=== PATIENT | male | born 1960 | race Caucasian/White ===

== ENCOUNTER 2016-07-23 13:00 | Inpatient (IN) | payer MEDICARE ==
[~2016-07-23] VITALS: Ht 182.9 cm; Wt 102.1 kg
[2016-07-23 13:00] VITALS: BP 143/79
[~2016-07-23 13:00] MED LIST: /AMLO25TA; /CIPR75TA OR; /LINE60TA OR; /PANT40TA; /PANT40TA OR; /SUCR1TA; ACET65TA OR; ALTA10CA; AMLO5TAB2 PO; APRESOLINE PO; ASPI81TA45 OR; AUG875 PO; AUGM875T27 PO; BABY81CH; BACITAB PO; BISA10SU2 RE; BISA10SU30 PR; BISA5TA OR; CALCCHW12; CARAFATE1 PO; CIPR250T2 PO; CIPR500T4 OR; CIPRO PO; CLEO300C OR; COLA100C2 OR; COZA50TA18 OR; DOCU10ELUD PO; DRISDOL50 PO; FURO20TA2 OR; FURO40TA2 OR; GLUCOSACCS; HUMALIN R; HUMULINN SC; HYDR25TA7 OR; HYDR50TA7 OR; IBUPPOW25 PO; INSULIN; INSULIN NPH; INSULIN NPH SC; LANCETDEV -; LASI40TA OR; LOPR50TA; LOPR50TA OR; LOPRESSO25 PO; LOSA50TA20 PO; METO10TA2; MILKSUS OR; MIRALAX; MIRALAX PO; MIRALEX PO; MULTTAB23 PO; OMEP20TA7 OR; OSCAL600 PO; PLAVIX75 PO; PRAV80TA OR; PRIL40CA OR; PROTONIX40 PO; SIMV20TA2; SIMV40TA2 OR; VICO5TAB OR; VITAMIN D50000 UNT; VITAMIN D50000 UNT OR; ZOCO40TA OR; ZOCOR40 PO; [UNRECOGNIZED DRUG - CODE]; [UNRECOGNIZED DRUG - CODE]; [UNRECOGNIZED DRUG - OTHER]; drisdol
[2016-07-23] MEDS ORDERED: GLUCAGON FOR INJ 1 MG VIAL (J1610) SC PRN (13:45)
[2016-07-23] MEDS ORDERED: GLUCOSE 4 GM CHEW TABLET PO PRN (13:45)
[2016-07-23] MEDS ORDERED: MIRALAX *UNIT DOSE* 17GM PACKET PO PRN (13:45)
[2016-07-23] MEDS ORDERED: DEXTROSE 50% 50 ML SYRINGE IV PRN (13:45)
[2016-07-23] MEDS ORDERED: MOM 30ML SUSPENSION UDC PO PRN (13:45)
[2016-07-23] MEDS ORDERED: SILV1CRE19 TOP (13:53)
[2016-07-23] MEDS ORDERED: ASCO500T PO (13:53)
[2016-07-23] MEDS ORDERED: WARF-60 PO (13:53)
[2016-07-23] MEDS ORDERED: INSUHUMDS SC (13:53)
[2016-07-23] MEDS ORDERED: POTA10TA2 PO (13:53)
[2016-07-23] MEDS ORDERED: [UNRECOGNIZED DRUG - CODE] PO (13:53)
[2016-07-23] MEDS ORDERED: HYDR25TA PO (13:53)
[2016-07-23] MEDS ORDERED: FOLI1TAB2 PO (13:53)
[2016-07-23] MEDS ORDERED: ACET-654 PO (13:53)
[2016-07-23] MEDS ORDERED: METO-346 PO (13:53)
[2016-07-23] MEDS ORDERED: BISA10SU4 PR (13:53)
[2016-07-23] MEDS ORDERED: AMIO20TA PO (13:53)
[2016-07-23] MEDS ORDERED: LANTINJ4 SC (13:53)
[2016-07-23] MEDS ORDERED: ASPI325T PO (13:53)
[2016-07-23] MEDS ORDERED: FERR325T16 PO (13:53)
[2016-07-23] MEDS ORDERED: FURO20TA2 PO (13:53)
[2016-07-23] MEDS ORDERED: DOCU100C PO (13:53)
[2016-07-23] MEDS ORDERED: ROCA0.25 PO (13:54)
[2016-07-23] MEDS ORDERED: OMEP40CA2 PO (13:54)
[2016-07-23] MEDS ORDERED: PRAV80TA2 PO (13:54)
--- NOTE | 2016-07-23 14:52 | HPEPDOC ---
Advertising Display Rotator Note ADMISSION H&P + JOSE DATE OF ADMISSION: 07/23/16 DATE OF SERVICE: 07/23/16 IDENTIFICATION STATEMENT: 55-year-old gentleman status post acute IL followed by three-vessel CABG admitted for comprehensive integrated inpatient rehabilitation. There have been no significant changes in the patients condition since the preadmission screening. HISTORY OF PRESENT ILLNESS: Patient is a 55-year-old gentleman with multiple medical comorbidities including diabetes mellitus type 2 (poorly controlled), chronic kidney disease, stage IV and prior myocardial infarction who presented to [facility] on with chest pain. Troponin was 12.3. Patient also had ST elevations in the inferior leads and ST depressions in the lateral leads. Patient was transferred to [facility] for higher level of care. He underwent cardiac catheterization on 07/06/2016 which showed 3 vessel disease. He was placed on a heparin drip and beta blockers. He underwent a three-vessel CABG (CHANEY to LAD, SDH to OM 2, OM 3) on 07/09/2016. On postop day 2, the patient developed atrial fibrillation with rapid ventricular response, unresponsive and pulseless requiring CPR. He was recently intubated and placed on Levophed & primacor drips and IV amiodarone. He remained on an insulin drip. On postop day 4 he again had episode of rapid atrial fibrillation which she was bolused with IV amiodarone. He was also transfused one unit of packed red blood cells for hematocrit of 21. He was transitioned to oral amiodarone on 07/11/2016. He was given 1 dose of IV Lasix 20 mg. His insulin drip was eventually discontinued as well. On postop day 5, the patient was transferred to regular medical floor. On that all medical floor he was noted to have intermittent episodes of orthostatic hypertension. JENNY showed ejection fraction of 35-40%, loculated pericardial effusion posteriorly without compression. Oncology was consult for thrombocytosis and deemed secondary to nutritional versus reactive. All he was also noted to have intermittent episodes of hypoglycemia for which she underwent diabetic education. On 07/23/2016 the patient was deemed stable for discharge to [facility] inpatient rehabilitation unit. 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 milligrams daily Aspirin 325 mg daily Lasix 60 mg twice a day Hydralazine 25 mg twice a day Humalog before meals and at bedtime Metoprolol (Lopressor) 12.5 mg twice a day Calcitrol 0.25 mcg twice a day Omeprazole 40 mg daily Pravastatin 80 mg at bedtime FAMILY HISTORY: Mother suffered from coronary artery disease. She from colon and cervical cancer. A nephew has valvular heart disease. SOCIAL HISTORY: Patient lives with his in a one-story home. There are no steps to manage. He has a history of smoking 1 pack a day for 30 years, quit 2 years ago. He has a history of smoking crack cocaine, quit 8 years ago. Used to smoke marijuana, quit 10 years ago. He denies use of alcohol. Denies use of other illicit drugs, past or present. Review of Systems: General: no chills, +fatigue. Eyes: no change of vision. Ears, Nose & Throat: no sore throat, decreased hearing or nasal discharge. Cardiovascular: no chest pain. +edema b/l (patient states more than his baseline), no syncopal episodes. No recent lightheadedness. Pul: no cough, SOB. GI: no abdominal pain, GERD, N/V, C/D. Genitourinary: no dysuria. Musculoskeletal: episodic right neck pain, he was told from severe arthritis. no back pain, no muscle pain. Neurological: +numbness left LL to mid duffy, intermittent numbness b/l hands. No paresthesias, no tremors, seizures, HINTON. Hematological: No bleeding disorders. Skin: +chronic left heel ulcer, left duffy sores. + rash sternum. Psychiatric: no behavioral issues. VITAL SIGNS: 143/68, 98.5F, heart rate 69, respiratory rate 18, 94% saturation on room air and, weight 111.9 kg PHYSICAL EXAMINATION: GENERAL: Well nourished, well developed, sitting up EOB, no acute distress. HEENT: Normocephalic, atraumatic. No facial droop. PERRL, EOMI CARDIOVASCULAR: S1, S2, regular rate. Sternal surgical site, clean and intact. Surrounding maculopapular below rash in the distribution of the adhesive/ Tegaderm. Caudal pacer lead sites clean. 1-2+ pitting edema left lower limb to proximal leg, edema on the right residual limb. LUNGS: Decreased breath breath sounds left long midway up, right long clear task rotation. No wheezing or rhonchi appreciated. ABDOMEN: Soft, nontender, nondistended. Positive normoactive bowel sounds throughout. MUSCULOSKELETAL: Atrophy of the intrinsic hand muscles bilaterally. Amputation of the first and second toe on the left foot, surgical site well healed. Manual muscle testin/5 left hip flexors, knee extension, and a flexion, 2/5 left dorsi flexion. 5/5 right hip flexors, knee extension and knee flexion. 5/5 strength bilateral upper limbs in all major muscle groups with the exception of intrinsic hand muscles which are 3- 4/5. Sensation: Decreased sensation to soft touch left lower limb to proximal leg, remainder of the left lower limb and right lower limb as well as bilateral upper limbs and intact sensation. Deep tendon reflexes: Unable to elicit patellar and biceps bilaterally. Special tests : Spurlings maneuver positive on the right. NEUROLOGICAL: Alert and oriented x 3. Answers all questions appropriately. Able to follow commands without difficulty. SKIN: Stage I over the sacrum between buttocks. Stage II approximately 4 cm in diameter lesion over the left calcaneus. Hyperpigmentation with small areas of healing lesions left duffy. Maculopapular rash in the distribution of the adhesive/Tegaderm surrounding surgical incision. Caudal pacer lead sites clean. Right residual limb surgical site well healed. LABORATORY DATA: 07/19/2016: Iron 38, ferritin 468, iron saturation 17, TIBC 228, IBC 190 07/23/2016: Platelets 631, hematocrit 30.3, hemoglobin 10.3. INR 07/22/2016 1.79 (Received 6 mg dose Coumadin) INR 07/23/2016 1.75 (Ordered 6 mg Coumadin). OTHER TESTS: JENNY: Ejection fraction 35-40%, loculated pericardial effusion posteriorly, about 1 cm thick without compression. SURGICAL PROCEDURES Median sternotomy, coronary grafts 3 with CHANEY takedown, endoscopic saphenous vein harvest, and JENNY FUNCTIONAL STATUS, Premorbid: Patient was modified independent for ambulation, independent to modified independent for ADLs. The patient owns a manual wheelchair, Power wheelchair, frontwheel walker, shower chair that transforms into a transfer tub bench, raised toilet seat and multiple canes. ASSESSMENT AND PLAN: 1. Acute IL, inferior wall status post three-vessel CABG post-op complicated by new onset rapid A. fib with decreased mobility and dysfunctional ADLs: Sternal precautions. Maintain cardiac meds as prescribed by [facility] ( amiodarone, Lopressor, hydralazine, Lasix, pravastatin, aspirin, and Coumadin). Medication changes per cardiology. Monitor fluid status with daily weights. As spoken with the patients jawbone puller, Dr. Lopez. Rehabilitation nursing for bladder, bowel, medication management and wound care. Patient will undergo thorough physical and occupational therapy evaluations followed by daily intensive therapy. 2. Left pleural effusion: Patients O2 sats on room air are within normal limits. Per chest x-rays from [facility] this is been stable. Repeat chest x-ray if necessary. 3. Chronic kidney disease, stage IV: Per paperwork from [facility], patient at his baseline. Will obtain a.m. labs. If needed will consult nephrology (Dr. Lopez is his usual dye worker). 4. Anemia (acute blood loss + iron deficiency + chronic kidney disease): Status post one unit of packed red blood cells at [facility]. Maintain iron supplementation. AM labs. 5. Diabetes mellitus type 2, insulin-dependent: Last hemoglobin A1c over 9. Per discharge paperwork, had intermittent episodes of hypoglycemia at [facility]. Will monitor oral intake with emphasis on adequate blood pressure control. Maintain patient on insulin sliding scale along with long-acting 16 units in the morning. Adjustments as needed. 6. Diet/nutrition: Carb consistent diet. Prealbumin with morning labs. Nutritional supplements as indicated 7. Bowel: Maintain patient on a bowel regimen to include Colace and senna scheduled along with milk of magnesia and MiraLAX on an as-needed basis. 8. Skin: Patient with stage I decubiti over the sacrum, stage II over the left calcaneus. Foam dressings over both. Heel protector over the left heel. Left AFO to be assessed by Isak Modi on Tuesday. 9. Right BKA: Patients prosthesis currently not fitting secondary to edema. As stated above, patient is on diuretic and we will be monitoring his fluid balance along with daily weights. Medication changes will be per on Dr. Lopez. Have spoken with Isak Modi and will obtain shrinks jumpers. He will assess patients prosthesis on Tuesday. POST ADMISSION PHYSICIAN EVALUATION: On evaluation of the patient today there' ve been no significant medical issues or functional changes as compared to those noted in the preadmission screening document. This patient's inpatient rehabilitation remains necessary in light of the above conditions. The patient' s medical condition requires specialized care with physicians specially trained in physical medicine rehabilitation. The patient is capable motivated to participate in a minimum of 3 hours of therapy daily, 5 days minimum per week, and requires intensive inpatient rehabilitation to improve their functional status so that they can be safely to discharge back to their home. PROGNOSIS: Fair ESTIMATED LENGTH OF STAY: 10-14 days. Vital Signs Vital Sign - Last 24 Hours 07/23/16 13:00 Temp 97.6 Pulse 69 Resp 18 B/P 143/79 Pulse Ox 98 O2 Delivery Room Air Home Medications Scheduled (Daily-Soraida) 1 Tab Tab 1 TAB PO DAILY (Reported) Amiodarone HCl (Amiodarone HCl) 200 Mg Tab 200 MG PO DAILY (Reported) Ascorbic Acid (Ascorbic Acid) 500 Mg Tab 500 MG PO DAILY (Reported) Aspirin (Aspirin) 325 Mg Tab 325 MG PO DAILY (Reported) Calcitriol (Rocaltrol) 0.25 Mcg Cap 0.25 MCG PO BID (Reported) Docusate Sodium (Docusate Sodium) 100 Mg Cap 100 MG PO BID (Reported) Ferrous Gluconate (Ferrous Gluconate) 324 Mg Tab 324 MG PO BID (Reported) Folic Acid (Folic Acid) 1 Mg Tab 1 MG PO DAILY (Reported) Furosemide (Furosemide) 20 Mg Tab 60 MG PO BID (Reported) Hydralazine HCl (Hydralazine HCl) 25 Mg Tab 25 MG PO BID (Reported) Insulin Glargine (Lantus Solostar) 100 Unit/Ml Inj 16 UNITS SC QAM (Reported) Insulin Human Lispro (Humalog) 1 Units/0.01 Ml Inj 1 DOSE SC AC (Reported) PER SLIDING SCALE Metoprolol Tartrate (Metoprolol Tartrate) 12.5 Mg Halftab 12.5 MG PO BID ( Reported) Omeprazole (Omeprazole) 40 Mg Cap 40 MG PO DAILY (Reported) Potassium Chloride (Potassium Chloride ER) 10 Meq Tab 10 MEQ PO DAILY (Reported ) Pravastatin Sodium (Pravastatin Sodium) 80 Mg Tab 80 MG PO QHS (Reported) Silver Sulfadiazine (Silvadene) 1 % Cre 1 DOSE TOP DAILY (Reported) APPLY TO WOUNDS Warfarin Sod (Warfarin Sodium) 6 Mg Tab 6 MG PO QPM (Reported) Scheduled PRN Acetaminophen (Acetaminophen) 325 Mg Tab 650 MG PO Q4H PRN PRN PAIN (Reported) Bisacodyl (Bisacodyl) 10 Mg Sup 10 MG MD DAILY PRN PRN CONSTIPATION (Reported) Allergies Coded Allergies: No Known Allergies (Verified Allergy, Unknown, 09/21/07) MAKENZIE VILA MD Jul 23, 2016 14:52
[2016-07-23] MEDS ORDERED: WARFARIN SOD 3 MG TAB PO ONE (17:00)
[2016-07-23] MEDS: FUROSEMIDE 20 MG TAB PO SCH (17:12)
[2016-07-23] MEDS: HumaLOG INSULIN (NovoLOG) PER UNIT SC SCH ×2 (17:13→21:00)
[2016-07-23 20:00] VITALS: BP 152/80
[2016-07-23] MEDS: METOPROLOL TART 12.5 MG PER 1/2 TAB PO SCH (21:47)
[2016-07-23] MEDS: DOCUSATE SODIUM 100 MG CAP PO SCH (21:48)
[2016-07-23] MEDS: PRAVASTATIN 20 MG TAB PO SCH (21:48)
[2016-07-23] MEDS: SENNA 8.6 MG TAB (SENOKOT) PO SCH (21:48)
[2016-07-23] MEDS: FERROUS GLUCONATE 324 MG TAB PO SCH (21:48)
[2016-07-23] MEDS: ASCORBIC ACID 500 MG TAB PO SCH (21:48)
[2016-07-23] MEDS: CALCITRIOL 0.25 MCG CAP (S0169) PO SCH (21:48)
[2016-07-23] MEDS: **hydrALAZINE HCL** 25 MG TAB PO SCH (21:48)
--- NOTE | 2016-07-24 00:49 | CR ---
DATE OF CONSULTATION: 07/23/2016 REFERRING PROVIDER: Dr. Laisha Zamora REASON FOR THE CONSULT: Status post acute myocardial infarction and coronary artery bypass graft (CABG), pedal edema. HISTORY OF THE PRESENT ILLNESS: A 55-year-old male, well known by the office with a history of coronary artery disease, hypertension, diabetes mellitus, chronic kidney disease, has been doing well and stable from a cardiac point of view. On the last office visit in the month of May, he was doing fine, and he denied any cardiac complaints. About 2 days prior to coming to the emergency room (ER) at [facility], on 07/08/2016, he started having chest pain associated with shortness of breath and it was related to a cold, then a pneumonia because he was getting worse. He came to the ER, and he was found to have a serum troponin up to 12, and he had EKG changes consistent with a non-ST elevation myocardial infarction with ST elevation noted in the inferior leads and . He was transferred to [facility] and had urgent cardiac catheterization that revealed a 50% stenosis in the distal left main, and 80% stenosis at the ostium of the LAD, followed by 50%, then another 75-80% stenosis in the mid portion. The circumflex had a 90% stenosis in the mid portion and at the level of the left PDA, there was an 80% stenosis. The first and the second marginal branches had an 80 and a 90% stenosis respectively. LVDP was very limited. LV angio was not done because of his underlying kidney function. He underwent urgent CABG by Dr. Ferguson. He had left internal mammary artery to the LAD and reverse SVG in sequence to the marginal branches. LVEF by echocardiogram was estimated at 35-40% with regional wall motion abnormalities, mild valvular heart disease. On the second day of the surgery, he developed atrial fibrillation with a rapid ventricular rate followed by hypotension and bradycardia, he was pulseless and he required cardiopulmonary resuscitation. He then was reintubated for better management. He continued to have episodes of paroxysmal atrial fibrillation while in the hospital, and he was managed with IV amiodarone, then discharged home on oral amiodarone. He also was seen while in the hospital by nephrology as well as hematology/oncology. He also developed a left pleural effusion that required thoracentesis and followup chest x-ray revealed stable left pleural effusion. A loculated pericardial effusion also was noted by transthoracic echocardiogram. When I saw Mr. Joyce Sanchez this evening, he was sitting up in bed in no acute distress at rest. He denies any chest pain or shortness of breath or palpitations. He has no orthopnea or paroxysmal nocturnal dyspnea (PND). He has no cough or hemoptysis. There is no report of fever or chills. There is no nausea, vomiting, diarrhea, melena or hematemesis. His major complaint is lower extremity edema, and he has a history of a right below-knee amputation (BKA) and the stump is swollen and unable to affix his boot. Otherwise he has no complaints, and he is ready for physical therapy so he can go home. PAST MEDICAL HISTORY: He has a past medical history, as mentioned above, for peripheral artery disease with a history of left femoral-popliteal artery bypass in [place] in 2009. In 2010, he had a right BKA due to osteomyelitis of the right foot secondary to peripheral artery disease. There is a remote history of non-ST elevation myocardial infarction. He also has a history of hypertension, hyperlipidemia, diabetes mellitus and its complications, stage IV chronic kidney disease and anemia, abnormal baseline EKG, and he is a former smoker. He had stopped about 2-3 years ago. There is no history of significant valvular heart disease, prior history of cerebrovascular accident. He does have a history of gastroesophageal reflux disease (GERD) and arthritis. FAMILY HISTORY: Noncontributory. PAST SURGICAL HISTORY: Positive for surgery on his back in 1995, right BKA in 2007, left big toe amputation in 2009, left eye surgery in 2010, and he had CABG on 07/09/2016. CURRENT MEDICATIONS: - amiodarone 200 mg by mouth daily - omeprazole 40 mg by mouth daily - multivitamin one tablet by mouth daily - folic acid 1 mg by mouth daily - Levemir insulin 16 units subcu daily - potassium chloride 10 mEq by mouth daily - aspirin 325 mg by mouth daily - docusate sodium 100 mg by mouth twice a day - Senokot one tablet by mouth nightly - ferrous gluconate 325 mg by mouth twice a day - vitamin C 500 mg by mouth twice a day - hydralazine 25 mg by mouth twice a day - metoprolol tartrate 12.5 mg by mouth twice a day - regular insulin coverage as directed - pravastatin 80 mg by mouth nightly - Rocaltrol 0.25 mcg by mouth twice a day - insulin Lispro as directed - Lasix 60 mg by mouth twice a day - MiraLAX one package daily as needed for constipation - Milk of Magnesia 30 mL by mouth daily as needed for constipation - Tylenol 650 mg by mouth every 4 hours as needed for mild pain or fever - glucose 16 grams by mouth as needed - Glucagon 1 mg as directed SOCIAL HISTORY: The patient lives alone, and he is a former smoker. He denies any ethyl alcohol (ETOH) abuse. ALLERGIES: He has no known drug allergies. On physical examination, the patient is alert and oriented, in no acute distress at rest and very pleasant. His last vital signs revealed a blood pressure of 138/78 with a pulse of 76, respirations 18-20 and his maximum temperature was 98.1 degrees Fahrenheit with an oxygen saturation of 95-98% on room air. Examination of the head, ears, eyes, nose and throat: Atraumatic. Fundus examination was not done. Neck is supple. No jugular venous distention or carotid bruits. The lungs revealed decreased breath sounds at the level of the left base. No wheezing or crackles. The heart examination revealed normal S1 and S2 without gallops. The point of maximum impulse (PMI) is displaced inferiorly and laterally. There is no rub. There is a systolic murmur, grade 1 to 2 over 6 at the lower left sternal border and at the apex without any significant radiation. Abdomen is soft and nontender. Extremities revealed a right BKA with pedal edema noted. There was trace to +1 pedal edema noted in the left lower extremity. Neurologic examination is negative for focal deficit. LABORATORY: Bilateral carotid Doppler done on 07/08/2016 revealed less than 50% stenosis in the internal carotid arteries. Echocardiogram done on 07/16/2016 revealed LVEF estimated at 35-40% with mild aortic stenosis, mild mitral regurgitation and mild anteroseptal hypokinesis. A loculated pericardial effusion was noted, about 1.0 cm in thickness without any compression. The IVC was moderately enlarged. IMPRESSION: 1. Coronary artery disease. Status post acute myocardial infarction on 07/08/2016, followed by coronary artery bypass graft for severe triple vessel coronary artery disease and left ventricular systolic dysfunction. The patient seems to be stable from a cardiac point of view. Hospitalization was complicated by paroxysmal atrial fibrillation and at one point, he was hypotensive and pulseless that required reintubation. He appears to be in normal sinus rhythm on physical examination. His medications were reviewed, and I will continue the same for now for his CABG, on aspirin as well as a statin/pravastatin, and a beta jose carlos/metoprolol tartrate. He is not on angiotensin-converting enzyme (EUNICE) inhibitor or angiotensin receptor jose carlos (ARB) because of his underlying chronic kidney disease. I will recommend to decrease the aspirin to 81 mg by mouth daily in view of the Coumadin. 2. Cardiomyopathy, ischemic in nature with an LVEF mildly to moderately depressed. Well compensated on current medications and I will continue the same. As mentioned above, he is not on EUNIEC inhibitor or ARB because of his underlying kidney disease. He will continue the Lopressor/beta jose carlos, and he is on hydralazine. I will add a small dose of long-acting nitrate. He will continue with the furosemide but will need to monitor closely his BUN and creatinine and serum potassium. 3. Atrial fibrillation, paroxysmal in nature. Will repeat the EKG. I will continue the Coumadin if there is no contraindications. He is on AV blocking agent with metoprolol tartrate and also on antiarrhythmic with amiodarone and I will continue the same with rhythm management. He may not need the amiodarone in the future. We should keep his INR between 2.0 to 3.0. 4. Hypertension. He will be monitored. The hydralazine can be increased if needed in order to better control his blood pressure. 5. Hyperlipidemia. On a statin. 6. Diabetes mellitus and its complications. 7. Chronic kidney disease, stage IV. 8. History of anemia. Status transfusion of packed red blood cells. 9. History of peripheral artery disease. It was a pleasure to participate in the care of . Joyce Sanchez for his underlying cardiac condition. I will continue to monitor him along with you as needed while in the hospital. Please do not hesitate to call if you have any questions.
[2016-07-24 06:00] VITALS: BP 125/66
[2016-07-24 06:50] LABS: BASO % 0.5 % (0.0-1.0); EOS # 0.2 K/mm3 (0.0-0.50); EOS % 2.6 % (0.0-3.0); LARGE UNSTAINED CELL # 0.2 K/mm3 (0.0-0.4); LARGE UNSTAINED CELL % 2.2 % (0.0-4.0); LYMPH # 1.4 K/mm3 (1.5-4.5); LYMPH % 15.7 % (24.0-44.0); MEAN CORPUSCULAR HEMOGLOBIN 29.9 pg (27.0-33.0); MEAN CORPUSCULAR HGB CONC 31.7 g/dl (32.0-36.5); MEAN CORPUSCULAR VOLUME 94.4 fl (80.0-96.0); MONO # 0.5 K/mm3 (0.0-0.8); MONO % 5.5 % (0.0-5.0); NEUTROPHILS # 6.4 K/mm3 (1.8-7.7); NEUTROPHILS % 73.5 % (36.0-66.0); PLATELET COUNT, AUTOMATED 634 k/mm3 (150-450); RED CELL DISTRIBUTION WIDTH 14.1 % (11.5-14.5); WHITE BLOOD COUNT 8.7 K/mm3 (4.0-10.0)
[2016-07-24 06:56] LABS: INR 1.93
[2016-07-24] MEDS: LEVEMIR (INSULIN DETEMIR) 1 UNITS/0.01ML SC SCH (08:29)
[2016-07-24] MEDS: HumaLOG INSULIN (NovoLOG) PER UNIT SC SCH ×4 (08:29→21:00)
[2016-07-24] MEDS: ASPIRIN 81 MG ENTERIC TAB PO SCH (08:32)
[2016-07-24] MEDS: FUROSEMIDE 20 MG TAB PO SCH ×2 (08:32→17:30)
[2016-07-24] MEDS: METOPROLOL TART 12.5 MG PER 1/2 TAB PO SCH ×2 (08:32→20:52)
[2016-07-24] MEDS: FERROUS GLUCONATE 324 MG TAB PO SCH ×2 (08:32→20:52)
[2016-07-24] MEDS: CALCITRIOL 0.25 MCG CAP (S0169) PO SCH ×2 (08:33→20:52)
[2016-07-24] MEDS: ISOSORBIDE MON. (IMDUR) 30 MG XR TAB PO SCH (08:33)
[2016-07-24] MEDS: MULTIVITAMINS/MINERALS THERAP 1 TAB PO SCH (08:33)
[2016-07-24] MEDS: AMIODARONE 200 MG TAB (PACERONE) PO SCH (08:33)
[2016-07-24] MEDS: FOLIC ACID 1 MG TAB PO SCH (08:34)
[2016-07-24] MEDS: OMEPRAZOLE 20 MG CAP PO SCH (08:34)
[2016-07-24] MEDS: DOCUSATE SODIUM 100 MG CAP PO SCH ×2 (08:34→20:52)
[2016-07-24] MEDS: ASCORBIC ACID 500 MG TAB PO SCH ×2 (08:34→20:52)
[2016-07-24] MEDS: **hydrALAZINE HCL** 25 MG TAB PO SCH ×2 (08:34→20:52)
[2016-07-24] MEDS: POTASSIUM CHLORIDE 10 MEQ SR TABLET PO SCH (08:34)
[2016-07-24] MEDS ORDERED: ASPIRIN ENTERIC 325 MG TAB PO SCH (09:00)
[2016-07-24 09:29] LABS: CALCIUM LEVEL 8.6 MG/DL (8.5-10.1); CREATININE FOR GFR 2.17 MG/DL (0.70-1.30); GLOMERULAR FILTRATION RATE 33.8 (>56); POTASSIUM SERUM 4.1 MEQ/L (3.5-5.1)
[2016-07-24] MEDS: ACETAMINOPHEN TAB 650MG DOSE (2X325MG) PO PRN ×3 (09:51→22:17)
[2016-07-24 13:35] VITALS: BP 95/60
[2016-07-24 14:15] VITALS: BP 119/68
--- NOTE | 2016-07-24 15:07 | ECGEPIP ---
Stationary ECG Study [facility] Test Date: 2016-07-24 Pat Name: ESAU ALBARADO Department: Room: [place] [address] Gender: M Head Sampler: ADRIANNA : 1960 Requested By: IRINA MAR Order Number: [id number] Reading MD: Wilton Mason Measurements Intervals Lejunior Rate: 68 P: -3 VT: 176 QRS: 9 QRSD: 90 T: 141 QT: 412 QTc: 440 Interpretive Statements SINUS RHYTHM LOW QRS VOLTAGE IN EXTREMITY LEADS POSSIBLE ANTERIOR MYOCARDIAL INFARCTION, OF INDETERMINATE AGE POSSIBLE INFERIOR MYOCARDIAL INFARCTION SINCE 07/06/16 LOW VOLTAGE AND SUSPICION FOR AWMI AND IWMI ARE NEW Electronically Signed On 07-24-2016 15:06:58 EST by Wilton Mason
[2016-07-24] MEDS ORDERED: WARFARIN SOD 3 MG TAB PO ONE (17:00)
[2016-07-24] MEDS: PRAVASTATIN 20 MG TAB PO SCH (20:52)
[2016-07-24] MEDS: SENNA 8.6 MG TAB (SENOKOT) PO SCH (20:53)
[2016-07-24 21:00] VITALS: BP 142/74
[2016-07-25 06:00] VITALS: BP 127/68
[2016-07-25 07:19] LABS: INR 1.85
[2016-07-25] MEDS: HumaLOG INSULIN (NovoLOG) PER UNIT SC SCH ×4 (07:47→20:28)
[2016-07-25] MEDS: LEVEMIR (INSULIN DETEMIR) 1 UNITS/0.01ML SC SCH (09:47)
[2016-07-25] MEDS: METOPROLOL TART 12.5 MG PER 1/2 TAB PO SCH ×2 (09:49→20:25)
[2016-07-25] MEDS: POTASSIUM CHLORIDE 10 MEQ SR TABLET PO SCH (09:49)
[2016-07-25] MEDS: FOLIC ACID 1 MG TAB PO SCH (09:50)
[2016-07-25] MEDS: OMEPRAZOLE 20 MG CAP PO SCH (09:50)
[2016-07-25] MEDS: ISOSORBIDE MON. (IMDUR) 30 MG XR TAB PO SCH (09:50)
[2016-07-25] MEDS: FERROUS GLUCONATE 324 MG TAB PO SCH ×2 (09:50→20:24)
[2016-07-25] MEDS: ASCORBIC ACID 500 MG TAB PO SCH ×2 (09:50→20:26)
[2016-07-25] MEDS: ASPIRIN 81 MG ENTERIC TAB PO SCH (09:50)
[2016-07-25] MEDS: DOCUSATE SODIUM 100 MG CAP PO SCH ×2 (09:50→20:24)
[2016-07-25] MEDS: AMIODARONE 200 MG TAB (PACERONE) PO SCH (09:51)
[2016-07-25] MEDS: **hydrALAZINE HCL** 25 MG TAB PO SCH ×2 (09:51→20:23)
[2016-07-25] MEDS: CALCITRIOL 0.25 MCG CAP (S0169) PO SCH ×2 (09:51→20:25)
[2016-07-25] MEDS: MULTIVITAMINS/MINERALS THERAP 1 TAB PO SCH (09:51)
[2016-07-25] MEDS: FUROSEMIDE 20 MG TAB PO SCH ×2 (09:52→17:23)
[2016-07-25 13:00] VITALS: BP 100/62
[2016-07-25 14:00] VITALS: BP 108/70
[2016-07-25] MEDS ORDERED: WARFARIN SOD 3 MG TAB PO ONE (17:00)
[2016-07-25 20:00] VITALS: BP 154/89
[2016-07-25] MEDS: PRAVASTATIN 20 MG TAB PO SCH (20:25)
[2016-07-25] MEDS: SENNA 8.6 MG TAB (SENOKOT) PO SCH (20:26)
[2016-07-25] MEDS: ACETAMINOPHEN TAB 650MG DOSE (2X325MG) PO PRN (23:07)
[2016-07-26 06:00] VITALS: BP 122/59
[2016-07-26 08:01] LABS: INR 1.81
[2016-07-26] MEDS: HumaLOG INSULIN (NovoLOG) PER UNIT SC SCH ×4 (08:31→20:41)
[2016-07-26] MEDS: FUROSEMIDE 20 MG TAB PO SCH ×2 (08:32→17:28)
[2016-07-26] MEDS: **hydrALAZINE HCL** 25 MG TAB PO SCH ×2 (08:32→20:39)
[2016-07-26] MEDS: LEVEMIR (INSULIN DETEMIR) 1 UNITS/0.01ML SC SCH (08:32)
[2016-07-26] MEDS: MULTIVITAMINS/MINERALS THERAP 1 TAB PO SCH (08:32)
[2016-07-26] MEDS: ASCORBIC ACID 500 MG TAB PO SCH ×2 (08:32→20:40)
[2016-07-26] MEDS: AMIODARONE 200 MG TAB (PACERONE) PO SCH (08:32)
[2016-07-26] MEDS: FERROUS GLUCONATE 324 MG TAB PO SCH ×2 (08:32→20:40)
[2016-07-26] MEDS: METOPROLOL TART 12.5 MG PER 1/2 TAB PO SCH ×2 (08:33→20:40)
[2016-07-26] MEDS: CALCITRIOL 0.25 MCG CAP (S0169) PO SCH ×2 (08:33→20:40)
[2016-07-26] MEDS: FOLIC ACID 1 MG TAB PO SCH (08:33)
[2016-07-26] MEDS: ASPIRIN 81 MG ENTERIC TAB PO SCH (08:33)
[2016-07-26] MEDS: POTASSIUM CHLORIDE 10 MEQ SR TABLET PO SCH (08:33)
[2016-07-26] MEDS: DOCUSATE SODIUM 100 MG CAP PO SCH ×2 (08:33→20:40)
[2016-07-26] MEDS: OMEPRAZOLE 20 MG CAP PO SCH (08:33)
[2016-07-26] MEDS: ISOSORBIDE MON. (IMDUR) 30 MG XR TAB PO SCH (08:33)
--- NOTE | 2016-07-26 13:24 | IPNPDOC ---
Parts Interpreter Progress Note PROGRESS NOTE DATE OF ADMISSION: 07/23/16 DATE OF SERVICE: 07/26/16 IDENTIFICATION STATEMENT: 55-year-old gentleman h/o right BKA status post acute IN followed by three-vessel CABG admitted for comprehensive integrated inpatient rehabilitation. 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 Back surgery Bilateral cataracts Surgery for retinopathy Left lower extremity bypass ALLERGIES: No known drug allergies MEDICATIONS: Amiodarone 200 mg daily Ascorbic acid 500 mg daily Multivitamin 1 tab daily Colace 100 mg twice a day Ferrous gluconate 324 mg twice a day Folic acid 1 mg daily Insulin detrimir 16 units every morning MiraLAX 1 packet daily Coumadin daily Aspirin 81 mg daily Lasix 60 mg twice a day Hydralazine 25 mg twice a day Humalog before meals and at bedtime Metoprolol (Lopressor) 12.5 mg twice a day Calcitrol 0.25 mcg twice a day Omeprazole 40 mg daily Pravastatin 80 mg at bedtime Acetaminophen 325 mg every 4 hours as needed SUBJECTIVE: Patient without complaints. Slept well. No significant pain. Moved his bowels. Urinating well. Denies any chest pain, shortness of breath, nausea / vomiting, lightheadedness. VITAL SIGNS: 122/59, 97.9F, heart rate 73, respiratory rate 18, 97% saturation on room air and, weight 100.6 kg PHYSICAL EXAMINATION: GENERAL: Well nourished, well developed, sitting up chair, no acute distress. HEENT: Normocephalic, atraumatic.. PERRL, EOMI CARDIOVASCULAR: S1, S2, regular rate. Sternal surgical site, clean and intact. Surrounding maculopapular decreased. Caudal pacer lead sites clean. 1+ pitting edema left lower limb, edema on the right residual limb. LUNGS: Decreased breath sounds left lung midway up (~stable), right lung CTA. No wheezing or rhonchi appreciated. ABDOMEN: Soft, nontender, nondistended. Positive normoactive bowel sounds throughout. MUSCULOSKELETAL: Atrophy of the intrinsic hand muscles bilaterally. Amputation of the first and second toe on the left foot, surgical site well healed. MMT: 5/ 5 left hip flexors, knee extension, and a flexion, 2/5 left dorsi flexion. 5/5 right hip flexors, knee extension and knee flexion. 5/5 strength bilateral upper limbs in all major muscle groups with the exception of intrinsic hand muscles which are 3- 4/5. NEUROLOGICAL: Alert and oriented x 3. Answers all questions appropriately. Able to follow commands without difficulty. SKIN: Stage I over the sacrum between buttocks. Stage II approximately 4 cm in diameter lesion over the left calcaneus. Hyperpigmentation with small areas of healing lesions left duffy. Maculopapular rash in the distribution of the adhesive/Tegaderm surrounding surgical incision-decreased. Caudal pacer lead sites clean. Right residual limb surgical site well healed. LABORATORY DATA: 07/24/16: reviewed, GFR 33.8, Hgb 10.6 07/19/2016: Iron 38, ferritin 468, iron saturation 17, TIBC 228, IBC 190 07/23/2016: Platelets 631, hematocrit 30.3, hemoglobin 10.3. FUNCTIONAL STATUS, Premorbid: Patient was modified independent for ambulation, independent to modified independent for ADLs. The patient owns a manual wheelchair, Power wheelchair, frontwheel walker, shower chair that transforms into a transfer tub bench, raised toilet seat and multiple canes. ASSESSMENT AND PLAN: 1. Acute IN, inferior wall status post three-vessel CABG post-op complicated by new onset rapid A. fib with decreased mobility and dysfunctional ADLs: Sternal precautions. Dr. Fowler consultation greatly appreciated. Maintain current cardiac meds (amiodarone, Lopressor, hydralazine, imdur, Lasix, pravastatin, aspirin, and Coumadin). Medication changes will be per cardiology. Monitor fluid status with daily weights patient down 4 kg since admission. Rehabilitation nursing for bladder, bowel, medication management and wound care. Continue daily physical and occupational therapy. 2. Left pleural effusion: Patients O2 sats on room air remain within normal limits. Repeat CXR if needed. 3. Chronic kidney disease, stage IV: ~ stable. If needed will consult nephrology (Dr. Lopez is his usual broker in charge). 4. Anemia (acute blood loss + iron deficiency + chronic kidney disease): S/p 1 unit of packed red blood cells at [facility]. Maintain iron supplementation. AM labs 5. Diabetes mellitus type 2, insulin-dependent: Detemir with SSI [Hx: Last hemoglobin A1c over 9. Per discharge paperwork, had intermittent episodes of hypoglycemia at [facility]]. Adjustments as needed. 6. Diet/nutrition: Carb consistent diet. Prealbumin wnl. 7. Bowel: Bowel regimen to include Colace and senna scheduled along with milk of magnesia and MiraLAX on an as-needed basis. 8. Skin: Patient with stage I decubiti over the sacrum, stage II over the left calcaneus. Foam dressings over both. Heel protector over the left heel. Patient seen by Isak Modi CPO today his assistance very much appreciated. 9. 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 Isak Modi to reassess prosthesis on Tue. / Vital Signs Vital Sign - Last 24 Hours 07/25/16 07/25/16 07/25/16 07/25/16 14:00 20:00 20:00 20:23 Temp 96.8 97.5 97.5 Pulse 80 79 79 Resp 18 18 18 B/P 108/70 154/89 154/89 154/89 Pulse Ox 97 97 97 O2 Delivery Room Air Room Air Room Air 07/25/16 07/25/16 07/26/16 07/26/16 20:25 21:00 06:00 06:00 Temp 97.9 97.9 Pulse 80 73 73 Resp 18 18 B/P 122/59 122/59 Pulse Ox 97 97 O2 Delivery Room Air Room Air Room Air 07/26/16 07/26/16 07/26/16 07/26/16 08:00 08:32 08:33 08:33 Pulse 73 B/P 122/59 122/59 122/59 O2 Delivery Room Air Laboratory Data Labs 24H Laboratory Tests 2 07/25/16 17:00: Bedside Glucose (Misc Panel) 164H 07/25/16 20:27: Bedside Glucose (Misc Panel) 163H 07/26/16 06:02: Bedside Glucose (Misc Panel) 101 07/26/16 07:27: Prothromb Time International Ratio 1.81, Prothrombin Time 21.1H 07/26/16 11:04: Bedside Glucose (Misc Panel) 141H FSBS Laboratory Tests Test 07/25/16 17:00 07/25/16 20:27 07/26/16 06:02 07/26/16 11:04 Range/Units Bedside Glucose (Misc Panel) 164 163 101 141 70-105 MG/DL Allergies Allergies: Coded Allergies: No Known Allergies (Verified Allergy, Unknown, 09/21/07) Current Medications Current Medications Current Medications Acetaminophen (Tylenol) 650 mg Q4HP PRN PO MILD PAIN (PS 1-4) Last administered on 07/25/16 23:07; Start 07/23/16 at 13:45; Stop 08/22/16 at 13:44 Amiodarone HCl (Pacerone, Cordarone) 200 mg DAILY PO Last administered on 08:32; Start 07/24/16 at 09:00; Stop 08/23/16 at 08:59 Ascorbic Acid (Vitamin C) 500 mg BID PO Last administered on 07/26/16 08:32; Start 07/23/16 at 21:00; Stop 08/22/16 at 20:59 Aspirin (Ecotrin) 81 mg DAILY PO Last administered on 07/26/16 08:33; Start 07/24/16 at 09:00; Stop 08/23/16 at 08:59 Aspirin (Ecotrin) 325 mg DAILY PO ; Start 07/24/16 at 09:00; Stop 07/24/16 at 09: 00; Status DC Calcitriol (Rocaltrol) 0.25 mcg BID PO Last administered on 07/26/16 08:33; Start 07/23/16 at 21:00; Stop 08/22/16 at 20:59 Dextrose (Dextrose 50%) 25 ml ASDIRECTED PRN IV SEE LABEL COMMENTS; Start at 13:45; Stop 08/22/16 at 13:44 Docusate Sodium (Colace) 100 mg BID PO Last administered on 07/26/16 08:33; Start 07/23/16 at 21:00; Stop 08/22/16 at 20:59 Ferrous Gluconate (Fergon) 324 mg BID PO Last administered on 07/26/16 08:32; Start 07/23/16 at 21:00; Stop 08/22/16 at 20:59 Folic Acid (Folic Acid) 1 mg DAILY PO Last administered on 07/26/16 08:33; Start 07/24/16 at 09:00; Stop 08/23/16 at 08:59 Furosemide (Lasix) 60 mg BID@ PO Last administered on 07/26/16 08:32; Start 07/23/16 at 17:00; Stop 08/22/16 at 16:59 Glucagon (Glucagon) 1 mg ASDIRECTED PRN SC SEE LABEL COMMENTS; Start 07/23/16 at 13:45; Stop 08/22/16 at 13:44 Glucose (Glucose) 16 GM ASDIRECTED PRN PO SEE LABEL COMMENTS; Start 07/23/16 at 13:45; Stop 08/22/16 at 13:44 Home Med (Med Rec Complete!) ASDIRECTED XX ; Start 07/23/16 at 14:00; Stop at 14:01; Status DC Hydralazine HCl (Apresoline) 25 mg BID PO Last administered on 07/26/16 08:32; Start 07/23/16 at 21:00; Stop 08/22/16 at 20:59 Insulin Detemir (Levemir Insulin) 16 units DAILY SC Last administered on 08:32; Start 07/24/16 at 09:00; Stop 08/23/16 at 08:59 Insulin Human Lispro (HumaLOG INSULIN) See Protocol Table AC SC Last administered on 07/26/16 12:06; Start 07/23/16 at 17:30; Stop 08/22/16 at 17:29 Insulin Human Lispro (HumaLOG INSULIN) See Protocol Table QHS SC ; Start at 21:00; Stop 08/22/16 at 20:59 Isosorbide Mononitrate (Imdur) 30 mg DAILY PO Last administered on 07/26/16 08: 33; Start 07/24/16 at 09:00; Stop 08/23/16 at 08:59 Magnesium Hydroxide (Milk Of Magnesia) 30 ml DAILYPRN PRN PO CONSTIPATION; Start 07/23/16 at 13:45; Stop 08/22/16 at 13:44 Metoprolol Tartrate (Lopressor) 12.5 mg BID PO Last administered on 07/26/16 08 :33; Start 07/23/16 at 21:00; Stop 08/22/16 at 20:59 Multivitamins (Theragram-M) 1 tab DAILY PO Last administered on 07/26/16 08:32 ; Start 07/24/16 at 09:00; Stop 08/23/16 at 08:59 Omeprazole (PriLOSEC) 40 mg DAILY PO Last administered on 07/26/16 08:33; Start 07/24/16 at 09:00; Stop 08/23/16 at 08:59 Polyethylene Glycol (Miralax) 1 pkt DAILYPRN PRN PO CONSTIPATION; Start at 13:45; Stop 08/22/16 at 13:44 Potassium Chloride (Micro-K Extencaps) 10 meq DAILY PO Last administered on 07/26 08:33; Start 07/24/16 at 09:00; Stop 08/23/16 at 08:59 Pravastatin Sodium (Pravachol) 80 mg QHS PO Last administered on 07/25/16 20:25 ; Start 07/23/16 at 21:00; Stop 08/22/16 at 20:59 Senna (Senokot) 1 tab QHS PO Last administered on 07/24/16 20:53; Start at 21:00; Stop 08/22/16 at 20:59 Warfarin Sodium (Coumadin) 6 mg 1T@17 ONCE PO Last administered on 07/23/16 17 :12; Start 07/23/16 at 17:00; Stop 07/23/16 at 17:01; Status DC Warfarin Sodium (Coumadin) 6 mg 1T@17 ONCE PO Last administered on 07/24/16 17 :29; Start 07/24/16 at 17:00; Stop 07/24/16 at 17:01; Status DC Warfarin Sodium (Coumadin) 6 mg 1T@17 ONCE PO Last administered on 07/25/16 17 :23; Start 07/25/16 at 17:00; Stop 07/25/16 at 17:01; Status DC Warfarin Sodium (Coumadin) 7.5 mg 1T@17 ONCE PO ; Start 07/26/16 at 17:00; Stop 07/26/16 at 17:01 MAKENZIE VILA MD Jul 26, 2016 13:24
[2016-07-26 14:00] VITALS: BP 115/66
[2016-07-26] MEDS ORDERED: WARFARIN SOD 7.5 MG TAB PO ONE (17:00)
[2016-07-26 20:00] VITALS: BP 131/67
[2016-07-26] MEDS: PRAVASTATIN 20 MG TAB PO SCH (20:40)
[2016-07-26] MEDS: SENNA 8.6 MG TAB (SENOKOT) PO SCH (20:40)
[2016-07-27 05:12] VITALS: BP 134/67
[2016-07-27 07:52] LABS: MEAN CORPUSCULAR HEMOGLOBIN 30.8 pg (27.0-33.0); MEAN CORPUSCULAR HGB CONC 32.5 g/dl (32.0-36.5); MEAN CORPUSCULAR VOLUME 94.8 fl (80.0-96.0); RED CELL DISTRIBUTION WIDTH 13.9 % (11.5-14.5); WHITE BLOOD COUNT 7.1 K/mm3 (4.0-10.0)
[2016-07-27 07:56] LABS: INR 2.07
[2016-07-27 08:10] LABS: CREATININE FOR GFR 2.35 MG/DL (0.70-1.30); GLOMERULAR FILTRATION RATE 30.8 (>56)
[2016-07-27] MEDS: LEVEMIR (INSULIN DETEMIR) 1 UNITS/0.01ML SC SCH (08:32)
[2016-07-27] MEDS: ASCORBIC ACID 500 MG TAB PO SCH ×2 (08:32→20:59)
[2016-07-27] MEDS: ACETAMINOPHEN TAB 650MG DOSE (2X325MG) PO PRN (08:32)
[2016-07-27] MEDS: OMEPRAZOLE 20 MG CAP PO SCH (08:32)
[2016-07-27] MEDS: HumaLOG INSULIN (NovoLOG) PER UNIT SC SCH ×4 (08:32→20:17)
[2016-07-27] MEDS: **hydrALAZINE HCL** 25 MG TAB PO SCH ×2 (08:33→20:59)
[2016-07-27] MEDS: FERROUS GLUCONATE 324 MG TAB PO SCH ×2 (08:33→21:00)
[2016-07-27] MEDS: MULTIVITAMINS/MINERALS THERAP 1 TAB PO SCH (08:33)
[2016-07-27] MEDS: ISOSORBIDE MON. (IMDUR) 30 MG XR TAB PO SCH (08:33)
[2016-07-27] MEDS: AMIODARONE 200 MG TAB (PACERONE) PO SCH (08:33)
[2016-07-27] MEDS: DOCUSATE SODIUM 100 MG CAP PO SCH ×2 (08:33→20:59)
[2016-07-27] MEDS: CALCITRIOL 0.25 MCG CAP (S0169) PO SCH ×2 (08:33→21:00)
[2016-07-27] MEDS: FUROSEMIDE 20 MG TAB PO SCH ×2 (08:33→16:56)
[2016-07-27] MEDS: FOLIC ACID 1 MG TAB PO SCH (08:34)
[2016-07-27] MEDS: ASPIRIN 81 MG ENTERIC TAB PO SCH (08:34)
[2016-07-27] MEDS: METOPROLOL TART 12.5 MG PER 1/2 TAB PO SCH ×2 (08:34→21:00)
[2016-07-27] MEDS: POTASSIUM CHLORIDE 10 MEQ SR TABLET PO SCH (08:34)
--- NOTE | 2016-07-27 12:56 | IPNPDOC ---
Chrome Polisher Progress Note PROGRESS NOTE DATE OF ADMISSION: 07/23/16 DATE OF SERVICE: 07/27/16 IDENTIFICATION STATEMENT: 55-year-old gentleman h/o right BKA status post acute PR followed by three-vessel CABG admitted for comprehensive integrated inpatient rehabilitation. PAST MEDICAL HISTORY: Hypertension Hyperlipidemia Diabetes mellitus type 2 (hemoglobin A1c upon admission 9.8) Diabetic retinopathy, nephropathy and neuropathy Silent PR, remote Chronic kidney disease, stage IV Peripheral vascular disease Gastroesophageal reflux disease Cervical spondylosis Left leg cellulitis PAST SURGICAL HISTORY: Partial right foot amputation followed by right BKA Back surgery Bilateral cataracts Surgery for retinopathy Left lower extremity bypass ALLERGIES: No known drug allergies MEDICATIONS: Amiodarone 200 mg daily Ascorbic acid 500 mg daily Multivitamin 1 tab daily Colace 100 mg twice a day Ferrous gluconate 324 mg twice a day Folic acid 1 mg daily Insulin detrimir 16 units every morning MiraLAX 1 packet daily Coumadin daily Aspirin 81 mg daily Lasix 60 mg twice a day Hydralazine 25 mg twice a day Humalog before meals and at bedtime Metoprolol (Lopressor) 12.5 mg twice a day Calcitrol 0.25 mcg twice a day Omeprazole 40 mg daily Pravastatin 80 mg at bedtime Acetaminophen 325 mg every 4 hours as needed SUBJECTIVE: No complaints. Feels well. No pain. LL swelling less. Denies any chest pain, shortness of breath, nausea / vomiting, lightheadedness, C/D, dysuria. VITAL SIGNS: 134/67, 97.4F, heart rate 83, respiratory rate 18, 97% saturation on room air and, weight 102.1 kg PHYSICAL EXAMINATION: GENERAL: Well nourished, well developed, sitting up chair, no acute distress. HEENT: Normocephalic, atraumatic.. PERRL, EOMI CARDIOVASCULAR: S1, S2, regular rate. Sternal surgical site, clean and intact. Surrounding maculopapular resolving. Caudal pacer lead sites clean. 1+ pitting edema left lower limb, edema on the right residual limb (~stable since yesterday ). LUNGS: Decreased breath sounds left lung midway up (~stable), right lung CTA. No wheezing or rhonchi appreciated. ABDOMEN: Soft, nontender, nondistended. Positive normoactive bowel sounds throughout. MUSCULOSKELETAL: Atrophy of the intrinsic hand muscles bilaterally. Amputation of the first and second toe on the left foot, surgical site well healed. MMT: 5/ 5 left hip flexors, knee extension, and a flexion, 2/5 left dorsi flexion. 5/5 right hip flexors, knee extension and knee flexion. 5/5 strength bilateral upper limbs in all major muscle groups with the exception of intrinsic hand muscles which are 3- 4/5. NEUROLOGICAL: Alert and oriented x 3. Answers all questions appropriately. Able to follow commands without difficulty. SKIN: Stage I over the sacrum between buttocks. Stage II approximately 4 cm in diameter lesion over the left calcaneus. Hyperpigmentation with small areas of healing lesions left duffy. Maculopapular rash in the distribution of the adhesive/Tegaderm surrounding surgical incision-decreased. Caudal pacer lead sites clean-healing. LABORATORY DATA: 07/27/16: reviewed, see below 07/19/2016: Iron 38, ferritin 468, iron saturation 17, TIBC 228, IBC 190 07/23/2016: Platelets 631, hematocrit 30.3, hemoglobin 10.3. FUNCTIONAL STATUS, Premorbid: Patient was modified independent for ambulation, independent to modified independent for ADLs. The patient owns a manual wheelchair, Power wheelchair, frontwheel walker, shower chair that transforms into a transfer tub bench, raised toilet seat and multiple canes. ASSESSMENT AND PLAN: 1. Acute PR, inferior wall status post three-vessel CABG post-op complicated by new onset rapid A. fib with decreased mobility and dysfunctional ADLs: Sternal precautions. Maintain current cardiac meds (amiodarone, Lopressor, hydralazine, imdur, Lasix, pravastatin, aspirin, and Coumadin). Any medication changes will be per cardiology. Monitor fluid status with daily weights. Rehabilitation nursing for bladder, bowel, medication management and wound care. Continue daily physical and occupational therapy. 2. Left pleural effusion: Patients O2 sats on room air remain within normal limits. Repeat CXR if needed. 3. Chronic kidney disease, stage IV: ~ stable. If needed will consult nephrology (Dr. Lopez is his usual chief business development officer). 4. Anemia (acute blood loss + iron deficiency + chronic kidney disease): S/p 1 unit of packed red blood cells at [facility]. Maintain iron supplementation. 5. Diabetes mellitus type 2, insulin-dependent: Detemir with SSI [Hx: Last hemoglobin A1c over 9. Per discharge paperwork, had intermittent episodes of hypoglycemia at [facility]]. Adjustments as needed. 6. Diet/nutrition: Carb consistent diet. Prealbumin wnl. 7. Bowel: Colace and senna scheduled along with milk of magnesia and MiraLAX on an as-needed basis. 8. Skin: Patient with stage I decubiti over the sacrum, stage II over the left calcaneus. Foam dressings over both. Heel protector over the left heel. Patient seen by Isak Modi CPO 07/26/16 left prosthesis per his recommendations. 9. Right BKA: Voip Technician to residual limb. Isak Modi to reassess. / Vital Signs Vital Sign - Last 24 Hours 07/26/16 07/26/16 07/26/16 07/26/16 14:00 20:00 20:39 20:40 Temp 97.0 97.6 Pulse 75 80 80 Resp 18 18 B/P 115/66 131/67 131/67 131/67 Pulse Ox 99 99 O2 Delivery Room Air Room Air 07/26/16 07/27/16 07/27/16 07/27/16 21:00 05:12 08:00 08:33 Temp 97.4 Pulse 83 Resp 18 B/P 134/67 134/67 Pulse Ox 97 O2 Delivery Room Air Room Air Room Air 07/27/16 07/27/16 08:33 08:34 Pulse 83 B/P 134/67 134/67 Laboratory Data CBC/BMP Laboratory Tests 07/27/16 07:26 Calcium Level 9.0, Red Blood Count 3.53 L, Mean Corpuscular Volume 94.8, Mean Corpuscular Hemoglobin 30.8, Mean Corpuscular Hemoglobin Concent 32.5, Red Cell Distribution Width 13.9 Labs 24H Laboratory Tests 2 07/26/16 16:32: Bedside Glucose (Misc Panel) 186H 07/26/16 20:11: Bedside Glucose (Misc Panel) 174H 07/27/16 07:26: Anion Gap 11, Blood Urea Nitrogen 54H, Creatinine 2.35H, Sodium Level 142, Potassium Level 4.0, Chloride Level 103, Carbon Dioxide Level 28, Calcium Level 9.0, Glomerular Filtration Rate 30.8L, Prothromb Time International Ratio 2.07, Prothrombin Time 23.4H 1/10/17 11:43: Bedside Glucose (Misc Panel) 155H FSBS Laboratory Tests Test 07/26/16 16:32 07/26/16 20:11 07/27/16 11:43 Range/Units Bedside Glucose (Misc Panel) 186 174 155 70-105 MG/DL Allergies Allergies: Coded Allergies: No Known Allergies (Verified Allergy, Unknown, 09/21/07) Current Medications Current Medications Current Medications Acetaminophen (Tylenol) 650 mg Q4HP PRN PO MILD PAIN (PS 1-4) Last administered on 07/27/16 08:32; Start 07/23/16 at 13:45; Stop 08/22/16 at 13:44 Amiodarone HCl (Pacerone, Cordarone) 200 mg DAILY PO Last administered on 08:33; Start 07/24/16 at 09:00; Stop 08/23/16 at 08:59 Ascorbic Acid (Vitamin C) 500 mg BID PO Last administered on 07/27/16 08:32; Start 07/23/16 at 21:00; Stop 08/22/16 at 20:59 Aspirin (Ecotrin) 81 mg DAILY PO Last administered on 07/27/16 08:34; Start at 09:00; Stop 08/23/16 at 08:59 Aspirin (Ecotrin) 325 mg DAILY PO ; Start 07/24/16 at 09:00; Stop 07/24/16 at 09: 00; Status DC Calcitriol (Rocaltrol) 0.25 mcg BID PO Last administered on 07/27/16 08:33; Start 07/23/16 at 21:00; Stop 08/22/16 at 20:59 Dextrose (Dextrose 50%) 25 ml ASDIRECTED PRN IV SEE LABEL COMMENTS; Start at 13:45; Stop 08/22/16 at 13:44 Docusate Sodium (Colace) 100 mg BID PO Last administered on 07/27/16 08:33; Start 07/23/16 at 21:00; Stop 08/22/16 at 20:59 Ferrous Gluconate (Fergon) 324 mg BID PO Last administered on 07/27/16 08:33; Start 07/23/16 at 21:00; Stop 08/22/16 at 20:59 Folic Acid (Folic Acid) 1 mg DAILY PO Last administered on 07/27/16 08:34; Start 07/24/16 at 09:00; Stop 08/23/16 at 08:59 Furosemide (Lasix) 60 mg BID@,17 PO Last administered on 07/27/16 08:33; Start 07/23/16 at 17:00; Stop 08/22/16 at 16:59 Glucagon (Glucagon) 1 mg ASDIRECTED PRN SC SEE LABEL COMMENTS; Start 07/23/16 at 13:45; Stop 08/22/16 at 13:44 Glucose (Glucose) 16 GM ASDIRECTED PRN PO SEE LABEL COMMENTS; Start 07/23/16 at 13:45; Stop 08/22/16 at 13:44 Home Med (Med Rec Complete!) ASDIRECTED XX ; Start 07/23/16 at 14:00; Stop at 14:01; Status DC Hydralazine HCl (Apresoline) 25 mg BID PO Last administered on 07/27/16 08:33 ; Start 07/23/16 at 21:00; Stop 08/22/16 at 20:59 Insulin Detemir (Levemir Insulin) 16 units DAILY SC Last administered on 08:32; Start 07/24/16 at 09:00; Stop 08/23/16 at 08:59 Insulin Human Lispro (HumaLOG INSULIN) See Protocol Table AC SC Last administered on 07/27/16 12:17; Start 07/23/16 at 17:30; Stop 08/22/16 at 17:29 Insulin Human Lispro (HumaLOG INSULIN) See Protocol Table QHS SC ; Start at 21:00; Stop 08/22/16 at 20:59 Isosorbide Mononitrate (Imdur) 30 mg DAILY PO Last administered on 07/27/16 08 :33; Start 07/24/16 at 09:00; Stop 08/23/16 at 08:59 Magnesium Hydroxide (Milk Of Magnesia) 30 ml DAILYPRN PRN PO CONSTIPATION; Start 07/23/16 at 13:45; Stop 08/22/16 at 13:44 Metoprolol Tartrate (Lopressor) 12.5 mg BID PO Last administered on 07/27/16 08:34; Start 07/23/16 at 21:00; Stop 08/22/16 at 20:59 Multivitamins (Theragram-M) 1 tab DAILY PO Last administered on 07/27/16 08:33 ; Start 07/24/16 at 09:00; Stop 08/23/16 at 08:59 Omeprazole (PriLOSEC) 40 mg DAILY PO Last administered on 07/27/16 08:32; Start 07/24/16 at 09:00; Stop 08/23/16 at 08:59 Polyethylene Glycol (Miralax) 1 pkt DAILYPRN PRN PO CONSTIPATION; Start at 13:45; Stop 08/22/16 at 13:44 Potassium Chloride (Micro-K Extencaps) 10 meq DAILY PO Last administered on 08:34; Start 07/24/16 at 09:00; Stop 08/23/16 at 08:59 Pravastatin Sodium (Pravachol) 80 mg QHS PO Last administered on 07/26/16 20:40 ; Start 07/23/16 at 21:00; Stop 08/22/16 at 20:59 Senna (Senokot) 1 tab QHS PO Last administered on 07/26/16 20:40; Start at 21:00; Stop 08/22/16 at 20:59 Warfarin Sodium (Coumadin) 6 mg 1T@17 ONCE PO Last administered on 07/23/16 17 :12; Start 07/23/16 at 17:00; Stop 07/23/16 at 17:01; Status DC Warfarin Sodium (Coumadin) 6 mg 1T@17 ONCE PO Last administered on 07/24/16 17 :29; Start 07/24/16 at 17:00; Stop 07/24/16 at 17:01; Status DC Warfarin Sodium (Coumadin) 6 mg 1T@17 ONCE PO Last administered on 07/25/16 17 :23; Start 07/25/16 at 17:00; Stop 07/25/16 at 17:01; Status DC Warfarin Sodium (Coumadin) 7.5 mg 1T@17 ONCE PO ; Start 07/27/16 at 17:00; Stop 07/27/16 at 17:01 Warfarin Sodium (Coumadin) 7.5 mg 1T@17 ONCE PO Last administered on 07/26/16t 17:28; Start 07/26/16 at 17:00; Stop 07/26/16 at 17:01; Status DC MAKENZIE VILA MD Jul 27, 2016 12:56
[2016-07-27 14:00] VITALS: BP 127/64
[2016-07-27] MEDS ORDERED: WARFARIN SOD 7.5 MG TAB PO ONE (17:00)
[2016-07-27 20:00] VITALS: BP 127/63
[2016-07-27] MEDS: PRAVASTATIN 20 MG TAB PO SCH (21:00)
[2016-07-27] MEDS: SENNA 8.6 MG TAB (SENOKOT) PO SCH (21:00)
[2016-07-28 06:00] VITALS: BP 126/60
[2016-07-28 07:31] LABS: INR 2.15
[2016-07-28] MEDS: HumaLOG INSULIN (NovoLOG) PER UNIT SC SCH ×4 (08:17→21:00)
[2016-07-28] MEDS: LEVEMIR (INSULIN DETEMIR) 1 UNITS/0.01ML SC SCH (08:18)
[2016-07-28] MEDS: ISOSORBIDE MON. (IMDUR) 30 MG XR TAB PO SCH (08:18)
[2016-07-28] MEDS: **hydrALAZINE HCL** 25 MG TAB PO SCH ×2 (08:18→20:41)
[2016-07-28] MEDS: CALCITRIOL 0.25 MCG CAP (S0169) PO SCH ×2 (08:18→20:40)
[2016-07-28] MEDS: OMEPRAZOLE 20 MG CAP PO SCH (08:18)
[2016-07-28] MEDS: FERROUS GLUCONATE 324 MG TAB PO SCH ×2 (08:19→20:40)
[2016-07-28] MEDS: MULTIVITAMINS/MINERALS THERAP 1 TAB PO SCH (08:19)
[2016-07-28] MEDS: ASCORBIC ACID 500 MG TAB PO SCH ×2 (08:19→20:40)
[2016-07-28] MEDS: ASPIRIN 81 MG ENTERIC TAB PO SCH (08:19)
[2016-07-28] MEDS: FUROSEMIDE 20 MG TAB PO SCH ×2 (08:19→18:03)
[2016-07-28] MEDS: AMIODARONE 200 MG TAB (PACERONE) PO SCH (08:19)
[2016-07-28] MEDS: FOLIC ACID 1 MG TAB PO SCH (08:19)
[2016-07-28] MEDS: METOPROLOL TART 12.5 MG PER 1/2 TAB PO SCH ×2 (08:19→20:40)
[2016-07-28] MEDS: POTASSIUM CHLORIDE 10 MEQ SR TABLET PO SCH (08:19)
[2016-07-28] MEDS: DOCUSATE SODIUM 100 MG CAP PO SCH ×2 (08:20→20:41)
--- NOTE | 2016-07-28 13:59 | IPNPDOC ---
Safety Leader Progress Note PROGRESS NOTE DATE OF ADMISSION: 07/23/16 DATE OF SERVICE: 07/28/16 IDENTIFICATION STATEMENT: 55-year-old gentleman h/o right BKA status post acute VA followed by three-vessel CABG admitted for comprehensive integrated inpatient rehabilitation. PAST MEDICAL HISTORY: Hypertension Hyperlipidemia Diabetes mellitus type 2 (hemoglobin A1c upon admission 9.8) Diabetic retinopathy, nephropathy and neuropathy Silent VA, remote Chronic kidney disease, stage IV Peripheral vascular disease Gastroesophageal reflux disease Cervical spondylosis Left leg cellulitis PAST SURGICAL HISTORY: Partial right foot amputation followed by right BKA Back surgery Bilateral cataracts Surgery for retinopathy Left lower extremity bypass ALLERGIES: No known drug allergies MEDICATIONS: Amiodarone 200 mg daily Imdur 30mg daily Ascorbic acid 500 mg daily Multivitamin 1 tab daily Colace 100 mg twice a day Ferrous gluconate 324 mg twice a day Folic acid 1 mg daily Insulin detrimir 16 units every morning MiraLAX 1 packet daily Coumadin daily Aspirin 81 mg daily Lasix 60 mg twice a day Hydralazine 25 mg twice a day Humalog before meals and at bedtime Metoprolol (Lopressor) 12.5 mg twice a day Calcitrol 0.25 mcg twice a day Omeprazole 40 mg daily Pravastatin 80 mg at bedtime Acetaminophen 325 mg every 4 hours as needed SUBJECTIVE: Patioent w/o complaints. No pain. Feels well. LL swelling less. Denies any chest pain, shortness of breath, nausea / vomiting, lightheadedness, C/D, dysuria. VITAL SIGNS: 126/60, 96.0F, heart rate 77, respiratory rate 18, 95% saturation on room air and, weight 100.5 kg PHYSICAL EXAMINATION: GENERAL: Well nourished, well developed, sitting up chair, no acute distress. HEENT: Normocephalic, atraumatic.. PERRL, EOMI CARDIOVASCULAR: S1, S2, regular rate. Sternal surgical site, clean and intact. Surrounding maculopapular resolved. Caudal pacer lead sites clean, healing. 1+ pitting edema left lower limb, edema on the right residual limb (~overall decreased). LUNGS: Decreased breath sounds left lung midway up (~stable), right lung CTA. No wheezing or rhonchi appreciated. ABDOMEN: Soft, nontender, nondistended. Positive normoactive bowel sounds throughout. MUSCULOSKELETAL: Atrophy of the intrinsic hand muscles bilaterally. Amputation of the first and second toe on the left foot, surgical site well healed. MMT: 5/ 5 left hip flexors, knee extension, and a flexion, 2/5 left dorsi flexion. 5/5 right hip flexors, knee extension and knee flexion. 5/5 strength bilateral upper limbs in all major muscle groups with the exception of intrinsic hand muscles which are 3- 4/5. NEUROLOGICAL: Alert and oriented x 3. Answers all questions appropriately. Able to follow commands without difficulty. SKIN: Stage I over the sacrum between buttocks. Stage II approximately 4 cm in diameter lesion over the left calcaneus. Hyperpigmentation with small areas of healing lesions left duffy. Maculopapular rash in the distribution of the adhesive/Tegaderm surrounding surgical incision-resolved. Caudal pacer lead sites clean-healing. LABORATORY DATA: 07/28/16: reviewed, see below FUNCTIONAL STATUS, Premorbid: Patient was modified independent for ambulation, independent to modified independent for ADLs. The patient owns a manual wheelchair, Power wheelchair, frontwheel walker, shower chair that transforms into a transfer tub bench, raised toilet seat and multiple canes. ASSESSMENT AND PLAN: 1. Acute VA, inferior wall status post three-vessel CABG post-op complicated by new onset rapid A. fib with decreased mobility and dysfunctional ADLs: Sternal precautions. Maintain current cardiac meds (amiodarone, Lopressor, hydralazine, imdur, Lasix, pravastatin, aspirin, and Coumadin. Overall wt down. Rehabilitation nursing for bladder, bowel, medication management and wound care. Patient making significant gains. Continue daily physical and occupational therapy. 2. Left pleural effusion: Patients O2 sats on room air remain within normal limits. 3. Chronic kidney disease, stage IV: ~ stable. (Dr. Lopez is his usual patient scheduling manager). 4. Anemia (acute blood loss + iron deficiency + chronic kidney disease): Hgb ~ stable. S/p 1 unit of packed red blood cells at [facility]. Maintain iron supplementation. 5. Diabetes mellitus type 2, insulin-dependent: Adequately controlled. Detemir with SSI [Hx: Last hemoglobin A1c > 9. Per discharge paperwork, had intermittent episodes of hypoglycemia at [facility]]. 6. Diet/nutrition: Carb consistent diet. Prealbumin wnl. 7. Bowel: Colace and senna scheduled along with milk of magnesia and MiraLAX on an as-needed basis. 8. Skin: Patient with stage I decubiti over the sacrum, stage II over the left calcaneus. Continue foam dressings over both. Heel protector over the left heel. Patient seen by Isak Modi CPO. 9. 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 Given d/c set for tomorrow and edema decreased, will trial prosthesis today. / Vital Signs Vital Sign - Last 24 Hours 07/27/16 07/27/16 07/27/16 07/27/16 14:00 20:00 20:59 21:00 Temp 96.9 97.2 Pulse 78 77 Resp 18 20 B/P 127/64 127/63 127/63 Pulse Ox 97 96 O2 Delivery Room Air Room Air Room Air 07/27/16 07/28/16 07/28/16 07/28/16 21:00 06:00 08:00 08:18 Temp 96.9 Pulse 77 77 Resp 18 B/P 127/63 126/60 126/60 Pulse Ox 95 O2 Delivery Room Air Room Air 07/28/16 07/28/16 08:18 08:19 Pulse 77 B/P 126/60 126/60 Laboratory Data Labs 24H Laboratory Tests 2 07/27/16 16:27: Bedside Glucose (Misc Panel) 180H 07/27/16 19:30: Bedside Glucose (Misc Panel) 194H 07/28/16 05:58: Bedside Glucose (Misc Panel) 135H 07/28/16 07:00: Prothromb Time International Ratio 2.15, Prothrombin Time 24.1H 07/28/16 11:47: Bedside Glucose (Misc Panel) 163H FSBS Laboratory Tests Test 07/27/16 16:27 07/27/16 19:30 07/28/16 05:58 07/28/16 11:47 Range/Units Bedside Glucose (Misc Panel) 180 194 135 163 70-105 MG/DL Allergies Allergies: Coded Allergies: No Known Allergies (Verified Allergy, Unknown, 09/21/07) Current Medications Current Medications Current Medications Acetaminophen (Tylenol) 650 mg Q4HP PRN PO MILD PAIN (PS 1-4) Last administered on 07/27/16t 08:32; Start 07/23/16 at 13:45; Stop 08/22/16 at 13:44 Amiodarone HCl (Pacerone, Cordarone) 200 mg DAILY PO Last administered on 08:19; Start 07/24/16 at 09:00; Stop 08/23/16 at 08:59 Ascorbic Acid (Vitamin C) 500 mg BID PO Last administered on 07/28/16 08:19; Start 07/23/16 at 21:00; Stop 08/22/16 at 20:59 Aspirin (Ecotrin) 81 mg DAILY PO Last administered on 07/28/16 08:19; Start at 09:00; Stop 08/23/16 at 08:59 Aspirin (Ecotrin) 325 mg DAILY PO ; Start 07/24/16 at 09:00; Stop 07/24/16 at 09: 00; Status DC Calcitriol (Rocaltrol) 0.25 mcg BID PO Last administered on 07/28/16 08:18; Start 07/23/16 at 21:00; Stop 08/22/16 at 20:59 Dextrose (Dextrose 50%) 25 ml ASDIRECTED PRN IV SEE LABEL COMMENTS; Start at 13:45; Stop 08/22/16 at 13:44 Docusate Sodium (Colace) 100 mg BID PO Last administered on 07/28/16 08:20; Start 07/23/16 at 21:00; Stop 08/22/16 at 20:59 Ferrous Gluconate (Fergon) 324 mg BID PO Last administered on 07/28/16 08:19; Start 07/23/16 at 21:00; Stop 08/22/16 at 20:59 Folic Acid (Folic Acid) 1 mg DAILY PO Last administered on 07/28/16 08:19; Start 07/24/16 at 09:00; Stop 08/23/16 at 08:59 Furosemide (Lasix) 60 mg BID@ PO Last administered on 07/28/16 08:19; Start 07/23/16 at 17:00; Stop 08/22/16 at 16:59 Glucagon (Glucagon) 1 mg ASDIRECTED PRN SC SEE LABEL COMMENTS; Start 07/23/16 at 13:45; Stop 08/22/16 at 13:44 Glucose (Glucose) 16 GM ASDIRECTED PRN PO SEE LABEL COMMENTS; Start 07/23/16 at 13:45; Stop 08/22/16 at 13:44 Home Med (Med Rec Complete!) ASDIRECTED XX ; Start 07/23/16 at 14:00; Stop at 14:01; Status DC Hydralazine HCl (Apresoline) 25 mg BID PO Last administered on 07/28/16 08:18 ; Start 07/23/16 at 21:00; Stop 08/22/16 at 20:59 Insulin Detemir (Levemir Insulin) 16 units DAILY SC Last administered on 08:18; Start 07/24/16 at 09:00; Stop 08/23/16 at 08:59 Insulin Human Lispro (HumaLOG INSULIN) See Protocol Table AC SC Last administered on 07/28/16 11:59; Start 07/23/16 at 17:30; Stop 08/22/16 at 17:29 Insulin Human Lispro (HumaLOG INSULIN) See Protocol Table QHS SC ; Start at 21:00; Stop 08/22/16 at 20:59 Isosorbide Mononitrate (Imdur) 30 mg DAILY PO Last administered on 07/28/16 08 :18; Start 07/24/16 at 09:00; Stop 08/23/16 at 08:59 Magnesium Hydroxide (Milk Of Magnesia) 30 ml DAILYPRN PRN PO CONSTIPATION; Start 07/23/16 at 13:45; Stop 08/22/16 at 13:44 Metoprolol Tartrate (Lopressor) 12.5 mg BID PO Last administered on 07/28/16 08:19; Start 07/23/16 at 21:00; Stop 08/22/16 at 20:59 Multivitamins (Theragram-M) 1 tab DAILY PO Last administered on 07/28/16 08:19 ; Start 07/24/16 at 09:00; Stop 08/23/16 at 08:59 Omeprazole (PriLOSEC) 40 mg DAILY PO Last administered on 07/28/16 08:18; Start 07/24/16 at 09:00; Stop 08/23/16 at 08:59 Polyethylene Glycol (Miralax) 1 pkt DAILYPRN PRN PO CONSTIPATION; Start at 13:45; Stop 08/22/16 at 13:44 Potassium Chloride (Micro-K Extencaps) 10 meq DAILY PO Last administered on 08:19; Start 07/24/16 at 09:00; Stop 08/23/16 at 08:59 Pravastatin Sodium (Pravachol) 80 mg QHS PO Last administered on 07/27/16 21: 00; Start 07/23/16 at 21:00; Stop 08/22/16 at 20:59 Senna (Senokot) 1 tab QHS PO Last administered on 07/27/16 21:00; Start at 21:00; Stop 08/22/16 at 20:59 Warfarin Sodium (Coumadin) 6 mg 1T@17 ONCE PO ; Start 07/28/16 at 17:00; Stop 07/28/16 at 17:01 Warfarin Sodium (Coumadin) 6 mg 1T@17 ONCE PO Last administered on 07/23/16 17 :12; Start 07/23/16 at 17:00; Stop 07/23/16 at 17:01; Status DC Warfarin Sodium (Coumadin) 6 mg 1T@17 ONCE PO Last administered on 07/24/16 17 :29; Start 07/24/16 at 17:00; Stop 07/24/16 at 17:01; Status DC Warfarin Sodium (Coumadin) 6 mg 1T@17 ONCE PO Last administered on 07/25/16 17 :23; Start 07/25/16 at 17:00; Stop 07/25/16 at 17:01; Status DC Warfarin Sodium (Coumadin) 7.5 mg 1T@17 ONCE PO Last administered on 16:56; Start 07/27/16 at 17:00; Stop 07/27/16 at 17:01; Status DC Warfarin Sodium (Coumadin) 7.5 mg 1T@17 ONCE PO Last administered on 07/26/16 17:28; Start 07/26/16 at 17:00; Stop 07/26/16 at 17:01; Status DC MAKENZIE VILA MD Jul 28, 2016 13:59
[2016-07-28 14:00] VITALS: BP 120/64
--- NOTE | 2016-07-28 15:43 | PMRNOTEPD ---
PMR Note Addendum to Progress Note Attempted to fit right prosthesis this afternoon; however, unable to get residual limb in socket. I have spoke with Pablo Modi CPO who will reevaluate patient tomorrow morning to determine if he needs temporary socket. MAKENZIE VILA MD Jul 28, 2016 15:43
[2016-07-28] MEDS ORDERED: ASPI1TAB PO (15:53)
[2016-07-28] MEDS ORDERED: AMIO20TA PO (15:53)
[2016-07-28] MEDS ORDERED: METO-346 PO (15:53)
[2016-07-28] MEDS ORDERED: POTA10TA2 PO (15:53)
[2016-07-28] MEDS ORDERED: PRAV80TA2 PO (15:53)
[2016-07-28] MEDS ORDERED: HYDR25TA PO (15:53)
[2016-07-28] MEDS ORDERED: OMEP40CA2 PO (15:53)
[2016-07-28] MEDS ORDERED: ISOS30TA4 PO (15:53)
[2016-07-28] MEDS ORDERED: FERR325T16 PO (15:53)
[2016-07-28] MEDS ORDERED: FURO20TA2 PO (15:53)
[2016-07-28] MEDS ORDERED: ASCO500T PO (15:53)
[2016-07-28] MEDS ORDERED: WARFARIN SOD 3 MG TAB PO ONE (17:00)
[2016-07-28] MEDS: PRAVASTATIN 20 MG TAB PO SCH (20:39)
[2016-07-28] MEDS: SENNA 8.6 MG TAB (SENOKOT) PO SCH (20:41)
[2016-07-28 22:00] VITALS: BP 140/70
[2016-07-29 06:00] VITALS: BP 159/71
[2016-07-29 07:19] LABS: BASO % 0.6 % (0.0-1.0); EOS # 0.2 K/mm3 (0.0-0.50); LARGE UNSTAINED CELL # 0.1 K/mm3 (0.0-0.4); LARGE UNSTAINED CELL % 2.2 % (0.0-4.0); LYMPH # 1.1 K/mm3 (1.5-4.5); LYMPH % 18.2 % (24.0-44.0); MEAN CORPUSCULAR HEMOGLOBIN 30.3 pg (27.0-33.0); MEAN CORPUSCULAR HGB CONC 32.5 g/dl (32.0-36.5); MEAN CORPUSCULAR VOLUME 93.3 fl (80.0-96.0); MONO # 0.4 K/mm3 (0.0-0.8); MONO % 5.8 % (0.0-5.0); NEUTROPHILS # 4.3 K/mm3 (1.8-7.7); NEUTROPHILS % 70.1 % (36.0-66.0); PLATELET COUNT, AUTOMATED 445 k/mm3 (150-450); WHITE BLOOD COUNT 6.1 K/mm3 (4.0-10.0)
[2016-07-29 07:25] LABS: INR 2.27
[2016-07-29 07:31] LABS: CALCIUM LEVEL 9.1 MG/DL (8.5-10.1); CREATININE FOR GFR 2.18 MG/DL (0.70-1.30); GLOMERULAR FILTRATION RATE 33.6 (>56); POTASSIUM SERUM 3.8 MEQ/L (3.5-5.1)
[2016-07-29] MEDS: LEVEMIR (INSULIN DETEMIR) 1 UNITS/0.01ML SC SCH (08:18)
[2016-07-29] MEDS: HumaLOG INSULIN (NovoLOG) PER UNIT SC SCH ×2 (08:19→12:28)
[2016-07-29] MEDS: POTASSIUM CHLORIDE 10 MEQ SR TABLET PO SCH (08:20)
[2016-07-29] MEDS: ASCORBIC ACID 500 MG TAB PO SCH (08:20)
[2016-07-29] MEDS: MULTIVITAMINS/MINERALS THERAP 1 TAB PO SCH (08:21)
[2016-07-29] MEDS: CALCITRIOL 0.25 MCG CAP (S0169) PO SCH (08:21)
[2016-07-29] MEDS: DOCUSATE SODIUM 100 MG CAP PO SCH (08:22)
[2016-07-29] MEDS: OMEPRAZOLE 20 MG CAP PO SCH (08:22)
[2016-07-29] MEDS: FOLIC ACID 1 MG TAB PO SCH (08:22)
[2016-07-29] MEDS: FUROSEMIDE 20 MG TAB PO SCH (08:23)
[2016-07-29] MEDS: FERROUS GLUCONATE 324 MG TAB PO SCH (08:24)
[2016-07-29] MEDS: ASPIRIN 81 MG ENTERIC TAB PO SCH (08:24)
[2016-07-29 08:27] VITALS: BP 125/74
[2016-07-29] MEDS: METOPROLOL TART 12.5 MG PER 1/2 TAB PO SCH (08:27)
[2016-07-29] MEDS: AMIODARONE 200 MG TAB (PACERONE) PO SCH (08:28)
[2016-07-29] MEDS: **hydrALAZINE HCL** 25 MG TAB PO SCH (08:28)
[2016-07-29] MEDS: ISOSORBIDE MON. (IMDUR) 30 MG XR TAB PO SCH (08:28)
[2016-07-29] MEDS ORDERED: WARF-60 PO (09:35)
[2016-07-29] MEDS ORDERED: FURO20TA2 PO (10:03)
--- NOTE | 2016-07-29 12:18 | DS.PDOC ---
Marketing Operations Consultant Discharge Note DISCHARGE SUMMARY DATE OF ADMISSION: 07/23/16 DATE OF DISCHARGE: 07/29/16 DISCHARGE DIAGNOSES 1. Acute LA, inferior wall status post three-vessel CABG 2. New onset rapid atrial fibrillation 3. H/o right BKA, now non-fitting prosthesis 2nd residual limb edema 4. Decreased mobility and dysfunctional ADLs. 5. Left pleural effusion. 6. Chronic kidney disease, stage IV 7. Anemia (acute blood loss + iron deficiency + chronic kidney disease 8. Diabetes mellitus type 2, insulin-dependent 9. Decubiti (stage I decubiti over the sacrum, stage II over the left calcaneus ) PAST MEDICAL HISTORY: Hypertension Hyperlipidemia Diabetes mellitus type 2 (hemoglobin A1c upon admission 9.8) Diabetic retinopathy, nephropathy and neuropathy Silent LA, remote Chronic kidney disease, stage IV Peripheral vascular disease Gastroesophageal reflux disease Cervical spondylosis Left leg cellulitis PAST SURGICAL HISTORY: Partial right foot amputation followed by right BKA Back surgery Bilateral cataracts Surgery for retinopathy Left lower extremity bypass ALLERGIES: No known drug allergies MEDICATIONS: Amiodarone 200 mg daily Imdur 30mg daily Coumadin 6mg daily Aspirin 81 mg daily Lasix 60 mg twice a day Hydralazine 25 mg twice a day Metoprolol (Lopressor) 12.5 mg twice a day Pravastatin 80 mg at bedtime Ascorbic acid 500 mg daily Multivitamin 1 tab daily Colace 100 mg twice a day Ferrous gluconate 324 mg twice a day Folic acid 1 mg daily Insulin detrimir 16 units every morning MiraLAX 1 packet daily Humalog before meals and at bedtime Calcitrol 0.25 mcg twice a day Omeprazole 40 mg daily Acetaminophen 325 mg every 4 hours as needed HOSPITAL COURSE: The patient underwent daily physical and occupational therapy. His ticket broker, Dr. Lopez was consulted and made medication changes. Intake and output were monitored as was daily weights. On a she was maintained on his diuretic. His weight was noted to be decreased since admission; however, right prosthesis was trialed and residual limb still was not able to fit into the socket. Isak Modi CPO was consulted for recommendations. Given patients motivation to ambulate, arrangements were made with Isak Modi post discharge for replacement socket. Despite lack of the right lower limb prosthesis, patient did benefit significantly from therapy sessions and was trained in slide board transfers as well as wheelchair mobility. Patient demonstrated competency in all tasks. On 07/29/2016 he was deemed stable for discharge to home with home health services. Other issues addressed while on the rehabilitation unit include the followin. Acute LA, inferior wall status post three-vessel CABG post-op complicated by new onset rapid A. fib: Sternal precautions. Maintain amiodarone, Lopressor, hydralazine, imdur, Lasix, pravastatin, aspirin, and Coumadin. I&Os and daily weight monitored. 2. Left pleural effusion: Remainded stable. O2 saturation on room air remain within normal limits. 3. Chronic kidney disease, stage IV: Remained stable. Post-discharge appointment with his technical advisor, Dr. Lopez. 4. Anemia (acute blood loss + iron deficiency + chronic kidney disease): Maintained on iron supplementation. Hgb remained relatively stable. 5. Diabetes mellitus type 2, insulin-dependent: Maintained on Detemir 16units daily with SSI . Also maintained on a carbohydrate consistent diet. Blood glucose remained adequately controlled. 6. Skin: Patient underwent wound care for his sacral and left heel decubiti. He was provided with a heel protector over the left heel as well. Left AFO was evaluated for appropriate fit by Isak Modi CPO. FUNCTIONAL STATUS: Patient was independent to modified independent for ADLs and mobility with a wheelchair. VITAL SIGNS: Temperature 97.8F, pulse 80, respiratory rate of 18, blood pressure 125/74, 96% saturation on room air. 102.1 kg PHYSICAL EXAMINATION: GENERAL: Well nourished, well developed, sitting up, no acute distress. HEENT: Normocephalic, atraumatic. PERRL, EOMI CARDIOVASCULAR: S1, S2, regular rate. Sternal surgical site, clean and intact. Surrounding maculopapular resolved. Caudal pacer lead sites clean, healing. 1+ pitting edema left lower limb, edema on the right residual limb (overall decreased since admission). LUNGS: Decreased breath sounds left lung midway up (~stable), right lung CTA. No wheezing or rhonchi appreciated. ABDOMEN: Soft, nontender, nondistended. Normoactive bowel sounds throughout. MUSCULOSKELETAL: Atrophy of the intrinsic hand muscles bilaterally. Amputation of the first and second toe on the left foot, surgical site well healed. MMT: 5/ 5 left hip flexors, knee extension, and a flexion, 2/5 left dorsi flexion. 5/5 right hip flexors, knee extension and knee flexion. 5/5 strength bilateral upper limbs in all major muscle groups with the exception of intrinsic hand muscles which are 3- 4/5. NEUROLOGICAL: Alert and oriented x 3. Answers all questions appropriately. Able to follow commands without difficulty. LABORATORY DATA: 07/29/16: reviewed, see below DISCHARGE DISPOSITION: 1. The patient discharge home with HHS 2. The patient discharged in stable condition 3. Discharged with HHS to include RN, PT, OT and bath aide. Lab draw for PT/INR 4. Equipment: slideboard (has WC, commode, shower chair) 5. Post discharge follow-up medical appointments: Meg (PCP), [facility] , , Dr. Lopez. / Vital Signs/I&O Vital Sign - Last 24 Hours 07/28/16 07/28/16 07/28/16 07/28/16 14:00 20:00 20:40 22:00 Temp 97.5 97.0 Pulse 77 84 84 Resp 18 17 B/P 120/64 140/70 140/70 Pulse Ox 96 97 O2 Delivery Room Air Room Air Room Air 07/29/16 07/29/16 07/29/16 06:00 08:15 08:27 Temp 97.8 Pulse 75 80 Resp 18 B/P 159/71 125/74 Pulse Ox 96 O2 Delivery Room Air Room Air I&O- Last 24 Hours up to 6 AM 07/29/16 06:00 Intake Total 960 ml Output Total 3700 ml Balance -2740 ml Laboratory Data CBC/BMP Laboratory Tests 07/29/16 06:23 Calcium Level 9.1, Red Blood Count 3.43 L, Mean Corpuscular Volume 93.3, Mean Corpuscular Hemoglobin 30.3, Mean Corpuscular Hemoglobin Concent 32.5, Red Cell Distribution Width 14.0, Neutrophils (%) (Auto) 70.1 H, Lymphocytes (%) (Auto) 18.2 L, Monocytes (%) (Auto) 5.8 H, Eosinophils (%) (Auto) 3.0, Basophils (%) ( Auto) 0.6, Neutrophils # (Auto) 4.3, Lymphocytes # (Auto) 1.1 L, Monocytes # ( Auto) 0.4, Eosinophils # (Auto) 0.2, Basophils # (Auto) 0.0 Labs 48H Laboratory Tests 07/27/16 16:27: Bedside Glucose (Misc Panel) 180H 07/27/16 19:30: Bedside Glucose (Misc Panel) 194H 07/28/16 05:58: Bedside Glucose (Misc Panel) 135H 07/28/16 07:00: Prothromb Time International Ratio 2.15, Prothrombin Time 24.1H 07/28/16 11:47: Bedside Glucose (Misc Panel) 163H 07/28/16 17:14: Bedside Glucose (Misc Panel) 157H 07/28/16 20:00: Bedside Glucose (Misc Panel) 208H 07/29/16 06:23: Anion Gap 9, White Blood Count 6.1, Red Blood Count 3.43L, Hemoglobin 10.4L, Hematocrit 32.0L, Mean Corpuscular Volume 93.3, Mean Corpuscular Hemoglobin 30.3 , Mean Corpuscular Hemoglobin Concent 32.5, Red Cell Distribution Width 14.0, Platelet Count 445, Neutrophils (%) (Auto) 70.1H, Lymphocytes (%) (Auto) 18.2L, Monocytes (%) (Auto) 5.8H, Eosinophils (%) (Auto) 3.0, Basophils (%) (Auto) 0.6 , Neutrophils # (Auto) 4.3, Lymphocytes # (Auto) 1.1L, Monocytes # (Auto) 0.4, Eosinophils # (Auto) 0.2, Basophils # (Auto) 0.0, Blood Urea Nitrogen 56H, Creatinine 2.18H, Sodium Level 141, Potassium Level 3.8, Chloride Level 104, Carbon Dioxide Level 28, Calcium Level 9.1, Fasting Glucose 148H, Glomerular Filtration Rate 33.6L, Large Unclassified Cells # 0.1, Large Unclassified Cells % 2.2, Prothromb Time International Ratio 2.27, Prothrombin Time 25.1H 07/29/16 11:47: Bedside Glucose (Misc Panel) 166H FSBS Laboratory Tests Test 07/28/16 17:14 07/28/16 20:00 07/29/16 11:47 Range/Units Bedside Glucose (Misc Panel) 157 208 166 70-105 MG/DL Medications Medications Current Medications Acetaminophen (Tylenol) 650 mg Q4HP PRN PO MILD PAIN (PS 1-4) Last administered on 07/27/16 08:32; Start 07/23/16 at 13:45; Stop 08/22/16 at 13:44 Amiodarone HCl (Pacerone, Cordarone) 200 mg DAILY PO Last administered on 08:28; Start 07/24/16 at 09:00; Stop 08/23/16 at 08:59 Ascorbic Acid (Vitamin C) 500 mg BID PO Last administered on 07/29/16 08:20; Start 07/23/16 at 21:00; Stop 08/22/16 at 20:59 Aspirin (Ecotrin) 81 mg DAILY PO Last administered on 07/29/16 08:24; Start at 09:00; Stop 08/23/16 at 08:59 Aspirin (Ecotrin) 325 mg DAILY PO ; Start 07/24/16 at 09:00; Stop 07/24/16 at 09: 00; Status DC Calcitriol (Rocaltrol) 0.25 mcg BID PO Last administered on 07/29/16 08:21; Start 07/23/16 at 21:00; Stop 08/22/16 at 20:59 Dextrose (Dextrose 50%) 25 ml ASDIRECTED PRN IV SEE LABEL COMMENTS; Start at 13:45; Stop 08/22/16 at 13:44 Docusate Sodium (Colace) 100 mg BID PO Last administered on 07/29/16 08:22; Start 07/23/16 at 21:00; Stop 08/22/16 at 20:59 Ferrous Gluconate (Fergon) 324 mg BID PO Last administered on 07/29/16 08:24; Start 07/23/16 at 21:00; Stop 08/22/16 at 20:59 Folic Acid (Folic Acid) 1 mg DAILY PO Last administered on 07/29/16 08:22; Start 07/24/16 at 09:00; Stop 08/23/16 at 08:59 Furosemide (Lasix) 60 mg BID@, PO Last administered on 07/29/16 08:23; Start 07/23/16 at 17:00; Stop 08/22/16 at 16:59 Glucagon (Glucagon) 1 mg ASDIRECTED PRN SC SEE LABEL COMMENTS; Start 07/23/16 at 13:45; Stop 08/22/16 at 13:44 Glucose (Glucose) 16 GM ASDIRECTED PRN PO SEE LABEL COMMENTS; Start 07/23/16 at 13:45; Stop 08/22/16 at 13:44 Home Med (Med Rec Complete!) ASDIRECTED XX ; Start 07/23/16 at 14:00; Stop at 14:01; Status DC Hydralazine HCl (Apresoline) 25 mg BID PO Last administered on 07/29/16 08:28 ; Start 07/23/16 at 21:00; Stop 08/22/16 at 20:59 Insulin Detemir (Levemir Insulin) 16 units DAILY SC Last administered on 08:18; Start 07/24/16 at 09:00; Stop 08/23/16 at 08:59 Insulin Human Lispro (HumaLOG INSULIN) See Protocol Table AC SC Last administered on 07/29/16 08:19; Start 07/23/16 at 17:30; Stop 08/22/16 at 17:29 Insulin Human Lispro (HumaLOG INSULIN) See Protocol Table QHS SC ; Start at 21:00; Stop 08/22/16 at 20:59 Isosorbide Mononitrate (Imdur) 30 mg DAILY PO Last administered on 07/29/16 08 :28; Start 07/24/16 at 09:00; Stop 08/23/16 at 08:59 Magnesium Hydroxide (Milk Of Magnesia) 30 ml DAILYPRN PRN PO CONSTIPATION; Start 07/23/16 at 13:45; Stop 08/22/16 at 13:44 Metoprolol Tartrate (Lopressor) 12.5 mg BID PO Last administered on 07/29/16 08:27; Start 07/23/16 at 21:00; Stop 08/22/16 at 20:59 Multivitamins (Theragram-M) 1 tab DAILY PO Last administered on 07/29/16 08:21 ; Start 07/24/16 at 09:00; Stop 08/23/16 at 08:59 Omeprazole (PriLOSEC) 40 mg DAILY PO Last administered on 07/29/16 08:22; Start 07/24/16 at 09:00; Stop 08/23/16 at 08:59 Polyethylene Glycol (Miralax) 1 pkt DAILYPRN PRN PO CONSTIPATION; Start at 13:45; Stop 08/22/16 at 13:44 Potassium Chloride (Micro-K Extencaps) 10 meq DAILY PO Last administered on 08:20; Start 07/24/16 at 09:00; Stop 08/23/16 at 08:59 Pravastatin Sodium (Pravachol) 80 mg QHS PO Last administered on 07/28/16 20: 39; Start 07/23/16 at 21:00; Stop 08/22/16 at 20:59 Senna (Senokot) 1 tab QHS PO Last administered on 07/28/16 20:41; Start at 21:00; Stop 08/22/16 at 20:59 Warfarin Sodium (Coumadin) 6 mg 1T@17 ONCE PO Last administered on 07/28/16 18:02; Start 07/28/16 at 17:00; Stop 07/28/16 at 17:01; Status DC Warfarin Sodium (Coumadin) 6 mg 1T@17 ONCE PO Last administered on 07/23/16 17 :12; Start 07/23/16 at 17:00; Stop 07/23/16 at 17:01; Status DC Warfarin Sodium (Coumadin) 6 mg 1T@17 ONCE PO Last administered on 07/24/16 17 :29; Start 07/24/16 at 17:00; Stop 07/24/16 at 17:01; Status DC Warfarin Sodium (Coumadin) 6 mg 1T@17 ONCE PO Last administered on 07/25/16 17 :23; Start 07/25/16 at 17:00; Stop 07/25/16 at 17:01; Status DC Warfarin Sodium (Coumadin) 7.5 mg 1T@17 ONCE PO Last administered on 16:56; Start 07/27/16 at 17:00; Stop 07/27/16 at 17:01; Status DC Warfarin Sodium (Coumadin) 7.5 mg 1T@17 ONCE PO Last administered on 07/26/16 17:28; Start 07/26/16 at 17:00; Stop 07/26/16 at 17:01; Status DC Scheduled (Daily-Soraida) 1 Tab Tab 1 TAB PO DAILY (Reported) Amiodarone HCl (Amiodarone HCl) 200 Mg Tab 200 MG PO DAILY Ascorbic Acid (Ascorbic Acid) 500 Mg Tab 500 MG PO BID Aspirin (Aspirin 81) 81 Mg Tab 81 MG PO DAILY Calcitriol (Rocaltrol) 0.25 Mcg Cap 0.25 MCG PO BID (Reported) Docusate Sodium (Docusate Sodium) 100 Mg Cap 100 MG PO BID (Reported) Ferrous Gluconate (Ferrous Gluconate) 324 Mg Tab 324 MG PO BID Folic Acid (Folic Acid) 1 Mg Tab 1 MG PO DAILY (Reported) Furosemide (Furosemide) 20 Mg Tab 60 MG PO BID Furosemide (Furosemide) 20 Mg Tab 60 MG PO BID@, Hydralazine HCl (Hydralazine HCl) 25 Mg Tab 25 MG PO BID Insulin Glargine (Lantus Solostar) 100 Unit/Ml Inj 16 UNITS SC QAM (Reported) Insulin Human Lispro (Humalog) 1 Units/0.01 Ml Inj 1 DOSE SC AC (Reported) PER SLIDING SCALE Isosorbide Mononitrate (Isosorbide Mononitrate ER) 30 Mg Tab 30 MG PO DAILY Metoprolol Tartrate (Metoprolol Tartrate) 12.5 Mg Halftab 12.5 MG PO BID Omeprazole (Omeprazole) 40 Mg Cap 40 MG PO DAILY Potassium Chloride (Potassium Chloride ER) 10 Meq Tab 10 MEQ PO DAILY Pravastatin Sodium (Pravastatin Sodium) 80 Mg Tab 80 MG PO QHS Silver Sulfadiazine (Silvadene) 1 % Cre 1 DOSE TOP DAILY (Reported) APPLY TO WOUNDS Warfarin Sod (Warfarin Sodium) 6 Mg Tab 6 MG PO QPM adjustments in dose per ticket broker and INR Scheduled PRN Acetaminophen (Acetaminophen) 325 Mg Tab 650 MG PO Q4H PRN PRN PAIN (Reported) Allergies Coded Allergies: No Known Allergies (Verified Allergy, Unknown, 09/21/07) MAKENZIE VILA MD Jul 29, 2016 12:17
[2016-07-29] MEDS ORDERED: INSUDET SC (13:59)
== END 2016-07-29 14:15 | disposition home health service (06) | DRG 281 ==
LOC: M PM&R 13:00
PROVIDERS: ADMIT Physical Medicine & Rehabilitation; ATTEND Physical Medicine & Rehabilitation
DX: I21.19 ST elevation (STEMI) myocardial infarction involving other coronary artery of inferior wall (principal); D62 Acute posthemorrhagic anemia; N18.4 Chronic kidney disease, stage 4 (severe); Z95.1 Presence of aortocoronary bypass graft; I12.9 Hypertensive chronic kidney disease with stage 1 through stage 4 chronic kidney disease, or unspecified chronic kidney disease; E78.5 Hyperlipidemia, unspecified; E11.40 Type 2 diabetes mellitus with diabetic neuropathy, unspecified; E11.319 Type 2 diabetes mellitus with unspecified diabetic retinopathy without macular edema; E11.22 Type 2 diabetes mellitus with diabetic chronic kidney disease; E11.51 Type 2 diabetes mellitus with diabetic peripheral angiopathy without gangrene; K21.9 Gastro-esophageal reflux disease without esophagitis; I48.91 Unspecified atrial fibrillation; D63.1 Anemia in chronic kidney disease; D50.9 Iron deficiency anemia, unspecified; L89.622 Pressure ulcer of left heel, stage 2; I73.9 Peripheral vascular disease, unspecified; L89.151 Pressure ulcer of sacral region, stage 1; M47.812 Spondylosis without myelopathy or radiculopathy, cervical region; Z89.511 Acquired absence of right leg below knee; Z79.4 Long term (current) use of insulin; Z79.82 Long term (current) use of aspirin; Z79.01 Long term (current) use of anticoagulants; Z79.899 Other long term (current) drug therapy; Z87.891 Personal history of nicotine dependence; I25.2 Old myocardial infarction; Z82.49 Family history of ischemic heart disease and other diseases of the circulatory system; Z80.0 Family history of malignant neoplasm of digestive organs; Z80.49 Family history of malignant neoplasm of other genital organs; Z86.73 Personal history of transient ischemic attack (TIA), and cerebral infarction without residual deficits; Z89.412 Acquired absence of left great toe

== ENCOUNTER 2016-08-02 11:54 | Inpatient (IN) | payer MEDICARE ==
[~2016-08-02] VITALS: Ht 182.9 cm; Wt 100.4 kg
[~2016-08-02 11:54] MED LIST changes: +ACET-654 PO; +AMIO20TA PO; +ASCO500T PO; +ASPI1TAB PO; +ASPI325T PO; +BISA10SU4 PR; +DOCU100C PO; +FERR325T16 PO; +FOLI1TAB2 PO; +FURO20TA2 PO; +HYDR25TA PO; +INSUDET SC; +INSUHUMDS SC; +ISOS30TA4 PO; +LANTINJ4 SC; +METO-346 PO; +OMEP40CA2 PO; +POTA10TA2 PO; +PRAV80TA2 PO; +ROCA0.25 PO; +SILV1CRE19 TOP; +WARF-60 PO; +[UNRECOGNIZED DRUG - CODE] PO
[2016-08-02 12:34] LABS: BASO # 0.1 K/mm3 (0.0-0.2); BASO % 0.8 % (0.0-1.0); EOS # 0.1 K/mm3 (0.0-0.50); EOS % 0.9 % (0.0-3.0); LARGE UNSTAINED CELL % 0.5 % (0.0-4.0); LYMPH # 0.2 K/mm3 (1.5-4.5); LYMPH % 1.3 % (24.0-44.0); MEAN CORPUSCULAR HEMOGLOBIN 29.6 pg (27.0-33.0); MEAN CORPUSCULAR VOLUME 92.4 fl (80.0-96.0); MONO # 0.3 K/mm3 (0.0-0.8); NEUTROPHILS # 8.2 K/mm3 (1.8-7.7); NEUTROPHILS % 93.5 % (36.0-66.0); PLATELET COUNT, AUTOMATED 364 k/mm3 (150-450); RED CELL DISTRIBUTION WIDTH 14.7 % (11.5-14.5); WHITE BLOOD COUNT 8.8 K/mm3 (4.0-10.0)
[2016-08-02 13:01] LABS: CALCIUM LEVEL 8.8 MG/DL (8.5-10.1); CREATININE FOR GFR 2.45 MG/DL (0.70-1.30); GLOMERULAR FILTRATION RATE 29.4 (>56); POTASSIUM SERUM 4.1 MEQ/L (3.5-5.1)
--- NOTE | 2016-08-02 13:49 | REP ---
CHEST, ONE VIEW: HISTORY: Shortness of breath. COMPARISON: 07/06/2016 There is elevation of the left hemidiaphragm. Increased density is present in the left lower lobe consistent with atelectasis or infiltrate. The right lung is clear. A small left pleural effusion is present. The heart is upper limits of normal in size. The pulmonary vasculature is normal in appearance. IMPRESSION: 1. Left lower lobe atelectasis or infiltrate. 2. Small left pleural effusion. Signed by Mikey Floyd MD 08/02/2016 01:53 P
[2016-08-02] MEDS ORDERED: VANCOMYCIN 1000 MG/20 ML VIAL (J3370) As Ordered ONE (15:08)
[2016-08-02] MEDS ORDERED: ZOSYN 3.375 GM VIAL (J2543) As Ordered ONE (15:08)
[2016-08-02] MEDS ORDERED: BISACODYL 5 MG TAB PO PRN (15:15)
[2016-08-02] MEDS ORDERED: IPRATROPIUM 0.5MG/ALBUTEROL 2.5MG INH SOL UD 3ML (DUONEB)(J7620) NEB PRN (15:15)
[2016-08-02] MEDS ORDERED: ONDANSETRON 4MG/2ML VIAL (J2405) IV PRN (15:15)
--- NOTE | 2016-08-02 15:32 | REP ---
CT study of chest without contrast: History: Shortness of breath. Comparison chest x-ray is from earlier on this date. Comparison is also made with chest x-ray from October 16, 2015. CT findings: The patient is status post prior median sternotomy. There is lobar collapse and consolidation in the left lower lobe with air bronchograms in the atelectatic lower lobe just above the left hemidiaphragm. Left hemidiaphragm is elevated. There is a small quantity of left pleural fluid. Vascular calcification is noted. No right pleural effusion or pericardial effusion is seen. Minimal linear fibrosis versus discoid atelectasis in the right lower lobe. No bony destructive lesion is seen. No adrenal lesion is observed. Incidental note is made of opaque gallstones in the gallbladder. Impression: 1. Elevated left hemidiaphragm. 2. Very small left pleural effusion. 3. Nearly lobar collapse and consolidation left lower lobe with air bronchograms. 4. Cholelithiasis. 5. Median sternotomy performed in the interval since the October 16, 2015 chest x-ray. Signed by Marco Wilkinson MD 08/02/2016 03:35 P
[2016-08-02] MEDS ORDERED: FERR325T16 PO (15:43)
[2016-08-02] MEDS ORDERED: COUM6TAB PO (15:43)
[2016-08-02] MEDS ORDERED: CALC0.5C PO (15:43)
[2016-08-02] MEDS ORDERED: PRAV80TA2 PO (15:43)
[2016-08-02] MEDS ORDERED: INSUDET SC (15:43)
[2016-08-02] MEDS ORDERED: METO-346 PO (15:43)
[2016-08-02] MEDS ORDERED: AMIO20TA PO (15:43)
[2016-08-02] MEDS ORDERED: OMEP40CA2 PO (15:43)
[2016-08-02] MEDS ORDERED: ISOS30TA4 PO (15:43)
[2016-08-02] MEDS ORDERED: FURO20TA2 PO (15:43)
[2016-08-02] MEDS ORDERED: POTA10CA PO (15:43)
[2016-08-02] MEDS ORDERED: HYDR-4266 PO (15:43)
[2016-08-02] MEDS ORDERED: ASPI1TAB PO (15:43)
[2016-08-02] MEDS ORDERED: ASCO500T PO (15:43)
--- NOTE | 2016-08-02 16:37 | PHACANCOPD ---
PHARMACY VANCOMYCIN DOSING Pt Demographics Demographics Patient Age:55 , Weight: , Gender: male Adjusted Body Weight Date: 08/02/16, Adjusted Body Weight: [86] Kg Events Past 24 Hours Events Past 24 Hours: NO: Change in CrCl, Dialysis, Diuretic Therapy, Elevation in WBC, Fever, Other, Pending Diagnostics, Pending Procedures Vancomycin Vancomycin indication: HCAP Vancomycin Target Ranges: 10-20 mcg/ml Vancomycin Load Y/N: Yes Load Dose Date Time Vancomycin Load Dose: 1000mg Date: 08/02 Time: ~15:15 (given in ER ) Vancomycin Dose Date: 08/02/16. Current Vancomycin Dose: [1g IV q24h @08] Intermittent Dosing?: No Labs Labs Item Value Date Time White Blood Count 8.8 K/mm3 08/02/16 1221 Creatinine 2.45 MG/DL H 08/02/16 1221 Micro Microbiology 08/02/16 Blood Culture, Received Pending 08/02/16 Blood Culture, Received Pending 08/02/16 MRSA Screen, Received Pending Creatinine Clearance Date:08/02/16. Creatinine Clearance: [41 ml/min using adjusted BW]. Assessment and Plan Maintaining Current Dose?: Yes Reason for dose change: No Dose Change Pharmacist Note Pharmacist Note Date: 08/02/16. Pharmacist note: pt is being treated for health care associated pneumonia and has been started on Zosyn and Vanco. Pt has a Hx of MRSA, last positive MRSA culture here was in 2010 (wound: RAJAT = 1) but has not had a positive nasal MRSA culture. No prior sputum cultures. Pt was last on vancomycin at our facility in 2010 with a similar SCr at 1g q24h dosing. I have started his q24h dosing ~17 hours after the first dose. We will continue to monitor renal function and adjust dosing as needed. Chalino Sanchez Pharm.D. Aug 02, 2016 16:37
[2016-08-02 17:06] LABS: INR 2.27
--- NOTE | 2016-08-02 17:21 | EDDOCDS ---
Physician Documentation [facility] Name: Joyce Sanchez Age: 55 yrs Sex: Male : 1960 Arrival Date: 08/02/2016 Time: 11:54 Bed 14 Private MD: Disposition: 08/02/16 15:06 Hospitalization ordered by Noemy Pham for Inpatient Admission. Preliminary diagnosis are Pneumonia, unspecified organism, Abnormal electrocardiogram [ECG] [EKG]. - Bed requested for PCU. - Status is Inpatient Admission. hs1 - Condition is Stable. - Problem is new. - Symptoms are unchanged. Historical: - Home Meds: 1. omeprazole 40 mg Oral cpDR 1 cap once daily (Last dose: 08/02/2016 09:00) 2. amiodarone 200 mg Oral tab 1 tab once daily (Last dose: 08/02/2016 09:00) 3. furosemide 40 mg Oral tab 3 times per day 9 am and 5 pm (Last dose: 08/02/2016 09:00) 4. potassium chloride 10 mEq Oral cpER 1 cap once daily (Last dose: 08/02/2016 09:00) 5. calcitriol 0.25 mcg oral cap 2 caps once daily (Last dose: 08/02/2016 09:00) 6. metoprolol tartrate 25 mg Oral tab 0.5 tab 2 times per day 9 am and 9 pm (Last dose: 08/02/2016 09:00) 7. pravastatin 80 mg oral tab 1 tab nightly (Last dose: 08/01/2016 21:00) 8. hydralazine 25 mg oral tab 1 tab 2 times per day 9 am and 9 pm (Last dose: 08/02/2016 09:00) 9. warfarin 6 mg Oral tab 1 tab once daily (Last dose: 08/01/2016 17:00) 10. acetaminophen 500 mg Oral tab 2 tabs as needed 11. aspirin 81 mg Oral chew 1 tab once daily (Last dose: 08/02/2016 09:00) 12. Cartia XT 120 mg Oral cp24 1 cap once daily (Last dose: 08/02/2016 09:00) 13. Levemir 100 unit/mL subcutaneous soln 16 units in am (Last dose: 08/01/2016 09:00) 14. Humalog Pen Sub-Q sliding scale three times daily 15. multivitamin Oral tab 1 tablet daily (Last dose: 08/02/2016 09:00) 16. ferrous gluconate 324 mg (36 mg iron) Oral tab 1 tab (Last dose: 08/02/2016 09:00) 17. 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 No barriers to communication noted, The patient speaks fluent Finnish, Speaks appropriately for age. - Family history: Not pertinent. - : The pt / caregiver states he / she is on anticoagulants: coumadin. Home medication list is obtained from pill bottles. - Exposure Risk Screening:: None identified. Vital Signs: 08/02 12:02 BP 98 / 54; Pulse 94; Resp 18; Temp 99.0(TE); Pulse Ox 97% on R/A; Weight 100.7 kg / ct3 222.01 lbs (R); Height 6 ft. 0 in. (182.88 cm) (R); Pain 1/10; 12:30 BP 102 / 54 (auto/); hs1 12:31 Pulse 88 MON; Pulse Ox 95% ; hs1 12:45 BP 105 / 59 (auto/); hs1 12:46 Pulse 88 MON; Pulse Ox 96% ; hs1 13:00 BP 104 / 56 (auto/); hs1 13:01 Pulse 86 MON; Pulse Ox 94% ; hs1 13:15 BP 130 / 68 (auto/); hs1 13:16 Pulse 86 MON; Resp 18; Pulse Ox 100% ; hs1 13:30 BP 135 / 65 (auto/); hs1 13:31 Pulse 88 MON; Pulse Ox 95% ; hs1 13:45 BP 121 / 61 (auto/); hs1 13:46 Pulse 86 MON; Pulse Ox 97% ; hs1 14:00 BP 108 / 58 (auto/); hs1 14:01 Pulse 92 MON; Pulse Ox 99% ; hs1 14:15 BP 180 / 83 (auto/); hs1 14:16 Pulse 90 MON; Pulse Ox 98% ; hs1 14:30 BP 175 / 85 (auto/); hs1 14:31 Pulse 90 MON; Pulse Ox 97% ; hs1 14:45 BP 169 / 87 (auto/); hs1 14:46 Pulse 90 MON; Pulse Ox 92% ; hs1 15:00 BP 166 / 85 (auto/); hs1 15:01 Pulse 90 MON; Resp 18; Pulse Ox 96% ; hs1 15:15 BP 151 / 86 (auto/); hs1 15:16 Pulse 90 MON; Pulse Ox 95% ; hs1 15:30 BP 155 / 84 (auto/); hs1 15:31 Pulse 90 MON; Pulse Ox 93% ; hs1 15:45 BP 154 / 83 (auto/); hs1 15:46 Pulse 90 MON; Pulse Ox 96% ; hs1 16:07 BP 141 / 76 (auto/); hs1 16:07 Pulse 88 MON; Pulse Ox 94% ; hs1 16:15 BP 135 / 77 (auto/); hs1 16:15 Pulse 88 MON; Pulse Ox 96% ; hs1 16:30 BP 147 / 76 (auto/); hs1 16:31 Pulse 90 MON; Resp 18; Temp 98.2(TE); Pulse Ox 96% ; hs1 16:45 BP 130 / 70 (auto/); hs1 16:45 Pulse 94 MON; Pulse Ox 95% ; hs1 17:00 BP 162 / 89 (auto/); hs1 17:00 Pulse 88 MON; Pulse Ox 93% ; hs1 17:15 BP 171 / 86 (auto/); hs1 17:15 Pulse 88 MON; Resp 18; Pulse Ox 96% ; hs1 12:02 Body Mass Index 30.11 (100.70 kg, 182.88 cm) ct3 MDM: 12:05 Swaging Machine Operator/Pulse Ox/q 30 min VS ordered. br1 12:05 IV Saline Lock ordered. br1 12:05 Rhythm Strip to chart ordered. br1 12:05 Undress patient appropriately for examination ordered. br1 12:06 Basic Metabolic Profile Ordered. EDMS 12:06 CBC with Diff Ordered. EDMS 12:06 Cardiac Injury Profile Ordered. EDMS 12:06 Troponin Ordered. EDMS 12:06 ECG WITH READING ER PHYS+CARDIAG ordered. EDMS 12:06 Chest, 1 View Ordered. EDMS 13:54 Misc. Nursing Order ordered. br1 13:55 Financial registration complete. lg 13:56 [facility] Payment Agreement was scanned into [employer] and attached to record. lg 14:00 CT Chest Without Contrast Ordered. EDMS 14:00 D-Dimer Quant Ordered. EDMS 14:06 Basic Metabolic Profile Reviewed. br1 14:06 CBC with Diff Reviewed. br1 14:06 Cardiac Injury Profile Reviewed. br1 14:06 Troponin Reviewed. br1 14:06 Chest, 1 View Reviewed. br1 14:58 -Blood Culture (Adults Only), peripheral from different site, or from device/port/PICC br1 etc. if present ordered. 14:58 -Blood Culture Ordered. EDMS 15:00 vancomycin 1 grams IVPB once over 60 mins; dilute in 250mL of NS or D5W ordered. br1 15:00 Piperacillin-Tazobactam 3.375 grams IVPB once over 30 mins; dilute in 50mL of NS or D5W br1 ordered. 15:01 D-Dimer Quant Reviewed. br1 15:01 Chest, 1 View Reviewed. br1 15:01 -Blood Culture (Adults Only), peripheral from different site, or from device/port/PICC deg etc. if present complete. 15:01 BLOOD CULTURES Ordered. EDMS 15:02 BED REQUEST+ADM ordered. EDMS 15:13 Admission / Observation Status ordered. EDMS 15:14 ECHOCARD,DOPPLER/COLOR FLOW ordered. EDMS 15:14 ELECTROCARDIOGRAM ADULT ordered. EDMS 15:14 CONSISTENT CARBOHYDRATES ordered. EDMS 15:15 CARDIAC MARKER PANEL Ordered. EDMS 15:15 MRSA SCREEN Ordered. EDMS 15:15 SPUTUM CULTURE AND GRAM STAIN Ordered. EDMS 15:54 BRAIN NATIURETIC PEPTIDE Ordered. EDMS 17:06 PT & APTT Ordered. EDMS Administered Medications: 16:09 Drug: vancomycin 1 grams [vancomycin 1,000 mg intravenous injection] Route: IVPB; hs1 Infused Over: 60 mins; Site: right antecubital; 17:16 Follow up: Response: No Adverse Reaction; IV Status: Completed infusion; IV Intake: hs1 250ml 17:15 Drug: Piperacillin-Tazobactam 3.375 grams [piperacillin-tazobactam 3.375 gram hs1 intravenous solution] Route: IVPB; Infused Over: 30 mins; Site: left antecubital; Signatures: Dispatcher [employer] EDMS Laverne Riggins, Corporate Executive Chef Unit deg Vipul Easton, Reg Reg lg Umair Gaston MD MD br1 Michaela Ulloa RN RN hs1 Pawel Simmons RN RN sa The chart was reviewed and I authenticate all verbal orders and agree with the evaluation and treatment provided.Corrections: (The following items were deleted from the chart) 14:02 13:55 CT ANGIO CHEST+CT ordered. EDMS EDMS 17:06 14:03 PROTHROMBIN TIME PROFILE\E\INR+LAB ordered. EDMS EDMS 17:06 14:03 PARTIAL THROMBOPLASTIN TIME+LAB ordered. EDMS EDMS Attachments: 13:56 [facility] Payment Agreement lg [email or web address]
--- NOTE | 2016-08-02 17:21 | EDDOCDS ---
Nurse's Notes [facility] Name: Joyce Sanchez Age: 55 yrs Sex: Male : 1960 Arrival Date: 08/02/2016 Time: 11:54 Bed 14 Private MD: Diagnosis: Pneumonia, unspecified organism;Abnormal electrocardiogram [ECG] [EKG] Presentation: 08/02 11:58 Presenting complaint: EMS states: quadruple bypass on July 09 - today has rapid hs1 heart rate. Patient insulin diabetic states sugars have been fine. Patient has heart pillow and appears very anxious. Sinus tach on monitor now sinus rhythm. Adult Sepsis Screening: The patient does not have new or worsening altered mentation. Patient's respiratory rate is less than 22. Systolic blood pressure is greater than 100. Patient has a qSOFA score of 0- Negative Sepsis Screen. Suicide/Homicide risk assessment- the patient denies having any suicidal and/or homicidal ideations and does not present with any other emotional, behavioral or mental health complaints. 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 Transition of care: patient was not received from another setting of care. 11:58 Acuity: MARIANA Level 2 hs1 11:58 Method Of Arrival: Ambulance hs1 Triage Assessment: 12:05 General: Appears in no apparent distress, comfortable, Behavior is anxious, appropriate hs1 for age, cooperative. Pain: Denies pain. HIV screening NA for this visit Offered previously. Neurological: Level of Consciousness is awake, alert, obeys commands, Oriented to person, place, time. Cardiovascular: Capillary refill is > 3 seconds Heart tones S1 S2 Edema is absent. Rhythm is sinus rhythm No ectopy. Respiratory: Onset: The symptoms/episode began/occurred this morning, Airway is patent Respiratory effort is even, unlabored, Respiratory pattern is regular, symmetrical. Derm: Skin is pink, warm & dry. normal, incision to center of chest. Patient states normal pain 2/10. Wound edges well approximated and appear clean. Patient has heart pillow and uses to help with coughing. Historical: - Home Meds: 1. omeprazole 40 mg Oral cpDR 1 cap once daily (Last dose: 08/02/2016 09:00) 2. amiodarone 200 mg Oral tab 1 tab once daily (Last dose: 08/02/2016 09:00) 3. furosemide 40 mg Oral tab 3 times per day 9 am and 5 pm (Last dose: 08/02/2016 09:00) 4. potassium chloride 10 mEq Oral cpER 1 cap once daily (Last dose: 08/02/2016 09:00) 5. calcitriol 0.25 mcg oral cap 2 caps once daily (Last dose: 08/02/2016 09:00) 6. metoprolol tartrate 25 mg Oral tab 0.5 tab 2 times per day 9 am and 9 pm (Last dose: 08/02/2016 09:00) 7. pravastatin 80 mg oral tab 1 tab nightly (Last dose: 08/01/2016 21:00) 8. hydralazine 25 mg oral tab 1 tab 2 times per day 9 am and 9 pm (Last dose: 08/02/2016 09:00) 9. warfarin 6 mg Oral tab 1 tab once daily (Last dose: 08/01/2016 17:00) 10. acetaminophen 500 mg Oral tab 2 tabs as needed 11. aspirin 81 mg Oral chew 1 tab once daily (Last dose: 08/02/2016 09:00) 12. Cartia XT 120 mg Oral cp24 1 cap once daily (Last dose: 08/02/2016 09:00) 13. Levemir 100 unit/mL subcutaneous soln 16 units in am (Last dose: 08/01/2016 09:00) 14. Humalog Pen Sub-Q sliding scale three times daily 15. multivitamin Oral tab 1 tablet daily (Last dose: 08/02/2016 09:00) 16. ferrous gluconate 324 mg (36 mg iron) Oral tab 1 tab (Last dose: 08/02/2016 09:00) 17. 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 No barriers to communication noted, The patient speaks fluent Macedonian, Speaks appropriately for age. - Family history: Not pertinent. - : The pt / caregiver states he / she is on anticoagulants: coumadin. Home medication list is obtained from pill bottles. - Exposure Risk Screening:: None identified. Screenin:09 Screening information is obtained from the patient. Fall risk: No risks identified. hs1 Assistance ADL's: requires no assistance with activities of daily living. Abuse/DV Screen: The patient / caregiver reports he/she is: not in a situation that causes fear, pain or injury. Nutritional screening: No deficits noted. Advance Directives: There is no active DNR order. home support is adequate. Assessment: 12:52 General: Appears in no apparent distress, Behavior is appropriate for age, cooperative. hs1 Pain: Denies pain. Neurological: No deficits noted. Cardiovascular: Rhythm is sinus rhythm No ectopy. Cardiovascular: Capillary refill < 3 seconds Edema is absent. Chest pain is denied. Respiratory: Airway is patent Respiratory effort is even, unlabored, Respiratory pattern is regular, symmetrical, Breath sounds are clear bilaterally. Derm: Skin is pink, warm & dry. normal. 13:45 General: Appears in no apparent distress, Behavior is appropriate for age, cooperative. hs1 Pain: Denies pain. Neurological: No deficits noted. Cardiovascular: Rhythm is sinus rhythm. Respiratory: Airway is patent Respiratory effort is even, unlabored, Respiratory pattern is regular, symmetrical. 14:26 Reassessment: resting on stretcher. visitor at bedside. [facility] 15:30 General: Patient aware of admission and aware of needing blood cultures and CT studies hs1 as further work ups. No needs known at this time. Visitor present in room. Patient appears comfortable. 16:10 General: Appears in no apparent distress, Behavior is appropriate for age, cooperative. hs1 Pain: Location: "phantom pain" Pain currently is 7 out of 10 on a pain scale. Neurological: No deficits noted. Cardiovascular: Rhythm is sinus rhythm No ectopy. Respiratory: No deficits noted. Derm: Skin is pink, warm & dry. normal. 17:17 General: Appears in no apparent distress, comfortable, Behavior is appropriate for age, hs1 cooperative. Pain: Denies pain. Neurological: Level of Consciousness is awake, alert, obeys commands, Oriented to person, place, time, Centerless Grinder Tender are equal bilaterally Moves all extremities. Cardiovascular: Rhythm is sinus rhythm No ectopy. Respiratory: No deficits noted. Airway is patent Respiratory effort is even, unlabored, Respiratory pattern is regular, symmetrical. Derm: Skin is pink, warm & dry. normal. Vital Signs: 12:02 BP 98 / 54; Pulse 94; Resp 18; Temp 99.0(TE); Pulse Ox 97% on R/A; Weight 100.7 kg (R); ct3 Height 6 ft. 0 in. (182.88 cm) (R); Pain 1/10; 12:30 BP 102 / 54 (auto/); hs1 12:31 Pulse 88 MON; Pulse Ox 95% ; hs1 12:45 BP 105 / 59 (auto/); hs1 12:46 Pulse 88 MON; Pulse Ox 96% ; hs1 13:00 BP 104 / 56 (auto/); hs1 13:01 Pulse 86 MON; Pulse Ox 94% ; hs1 13:15 BP 130 / 68 (auto/); hs1 13:16 Pulse 86 MON; Resp 18; Pulse Ox 100% ; hs1 13:30 BP 135 / 65 (auto/); hs1 13:31 Pulse 88 MON; Pulse Ox 95% ; hs1 13:45 BP 121 / 61 (auto/); hs1 13:46 Pulse 86 MON; Pulse Ox 97% ; hs1 14:00 BP 108 / 58 (auto/); hs1 14:01 Pulse 92 MON; Pulse Ox 99% ; hs1 14:15 BP 180 / 83 (auto/); hs1 14:16 Pulse 90 MON; Pulse Ox 98% ; hs1 14:30 BP 175 / 85 (auto/); hs1 14:31 Pulse 90 MON; Pulse Ox 97% ; hs1 14:45 BP 169 / 87 (auto/); hs1 14:46 Pulse 90 MON; Pulse Ox 92% ; hs1 15:00 BP 166 / 85 (auto/); hs1 15:01 Pulse 90 MON; Resp 18; Pulse Ox 96% ; hs1 15:15 BP 151 / 86 (auto/); hs1 15:16 Pulse 90 MON; Pulse Ox 95% ; hs1 15:30 BP 155 / 84 (auto/); hs1 15:31 Pulse 90 MON; Pulse Ox 93% ; hs1 15:45 BP 154 / 83 (auto/); hs1 15:46 Pulse 90 MON; Pulse Ox 96% ; hs1 16:07 BP 141 / 76 (auto/); hs1 16:07 Pulse 88 MON; Pulse Ox 94% ; hs1 16:15 BP 135 / 77 (auto/); hs1 16:15 Pulse 88 MON; Pulse Ox 96% ; hs1 16:30 BP 147 / 76 (auto/); hs1 16:31 Pulse 90 MON; Resp 18; Temp 98.2(TE); Pulse Ox 96% ; hs1 16:45 BP 130 / 70 (auto/); hs1 16:45 Pulse 94 MON; Pulse Ox 95% ; hs1 17:00 BP 162 / 89 (auto/); hs1 17:00 Pulse 88 MON; Pulse Ox 93% ; hs1 17:15 BP 171 / 86 (auto/); hs1 17:15 Pulse 88 MON; Resp 18; Pulse Ox 96% ; hs1 12:02 Body Mass Index 30.11 (100.70 kg, 182.88 cm) ct3 Vitals: 12:02 Log In Time N/A - ambulance arrival. ct3 ED Course: 11:55 Patient visited by Laverne Riggins, [place]. deg 11:55 Patient moved to Waiting deg 11:57 Patient moved to 14 deg 12:01 Triage Initiated hs1 12:02 Accompanied by Family Member, Patient has correct armband on for positive ct3 identification. Placed in gown. Bed in low position. Call light in reach. Side rails up X2. athletic monitor on. Pulse ox on. NIBP on. 12:03 Patient visited by Monika Paredes PCA. ct3 12:20 Inserted saline lock: 20 gauge in right antecubital area and blood collected. The hs1 patient tolerated the procedure well. 12:21 Patient visited by Monika Paredes PCA. ct3 12:21 EKG done. (by ED staff). Reviewed by Kiera Narayanan MD. ct3 12:22 Basic Metabolic Profile Sent. hs1 12:22 CBC with Diff Sent. hs1 12:22 Cardiac Injury Profile Sent. hs1 12:22 Troponin Sent. hs1 12:52 Patient visited by Michaela Ulloa RN. hs1 13:42 Umair Gaston MD is Attending Physician. br1 13:51 Chest, 1 View Returned. EDMS 13:53 Patient visited by Michaela Ulloa RN. hs1 13:53 Patient visited by Umair Gaston MD. br1 13:56 [facility] Payment Agreement was scanned into [employer] and attached to record. lg 14:01 D-Dimer Quant Sent. hs1 14:26 Patient visited by Carmita Weeks RN. srm 14:31 Chest, 1 View Returned. EDMS 15:06 Ankit, Noemy is Hospitalizing Provider. br1 15:55 CT Chest Without Contrast Returned. EDMS 16:12 No procedures done that require assistance. hs1 16:43 The patient / caregiver is instructed regarding the plan of care and ED course. hs1 Administered Medications: 16:09 Drug: vancomycin 1 grams [vancomycin 1,000 mg intravenous injection] Route: IVPB; hs1 Infused Over: 60 mins; Site: right antecubital; 17:16 Follow up: Response: No Adverse Reaction; IV Status: Completed infusion; IV Intake: hs1 250ml 17:15 Drug: Piperacillin-Tazobactam 3.375 grams [piperacillin-tazobactam 3.375 gram hs1 intravenous solution] Route: IVPB; Infused Over: 30 mins; Site: left antecubital; Intake: 17:16 IV: 250.00ml; Total: 250.00ml. hs1 Output: 16:43 Urine: 350.00ml (Voided); Total: 350.00ml. hs1 Order Results: Lab Order: Basic Metabolic Profile; SPEC'M 08/02/16 12:21 Test: GLUCOSE, FASTING; Value: 176; Range: 70-105; Abnormal: Above high normal; Units: MG/DL; Status: F Test: BLOOD UREA NITROGEN; Value: 64; Range: 7-18; Abnormal: Above high normal; Units: MG/DL; Status: F Test: CREATININE FOR GFR; Value: 2.45; Range: 0.70-1.30; Abnormal: Above high normal; Units: MG/DL; Status: F Test: GLOMERULAR FILTRATION RATE; Value: 29.4; Range: >56; Abnormal: Below low normal; Status: F Test: SODIUM LEVEL; Value: 135; Range: 136-145; Abnormal: Below low normal; Units: MEQ/L; Status: F Test: POTASSIUM SERUM; Value: 4.1; Range: 3.5-5.1; Units: MEQ/L; Status: F Test: CHLORIDE LEVEL; Value: 99; Range: 98-107; Units: MEQ/L; Status: F Test: CARBON DIOXIDE LEVEL; Value: 25; Range: 21-32; Units: MEQ/L; Status: F Test: ANION GAP; Value: 11; Range: 8-16; Units: MEQ/L; Status: F Test: CALCIUM LEVEL; Value: 8.8; Range: 8.5-10.1; Units: MG/DL; Status: F Test Note: ; Units are mL/min/1.73 m2 Chronic Kidney Disease Staging per NKF: Stage I & II GFR >=60 Normal to Mildly Decreased Stage III GFR 30-59 Moderately Decreased Stage IV GFR 15-29 Severely Decreased Stage V GFR <15 Very Little GFR Left ESRD GFR <15 on PHOTOGRAPHER MODEL Lab Order: CBC with Diff; SPEC'M 08/02/16 12:21 Test: WHITE BLOOD COUNT; Value: 8.8; Range: 4.0-10.0; Units: K/mm3; Status: F Test: RED BLOOD COUNT; Value: 3.97; Range: 4.30-6.10; Abnormal: Below low normal; Units: M/mm3; Status: F Test: HEMOGLOBIN; Value: 11.7; Range: 14.0-18.0; Abnormal: Below low normal; Units: g/dl; Status: F Test: HEMATOCRIT; Value: 36.7; Range: 42.0-52.0; Abnormal: Below low normal; Units: %; Status: F Test: MEAN CORPUSCULAR VOLUME; Value: 92.4; Range: 80.0-96.0; Units: fl; Status: F Test: MEAN CORPUSCULAR HEMOGLOBIN; Value: 29.6; Range: 27.0-33.0; Units: pg; Status: F Test: MEAN CORPUSCULAR HGB CONC; Value: 32.0; Range: 32.0-36.5; Units: g/dl; Status: F Test: RED CELL DISTRIBUTION WIDTH; Value: 14.7; Range: 11.5-14.5; Abnormal: Above high normal; Units: %; Status: F Test: PLATELET COUNT, AUTOMATED; Value: 364; Range: 150-450; Units: k/mm3; Status: F Test: NEUTROPHILS %; Value: 93.5; Range: 36.0-66.0; Abnormal: Above high normal; Units: %; Status: F Test: LYMPH %; Value: 1.3; Range: 24.0-44.0; Abnormal: Below low normal; Units: %; Status: F Test: MONO %; Value: 3.0; Range: 0.0-5.0; Units: %; Status: F Test: EOS %; Value: 0.9; Range: 0.0-3.0; Units: %; Status: F Test: BASO %; Value: 0.8; Range: 0.0-1.0; Units: %; Status: F Test: LARGE UNSTAINED CELL %; Value: 0.5; Range: 0.0-4.0; Units: %; Status: F Test: NEUTROPHILS #; Value: 8.2; Range: 1.8-7.7; Abnormal: Above high normal; Units: K/mm3; Status: F Test: LYMPH #; Value: 0.2; Range: 1.5-4.5; Abnormal: Below low normal; Units: K/mm3; Status: F Test: MONO #; Value: 0.3; Range: 0.0-0.8; Units: K/mm3; Status: F Test: EOS #; Value: 0.1; Range: 0.0-0.50; Units: K/mm3; Status: F Test: BASO #; Value: 0.1; Range: 0.0-0.2; Units: K/mm3; Status: F Test: LARGE UNSTAINED CELL #; Value: 0.0; Range: 0.0-0.4; Units: K/mm3; Status: F Lab Order: Cardiac Injury Profile; SPEC'M 08/02/16 12:21 Test: CPK CREATINE PHOSPHOKINASE; Value: 133; Range: 39-308; Units: U/L; Status: F Test: CK-MB VALUE MASS; Value: 4.4; Range: 0.0-3.6; Abnormal: Above high normal; Units: NG/ML; Status: F Test: MB/CK RELATIVE INDEX; Value: 3.30; Range: < OR =4; Status: F Test Note: ; DIAGNOSIS CRITERIA MMB ng/ml Relative Index (RI) NON-AMI < or = 5 N/A [place] > 5 < or = 4 AMI > 5 > 4 Lab Order: Troponin; SPEC' 08/02/16 12:21 Test: TROPONIN I; Value: 0.06; Range: < 0.10; Units: NG/ML; Status: F Test Note: ; Troponin I Reference Interval for [employer] LOCI: 99th Percentile= 0.00-0.045 ng/ml Risk Stratification: <= 0.10 ng/ml Decreased Risk for Adverse Clinical Events. 0.10-1.50 ng/ml Increased Risk for Adverse Clinical Events. Evaluation of additional criterion and/or repeat testing in 2-6 hours is suggested to rule out myocardial damage. >= 1.50 ng/ml Indicative of Myocardial Injury. Lab Order: D-Dimer Quant; [facility]' 08/02/16 12:21 Test: D-DIMER QUANT; Value: 3837.9; Range: <500; Abnormal: Above high normal; Units: ng/ml; Status: F Lab Order: BRAIN NATIURETIC PEPTIDE; SPEC' 08/02/16 12:20 Test: BRAIN NATRIURETIC PEPTIDE; Value: 460; Range: <100; Abnormal: Above high normal; Units: PG/ML; Status: F Lab Order: PT & APTT; [facility] 08/02/16 12:21 Test: PROTHROMBIN TIME; Value: 25.1; Range: 12.3-14.5; Abnormal: Above high normal; Units: SECONDS; Status: F Test: INR; Value: 2.27; Status: F Test: PARTIAL THROMBOPLASTIN TIME; Value: 43.0; Range: 26.6-37.1; Abnormal: Above high normal; Units: SECONDS; Status: F Test Note: ; THERAPUTIC HUMAN INR VALUES INDICATIONS NORMAL RANGES PROPHYLAXIS/TREATMENT OF: VENOUS THROMBOSIS 2.0-3.0 PULMONARY EMBOLISM 2.0-3.0 PREVENTION OF SYSTEMIC EMBOLISM FROM: TISSUE HEART VALVES 2.0-3.0 ACUTE MYOCARDIAL INFARCTION 2.0-3.0 VALVULAR HEART DISEASE 2.0-3.0 ATRIAL FIBRILLATION 2.0-3.0 MECHANICAL VALVES(HIGH RISK) 2.5-3.5 RECURRENT MYOCARDIAL INFARCTION 2.5-3.5 Radiology Order: Chest, 1 View Test: Chest, 1 View REASON FOR EXAMINATION: Shortness of Breath; CHEST, ONE VIEW:; ; HISTORY: Shortness of breath.; ; COMPARISON: 07/06/2016; ; There is elevation of the left hemidiaphragm. Increased density is present in; the left lower lobe consistent with atelectasis or infiltrate. The right lung is; clear. A small left pleural effusion is present. The heart is upper limits of; normal in size. The pulmonary vasculature is normal in appearance.; ; IMPRESSION:; ; 1. Left lower lobe atelectasis or infiltrate.; ; 2. Small left pleural effusion.; ; ; Signed by; Mikey Floyd MD 08/02/2016 01:53 P; Radiology Order: CT Chest Without Contrast Test: CT Chest Without Contrast REASON FOR EXAMINATION: Shortness of Breath; CT study of chest without contrast:; ; History: Shortness of breath.; ; Comparison chest x-ray is from earlier on this date. Comparison is also made; with chest x-ray from October 16, 2015.; ; CT findings: The patient is status post prior median sternotomy. There is lobar; collapse and consolidation in the left lower lobe with air bronchograms in the; atelectatic lower lobe just above the left hemidiaphragm. Left hemidiaphragm is; elevated. There is a small quantity of left pleural fluid. Vascular; calcification is noted. No right pleural effusion or pericardial effusion is; seen. Minimal linear fibrosis versus discoid atelectasis in the right lower; lobe. No bony destructive lesion is seen.; ; No adrenal lesion is observed. Incidental note is made of opaque gallstones in; the gallbladder.; ; Impression:; ; 1. Elevated left hemidiaphragm.; ; 2. Very small left pleural effusion.; ; 3. Nearly lobar collapse and consolidation left lower lobe with air; bronchograms.; ; 4. Cholelithiasis.; ; 5. Median sternotomy performed in the interval since the October 16, 2015 chest; x-ray.; ; ; Signed by; Marco Wilkinson MD 08/02/2016 03:35 P; Outcome: 15:06 Decision to Hospitalize by Provider. br1 17:18 Discharge Assessment: Patient awake, alert and oriented x 3. No cognitive and/or hs1 functional deficits noted. Patient verbalized understanding of disposition instructions. patient administered narcotics - no. The following High Risk Discharge criteria are identified: None. Admitted to PCU accompanied by nurse, accompanied by tech, via stretcher, on monitor, with chart. Condition: stable. CT Study completed. Property :Personal belongings accompany Pt. 17:20 Patient left the ED. hs1 Signatures: Dispatcher [employer] EDLaverne Chow, [place] Unit deg Carmita Weeks RN RN Vipul Self, Reg Reg lg Umair Gaston MD MD br1 Michaela Ulloa RN RN hs1 Monika Paredes, LAST DIGITAL CONTENT MARKETING MANAGER ct3 Corrections: (The following items were deleted from the chart) 17:06 14:25 PARTIAL THROMBOPLASTIN TIME+LAB sent. [facility] EDMS 17:06 14:25 PROTHROMBIN TIME PROFILE\\E\\INR+LAB sent. [facility] EDMS MTDD
[2016-08-02 17:45] VITALS: BP 122/62
[2016-08-02] MEDS: ACETAMINOPHEN TAB 650MG DOSE (2X325MG) PO PRN (17:54)
[2016-08-02] MEDS ORDERED: ACETAMINOPHEN TAB 650MG DOSE (2X325MG) PO PRN (18:00)
[2016-08-02] MEDS: IPRATROPIUM 0.5MG/ALBUTEROL 2.5MG INH SOL UD 3ML (DUONEB)(J7620) NEB SCH (19:25)
[2016-08-02 20:08] VITALS: BP 99/52
--- NOTE | 2016-08-02 20:10 | HPEPDOC ---
General Date of Admission Aug 02, 2016 at 15:07 Primary Care Physician: Stew Weaver MD Attending Physician: TYLER CHOW MD Chief Complaint The patient is a 55-year-old male admitted with a reason for visit of Left Lower Lobe Pneumonia. Source: Patient Exam Limitations: No limitations History of Present Illness Mr. Sanchez is a 55-year-old male who presented to the ED because of acute onset shortness of breath, tachycardia, as well as what he feels to be a small panic attack. He just had a quadruple bypass performed on 07/09/2016, he states that prior to his surgery he was not a very anxious person, however ever since his heart surgery he has had multiple "panic attacks", this time it was concerning to him because of the noted tachycardia on a home monitor, as well as shortness of breath which was new. EKG performed in the ED showed sinus rhythm with an ST segment elevation in lead 3, the ED physician did call the clinical cytogeneticist scientist who stated that this was nothing acute, and had no further recommendations for the time being. 1 view chest x-ray in the ED does reveal a new onset elevation of the left hemidiaphragm as compared with x-ray from 2015 with increased density present in the left lower lobe consistent with atelectasis or infiltrate and a small left pleural effusion. Home Medications Scheduled (Daily-Soraida) 1 Tab Tab 1 TAB PO DAILY (Reported) Amiodarone HCl (Amiodarone HCl) 200 Mg Tab 200 MG PO DAILY (Reported) Ascorbic Acid (Ascorbic Acid) 500 Mg Tab 500 MG PO DAILY (Reported) Aspirin (Aspirin 81) 81 Mg Tab 81 MG PO DAILY (Reported) Calcitriol (Calcitriol) 0.5 Mcg Cap 0.5 MCG PO DAILY (Reported) Docusate Sodium (Docusate Sodium) 100 Mg Cap 100 MG PO BID (Reported) Ferrous Gluconate (Ferrous Gluconate) 324 Mg Tab 324 MG PO BID (Reported) Folic Acid (Folic Acid) 1 Mg Tab 1 MG PO DAILY (Reported) Furosemide (Furosemide) 20 Mg Tab 60 MG PO BID (Reported) Hydralazine HCl (Hydralazine HCl) 25 Mg Tab 25 MG PO BID (Reported) Insulin Detemir (Levemir) 1 Units/0.01 Ml Susp 16 UNITS SC DAILY (Reported) Insulin Human Lispro (Humalog) 1 Units/0.01 Ml Inj 1 DOSE SC AC (Reported) PER SLIDING SCALE Isosorbide Mononitrate (Isosorbide Mononitrate ER) 30 Mg Tab 30 MG PO DAILY ( Reported) Metoprolol Tartrate (Metoprolol Tartrate) 12.5 Mg Halftab 12.5 MG PO BID ( Reported) Omeprazole (Omeprazole) 40 Mg Cap 40 MG PO DAILY (Reported) Potassium Chloride (Klor-Con M10) 10 Meq Tabcr 10 MEQ PO DAILY (Reported) Pravastatin Sodium (Pravastatin Sodium) 80 Mg Tab 80 MG PO QHS (Reported) Warfarin Sod (Coumadin) 6 Mg Tab 6 MG PO QPM (Reported) Scheduled PRN Acetaminophen (Acetaminophen) 325 Mg Tab 650 MG PO Q4H PRN PRN PAIN (Reported) Allergies Coded Allergies: No Known Allergies (Verified Allergy, Unknown, 09/21/07) Past Medical History Medical History 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, neuropathy, and nephropathy Peripheral artery disease Tobacco abuse, however he quit smoking in 2014 Coronary artery disease Silent myocardial infarction in 2006 Hypertension Hyperlipidemia Chronic kidney disease stage IV Vitamin D deficiency Chronic venous insufficiency Left nonhealing diabetic foot ulcer Status post BKA of the right leg Surgical History Left first toe amputation February 2010 Right BKA February 2011 with prior right transmetatarsal amputation in 2007 Left second toe amputation November 2011 Prior history of spinal surgery with subsequent left lower extremity atrophy and left foot drop in 1997 Vascular surgery left lower extremity February 2010 Bilateral eye surgeries for retinopathy in 2012 Bilateral cataract surgeries 2014 EGD in 2010 suggestive of severe gastritis Family History Family History Mother had diabetes mellitus type 2, cervical/ovarian cancer. Grandmother suffered from angina, father had lung cancer with a strong history of smoking and working in the [employer]. Great uncle had a CABG. 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 Review of Symptoms Constitutional: Denies: Chills, Fever, Night Sweats Eyes: Denies: Pain, Vision change ENT: Denies: Dysphagia, Ear Pain, Head Aches Skin: Denies: Breakdown, Lesions, Rash Pulmonary: Reports: Dyspnea, Denies: Cough, Pleuritic Chest Pain Cardiovascular: Reports: Edema, Palpitations, Denies: Chest Pain, Lt Headedness, Orthopnea, Paroxysmal Noc. Dyspnea Gastrointestinal: Reports: Nausea, Denies: Abdominal Pain, Diarrhea, Vomiting Genitourinary: Denies: Dysuria, Frequency, Incontinence, Retention Hematologic: Denies: Bleeding Excessively, Bruising Neurological: Denies: Change in speech, Confusion, Numbness, Weakness Psych: Reports: Mood Normal, Denies: Depression, Memory Issues Physical Examination General Exam: Positive: Alert, Cooperative, No Acute Distress Eye Exam: Positive: Conjunctiva & lids normal, EOMI, Negative: Sclera icteric ENT Exam: Positive: Atraumatic, Mucous membr. moist/pink, Pharynx Normal Neck Exam: Positive: Supple, Negative: JVD, thyromegaly Chest Exam: Positive: Other (and diminished breath sounds on the left throughout, with absent breath sounds at the left lower base. Otherwise clear to auscultation on the right.) Heart Exam: Positive: Other (distant heart sounds, no murmur or rub appreciable ), Rate Normal, Regular Rhythm Telemetry: Positive: No significant arrhythmia, Sinus Abdomen Exam: Positive: Normal bowel sounds, Soft, Negative: Hepatospenomegaly Extremity Exam: Positive: Normal pulses, Other (status post right BKA, left foot is in a supportive prosthesis), Negative: Clubbing, Cyanosis, Edema Skin Exam: Positive: Nl turgor and temperature, Negative: Breakdown, Lesion Psych Exam: Positive: Mental status NL, Mood NL, Oriented x 3 Vital Signs Blood pressure 122/62, pulse 89 and regular, respiratory rate 18, pulse oximetry 95% on room air Laboratory Data Labs 24H Laboratory Tests 2 08/02/16 12:20: B-Type Natriuretic Peptide 460H 08/02/16 12:21: Activated Partial Thromboplast Time 43.0H, Anion Gap 11, White Blood Count 8.8, Red Blood Count 3.97L, Hemoglobin 11.7L, Hematocrit 36.7L, Mean Corpuscular Volume 92.4, Mean Corpuscular Hemoglobin 29.6, Mean Corpuscular Hemoglobin Concent 32.0, Red Cell Distribution Width 14.7H, Platelet Count 364, Neutrophils (%) (Auto) 93.5H, Lymphocytes (%) (Auto) 1.3L, Monocytes (%) (Auto) 3.0, Eosinophils (%) (Auto) 0.9, Basophils (%) (Auto) 0.8, Neutrophils # (Auto) 8.2H, Lymphocytes # (Auto) 0.2L, Monocytes # (Auto) 0.3, Eosinophils # (Auto) 0.1, Basophils # (Auto) 0.1, Blood Urea Nitrogen 64H, Creatinine 2.45H, Sodium Level 135L, Potassium Level 4.1, Chloride Level 99, Carbon Dioxide Level 25, Calcium Level 8.8, Total Creatine Kinase 133, Creatine Kinase MB 4.4H, Creatine Kinase MB Relative Index 3.30, D-Dimer, Quantitative 3837.9H, Glomerular Filtration Rate 29.4L, Large Unclassified Cells # 0.0, Large Unclassified Cells % 0.5, Prothromb Time International Ratio 2.27, Prothrombin Time 25.1H, Troponin I 0.06 08/02/16 15:52: CBC/BMP Laboratory Tests 08/02/16 12:21 Calcium Level 8.8, Total Creatine Kinase 133, Red Blood Count 3.97 L, Mean Corpuscular Volume 92.4, Mean Corpuscular Hemoglobin 29.6, Mean Corpuscular Hemoglobin Concent 32.0, Red Cell Distribution Width 14.7 H, Neutrophils (%) ( Auto) 93.5 H, Lymphocytes (%) (Auto) 1.3 L, Monocytes (%) (Auto) 3.0, Eosinophils (%) (Auto) 0.9, Basophils (%) (Auto) 0.8, Neutrophils # (Auto) 8.2 H , Lymphocytes # (Auto) 0.2 L, Monocytes # (Auto) 0.3, Eosinophils # (Auto) 0.1, Basophils # (Auto) 0.1 Microbiology Microbiology 08/02/16 Blood Culture, Received Pending 08/02/16 Blood Culture, Received Pending 08/02/16 MRSA Screen, Received Pending (1) Acquired elevated hemidiaphragm Status: Acute (2) Left lower lobe pneumonia Status: Acute (3) Diabetes mellitus type 2 with complications, uncontrolled Status: Chronic (4) Peripheral artery disease Status: Chronic (5) Coronary artery disease Status: Chronic (6) S/P CABG x 4 Status: Chronic (7) History of myocardial infarction in adulthood Status: Chronic (8) Hypertension Status: Chronic (9) Hyperlipidemia Status: Chronic (10) CKD (chronic kidney disease), stage IV Status: Chronic (11) Vitamin D deficiency Status: Chronic (12) Non-healing ulcer of left foot Status: Chronic Plan / VTE VTE Prophylaxis Ordered?: Yes Plan Plan Patient will be admitted to the PCU under the care of Dr. Weaver. When comparing his x-rays it appears that he hasn't required elevation of left hemidiaphragm likely acquired because of injury to the left leg nerve during his coronary artery bypass graft performed in the interval between the 2 x- rays. I suspect that shortness of breath is due to complete paralysis of the left hemidiaphragm as indicated by the decreased breath sounds throughout on the left side, and decreased excursion of the ribs on the ipsilateral side upon inspiration. He did have an abnormal EKG in the ED however, which was discussed with Dr. Mason who felt that these did not indicate acute changes, however we will put him on telemetry for observation. We'll continue his home dose of amiodarone, furosemide, hydralazine, isosorbide mononitrate, aspirin, metoprolol tartrate, pravastatin, and warfarin. The patient does have atelectasis and infiltrates on CT and x-ray, he is empirically being treated for left lower lobe pneumonia, however, if clinically indicated perhaps a shorter course of antibiotics would be appropriate. He will also be provided with DuoNeb nebulizers scheduled and PRN, as well as incentive spirometry He regards to his diabetes mellitus type 2, his most recent hemoglobin A1c was performed in March 2016 which was 8.4. We'll continue with his usual Levemir 16 units daily, and put him on sliding scale before meals and at bedtime , and adjust as necessary ELIAS CHEEMA DO Aug 02, 2016 19:26 TYLER CHOW MD Aug 10, 2016 13:04
[2016-08-02] MEDS: PIPERACILLIN/TAZOBACTAM SOD 2.25 GM in D5W MINI-BAG PLUS 50 ML IV SCH (20:43)
[2016-08-02] MEDS: WARFARIN SOD 3 MG TAB PO SCH (20:43)
[2016-08-02] MEDS: FERROUS GLUCONATE 324 MG TAB PO SCH (20:44)
[2016-08-02] MEDS: FUROSEMIDE 20 MG TAB PO SCH (20:45)
[2016-08-02] MEDS: PRAVASTATIN 20 MG TAB PO SCH (20:45)
[2016-08-02] MEDS: DOCUSATE SODIUM 100 MG CAP PO SCH (21:00)
[2016-08-02] MEDS: **hydrALAZINE HCL** 25 MG TAB PO SCH (21:00)
[2016-08-03] VITALS (7 sets, daily range): BP systolic 97–124; BP diastolic 56–69
[2016-08-03] MEDS: METOPROLOL TART 12.5 MG PER 1/2 TAB PO SCH ×3 (00:53→20:49)
[2016-08-03] MEDS: IPRATROPIUM 0.5MG/ALBUTEROL 2.5MG INH SOL UD 3ML (DUONEB)(J7620) NEB SCH ×4 (01:40→19:22)
[2016-08-03] MEDS: PIPERACILLIN/TAZOBACTAM SOD 2.25 GM in D5W MINI-BAG PLUS 50 ML IV SCH ×4 (03:48→20:50)
[2016-08-03 05:35] LABS: BASO % 0.2 % (0.0-1.0); EOS # 0.1 K/mm3 (0.0-0.50); EOS % 1.3 % (0.0-3.0); LARGE UNSTAINED CELL # 0.1 K/mm3 (0.0-0.4); LARGE UNSTAINED CELL % 2.2 % (0.0-4.0); LYMPH # 0.5 K/mm3 (1.5-4.5); LYMPH % 11.4 % (24.0-44.0); MEAN CORPUSCULAR HEMOGLOBIN 30.7 pg (27.0-33.0); MONO # 0.3 K/mm3 (0.0-0.8); MONO % 5.5 % (0.0-5.0); NEUTROPHILS # 3.7 K/mm3 (1.8-7.7); NEUTROPHILS % 79.4 % (36.0-66.0); PLATELET COUNT, AUTOMATED 309 k/mm3 (150-450); RED CELL DISTRIBUTION WIDTH 13.9 % (11.5-14.5); WHITE BLOOD COUNT 4.6 K/mm3 (4.0-10.0)
[2016-08-03 05:37] LABS: INR 2.61
[2016-08-03 05:55] LABS: CREATININE FOR GFR 2.48 MG/DL (0.70-1.30); POTASSIUM SERUM 3.7 MEQ/L (3.5-5.1)
--- NOTE | 2016-08-03 08:04 | ECGEPIP ---
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
[2016-08-03] MEDS: VANCOMYCIN HCL 1,000 MG, VIAL MATE ADAPTER 1 EACH in D5W 250 ML IV SCH (08:17)
[2016-08-03] MEDS ORDERED: SLF 3 ML SYR IV PRN (08:30)
[2016-08-03] MEDS: DOCUSATE SODIUM 100 MG CAP PO SCH ×2 (09:00→20:50)
[2016-08-03] MEDS: ACETAMINOPHEN TAB 650MG DOSE (2X325MG) PO PRN (09:28)
[2016-08-03] MEDS: OMEPRAZOLE 20 MG CAP PO SCH (09:28)
[2016-08-03] MEDS: CALCITRIOL 0.25 MCG CAP (S0169) PO SCH (09:29)
[2016-08-03] MEDS: FUROSEMIDE 20 MG TAB PO SCH ×2 (09:30→16:56)
[2016-08-03] MEDS: FOLIC ACID 1 MG TAB PO SCH (09:31)
[2016-08-03] MEDS: ASCORBIC ACID 500 MG TAB PO SCH (09:31)
[2016-08-03] MEDS: ASPIRIN 81 MG ENTERIC TAB PO SCH (09:32)
[2016-08-03] MEDS: AMIODARONE 200 MG TAB (PACERONE) PO SCH (09:32)
[2016-08-03] MEDS: FERROUS GLUCONATE 324 MG TAB PO SCH ×2 (09:33→20:49)
[2016-08-03] MEDS: ISOSORBIDE MON. (IMDUR) 30 MG XR TAB PO SCH (09:34)
[2016-08-03] MEDS: POTASSIUM CHLORIDE 10 MEQ SR TABLET PO SCH (09:34)
[2016-08-03] MEDS: **hydrALAZINE HCL** 25 MG TAB PO SCH ×2 (09:34→20:50)
[2016-08-03] MEDS: LEVEMIR (INSULIN DETEMIR) 1 UNITS/0.01ML SC SCH (09:37)
--- NOTE | 2016-08-03 11:57 | IPNPDOC ---
Assessment/Plan Date Seen The patient was seen on 08/03/16. Problems Problems: (1) Blood bacterial culture positive Status: Acute Problem Specific Plan: Consult Specialist Problem Text: ID consult. + gram cocci in clusters (2) Acquired elevated hemidiaphragm Status: Acute Problem Specific Plan: Monitor Clinically Problem Text: Repeat CXR today (3) Left lower lobe pneumonia Status: Acute Problem Text: Vancomycin and Zosyn day #2 (4) Diabetes mellitus type 2 with complications, uncontrolled Status: Chronic Response to Treatment: Stable Problem Specific Plan: Monitor Clinically (5) Peripheral artery disease Status: Chronic Response to Treatment: Stable Problem Specific Plan: Monitor Clinically (6) Coronary artery disease Status: Chronic Response to Treatment: Stable Problem Specific Plan: Monitor Clinically (7) S/P CABG x 4 Status: Chronic Response to Treatment: Stable Problem Specific Plan: Monitor Clinically Problem Text: recent CABG and rehab stay 06/2016. DCd this week from [facility] subacute rehab (8) History of myocardial infarction in adulthood Status: Chronic (9) Hypertension Status: Chronic (10) Hyperlipidemia Status: Chronic (11) CKD (chronic kidney disease), stage IV Status: Chronic Problem Text: sees Dr. Lopez as an outpatient. appears to be at baseline Cr. (12) Vitamin D deficiency Status: Chronic (13) Non-healing ulcer of left foot Status: Chronic Plan / VTE VTE Prophylaxis Ordered?: Yes Plan Plan Text Attending attestation: I saw and evaluated the patient, and agree with the plan of care as discussed and documented above. Patient has 1 of 2 bottles positive for gram-positive cocci. Possibly contaminant, however patient's neutrophilic predominance has been reducing, and chest x-ray continues to show consolidation with elevated left hemidiaphragm. ID indicates that positive blood cultures likely contaminant. If hemidiaphragm does not resolve with chest physiotherapy, and sinus prematurity, he will need a follow-up chest CT to evaluate hemidiaphragm. It is also possible that his phrenic nerve was damaged during his CABG procedure. Will plan on transitioning to oral antibiotics tomorrow, and follow- up blood cultures. Instructions for wound care, and floating left heel were given for ulceration on left heel present on admission. Jorgito Burden MD Subjective Review of Systems CC/HPI The patient is a 55-year-old male admitted with a reason for visit of Left Lower Lobe Pneumonia. Events since last encounter C/o needing Right BKA compression sock. States lost in ED. Recent cardiac surgery with increased edema to stump. + Blood cx reported gram + cocci in clusters. On Vancomycin and Zosyn. Constitutional: Denies: Chills, Fever Skin: Denies: Rash Pulmonary: Reports: Dyspnea, Denies: Cough Cardiovascular: Denies: Chest Pain, Orthopnea, Palpitations Gastrointestinal: Denies: Abdominal Pain, Constipation, Diarrhea, Nausea, Vomiting Genitourinary: Denies: Dysuria, Frequency Psych: Reports: Mood Normal Objective Physical Examination General Exam: Positive: Alert, Cooperative, No Acute Distress Eye Exam: Positive: Conjunctiva & lids normal, EOMI, Negative: Sclera icteric ENT Exam: Positive: Atraumatic, Mucous membr. moist/pink, Pharynx Normal Neck Exam: Positive: Supple, Negative: JVD, thyromegaly Chest Exam: Positive: Other (and diminished breath sounds on the left throughout, with absent breath sounds at the left lower base. Otherwise clear to auscultation on the right.) Heart Exam: Positive: Other (distant heart sounds, no murmur or rub appreciable ), Rate Normal, Regular Rhythm Telemetry: Positive: No significant arrhythmia, Sinus Abdomen Exam: Positive: Normal bowel sounds, Soft, Negative: Hepatospenomegaly Extremity Exam: Positive: Normal pulses, Other (status post right BKA, left foot is in a supportive prosthesis), Negative: Clubbing, Cyanosis, Edema Skin Exam: Positive: Nl turgor and temperature, Negative: Breakdown, Lesion Psych Exam: Positive: Mental status NL, Mood NL, Oriented x 3 Vital Signs/I&O Vital Signs Date Time Temp Pulse Resp B/P Pulse Ox O2 Delivery O2 Flow Rate FiO2 08/03/16 09:34 104/67 08/03/16 09:33 75 08/03/16 08:15 Room Air 08/03/16 07:30 95.7 20 100 I&O- Last 24 Hours up to 6 AM 08/03/16 06:00 Output Total 500 ml Balance -500 ml Laboratory Data Labs 24H Laboratory Tests 2 08/02/16 12:20: B-Type Natriuretic Peptide 460H 08/02/16 12:21: Activated Partial Thromboplast Time 43.0H, Anion Gap 11, White Blood Count 8.8, Red Blood Count 3.97L, Hemoglobin 11.7L, Hematocrit 36.7L, Mean Corpuscular Volume 92.4, Mean Corpuscular Hemoglobin 29.6, Mean Corpuscular Hemoglobin Concent 32.0, Red Cell Distribution Width 14.7H, Platelet Count 364, Neutrophils (%) (Auto) 93.5H, Lymphocytes (%) (Auto) 1.3L, Monocytes (%) (Auto) 3.0, Eosinophils (%) (Auto) 0.9, Basophils (%) (Auto) 0.8, Neutrophils # (Auto) 8.2H, Lymphocytes # (Auto) 0.2L, Monocytes # (Auto) 0.3, Eosinophils # (Auto) 0.1, Basophils # (Auto) 0.1, Blood Urea Nitrogen 64H, Creatinine 2.45H, Sodium Level 135L, Potassium Level 4.1, Chloride Level 99, Carbon Dioxide Level 25, Calcium Level 8.8, Total Creatine Kinase 133, Creatine Kinase MB 4.4H, Creatine Kinase MB Relative Index 3.30, D-Dimer, Quantitative 3837.9H, Glomerular Filtration Rate 29.4L, Large Unclassified Cells # 0.0, Large Unclassified Cells % 0.5, Prothromb Time International Ratio 2.27, Prothrombin Time 25.1H, Troponin I 0.06 08/02/16 19:56: Bedside Glucose (Misc Panel) 176H 08/02/16 20:36: Total Creatine Kinase 104, Creatine Kinase MB 3.3, Creatine Kinase MB Relative Index 3.17, Troponin I 0.05 08/03/16 05:17: Anion Gap 10, White Blood Count 4.6, Red Blood Count 3.45L, Hemoglobin 10.6L, Hematocrit 32.1L, Mean Corpuscular Volume 93.0, Mean Corpuscular Hemoglobin 30.7 , Mean Corpuscular Hemoglobin Concent 33.0, Red Cell Distribution Width 13.9, Platelet Count 309, Neutrophils (%) (Auto) 79.4H, Lymphocytes (%) (Auto) 11.4L, Monocytes (%) (Auto) 5.5H, Eosinophils (%) (Auto) 1.3, Basophils (%) (Auto) 0.2 , Neutrophils # (Auto) 3.7, Lymphocytes # (Auto) 0.5L, Monocytes # (Auto) 0.3, Eosinophils # (Auto) 0.1, Basophils # (Auto) 0.0, Blood Urea Nitrogen 60H, Creatinine 2.48H, Sodium Level 136, Potassium Level 3.7, Chloride Level 102, Carbon Dioxide Level 24, Calcium Level 8.0L, Glomerular Filtration Rate 29.0L, Large Unclassified Cells # 0.1, Large Unclassified Cells % 2.2, Prothromb Time International Ratio 2.61, Prothrombin Time 28.0H CBC/BMP Laboratory Tests 08/02/16 12:21 Calcium Level 8.8, Total Creatine Kinase 133, Red Blood Count 3.97 L, Mean Corpuscular Volume 92.4, Mean Corpuscular Hemoglobin 29.6, Mean Corpuscular Hemoglobin Concent 32.0, Red Cell Distribution Width 14.7 H, Neutrophils (%) ( Auto) 93.5 H, Lymphocytes (%) (Auto) 1.3 L, Monocytes (%) (Auto) 3.0, Eosinophils (%) (Auto) 0.9, Basophils (%) (Auto) 0.8, Neutrophils # (Auto) 8.2 H , Lymphocytes # (Auto) 0.2 L, Monocytes # (Auto) 0.3, Eosinophils # (Auto) 0.1, Basophils # (Auto) 0.1 08/03/16 05:17 Calcium Level 8.0 L, Red Blood Count 3.45 L, Mean Corpuscular Volume 93.0, Mean Corpuscular Hemoglobin 30.7, Mean Corpuscular Hemoglobin Concent 33.0, Red Cell Distribution Width 13.9, Neutrophils (%) (Auto) 79.4 H, Lymphocytes (%) (Auto) 11.4 L, Monocytes (%) (Auto) 5.5 H, Eosinophils (%) (Auto) 1.3, Basophils (%) ( Auto) 0.2, Neutrophils # (Auto) 3.7, Lymphocytes # (Auto) 0.5 L, Monocytes # ( Auto) 0.3, Eosinophils # (Auto) 0.1, Basophils # (Auto) 0.0 FSBS Laboratory Tests Test 08/02/16 19:56 Range/Units Bedside Glucose (Misc Panel) 176 70-105 MG/DL Microbiology Microbiology 08/02/16 Blood Culture, Received Pending 08/02/16 Blood Culture - Preliminary, Resulted 08/02/16 MRSA Screen, Received Pending Cristine Hernandez CONFERENCE CENTER MANAGER Aug 03, 2016 11:57 JORGITO BURDEN MD Aug 04, 2016 12:19
[2016-08-03] MEDS ORDERED: GLUCAGON FOR INJ 1 MG VIAL (J1610) SC PRN (12:15)
[2016-08-03] MEDS ORDERED: DEXTROSE 50% 50 ML SYRINGE IV PRN (12:15)
[2016-08-03] MEDS ORDERED: GLUCOSE 4 GM CHEW TABLET PO PRN (12:15)
[2016-08-03] MEDS: HumaLOG INSULIN (NovoLOG) PER UNIT SC SCH ×3 (12:54→20:26)
[2016-08-03] MEDS: SLF 3 ML SYR IV SCH ×2 (14:45→20:50)
--- NOTE | 2016-08-03 15:08 | REP ---
CHEST X-RAY: Two views. HISTORY: Left lower lobe pneumonia. Comparison chest x-ray is from August 02, 2016. FINDINGS: Left hemidiaphragm remains quite elevated. There is some blunting of the left lateral and posterior pleural angles indicating a small quantity of left pleural fluid. There is some increased parenchymal density in the left lower lobe essentially unchanged. Right lung remains clear. Prior sternotomy wires are seen. Heart is mildly prominent in size unchanged. Pulmonary vasculature is not increased. No new infiltrate. IMPRESSION: Elevated left hemidiaphragm, small amount left pleural fluid. Increased parenchymal markings in the left base just above the diaphragm. Prior sternotomy and mild cardiomegaly. Signed by Marco Wilkinson MD 08/03/2016 04:26 P
[2016-08-03] MEDS: WARFARIN SOD 3 MG TAB PO SCH (16:56)
--- NOTE | 2016-08-03 19:15 | ECHO ---
DATE OF PROCEDURE: 08/03/2016 REFERRING PHYSICIAN: Noemy Pham MD INDICATION: Abnormal EKG. Fever. HEIGHT: 183 cm WEIGHT: 99.5 kg DIMENSIONS: IVS: 1.3 LV: 4.8 LVPW: 1.1 LA: 4.3 Aorta: 3.5 FINDINGS: The study is of fair technical quality. Left ventricle is of normal size. Mild left ventricular hypertrophy is noted. There is a septal wall motion abnormality likely due to recent open heart surgery. Overall left ventricle systolic function is preserved and I estimate ejection fraction around 60-65%. Apical segment was poorly seen. Right ventricle appears normal. Both atria are at least mildly enlarged. Aortic valve is mildly sclerotic, but it has three leaflets and normal mobility. Mitral and tricuspid valves appear normal. Pulmonic valve was poorly visualized. No pericardial effusion is noted. Inferior vena cava was not well seen. Aortic root is normal. Aortic arch was not well visualized. Doppler interrogation of aortic valve reveals no stenosis or insufficiency. There is trace mitral insufficiency and trace tricuspid insufficiency. Calculated pulmonary artery pressure is at least in 30s assuming normal central venous pressure. Pulmonic valve is functionally competent. Mitral inflow pattern and tissue Doppler imaging of mitral annulus reveal grade 2 diastolic dysfunction (tissue Doppler velocities of septal and lateral annulus are 4.8 and 7.2 cm per minute respectively). CONCLUSION: 1. Study is of fair technical quality. 2. Normal left ventricle (LV) size with mild left ventricular hypertrophy (LVH) and septal and possibly apical wall motion abnormality but overall preserved LV systolic function. 3. No hemodynamically significant valvular disease. 4. Grade 2 diastolic dysfunction. 5. Unable to estimate central venous pressure. 6. At least mild pulmonary hypertension. COMMENT: Subacute bacterial endocarditis (SBE) prophylaxis is not recommended.
[2016-08-03] MEDS: PRAVASTATIN 20 MG TAB PO SCH (20:48)
[2016-08-03] MEDS: SILVER SULFADIAZINE 1% CR 50 GM JAR TOP SCH (20:48)
--- NOTE | 2016-08-03 22:23 | ECGEPIP ---
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
[2016-08-04] MEDS: IPRATROPIUM 0.5MG/ALBUTEROL 2.5MG INH SOL UD 3ML (DUONEB)(J7620) NEB SCH ×4 (01:06→20:19)
--- NOTE | 2016-08-04 01:36 | CR ---
DATE OF CONSULTATION: 08/03/2016 I was asked to consult by Ginny Hernandez for evaluation of positive blood culture in a patient who is admitted with shortness of breath and presumed healthcare-associated pneumonia. Mr. Sanchez is a pleasant 55-year-old gentleman who had a non-ST elevation myocardial infarction (NC) on 07/06. He was transferred to [facility] where he had a cardiac catheterization and open heart surgery on 07/09. The patient was there for about 2 weeks because of fluid overload, left-sided pleural effusion, as well as increased edema in his right lower extremity where he has a prosthesis and has a below-knee amputation (BKA) and he was not able to put his prosthesis back. He was transferred back to [facility] acute rehabilitation on 07/23 and was discharged on 07/29 to followup with his electrical systems design engineer on the . He was doing well until the day prior to admission when he developed acute onset of shortness of breath, tachycardia. He felt panicky and therefore came to the hospital as he was very anxious and short of breath. He stated that also the day prior to admission he had mild nausea, some diarrhea and a cough, which had been new for him. He had some increasing shortness of breath, but he reports that during his hospitalization at [facility] he had a pleural effusion. There was an attempt to tap it, but it was loculated and it was not tapped in [facility]. He had been taking Lasix 60 mg twice a day to help with congestive heart failure and diuresis. PAST MEDICAL HISTORY: Significant for diabetes type 2 with retinopathy, neuropathy and nephropathy, peripheral artery disease status post vascular surgery on the left leg, probably femoral-popliteal bypass, tobacco abuse, quit in 2014, coronary artery disease status post NC in June of 2016 and open heart surgery, hypertension, hyperlipidemia, chronic kidney disease stage IV, vitamin D deficiency, chronic venous insufficiency, a nonhealing ulcer along his Achilles tendon on the left side with culture positive for methicillin-susceptible Staphylococcus aureus (MSSA), status post below-knee amputation (BKA) of the right leg from chronic osteomyelitis with methicillin-resistant Staphylococcus aureus (MRSA). PAST SURGICAL HISTORY: Left first toe amputation February 2010, BKA February 2011 after right mid transmetatarsal amputation 2007, left second toe amputation November 2011, spinal surgery with secondary left foot drop in , bypass left leg February 2010, bilateral eye surgery for retinopathy, cataract surgery, endoscopy done into 2010 suggesting severe gastritis. FAMILY HISTORY: Mother had diabetes and female cancer. Father had lung cancer with a history of smoking and working in the mines. SOCIAL HISTORY: He quit smoking 2014. He denies any alcohol or drug abuse. He is disabled. 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 REVIEW OF SYSTEMS: He denies any fevers or chills. He has some nausea and diarrhea that have resolved within 24 hours. He stated his temperature was 99.2 and usually is 97. He had increasing dyspnea with a mild cough that have improved since yesterday. He denies any headache, chest pain. No dysuria, hematuria, incontinence. No headache, neck stiffness. PHYSICAL EXAMINATION: He is a healthy looking gentleman in no acute distress. Temperature is 96.2, pulse 80, respirations 20, blood pressure 123/69, oxygen saturation 94% on room air. Heart: Normal S1, S2. No murmurs appreciated. Midsternum nontender, well-healed. Lungs are clear. No wheezes, rales or rhonchi. Diminished at the left base. Abdomen: Obese, soft, nontender. Extremities: Right BKA well healed with no open lesions. Left leg has +1 edema with an ulcer over the Achilles tendon measuring 1 x 1.5 cm with mild surrounding erythema, but no purulent discharge. There is minimal discharge on the dressing. LABORATORY DATA: White count yesterday was 8.8, today 4.6, hemoglobin 10.6, hematocrit 32.1, platelets 309, 79% neutrophils, 11% lymphocytes, 5% monocytes. Sodium 136, potassium 3.7, chloride 102, bicarbonate 24, BUN 60, creatinine 2.5, GFR 29, glucose 209, calcium 8, CPK 104. BNP 460. Blood culture was positive for gram positive cocci in clusters, only one out of two. MRSA screen is pending. IMAGING STUDIES: Chest x-ray shows an elevated left hemidiaphragm, small amount of left pleural fluid, increased parenchymal markings at the left base, prior sternotomy and mild cardiomegaly. He had no new infiltrate. Chest CT showed a very small left pleural effusion, elevated left hemidiaphragm, nearly lobar collapse, and consolidation of the left lower lobe with air bronchogram, cholelithiasis. Maximum temperature (T-max) yesterday was 99.2, today was 96.2. IMPRESSION: This is a 55-year-old gentleman who was admitted with increasing shortness of breath, low-grade fever, one episode of nausea and diarrhea, increased cough and shortness of breath that the patient related may be from anxiety. On x-ray, there is evidence of small left pleural effusion and elevated hemidiaphragm. Clinically, he does not act like a healthcare-associated pneumonia. He does not have a fever or a white count. His maximum temperature (T-max) is 99.2. He had, prior to his admission, one episode of nausea and diarrhea. The patient might have had a slight respiratory or gastrointestinal (GI) illness that triggered his cough and increasing shortness of breath. On exam, he looks great. I suspect his blood culture is a contaminant with gram positive cocci suggestive of Staphylococcus epidermidis and not of concern. Currently, he is not short of breath. His oxygen saturation is 94-98% on room air. Echocardiogram done today shows a study of fair technical quality, normal left ventricle size, left ventricular hypertrophy (LVH), septal and possible apical motion abnormality, grade 2 diastolic dysfunction, mild pulmonary hypertension. PLAN: If cultures are only suggestive of Staphylococcus epidermidis, I would discontinue intravenous (IV) vancomycin and Zosyn. I do not suspect the patient has healthcare-associated pneumonia. He probably just had a viral illness and anxiety attack as the cause of his admission. As long as he does not have a fever or white count, probably antibiotics could be discontinued tomorrow. Will also add a CRP in the morning. Further management will decide on results of culture tomorrow.
[2016-08-04 05:10] VITALS: BP 137/80
[2016-08-04] MEDS: SLF 3 ML SYR IV SCH ×3 (05:16→21:57)
[2016-08-04] MEDS: PIPERACILLIN/TAZOBACTAM SOD 2.25 GM in D5W MINI-BAG PLUS 50 ML IV SCH ×4 (05:16→21:57)
[2016-08-04 05:55] LABS: BASO # 0.1 K/mm3 (0.0-0.2); BASO % 1.6 % (0.0-1.0); EOS # 0.2 K/mm3 (0.0-0.50); EOS % 3.8 % (0.0-3.0); LARGE UNSTAINED CELL # 0.1 K/mm3 (0.0-0.4); LARGE UNSTAINED CELL % 2.1 % (0.0-4.0); LYMPH # 1.1 K/mm3 (1.5-4.5); LYMPH % 16.3 % (24.0-44.0); MEAN CORPUSCULAR HEMOGLOBIN 30.4 pg (27.0-33.0); MEAN CORPUSCULAR HGB CONC 31.8 g/dl (32.0-36.5); MEAN CORPUSCULAR VOLUME 95.5 fl (80.0-96.0); MONO # 0.5 K/mm3 (0.0-0.8); MONO % 8.7 % (0.0-5.0); NEUTROPHILS % 67.6 % (36.0-66.0); PLATELET COUNT, AUTOMATED 341 k/mm3 (150-450); WHITE BLOOD COUNT 5.9 K/mm3 (4.0-10.0)
[2016-08-04 06:12] LABS: ALBUMIN 2.9 GM/DL (3.2-5.2); ALBUMIN/GLOBULIN RATIO 0.69 (1.00-1.93); BILIRUBIN,TOTAL 0.4 MG/DL (0.2-1.0); CREATININE FOR GFR 2.39 MG/DL (0.70-1.30); GLOMERULAR FILTRATION RATE 30.2 (>56); POTASSIUM SERUM 3.2 MEQ/L (3.5-5.1); TOTAL PROTEIN 7.1 GM/DL (6.4-8.2)
[2016-08-04 07:30] VITALS: BP 129/66
[2016-08-04] MEDS: VANCOMYCIN HCL 1,000 MG, VIAL MATE ADAPTER 1 EACH in D5W 250 ML IV SCH (07:40)
[2016-08-04] MEDS: HumaLOG INSULIN (NovoLOG) PER UNIT SC SCH ×4 (07:40→21:00)
[2016-08-04] MEDS: SILVER SULFADIAZINE 1% CR 50 GM JAR TOP SCH (09:00)
[2016-08-04] MEDS: LEVEMIR (INSULIN DETEMIR) 1 UNITS/0.01ML SC SCH (09:00)
[2016-08-04] MEDS: FOLIC ACID 1 MG TAB PO SCH (09:19)
[2016-08-04] MEDS: ASPIRIN 81 MG ENTERIC TAB PO SCH (09:19)
[2016-08-04] MEDS: FERROUS GLUCONATE 324 MG TAB PO SCH ×2 (09:19→21:56)
[2016-08-04] MEDS: **hydrALAZINE HCL** 25 MG TAB PO SCH ×2 (09:19→21:56)
[2016-08-04] MEDS: DOCUSATE SODIUM 100 MG CAP PO SCH ×2 (09:19→21:56)
[2016-08-04] MEDS: FUROSEMIDE 20 MG TAB PO SCH ×2 (09:20→17:44)
[2016-08-04] MEDS: METOPROLOL TART 12.5 MG PER 1/2 TAB PO SCH ×2 (09:20→21:56)
[2016-08-04] MEDS: AMIODARONE 200 MG TAB (PACERONE) PO SCH (09:20)
[2016-08-04] MEDS: POTASSIUM CHLORIDE 10 MEQ SR TABLET PO SCH (09:20)
[2016-08-04] MEDS: ISOSORBIDE MON. (IMDUR) 30 MG XR TAB PO SCH (09:20)
[2016-08-04] MEDS: OMEPRAZOLE 20 MG CAP PO SCH (09:21)
[2016-08-04] MEDS: CALCITRIOL 0.25 MCG CAP (S0169) PO SCH (09:21)
[2016-08-04] MEDS: ASCORBIC ACID 500 MG TAB PO SCH (09:21)
[2016-08-04] MEDS: ACETAMINOPHEN TAB 650MG DOSE (2X325MG) PO PRN (09:31)
--- NOTE | 2016-08-04 10:23 | IPNPDOC ---
Assessment/Plan Date Seen The patient was seen on 08/04/16. Problems Problems: (1) Blood bacterial culture positive Status: Acute Problem Specific Plan: Consult Specialist Problem Text: ID consult. + gram cocci in clusters. Probable contaminant. (2) Acquired elevated hemidiaphragm Status: Acute Problem Specific Plan: Monitor Clinically Problem Text: Repeat CXR today: remains with elevated left hemidiaphragm (3) Left lower lobe pneumonia Status: Acute Problem Text: Vancomycin and Zosyn day #2 (4) Diabetes mellitus type 2 with complications, uncontrolled Status: Chronic Response to Treatment: Stable Problem Specific Plan: Monitor Clinically (5) Peripheral artery disease Status: Chronic Response to Treatment: Stable Problem Specific Plan: Monitor Clinically (6) Coronary artery disease Status: Chronic Response to Treatment: Stable Problem Specific Plan: Monitor Clinically (7) S/P CABG x 4 Status: Chronic Response to Treatment: Stable Problem Specific Plan: Monitor Clinically Problem Text: recent CABG and rehab stay 06/2016. DCd this week from [facility] subacute rehab (8) History of myocardial infarction in adulthood Status: Chronic (9) Hypertension Status: Chronic (10) Hyperlipidemia Status: Chronic (11) CKD (chronic kidney disease), stage IV Status: Chronic Problem Text: sees Dr. Lopez as an outpatient. appears to be at baseline Cr. (12) Vitamin D deficiency Status: Chronic (13) Non-healing ulcer of left foot Status: Chronic Plan / VTE VTE Prophylaxis Ordered?: Yes Plan Plan Text Attending note: 1 of 2 bottles positive for gram-positive cocci. Speciation is not available at this time. ID recommending discontinuation of antibiotics pending speciation. However, there is still a question of his left lower consolidation, and hemidiaphragm. Radiology notes air bronchograms, which would suggest a pneumonia. However, as indicated by infectious disease, the patient does not have an elevated white count or fever. He does however have a neutrophilic predominance, which has been improving since admission. I will transition the patient to by mouth Levaquin, and continue chest physiotherapy, Acapella, and incentive spirometry. If hemidiaphragm continues to be elevated tomorrow, I would plan for a CT. Differential diagnosis would include mass lesion, lobar pneumonia resulting in lobar collapse, or phrenic nerve injury during CABG procedure. Jorgito Garza MD Disposition Possible discharge 08/05/2016, pending evaluation of consolidation and left hemidiaphragm, and blood culture speciation Subjective Review of Systems CC/HPI The patient is a 55-year-old male admitted with a reason for visit of Left Lower Lobe Pneumonia. Events since last encounter Denies c/o. ID evaluted patient: see note. Echo completed. Dr. Lopez to see patient today. Constitutional: Denies: Chills, Fever ENT: Denies: Head Aches Skin: Denies: Rash Pulmonary: Denies: Cough, Dyspnea Cardiovascular: Denies: Chest Pain, Palpitations Gastrointestinal: Denies: Abdominal Pain, Nausea, Vomiting Genitourinary: Denies: Dysuria, Frequency Neurological: Denies: Weakness Psych: Reports: Mood Normal Objective Physical Examination General Exam: Positive: Alert, Cooperative, No Acute Distress Eye Exam: Positive: Conjunctiva & lids normal, EOMI, Negative: Sclera icteric ENT Exam: Positive: Atraumatic, Mucous membr. moist/pink, Pharynx Normal Neck Exam: Positive: Supple, Negative: JVD, thyromegaly Chest Exam: Positive: Diminished (LLL), Normal air movement Heart Exam: Positive: Other (distant heart sounds, no murmur or rub appreciable ), Rate Normal, Regular Rhythm Telemetry: Positive: No significant arrhythmia, Sinus Abdomen Exam: Positive: Normal bowel sounds, Soft, Negative: Hepatospenomegaly Extremity Exam: Positive: Normal pulses, Other (status post right BKA, left foot is in a supportive prosthesis), Negative: Clubbing, Cyanosis, Edema Skin Exam: Positive: Nl turgor and temperature, Negative: Breakdown, Lesion Psych Exam: Positive: Mental status NL, Mood NL, Oriented x 3 Vital Signs/I&O Vital Signs Date Time Temp Pulse Resp B/P Pulse Ox O2 Delivery O2 Flow Rate FiO2 08/04/16 07:30 Room Air 08/04/16 07:30 96.8 87 20 129/66 96 I&O- Last 24 Hours up to 6 AM 08/04/16 06:00 Intake Total 2150 ml Output Total 2300 ml Balance -150 ml Laboratory Data Labs 24H Laboratory Tests 2 08/03/16 12:02: Bedside Glucose (Misc Panel) 275H 08/03/16 16:51: Bedside Glucose (Misc Panel) 254H 08/03/16 20:22: Bedside Glucose (Misc Panel) 221H 08/04/16 05:18: Blood Urea Nitrogen 48H, Creatinine 2.39H, Sodium Level 138, Potassium Level 3.2L, Chloride Level 102, Carbon Dioxide Level 25, Calcium Level 8.0L, Aspartate Amino Transf (AST/SGOT) 17, Alanine Aminotransferase (ALT/SGPT) 22, Alkaline Phosphatase 82, Total Bilirubin 0.4, Total Protein 7.1, Albumin 2.9L, Albumin/Globulin Ratio 0.69L, Anion Gap 11, White Blood Count 5.9, Red Blood Count 3.64L, Hemoglobin 11.0L, Hematocrit 34.7L, Mean Corpuscular Volume 95.5, Mean Corpuscular Hemoglobin 30.4, Mean Corpuscular Hemoglobin Concent 31.8L, Red Cell Distribution Width 15.0H, Platelet Count 341, Neutrophils (%) (Auto) 67.6H, Lymphocytes (%) (Auto) 16.3L, Monocytes (%) (Auto) 8.7H, Eosinophils (%) (Auto) 3.8H, Basophils (%) (Auto) 1.6H, Neutrophils # (Auto) 4.0, Lymphocytes # (Auto) 1.1L, Monocytes # (Auto) 0.5, Eosinophils # (Auto) 0.2, Basophils # (Auto ) 0.1, C-Reactive Protein, Quantitative 7.44H, Glomerular Filtration Rate 30.2L , Large Unclassified Cells # 0.1, Large Unclassified Cells % 2.1 CBC/BMP Laboratory Tests 08/04/16 05:18 Calcium Level 8.0 L, Aspartate Amino Transf (AST/SGOT) 17, Alanine Aminotransferase (ALT/SGPT) 22, Alkaline Phosphatase 82, Total Bilirubin 0.4, Total Protein 7.1, Albumin 2.9 L, Red Blood Count 3.64 L, Mean Corpuscular Volume 95.5, Mean Corpuscular Hemoglobin 30.4, Mean Corpuscular Hemoglobin Concent 31.8 L, Red Cell Distribution Width 15.0 H, Neutrophils (%) (Auto) 67.6 H, Lymphocytes (%) (Auto) 16.3 L, Monocytes (%) (Auto) 8.7 H, Eosinophils (%) ( Auto) 3.8 H, Basophils (%) (Auto) 1.6 H, Neutrophils # (Auto) 4.0, Lymphocytes # (Auto) 1.1 L, Monocytes # (Auto) 0.5, Eosinophils # (Auto) 0.2, Basophils # ( Auto) 0.1 FSBS Laboratory Tests Test 08/03/16 12:02 08/03/16 16:51 08/03/16 20:22 Range/Units Bedside Glucose (Misc Panel) 275 254 221 70-105 MG/DL Microbiology Microbiology 08/02/16 Blood Culture - Preliminary, Resulted No growth after 24 hours . All specim... 08/02/16 Blood Culture - Preliminary, Resulted 08/02/16 MRSA Screen, Received Pending Cristine Hernandez Aug 04, 2016 10:22 JORGITO GARZA MD Aug 04, 2016 12:24
--- NOTE | 2016-08-04 11:29 | CR.PDOC ---
[facility] Cardiology Consultation Date of Consultation 08/04/16 Cadiology Consultation REFERRING PHYSICIAN: Ginny WOODRUFF REASON FOR REFERRAL: History of CABG HISTORY OF PRESENT ILLNESS: Mr Joyce Sanchez is a 55 y/o male with past medical history of DM2 s/p BKA of right LE, PAD, CAD s/p quadruple bypass surgery 2015, PAD, HTN, hyperlipidemia, CKD stage IV, chronic venous insufficiency who presented to the ED after he became SOB with concomitant heart palpitations at home. The patient states that he had a quadruple bypass surgery in [place], [place] in 2015 when he was transferred there for cardiac catheterization after experiencing chest pain/pressure and was found to have NSTEMI; he was kept in [place] for two weeks due to fluid overload, left sided pleural effusion and increased edema/swelling in right LE where he normally wears a prosthesis but was unable to fit this back on due to increased swelling. He was transferred for rehab here in [facility] and after completing this about a week ago, he noticed he was becoming more SOB, this made him anxious and he measured his heart rate and was tachycardic, he decided to thus come to the hospital. PAST MEDICAL: DM2 PAD Tobacco history/abuse CAD Silent NC 2006 HTN Hyperlipidemia CKD stage IV Vitamin D deficiency chronic venous deficiency s/p BKA of right LE SURGICAL HISTORY: left first toe amputation 2010 right BKA 2011 left second toe amputation 2012 history back surgery vascular surgery left LE 2009 b/l eye surgery 2013 retinopathy b/l cataract surgery 2014 FAMILY HISTORY: Mother had DM2 Father had lung CA, exposure may have been to occupation Great Uncle had CABG procedure Grandmother suffered from angina SOCIAL HISTORY: disabled, lives in [place], [place]. Stopped smoking 15 years ago, denies alcohol or drug use REVIEW OF SYSTEMS: Cardiovascular: Denies chest pain or currently experiencing palpitations, dizziness Respiratory: Denies SOB, wheeze or cough, states he feels "much better" from when he was admitted Abdominal: denies n/v or or abdominal pain, is eating well GI/: Denies changes in bowel or urinary habits HEENT: Denies blurry vision or headache All other 10 point review of systems questions negative. PHYSICAL EXAMINATION: VITAL SIGNS: Please see below. GENERAL APPEARANCE: Appears comfortable, sitting upright in bed, pleasant and conversant, in no distress EYES: EOMI ENT/Mouth: moist mucus membranes, tongue midline, nares patent b/l NECK: supple neck, no JVD appreciated EXTREMITIES: right BKA, otherwise no edema, clubbing or cyanosis appreciated SKIN: intact NEUROLOGIC/PSYCHOLOGIC: no focal deficits appreciated HEART: normal s1 and s2, no murmurs, gallops or rubs appreciated, rate in 80's LOWER EXTREMITY EDEMA:none ABDOMEN: soft, non-distended ALLERGIES: Please see below. HOME MEDICATIONS: Please see below. CURRENT MEDICATIONS: Please see below. Electrocardiogram: 08-02-16 showed sinus rhythm, low QRS voltage in extremity leads, possible anterior NC, ST elevation, potential inferior injury Repeat EKG -08-03-16 showed normal sinus rhythm with low QRS voltage in limb leads, inferior and anterior NC indeterminate age, nonspecific ST-T wave abnormalities, no significant change when compared to EKG on 08-02-16 LABORATORY DATA: Please see below. IMAGING: CXR 08-02-16 1. Left lower lobe atelectasis or infiltrate. 2. Small left pleural effusion. Chest CT 08-02-16 1. Elevated left hemidiaphragm. 2. Very small left pleural effusion. 3. Nearly lobar collapse and consolidation left lower lobe with air bronchograms. 4. Cholelithiasis. 5. Median sternotomy performed in the interval since the October 16, 2015 chest x-ray. CXR 08-03-16 Elevated left hemidiaphragm, small amount left pleural fluid. Increased parenchymal markings in the left base just above the diaphragm. Prior sternotomy and mild cardiomegaly. ASSESSMENT/PLAN: Mr Sanchez looked very well this morning, he was sitting up in bed and states he is "much better" than when he first came in, he denies SOB, chest pressure or experiencing more palpitations. He usually follows with cardiology here in [place], [place]. He states that when he had the SOB prior to presentation, that it would wake him up at night, he states his HR was 104 when he decided to come to the hospital and he states he felt like he had some tactile fevers at home prior to admission. His chest x ray here suggests that his SOB may be due to a collapsed left lower lobe, this can be helped with regular use of his incentive spirometry at bedside and this was discussed with the patient. The pain/ pressure he experienced is also most likely due to the aforementioned lung etiology and less likely cardiac in nature. The most recent ECHO study shows septal wall motion abnormality which is not uncommon in patients who are s/p open heart surgery, otherwise his EF was 60-65% with normal LV size, left ventricular hypertrophy and mild pulmonary hypertension. He is currently on his home medications of amiodarone, lasix, hydralazine, Imdur, Lopressor and Coumadin therapy. His heart rate has been stable in the 80's and his blood pressure has been controlled in the 120's /60's. Would not suggest a change in his current medical therapy as this seems to be doing well for him, would suggest further improved conditioning for his respiratory concerns related to his collapsed LLL. He is not edematous and has no appreciable JVD. He will be seen by Dr. Mar this afternoon, as this is his primary recycling specialist. No further recommendations at this time. Thank you kindly for asking me to participate in the care of your patient. Vital Signs/I&O Vital Signs Date Time Temp Pulse Resp B/P Pulse Ox O2 Delivery O2 Flow Rate FiO2 08/04/16 07:30 Room Air 08/04/16 07:30 96.8 87 20 129/66 96 I&O- Last 24 Hours up to 6 AM 08/04/16 06:00 Intake Total 2150 ml Output Total 2300 ml Balance -150 ml Laboratory Data Labs 24H Laboratory Tests 2 08/03/16 12:02: Bedside Glucose (Misc Panel) 275H 08/03/16 16:51: Bedside Glucose (Misc Panel) 254H 08/03/16 20:22: Bedside Glucose (Misc Panel) 221H 08/04/16 05:18: Blood Urea Nitrogen 48H, Creatinine 2.39H, Sodium Level 138, Potassium Level 3.2L, Chloride Level 102, Carbon Dioxide Level 25, Calcium Level 8.0L, Aspartate Amino Transf (AST/SGOT) 17, Alanine Aminotransferase (ALT/SGPT) 22, Alkaline Phosphatase 82, Total Bilirubin 0.4, Total Protein 7.1, Albumin 2.9L, Albumin/Globulin Ratio 0.69L, Anion Gap 11, White Blood Count 5.9, Red Blood Count 3.64L, Hemoglobin 11.0L, Hematocrit 34.7L, Mean Corpuscular Volume 95.5, Mean Corpuscular Hemoglobin 30.4, Mean Corpuscular Hemoglobin Concent 31.8L, Red Cell Distribution Width 15.0H, Platelet Count 341, Neutrophils (%) (Auto) 67.6H, Lymphocytes (%) (Auto) 16.3L, Monocytes (%) (Auto) 8.7H, Eosinophils (%) (Auto) 3.8H, Basophils (%) (Auto) 1.6H, Neutrophils # (Auto) 4.0, Lymphocytes # (Auto) 1.1L, Monocytes # (Auto) 0.5, Eosinophils # (Auto) 0.2, Basophils # (Auto ) 0.1, C-Reactive Protein, Quantitative 7.44H, Glomerular Filtration Rate 30.2L , Large Unclassified Cells # 0.1, Large Unclassified Cells % 2.1 CBC/BMP Laboratory Tests 08/04/16 05:18 Calcium Level 8.0 L, Aspartate Amino Transf (AST/SGOT) 17, Alanine Aminotransferase (ALT/SGPT) 22, Alkaline Phosphatase 82, Total Bilirubin 0.4, Total Protein 7.1, Albumin 2.9 L, Red Blood Count 3.64 L, Mean Corpuscular Volume 95.5, Mean Corpuscular Hemoglobin 30.4, Mean Corpuscular Hemoglobin Concent 31.8 L, Red Cell Distribution Width 15.0 H, Neutrophils (%) (Auto) 67.6 H, Lymphocytes (%) (Auto) 16.3 L, Monocytes (%) (Auto) 8.7 H, Eosinophils (%) ( Auto) 3.8 H, Basophils (%) (Auto) 1.6 H, Neutrophils # (Auto) 4.0, Lymphocytes # (Auto) 1.1 L, Monocytes # (Auto) 0.5, Eosinophils # (Auto) 0.2, Basophils # ( Auto) 0.1 FSBS Laboratory Tests Test 08/03/16 12:02 08/03/16 16:51 08/03/16 20:22 Range/Units Bedside Glucose (Misc Panel) 275 254 221 70-105 MG/DL Microbiology Microbiology 08/02/16 Blood Culture - Preliminary, Resulted No growth after 24 hours . All specim... 08/02/16 Blood Culture - Preliminary, Resulted 08/02/16 MRSA Screen, Received Pending Home Medications Scheduled (Daily-Soraida) 1 Tab Tab 1 TAB PO DAILY (Reported) Amiodarone HCl (Amiodarone HCl) 200 Mg Tab 200 MG PO DAILY (Reported) Ascorbic Acid (Ascorbic Acid) 500 Mg Tab 500 MG PO DAILY (Reported) Aspirin (Aspirin 81) 81 Mg Tab 81 MG PO DAILY (Reported) Calcitriol (Calcitriol) 0.5 Mcg Cap 0.5 MCG PO DAILY (Reported) Docusate Sodium (Docusate Sodium) 100 Mg Cap 100 MG PO BID (Reported) Ferrous Gluconate (Ferrous Gluconate) 324 Mg Tab 324 MG PO BID (Reported) Folic Acid (Folic Acid) 1 Mg Tab 1 MG PO DAILY (Reported) Furosemide (Furosemide) 20 Mg Tab 60 MG PO BID (Reported) Hydralazine HCl (Hydralazine HCl) 25 Mg Tab 25 MG PO BID (Reported) Insulin Detemir (Levemir) 1 Units/0.01 Ml Susp 16 UNITS SC DAILY (Reported) Insulin Human Lispro (Humalog) 1 Units/0.01 Ml Inj 1 DOSE SC AC (Reported) PER SLIDING SCALE Isosorbide Mononitrate (Isosorbide Mononitrate ER) 30 Mg Tab 30 MG PO DAILY ( Reported) Metoprolol Tartrate (Metoprolol Tartrate) 12.5 Mg Halftab 12.5 MG PO BID ( Reported) Omeprazole (Omeprazole) 40 Mg Cap 40 MG PO DAILY (Reported) Potassium Chloride (Klor-Con M10) 10 Meq Tabcr 10 MEQ PO DAILY (Reported) Pravastatin Sodium (Pravastatin Sodium) 80 Mg Tab 80 MG PO QHS (Reported) Warfarin Sod (Coumadin) 6 Mg Tab 6 MG PO QPM (Reported) Scheduled PRN Acetaminophen (Acetaminophen) 325 Mg Tab 650 MG PO Q4H PRN PRN PAIN (Reported) Current Medications Current Medications Acetaminophen (Tylenol) 650 mg Q4H PRN PO PAIN; Start 08/02/16 at 18:00; Stop 09/01/16 at 17:59; Status Cancel Acetaminophen (Tylenol) 650 mg Q4HP PRN PO MILD PAIN OR FEVER Last administered on 08/04/16t 09:31; Start 08/02/16 at 15:15; Stop 09/01/16 at 15:14 Albuterol/ Ipratropium (Duoneb (Ipr 0.5mg/Alb 2.5mg)) 3 ml Q2HP PRN NEB SOB/ WHEEZING; Start 08/02/16 at 15:15; Stop 09/01/16 at 15:14 Albuterol/ Ipratropium (Duoneb (Ipr 0.5mg/Alb 2.5mg)) 3 ml RQ6H NEB Last administered on 08/04/16 07:47; Start 08/02/16 at 20:00; Stop 09/01/16 at 19:59 Amiodarone HCl (Pacerone, Cordarone) 200 mg DAILY PO Last administered on 09:20; Start 08/03/16 at 09:00; Stop 09/02/16 at 08:59 Ascorbic Acid (Vitamin C) 500 mg DAILY PO Last administered on 08/04/16 09:21 ; Start 08/03/16 at 09:00; Stop 09/02/16 at 08:59 Aspirin (Ecotrin) 81 mg DAILY PO Last administered on 08/04/16 09:19; Start at 09:00; Stop 09/02/16 at 08:59 Bisacodyl (Dulcolax) 5 mg DAILYPRN PRN PO CONSTIPATION; Start 08/02/16 at 15:15 ; Stop 09/01/16 at 15:14 Calcitriol (Rocaltrol) 0.5 mcg DAILY PO Last administered on 08/04/16 09:21; Start 08/03/16 at 09:00; Stop 09/02/16 at 08:59 Dextrose (Dextrose 50%) 25 ml ASDIRECTED PRN IV SEE LABEL COMMENTS; Start 08/03 at 12:15; Stop 09/02/16 at 12:14 Docusate Sodium (Colace) 100 mg BID PO Last administered on 08/04/16 09:19; Start 08/02/16 at 21:00; Stop 09/01/16 at 20:59 Ferrous Gluconate (Fergon) 324 mg BID PO Last administered on 08/04/16 09:19; Start 08/02/16 at 21:00; Stop 09/01/16 at 20:59 Folic Acid (Folic Acid) 1 mg DAILY PO Last administered on 08/04/16 09:19; Start 08/03/16 at 09:00; Stop 09/02/16 at 08:59 Furosemide (Lasix) 60 mg BID@ PO Last administered on 08/04/16 09:20; Start 08/02/16 at 17:00; Stop 09/01/16 at 16:59 Glucagon (Glucagon) 1 mg ASDIRECTED PRN SC SEE LABEL COMMENTS; Start 08/03/16 at 12:15; Stop 09/02/16 at 12:14 Glucose (Glucose) 16 GM ASDIRECTED PRN PO SEE LABEL COMMENTS; Start 08/03/16 at 12:15; Stop 09/02/16 at 12:14 Home Med (Med Rec Complete!) ASDIRECTED XX ; Start 08/02/16 at 15:45; Stop at 16:08; Status DC Hydralazine HCl (Apresoline) 25 mg BID PO Last administered on 08/04/16 09:19 ; Start 08/02/16 at 21:00; Stop 09/01/16 at 20:59 Insulin Detemir (Levemir Insulin) 16 units DAILY SC Last administered on 09:00; Start 08/03/16 at 09:00; Stop 09/02/16 at 08:59 Insulin Human Lispro (HumaLOG INSULIN) SEE PROTOCOL TABLE AC SC Last administered on 08/04/16 07:40; Start 08/03/16 at 12:00; Stop 09/02/16 at 11:59 Insulin Human Lispro (HumaLOG INSULIN) SEE PROTOCOL TABLE QHS SC ; Start at 21:00; Stop 09/02/16 at 20:59 Isosorbide Mononitrate (Imdur) 30 mg DAILY PO Last administered on 08/04/16 09 :20; Start 08/03/16 at 09:00; Stop 09/02/16 at 08:59 Metoprolol Tartrate (Lopressor) 12.5 mg BID PO Last administered on 08/04/16 09:20; Start 08/02/16 at 21:00; Stop 09/01/16 at 20:59 Omeprazole (PriLOSEC) 40 mg DAILY PO Last administered on 08/04/16 09:21; Start 08/03/16 at 09:00; Stop 09/02/16 at 08:59 Ondansetron HCl 4 mg 4 mg Q6HP PRN IV NAUSEA OR VOMITING; Start 08/02/16 at 15: 15; Stop 09/01/16 at 15:14 Piperacillin Sod/ Tazobactam Sod (Zosyn) 3.375 gm STK-MED ONCE As Ordered ; Start 08/02/16 at 15:08; Stop 08/02/16 at 15:09; Status DC Piperacillin Sod/ Tazobactam Sod/ Dextrose (Zosyn/Dextrose 5% Mini-Bag Plus) 50 ml @ 100 mls/hr Q6H IV Last administered on 08/04/16 09:17; Start 08/02/16 at 21:00; Stop 08/09/16 at 20:59 Potassium Chloride (Micro-K Extencaps) 10 meq DAILY PO Last administered on 09:20; Start 08/03/16 at 09:00; Stop 09/02/16 at 08:59 Pravastatin Sodium (Pravachol) 80 mg QHS PO Last administered on 08/03/16 20: 48; Start 08/02/16 at 21:00; Stop 09/01/16 at 20:59 Silver Sulfadiazine (Silvadene 1%) DAILY TOP Last administered on 08/04/16 09 :00; Start 08/03/16 at 09:00; Stop 09/02/16 at 08:59 Sodium Chloride (Saline Lock Flush) 2 ml ASDIRECTED PRN IV SEE LABEL COMMENTS Last administered on 08/03/16 09:37; Start 08/03/16 at 08:30; Stop 09/02/16 at 08:29 Sodium Chloride (Saline Lock Flush) 2 ml SLF IV Last administered on 08/04/16 05:16; Start 08/03/16 at 14:00; Stop 09/02/16 at 13:59 Vancomycin HCl (Vancomycin HCl) 1,000 mg STK-MED ONCE As Ordered ; Start at 15:08; Stop 08/02/16 at 15:09; Status DC Vancomycin HCl 1000 mg/IV Miscellaneous Supplies 1 each/ Dextrose 270 ml @ 270 mls/hr Q24H IV Last administered on 08/04/16 07:40; Start 08/03/16 at 08:00; Stop 08/10/16 at 07:59 Warfarin Sodium (Coumadin) 6 mg QPM@17 PO Last administered on 08/03/16 16:56 ; Start 1/16/17 at 17:00; Stop 08/09/16 at 16:59 Allergies Allergies: Coded Allergies: No Known Allergies (Verified Allergy, Unknown, 09/21/07) GME ATTESTATION GME ATTESTATION My preceptor for this patient encounter was physically present in the building during the encounter and was fully available. As needed, all aspects of the patient interview, examination, medical decision making process, and medical care plan development were reviewed and approved by the preceptor. Preceptor is aware and concurs with the plan as stated in the body of this note and will attest to such by his/her cosignature. SUYAPA BAE DO Aug 04, 2016 11:29 IRINA MAR MD Aug 16, 2016 22:24
[2016-08-04 12:00] VITALS: BP 106/63
[2016-08-04] MEDS ORDERED: POTASSIUM CHLORIDE 10 MEQ SR TABLET PO ONE (12:30)
[2016-08-04 16:10] VITALS: BP 111/62
[2016-08-04] MEDS: WARFARIN SOD 3 MG TAB PO SCH (17:44)
--- NOTE | 2016-08-04 18:20 | EDDOCDS ---
Physician Documentation [facility] Name: Joyce Sanchez Age: 55 yrs Sex: Male : 1960 Arrival Date: 08/02/2016 Time: 11:54 Bed 14 Private MD: Disposition: 08/02/16 15:06 Hospitalization ordered by Noemy Pham for Inpatient Admission. Preliminary diagnosis are Pneumonia, unspecified organism, Abnormal electrocardiogram [ECG] [EKG]. - Bed requested for PCU. - Status is Inpatient Admission. hs1 - Condition is Stable. - Problem is new. - Symptoms are unchanged. Historical: - Home Meds: 1. omeprazole 40 mg Oral cpDR 1 cap once daily (Last dose: 08/02/2016 09:00) 2. amiodarone 200 mg Oral tab 1 tab once daily (Last dose: 08/02/2016 09:00) 3. furosemide 40 mg Oral tab 3 times per day 9 am and 5 pm (Last dose: 08/02/2016 09:00) 4. potassium chloride 10 mEq Oral cpER 1 cap once daily (Last dose: 08/02/2016 09:00) 5. calcitriol 0.25 mcg oral cap 2 caps once daily (Last dose: 08/02/2016 09:00) 6. metoprolol tartrate 25 mg Oral tab 0.5 tab 2 times per day 9 am and 9 pm (Last dose: 08/02/2016 09:00) 7. pravastatin 80 mg oral tab 1 tab nightly (Last dose: 08/01/2016 21:00) 8. hydralazine 25 mg oral tab 1 tab 2 times per day 9 am and 9 pm (Last dose: 08/02/2016 09:00) 9. warfarin 6 mg Oral tab 1 tab once daily (Last dose: 08/01/2016 17:00) 10. acetaminophen 500 mg Oral tab 2 tabs as needed 11. aspirin 81 mg Oral chew 1 tab once daily (Last dose: 08/02/2016 09:00) 12. Cartia XT 120 mg Oral cp24 1 cap once daily (Last dose: 08/02/2016 09:00) 13. Levemir 100 unit/mL subcutaneous soln 16 units in am (Last dose: 08/01/2016 09:00) 14. Humalog Pen Sub-Q sliding scale three times daily 15. multivitamin Oral tab 1 tablet daily (Last dose: 08/02/2016 09:00) 16. ferrous gluconate 324 mg (36 mg iron) Oral tab 1 tab (Last dose: 08/02/2016 09:00) 17. 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 No barriers to communication noted, The patient speaks fluent Turkish, Speaks appropriately for age. - Family history: Not pertinent. - : The pt / caregiver states he / she is on anticoagulants: coumadin. Home medication list is obtained from pill bottles. - Exposure Risk Screening:: None identified. Vital Signs: 08/02 12:02 BP 98 / 54; Pulse 94; Resp 18; Temp 99.0(TE); Pulse Ox 97% on R/A; Weight 100.7 kg / ct3 222.01 lbs (R); Height 6 ft. 0 in. (182.88 cm) (R); Pain 1/10; 12:30 BP 102 / 54 (auto/); hs1 12:31 Pulse 88 MON; Pulse Ox 95% ; hs1 12:45 BP 105 / 59 (auto/); hs1 12:46 Pulse 88 MON; Pulse Ox 96% ; hs1 13:00 BP 104 / 56 (auto/); hs1 13:01 Pulse 86 MON; Pulse Ox 94% ; hs1 13:15 BP 130 / 68 (auto/); hs1 13:16 Pulse 86 MON; Resp 18; Pulse Ox 100% ; hs1 13:30 BP 135 / 65 (auto/); hs1 13:31 Pulse 88 MON; Pulse Ox 95% ; hs1 13:45 BP 121 / 61 (auto/); hs1 13:46 Pulse 86 MON; Pulse Ox 97% ; hs1 14:00 BP 108 / 58 (auto/); hs1 14:01 Pulse 92 MON; Pulse Ox 99% ; hs1 14:15 BP 180 / 83 (auto/); hs1 14:16 Pulse 90 MON; Pulse Ox 98% ; hs1 14:30 BP 175 / 85 (auto/); hs1 14:31 Pulse 90 MON; Pulse Ox 97% ; hs1 14:45 BP 169 / 87 (auto/); hs1 14:46 Pulse 90 MON; Pulse Ox 92% ; hs1 15:00 BP 166 / 85 (auto/); hs1 15:01 Pulse 90 MON; Resp 18; Pulse Ox 96% ; hs1 15:15 BP 151 / 86 (auto/); hs1 15:16 Pulse 90 MON; Pulse Ox 95% ; hs1 15:30 BP 155 / 84 (auto/); hs1 15:31 Pulse 90 MON; Pulse Ox 93% ; hs1 15:45 BP 154 / 83 (auto/); hs1 15:46 Pulse 90 MON; Pulse Ox 96% ; hs1 16:07 BP 141 / 76 (auto/); hs1 16:07 Pulse 88 MON; Pulse Ox 94% ; hs1 16:15 BP 135 / 77 (auto/); hs1 16:15 Pulse 88 MON; Pulse Ox 96% ; hs1 16:30 BP 147 / 76 (auto/); hs1 16:31 Pulse 90 MON; Resp 18; Temp 98.2(TE); Pulse Ox 96% ; hs1 16:45 BP 130 / 70 (auto/); hs1 16:45 Pulse 94 MON; Pulse Ox 95% ; hs1 17:00 BP 162 / 89 (auto/); hs1 17:00 Pulse 88 MON; Pulse Ox 93% ; hs1 17:15 BP 171 / 86 (auto/); hs1 17:15 Pulse 88 MON; Resp 18; Pulse Ox 96% ; hs1 12:02 Body Mass Index 30.11 (100.70 kg, 182.88 cm) ct3 MDM: 12:05 Sales Performance Manager/Pulse Ox/q 30 min VS ordered. br1 12:05 IV Saline Lock ordered. br1 12:05 Rhythm Strip to chart ordered. br1 12:05 Undress patient appropriately for examination ordered. br1 12:06 Basic Metabolic Profile Ordered. EDMS 12:06 CBC with Diff Ordered. EDMS 12:06 Cardiac Injury Profile Ordered. EDMS 12:06 Troponin Ordered. EDMS 12:06 ECG WITH READING ER PHYS+CARDIAG ordered. EDMS 12:06 Chest, 1 View Ordered. EDMS 13:54 Misc. Nursing Order ordered. br1 13:55 Financial registration complete. lg 13:56 COUNTS INCLUDE 234 BEDS AT THE [facility] Payment Agreement was scanned into [employer] and attached to record. lg 14:00 CT Chest Without Contrast Ordered. EDMS 14:00 D-Dimer Quant Ordered. EDMS 14:06 Basic Metabolic Profile Reviewed. br1 14:06 CBC with Diff Reviewed. br1 14:06 Cardiac Injury Profile Reviewed. br1 14:06 Troponin Reviewed. br1 14:06 Chest, 1 View Reviewed. br1 14:58 -Blood Culture (Adults Only), peripheral from different site, or from device/port/PICC br1 etc. if present ordered. 14:58 -Blood Culture Ordered. EDMS 15:00 vancomycin 1 grams IVPB once over 60 mins; dilute in 250mL of NS or D5W ordered. br1 15:00 Piperacillin-Tazobactam 3.375 grams IVPB once over 30 mins; dilute in 50mL of NS or D5W br1 ordered. 15:01 D-Dimer Quant Reviewed. br1 15:01 Chest, 1 View Reviewed. br1 15:01 -Blood Culture (Adults Only), peripheral from different site, or from device/port/PICC deg etc. if present complete. 15:01 BLOOD CULTURES Ordered. EDMS 15:02 BED REQUEST+ADM ordered. EDMS 15:13 Admission / Observation Status ordered. EDMS 15:14 ECHOCARD,DOPPLER/COLOR FLOW ordered. EDMS 15:14 ELECTROCARDIOGRAM ADULT ordered. EDMS 15:14 CONSISTENT CARBOHYDRATES ordered. EDMS 15:15 CARDIAC MARKER PANEL Ordered. EDMS 15:15 MRSA SCREEN Ordered. EDMS 15:15 SPUTUM CULTURE AND GRAM STAIN Ordered. EDMS 15:54 BRAIN NATIURETIC PEPTIDE Ordered. EDMS 17:06 PT & APTT Ordered. EDMS 08/03 11:14 T-Sheet-- Draft Copy was scanned into [employer] and attached to record. gb 11:14 Radiology Report was scanned into [employer] and attached to record. gb Administered Medications: 08/02 16:09 Drug: vancomycin 1 grams [vancomycin 1,000 mg intravenous injection] Route: IVPB; hs1 Infused Over: 60 mins; Site: right antecubital; 17:16 Follow up: Response: No Adverse Reaction; IV Status: Completed infusion; IV Intake: hs1 250ml 17:15 Drug: Piperacillin-Tazobactam 3.375 grams [piperacillin-tazobactam 3.375 gram hs1 intravenous solution] Route: IVPB; Infused Over: 30 mins; Site: left antecubital; Signatures: Dispatcher [employer] EDMS Laverne Riggins, Rn Teacher Unit deg Sb, Michelle, Reg Reg gb Vipul Easton, Reg Reg lg Umair Gaston MD MD br1 Michaela Ulloa RN RN hs1 Pawel Simmons RN RN sa The chart was reviewed and I authenticate all verbal orders and agree with the evaluation and treatment provided.Corrections: (The following items were deleted from the chart) 14:02 13:55 CT ANGIO CHEST+CT ordered. EDMS EDMS 17:06 14:03 PROTHROMBIN TIME PROFILE\E\INR+LAB ordered. EDMS EDMS 17:06 14:03 PARTIAL THROMBOPLASTIN TIME+LAB ordered. EDKS EDMS Attachments: 13:56 [facility] [place] lg 08/03 11:14 T-Sheet-- Draft Copy gb Chart Complete MTDD
--- NOTE | 2016-08-04 18:20 | EDDOCDS ---
Physician Documentation [facility] Name: Joyce Sanchez Age: 55 yrs Sex: Male : 1960 Arrival Date: 08/02/2016 Time: 11:54 Bed 14 Private MD: Disposition: 08/02/16 15:06 Hospitalization ordered by Noemy Pham for Inpatient Admission. Preliminary diagnosis are Pneumonia, unspecified organism, Abnormal electrocardiogram [ECG] [EKG]. - Bed requested for PCU. - Status is Inpatient Admission. hs1 - Condition is Stable. - Problem is new. - Symptoms are unchanged. Historical: - Home Meds: 1. omeprazole 40 mg Oral cpDR 1 cap once daily (Last dose: 08/02/2016 09:00) 2. amiodarone 200 mg Oral tab 1 tab once daily (Last dose: 08/02/2016 09:00) 3. furosemide 40 mg Oral tab 3 times per day 9 am and 5 pm (Last dose: 08/02/2016 09:00) 4. potassium chloride 10 mEq Oral cpER 1 cap once daily (Last dose: 08/02/2016 09:00) 5. calcitriol 0.25 mcg oral cap 2 caps once daily (Last dose: 08/02/2016 09:00) 6. metoprolol tartrate 25 mg Oral tab 0.5 tab 2 times per day 9 am and 9 pm (Last dose: 08/02/2016 09:00) 7. pravastatin 80 mg oral tab 1 tab nightly (Last dose: 08/01/2016 21:00) 8. hydralazine 25 mg oral tab 1 tab 2 times per day 9 am and 9 pm (Last dose: 08/02/2016 09:00) 9. warfarin 6 mg Oral tab 1 tab once daily (Last dose: 08/01/2016 17:00) 10. acetaminophen 500 mg Oral tab 2 tabs as needed 11. aspirin 81 mg Oral chew 1 tab once daily (Last dose: 08/02/2016 09:00) 12. Cartia XT 120 mg Oral cp24 1 cap once daily (Last dose: 08/02/2016 09:00) 13. Levemir 100 unit/mL subcutaneous soln 16 units in am (Last dose: 08/01/2016 09:00) 14. Humalog Pen Sub-Q sliding scale three times daily 15. multivitamin Oral tab 1 tablet daily (Last dose: 08/02/2016 09:00) 16. ferrous gluconate 324 mg (36 mg iron) Oral tab 1 tab (Last dose: 08/02/2016 09:00) 17. 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 No barriers to communication noted, The patient speaks fluent Slovenian, Speaks appropriately for age. - Family history: Not pertinent. - : The pt / caregiver states he / she is on anticoagulants: coumadin. Home medication list is obtained from pill bottles. - Exposure Risk Screening:: None identified. Vital Signs: 08/02 12:02 BP 98 / 54; Pulse 94; Resp 18; Temp 99.0(TE); Pulse Ox 97% on R/A; Weight 100.7 kg / ct3 222.01 lbs (R); Height 6 ft. 0 in. (182.88 cm) (R); Pain 1/10; 12:30 BP 102 / 54 (auto/); hs1 12:31 Pulse 88 MON; Pulse Ox 95% ; hs1 12:45 BP 105 / 59 (auto/); hs1 12:46 Pulse 88 MON; Pulse Ox 96% ; hs1 13:00 BP 104 / 56 (auto/); hs1 13:01 Pulse 86 MON; Pulse Ox 94% ; hs1 13:15 BP 130 / 68 (auto/); hs1 13:16 Pulse 86 MON; Resp 18; Pulse Ox 100% ; hs1 13:30 BP 135 / 65 (auto/); hs1 13:31 Pulse 88 MON; Pulse Ox 95% ; hs1 13:45 BP 121 / 61 (auto/); hs1 13:46 Pulse 86 MON; Pulse Ox 97% ; hs1 14:00 BP 108 / 58 (auto/); hs1 14:01 Pulse 92 MON; Pulse Ox 99% ; hs1 14:15 BP 180 / 83 (auto/); hs1 14:16 Pulse 90 MON; Pulse Ox 98% ; hs1 14:30 BP 175 / 85 (auto/); hs1 14:31 Pulse 90 MON; Pulse Ox 97% ; hs1 14:45 BP 169 / 87 (auto/); hs1 14:46 Pulse 90 MON; Pulse Ox 92% ; hs1 15:00 BP 166 / 85 (auto/); hs1 15:01 Pulse 90 MON; Resp 18; Pulse Ox 96% ; hs1 15:15 BP 151 / 86 (auto/); hs1 15:16 Pulse 90 MON; Pulse Ox 95% ; hs1 15:30 BP 155 / 84 (auto/); hs1 15:31 Pulse 90 MON; Pulse Ox 93% ; hs1 15:45 BP 154 / 83 (auto/); hs1 15:46 Pulse 90 MON; Pulse Ox 96% ; hs1 16:07 BP 141 / 76 (auto/); hs1 16:07 Pulse 88 MON; Pulse Ox 94% ; hs1 16:15 BP 135 / 77 (auto/); hs1 16:15 Pulse 88 MON; Pulse Ox 96% ; hs1 16:30 BP 147 / 76 (auto/); hs1 16:31 Pulse 90 MON; Resp 18; Temp 98.2(TE); Pulse Ox 96% ; hs1 16:45 BP 130 / 70 (auto/); hs1 16:45 Pulse 94 MON; Pulse Ox 95% ; hs1 17:00 BP 162 / 89 (auto/); hs1 17:00 Pulse 88 MON; Pulse Ox 93% ; hs1 17:15 BP 171 / 86 (auto/); hs1 17:15 Pulse 88 MON; Resp 18; Pulse Ox 96% ; hs1 12:02 Body Mass Index 30.11 (100.70 kg, 182.88 cm) ct3 MDM: 12:05 Lithographed Plate Inspector/Pulse Ox/q 30 min VS ordered. br1 12:05 IV Saline Lock ordered. br1 12:05 Rhythm Strip to chart ordered. br1 12:05 Undress patient appropriately for examination ordered. br1 12:06 Basic Metabolic Profile Ordered. EDMS 12:06 CBC with Diff Ordered. EDMS 12:06 Cardiac Injury Profile Ordered. EDMS 12:06 Troponin Ordered. EDMS 12:06 ECG WITH READING ER PHYS+CARDIAG ordered. EDMS 12:06 Chest, 1 View Ordered. EDMS 13:54 Misc. Nursing Order ordered. br1 13:55 Financial registration complete. lg 13:56 [facility] Payment Agreement was scanned into [employer] and attached to record. lg 14:00 CT Chest Without Contrast Ordered. EDMS 14:00 D-Dimer Quant Ordered. EDMS 14:06 Basic Metabolic Profile Reviewed. br1 14:06 CBC with Diff Reviewed. br1 14:06 Cardiac Injury Profile Reviewed. br1 14:06 Troponin Reviewed. br1 14:06 Chest, 1 View Reviewed. br1 14:58 -Blood Culture (Adults Only), peripheral from different site, or from device/port/PICC br1 etc. if present ordered. 14:58 -Blood Culture Ordered. EDMS 15:00 vancomycin 1 grams IVPB once over 60 mins; dilute in 250mL of NS or D5W ordered. br1 15:00 Piperacillin-Tazobactam 3.375 grams IVPB once over 30 mins; dilute in 50mL of NS or D5W br1 ordered. 15:01 D-Dimer Quant Reviewed. br1 15:01 Chest, 1 View Reviewed. br1 15:01 -Blood Culture (Adults Only), peripheral from different site, or from device/port/PICC deg etc. if present complete. 15:01 BLOOD CULTURES Ordered. EDMS 15:02 BED REQUEST+ADM ordered. EDMS 15:13 Admission / Observation Status ordered. EDMS 15:14 ECHOCARD,DOPPLER/COLOR FLOW ordered. EDMS 15:14 ELECTROCARDIOGRAM ADULT ordered. EDMS 15:14 CONSISTENT CARBOHYDRATES ordered. EDMS 15:15 CARDIAC MARKER PANEL Ordered. EDMS 15:15 MRSA SCREEN Ordered. EDMS 15:15 SPUTUM CULTURE AND GRAM STAIN Ordered. EDMS 15:54 BRAIN NATIURETIC PEPTIDE Ordered. EDMS 17:06 PT & APTT Ordered. EDMS 08/03 11:14 T-Sheet-- Draft Copy was scanned into [employer] and attached to record. gb 11:14 Radiology Report was scanned into [employer] and attached to record. gb Administered Medications: 08/02 16:09 Drug: vancomycin 1 grams [vancomycin 1,000 mg intravenous injection] Route: IVPB; hs1 Infused Over: 60 mins; Site: right antecubital; 17:16 Follow up: Response: No Adverse Reaction; IV Status: Completed infusion; IV Intake: hs1 250ml 17:15 Drug: Piperacillin-Tazobactam 3.375 grams [piperacillin-tazobactam 3.375 gram hs1 intravenous solution] Route: IVPB; Infused Over: 30 mins; Site: left antecubital; Signatures: Dispatcher [employer] EDMS Laverne Riggins, Slasher Tender Helper Unit deg Sb, Michelle, Reg Reg gb Vipul Easton, Reg Reg lg Umair Gaston MD MD br1 Michaela Ulloa RN RN hs1 Pawel Simmons RN RN sa The chart was reviewed and I authenticate all verbal orders and agree with the evaluation and treatment provided.Corrections: (The following items were deleted from the chart) 14:02 13:55 CT ANGIO CHEST+CT ordered. EDMS EDMS 17:06 14:03 PROTHROMBIN TIME PROFILE\E\INR+LAB ordered. EDMS EDMS 17:06 14:03 PARTIAL THROMBOPLASTIN TIME+LAB ordered. EDCO EDMS Attachments: 13:56 [facility] Payment Agreement lg 08/03 11:14 T-Sheet-- Draft Copy gb Chart Complete MTDD
--- NOTE | 2016-08-04 18:20 | EDDOCDS ---
Nurse's Notes [facility] Name: Joyce Sanchez Age: 55 yrs Sex: Male : 1960 Arrival Date: 08/02/2016 Time: 11:54 Bed 14 Private MD: Diagnosis: Pneumonia, unspecified organism;Abnormal electrocardiogram [ECG] [EKG] Presentation: 08/02 11:58 Presenting complaint: EMS states: quadruple bypass on July 09 - today has rapid hs1 heart rate. Patient insulin diabetic states sugars have been fine. Patient has heart pillow and appears very anxious. Sinus tach on monitor now sinus rhythm. Adult Sepsis Screening: The patient does not have new or worsening altered mentation. Patient's respiratory rate is less than 22. Systolic blood pressure is greater than 100. Patient has a qSOFA score of 0- Negative Sepsis Screen. Suicide/Homicide risk assessment- the patient denies having any suicidal and/or homicidal ideations and does not present with any other emotional, behavioral or mental health complaints. Status: Patient is not a social services technician or dependent. Transition of care: patient was not received from another setting of care. 11:58 Acuity: MARIANA Level 2 hs1 11:58 Method Of Arrival: Ambulance hs1 Triage Assessment: 12:05 General: Appears in no apparent distress, comfortable, Behavior is anxious, appropriate hs1 for age, cooperative. Pain: Denies pain. HIV screening NA for this visit Offered previously. Neurological: Level of Consciousness is awake, alert, obeys commands, Oriented to person, place, time. Cardiovascular: Capillary refill is > 3 seconds Heart tones S1 S2 Edema is absent. Rhythm is sinus rhythm No ectopy. Respiratory: Onset: The symptoms/episode began/occurred this morning, Airway is patent Respiratory effort is even, unlabored, Respiratory pattern is regular, symmetrical. Derm: Skin is pink, warm & dry. normal, incision to center of chest. Patient states normal pain 2/10. Wound edges well approximated and appear clean. Patient has heart pillow and uses to help with coughing. Historical: - Home Meds: 1. omeprazole 40 mg Oral cpDR 1 cap once daily (Last dose: 08/02/2016 09:00) 2. amiodarone 200 mg Oral tab 1 tab once daily (Last dose: 08/02/2016 09:00) 3. furosemide 40 mg Oral tab 3 times per day 9 am and 5 pm (Last dose: 08/02/2016 09:00) 4. potassium chloride 10 mEq Oral cpER 1 cap once daily (Last dose: 08/02/2016 09:00) 5. calcitriol 0.25 mcg oral cap 2 caps once daily (Last dose: 08/02/2016 09:00) 6. metoprolol tartrate 25 mg Oral tab 0.5 tab 2 times per day 9 am and 9 pm (Last dose: 08/02/2016 09:00) 7. pravastatin 80 mg oral tab 1 tab nightly (Last dose: 08/01/2016 21:00) 8. hydralazine 25 mg oral tab 1 tab 2 times per day 9 am and 9 pm (Last dose: 08/02/2016 09:00) 9. warfarin 6 mg Oral tab 1 tab once daily (Last dose: 08/01/2016 17:00) 10. acetaminophen 500 mg Oral tab 2 tabs as needed 11. aspirin 81 mg Oral chew 1 tab once daily (Last dose: 08/02/2016 09:00) 12. Cartia XT 120 mg Oral cp24 1 cap once daily (Last dose: 08/02/2016 09:00) 13. Levemir 100 unit/mL subcutaneous soln 16 units in am (Last dose: 08/01/2016 09:00) 14. Humalog Pen Sub-Q sliding scale three times daily 15. multivitamin Oral tab 1 tablet daily (Last dose: 08/02/2016 09:00) 16. ferrous gluconate 324 mg (36 mg iron) Oral tab 1 tab (Last dose: 08/02/2016 09:00) 17. 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 No barriers to communication noted, The patient speaks fluent Bangladeshi, Speaks appropriately for age. - Family history: Not pertinent. - : The pt / caregiver states he / she is on anticoagulants: coumadin. Home medication list is obtained from pill bottles. - Exposure Risk Screening:: None identified. Screenin:09 Screening information is obtained from the patient. Fall risk: No risks identified. hs1 Assistance ADL's: requires no assistance with activities of daily living. Abuse/DV Screen: The patient / caregiver reports he/she is: not in a situation that causes fear, pain or injury. Nutritional screening: No deficits noted. Advance Directives: There is no active DNR order. home support is adequate. Assessment: 12:52 General: Appears in no apparent distress, Behavior is appropriate for age, cooperative. hs1 Pain: Denies pain. Neurological: No deficits noted. Cardiovascular: Rhythm is sinus rhythm No ectopy. Cardiovascular: Capillary refill < 3 seconds Edema is absent. Chest pain is denied. Respiratory: Airway is patent Respiratory effort is even, unlabored, Respiratory pattern is regular, symmetrical, Breath sounds are clear bilaterally. Derm: Skin is pink, warm & dry. normal. 13:45 General: Appears in no apparent distress, Behavior is appropriate for age, cooperative. hs1 Pain: Denies pain. Neurological: No deficits noted. Cardiovascular: Rhythm is sinus rhythm. Respiratory: Airway is patent Respiratory effort is even, unlabored, Respiratory pattern is regular, symmetrical. 14:26 Reassessment: resting on stretcher. visitor at bedside. [facility] 15:30 General: Patient aware of admission and aware of needing blood cultures and CT studies hs1 as further work ups. No needs known at this time. Visitor present in room. Patient appears comfortable. 16:10 General: Appears in no apparent distress, Behavior is appropriate for age, cooperative. hs1 Pain: Location: "phantom pain" Pain currently is 7 out of 10 on a pain scale. Neurological: No deficits noted. Cardiovascular: Rhythm is sinus rhythm No ectopy. Respiratory: No deficits noted. Derm: Skin is pink, warm & dry. normal. 17:17 General: Appears in no apparent distress, comfortable, Behavior is appropriate for age, hs1 cooperative. Pain: Denies pain. Neurological: Level of Consciousness is awake, alert, obeys commands, Oriented to person, place, time, Java Sybase Developer are equal bilaterally Moves all extremities. Cardiovascular: Rhythm is sinus rhythm No ectopy. Respiratory: No deficits noted. Airway is patent Respiratory effort is even, unlabored, Respiratory pattern is regular, symmetrical. Derm: Skin is pink, warm & dry. normal. Vital Signs: 12:02 BP 98 / 54; Pulse 94; Resp 18; Temp 99.0(TE); Pulse Ox 97% on R/A; Weight 100.7 kg (R); ct3 Height 6 ft. 0 in. (182.88 cm) (R); Pain 1/10; 12:30 BP 102 / 54 (auto/); hs1 12:31 Pulse 88 MON; Pulse Ox 95% ; hs1 12:45 BP 105 / 59 (auto/); hs1 12:46 Pulse 88 MON; Pulse Ox 96% ; hs1 13:00 BP 104 / 56 (auto/); hs1 13:01 Pulse 86 MON; Pulse Ox 94% ; hs1 13:15 BP 130 / 68 (auto/); hs1 13:16 Pulse 86 MON; Resp 18; Pulse Ox 100% ; hs1 13:30 BP 135 / 65 (auto/); hs1 13:31 Pulse 88 MON; Pulse Ox 95% ; hs1 13:45 BP 121 / 61 (auto/); hs1 13:46 Pulse 86 MON; Pulse Ox 97% ; hs1 14:00 BP 108 / 58 (auto/); hs1 14:01 Pulse 92 MON; Pulse Ox 99% ; hs1 14:15 BP 180 / 83 (auto/); hs1 14:16 Pulse 90 MON; Pulse Ox 98% ; hs1 14:30 BP 175 / 85 (auto/); hs1 14:31 Pulse 90 MON; Pulse Ox 97% ; hs1 14:45 BP 169 / 87 (auto/); hs1 14:46 Pulse 90 MON; Pulse Ox 92% ; hs1 15:00 BP 166 / 85 (auto/); hs1 15:01 Pulse 90 MON; Resp 18; Pulse Ox 96% ; hs1 15:15 BP 151 / 86 (auto/); hs1 15:16 Pulse 90 MON; Pulse Ox 95% ; hs1 15:30 BP 155 / 84 (auto/); hs1 15:31 Pulse 90 MON; Pulse Ox 93% ; hs1 15:45 BP 154 / 83 (auto/); hs1 15:46 Pulse 90 MON; Pulse Ox 96% ; hs1 16:07 BP 141 / 76 (auto/); hs1 16:07 Pulse 88 MON; Pulse Ox 94% ; hs1 16:15 BP 135 / 77 (auto/); hs1 16:15 Pulse 88 MON; Pulse Ox 96% ; hs1 16:30 BP 147 / 76 (auto/); hs1 16:31 Pulse 90 MON; Resp 18; Temp 98.2(TE); Pulse Ox 96% ; hs1 16:45 BP 130 / 70 (auto/); hs1 16:45 Pulse 94 MON; Pulse Ox 95% ; hs1 17:00 BP 162 / 89 (auto/); hs1 17:00 Pulse 88 MON; Pulse Ox 93% ; hs1 17:15 BP 171 / 86 (auto/); hs1 17:15 Pulse 88 MON; Resp 18; Pulse Ox 96% ; hs1 12:02 Body Mass Index 30.11 (100.70 kg, 182.88 cm) ct3 Vitals: 12:02 Log In Time N/A - ambulance arrival. ct3 ED Course: 11:55 Patient visited by Laverne Riggins, Housekeeping Department Worker. deg 11:55 Patient moved to Waiting deg 11:57 Patient moved to 14 deg 12:01 Triage Initiated hs1 12:02 Accompanied by Family Member, Patient has correct armband on for positive ct3 identification. Placed in gown. Bed in low position. Call light in reach. Side rails up X2. quality assurance monitor body on. Pulse ox on. NIBP on. 12:03 Patient visited by Monika Paredes PCA. ct3 12:20 Inserted saline lock: 20 gauge in right antecubital area and blood collected. The hs1 patient tolerated the procedure well. 12:21 Patient visited by Monika Paredes PCA. ct3 12:21 EKG done. (by ED staff). Reviewed by Kiera Narayanan MD. ct3 12:22 Basic Metabolic Profile Sent. hs1 12:22 CBC with Diff Sent. hs1 12:22 Cardiac Injury Profile Sent. hs1 12:22 Troponin Sent. hs1 12:52 Patient visited by Michaela Ulloa RN. hs1 13:42 Umair Gaston MD is Attending Physician. br1 13:51 Chest, 1 View Returned. EDMS 13:53 Patient visited by Michaela Ulloa RN. hs1 13:53 Patient visited by Umair Gaston MD. br1 13:56 [facility] Payment Agreement was scanned into [email or web address] and attached to record. lg 14:01 D-Dimer Quant Sent. hs1 14:26 Patient visited by Carmita Weeks RN. srm 14:31 Chest, 1 View Returned. EDMS 15:06 AnkitNoemy is Hospitalizing Provider. br1 15:55 CT Chest Without Contrast Returned. EDMS 16:12 No procedures done that require assistance. hs1 16:43 The patient / caregiver is instructed regarding the plan of care and ED course. hs1 08/03 11:14 T-Sheet-- Draft Copy was scanned into [email or web address] and attached to record. gb 11:14 Radiology Report was scanned into [email or web address] and attached to record. gb Administered Medications: 08/02 16:09 Drug: vancomycin 1 grams [vancomycin 1,000 mg intravenous injection] Route: IVPB; hs1 Infused Over: 60 mins; Site: right antecubital; 17:16 Follow up: Response: No Adverse Reaction; IV Status: Completed infusion; IV Intake: hs1 250ml 17:15 Drug: Piperacillin-Tazobactam 3.375 grams [piperacillin-tazobactam 3.375 gram hs1 intravenous solution] Route: IVPB; Infused Over: 30 mins; Site: left antecubital; Intake: 17:16 IV: 250.00ml; Total: 250.00ml. hs1 Output: 16:43 Urine: 350.00ml (Voided); Total: 350.00ml. hs1 Order Results: Lab Order: Basic Metabolic Profile; [facility]' 08/02/16 12:21 Test: GLUCOSE, FASTING; Value: 176; Range: 70-105; Abnormal: Above high normal; Units: MG/DL; Status: F Test: BLOOD UREA NITROGEN; Value: 64; Range: 7-18; Abnormal: Above high normal; Units: MG/DL; Status: F Test: CREATININE FOR GFR; Value: 2.45; Range: 0.70-1.30; Abnormal: Above high normal; Units: MG/DL; Status: F Test: GLOMERULAR FILTRATION RATE; Value: 29.4; Range: >56; Abnormal: Below low normal; Status: F Test: SODIUM LEVEL; Value: 135; Range: 136-145; Abnormal: Below low normal; Units: MEQ/L; Status: F Test: POTASSIUM SERUM; Value: 4.1; Range: 3.5-5.1; Units: MEQ/L; Status: F Test: CHLORIDE LEVEL; Value: 99; Range: 98-107; Units: MEQ/L; Status: F Test: CARBON DIOXIDE LEVEL; Value: 25; Range: 21-32; Units: MEQ/L; Status: F Test: ANION GAP; Value: 11; Range: 8-16; Units: MEQ/L; Status: F Test: CALCIUM LEVEL; Value: 8.8; Range: 8.5-10.1; Units: MG/DL; Status: F Test Note: ; Units are mL/min/1.73 m2 Chronic Kidney Disease Staging per NKF: Stage I & II GFR >=60 Normal to Mildly Decreased Stage III GFR 30-59 Moderately Decreased Stage IV GFR 15-29 Severely Decreased Stage V GFR <15 Very Little GFR Left ESRD GFR <15 on VIDEO JOURNALIST Lab Order: CBC with Diff; SPEC'M 08/02/16 12:21 Test: WHITE BLOOD COUNT; Value: 8.8; Range: 4.0-10.0; Units: K/mm3; Status: F Test: RED BLOOD COUNT; Value: 3.97; Range: 4.30-6.10; Abnormal: Below low normal; Units: M/mm3; Status: F Test: HEMOGLOBIN; Value: 11.7; Range: 14.0-18.0; Abnormal: Below low normal; Units: g/dl; Status: F Test: HEMATOCRIT; Value: 36.7; Range: 42.0-52.0; Abnormal: Below low normal; Units: %; Status: F Test: MEAN CORPUSCULAR VOLUME; Value: 92.4; Range: 80.0-96.0; Units: fl; Status: F Test: MEAN CORPUSCULAR HEMOGLOBIN; Value: 29.6; Range: 27.0-33.0; Units: pg; Status: F Test: MEAN CORPUSCULAR HGB CONC; Value: 32.0; Range: 32.0-36.5; Units: g/dl; Status: F Test: RED CELL DISTRIBUTION WIDTH; Value: 14.7; Range: 11.5-14.5; Abnormal: Above high normal; Units: %; Status: F Test: PLATELET COUNT, AUTOMATED; Value: 364; Range: 150-450; Units: k/mm3; Status: F Test: NEUTROPHILS %; Value: 93.5; Range: 36.0-66.0; Abnormal: Above high normal; Units: %; Status: F Test: LYMPH %; Value: 1.3; Range: 24.0-44.0; Abnormal: Below low normal; Units: %; Status: F Test: MONO %; Value: 3.0; Range: 0.0-5.0; Units: %; Status: F Test: EOS %; Value: 0.9; Range: 0.0-3.0; Units: %; Status: F Test: BASO %; Value: 0.8; Range: 0.0-1.0; Units: %; Status: F Test: LARGE UNSTAINED CELL %; Value: 0.5; Range: 0.0-4.0; Units: %; Status: F Test: NEUTROPHILS #; Value: 8.2; Range: 1.8-7.7; Abnormal: Above high normal; Units: K/mm3; Status: F Test: LYMPH #; Value: 0.2; Range: 1.5-4.5; Abnormal: Below low normal; Units: K/mm3; Status: F Test: MONO #; Value: 0.3; Range: 0.0-0.8; Units: K/mm3; Status: F Test: EOS #; Value: 0.1; Range: 0.0-0.50; Units: K/mm3; Status: F Test: BASO #; Value: 0.1; Range: 0.0-0.2; Units: K/mm3; Status: F Test: LARGE UNSTAINED CELL #; Value: 0.0; Range: 0.0-0.4; Units: K/mm3; Status: F Lab Order: Cardiac Injury Profile; SPEC'M 08/02/16 12:21 Test: CPK CREATINE PHOSPHOKINASE; Value: 133; Range: 39-308; Units: U/L; Status: F Test: CK-MB VALUE MASS; Value: 4.4; Range: 0.0-3.6; Abnormal: Above high normal; Units: NG/ML; Status: F Test: MB/CK RELATIVE INDEX; Value: 3.30; Range: < OR =4; Status: F Test Note: ; DIAGNOSIS CRITERIA MMB ng/ml Relative Index (RI) NON-AMI < or = 5 N/A [place]ONE > 5 < or = 4 AMI > 5 > 4 Lab Order: Troponin; [facility] 08/02/16 12:21 Test: TROPONIN I; Value: 0.06; Range: < 0.10; Units: NG/ML; Status: F Test Note: ; Troponin I Reference Interval for [employer] LOCI: 99th Percentile= 0.00-0.045 ng/ml Risk Stratification: <= 0.10 ng/ml Decreased Risk for Adverse Clinical Events. 0.10-1.50 ng/ml Increased Risk for Adverse Clinical Events. Evaluation of additional criterion and/or repeat testing in 2-6 hours is suggested to rule out myocardial damage. >= 1.50 ng/ml Indicative of Myocardial Injury. Lab Order: D-Dimer Quant; [facility] 08/02/16 12:21 Test: D-DIMER QUANT; Value: 3837.9; Range: <500; Abnormal: Above high normal; Units: ng/ml; Status: F Lab Order: BRAIN NATIURETIC PEPTIDE; [facility] 08/02/16 12:20 Test: BRAIN NATRIURETIC PEPTIDE; Value: 460; Range: <100; Abnormal: Above high normal; Units: PG/ML; Status: F Lab Order: PT & APTT; [facility] 08/02/16 12:21 Test: PROTHROMBIN TIME; Value: 25.1; Range: 12.3-14.5; Abnormal: Above high normal; Units: SECONDS; Status: F Test: INR; Value: 2.27; Status: F Test: PARTIAL THROMBOPLASTIN TIME; Value: 43.0; Range: 26.6-37.1; Abnormal: Above high normal; Units: SECONDS; Status: F Test Note: ; THERAPUTIC HUMAN INR VALUES INDICATIONS NORMAL RANGES PROPHYLAXIS/TREATMENT OF: VENOUS THROMBOSIS 2.0-3.0 PULMONARY EMBOLISM 2.0-3.0 PREVENTION OF SYSTEMIC EMBOLISM FROM: TISSUE HEART VALVES 2.0-3.0 ACUTE MYOCARDIAL INFARCTION 2.0-3.0 VALVULAR HEART DISEASE 2.0-3.0 ATRIAL FIBRILLATION 2.0-3.0 MECHANICAL VALVES(HIGH RISK) 2.5-3.5 RECURRENT MYOCARDIAL INFARCTION 2.5-3.5 Radiology Order: Chest, 1 View Test: Chest, 1 View REASON FOR EXAMINATION: Shortness of Breath; CHEST, ONE VIEW:; ; HISTORY: Shortness of breath.; ; COMPARISON: 07/06/2016; ; There is elevation of the left hemidiaphragm. Increased density is present in; the left lower lobe consistent with atelectasis or infiltrate. The right lung is; clear. A small left pleural effusion is present. The heart is upper limits of; normal in size. The pulmonary vasculature is normal in appearance.; ; IMPRESSION:; ; 1. Left lower lobe atelectasis or infiltrate.; ; 2. Small left pleural effusion.; ; ; Signed by; Mikey Floyd MD 08/02/2016 01:53 P; Radiology Order: CT Chest Without Contrast Test: CT Chest Without Contrast REASON FOR EXAMINATION: Shortness of Breath; CT study of chest without contrast:; ; History: Shortness of breath.; ; Comparison chest x-ray is from earlier on this date. Comparison is also made; with chest x-ray from October 16, 2015.; ; CT findings: The patient is status post prior median sternotomy. There is lobar; collapse and consolidation in the left lower lobe with air bronchograms in the; atelectatic lower lobe just above the left hemidiaphragm. Left hemidiaphragm is; elevated. There is a small quantity of left pleural fluid. Vascular; calcification is noted. No right pleural effusion or pericardial effusion is; seen. Minimal linear fibrosis versus discoid atelectasis in the right lower; lobe. No bony destructive lesion is seen.; ; No adrenal lesion is observed. Incidental note is made of opaque gallstones in; the gallbladder.; ; Impression:; ; 1. Elevated left hemidiaphragm.; ; 2. Very small left pleural effusion.; ; 3. Nearly lobar collapse and consolidation left lower lobe with air; bronchograms.; ; 4. Cholelithiasis.; ; 5. Median sternotomy performed in the interval since the October 16, 2015 chest; x-ray.; ; ; Signed by; Marco Wilkinson MD 08/02/2016 03:35 P; Outcome: 15:06 Decision to Hospitalize by Provider. br1 17:18 Discharge Assessment: Patient awake, alert and oriented x 3. No cognitive and/or hs1 functional deficits noted. Patient verbalized understanding of disposition instructions. patient administered narcotics - no. The following High Risk Discharge criteria are identified: None. Admitted to PCU accompanied by nurse, accompanied by tech, via stretcher, on monitor, with chart. Condition: stable. CT Study completed. Property :Personal belongings accompany Pt. 17:20 Patient left the ED. hs1 Signatures: Dispatcher [employer] EDMS Laverne Riggins, Housekeeping Department Worker Unit deg Carmita Weeks, DELIA RN [facility] Michelle Basurto, Reg Reg gb Vipul Easton, Reg Reg lg Umair Gaston MD MD br1 Michaela Ulloa RN RN hs1 Monika Paredes, ANESTHESIOLOGISTS' ASSISTANT ANESTHESIOLOGISTS' ASSISTANT ct3 Corrections: (The following items were deleted from the chart) 17:06 14:25 PARTIAL THROMBOPLASTIN TIME+LAB sent. [facility] EDMS 17:06 14:25 PROTHROMBIN TIME PROFILE\\E\\INR+LAB sent. [facility] EDMS Chart Complete MTDD
[2016-08-04 19:49] VITALS: BP 122/61
[2016-08-04] MEDS: PRAVASTATIN 20 MG TAB PO SCH (21:55)
[2016-08-04 23:59] VITALS: BP 120/76
[2016-08-05] MEDS: IPRATROPIUM 0.5MG/ALBUTEROL 2.5MG INH SOL UD 3ML (DUONEB)(J7620) NEB SCH ×3 (01:47→13:18)
[2016-08-05] MEDS: PIPERACILLIN/TAZOBACTAM SOD 2.25 GM in D5W MINI-BAG PLUS 50 ML IV SCH ×3 (03:45→16:06)
[2016-08-05 04:00] VITALS: BP 127/64
[2016-08-05 05:26] LABS: BASO % 0.4 % (0.0-1.0); EOS # 0.3 K/mm3 (0.0-0.50); EOS % 5.3 % (0.0-3.0); LARGE UNSTAINED CELL # 0.2 K/mm3 (0.0-0.4); LARGE UNSTAINED CELL % 4.2 % (0.0-4.0); LYMPH # 0.9 K/mm3 (1.5-4.5); LYMPH % 18.1 % (24.0-44.0); MEAN CORPUSCULAR HEMOGLOBIN 30.2 pg (27.0-33.0); MEAN CORPUSCULAR VOLUME 94.6 fl (80.0-96.0); MONO # 0.4 K/mm3 (0.0-0.8); MONO % 7.6 % (0.0-5.0); NEUTROPHILS # 3.2 K/mm3 (1.8-7.7); NEUTROPHILS % 64.4 % (36.0-66.0); PLATELET COUNT, AUTOMATED 286 k/mm3 (150-450)
[2016-08-05 05:51] LABS: ALBUMIN 2.6 GM/DL (3.2-5.2); ALBUMIN/GLOBULIN RATIO 0.67 (1.00-1.93); BILIRUBIN,TOTAL 0.2 MG/DL (0.2-1.0); CALCIUM LEVEL 8.3 MG/DL (8.5-10.1); CREATININE FOR GFR 2.36 MG/DL (0.70-1.30); GLOMERULAR FILTRATION RATE 30.7 (>56); POTASSIUM SERUM 3.9 MEQ/L (3.5-5.1); TOTAL PROTEIN 6.5 GM/DL (6.4-8.2)
[2016-08-05] MEDS: SLF 3 ML SYR IV SCH ×2 (06:42→12:53)
[2016-08-05 08:00] VITALS: BP 129/69
--- NOTE | 2016-08-05 08:40 | ECGEPIP ---
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
[2016-08-05] MEDS: LEVEMIR (INSULIN DETEMIR) 1 UNITS/0.01ML SC SCH (09:00)
[2016-08-05] MEDS: SILVER SULFADIAZINE 1% CR 50 GM JAR TOP SCH (09:00)
[2016-08-05] MEDS: **hydrALAZINE HCL** 25 MG TAB PO SCH (09:50)
[2016-08-05] MEDS: HumaLOG INSULIN (NovoLOG) PER UNIT SC SCH ×3 (09:50→17:21)
[2016-08-05] MEDS: VANCOMYCIN HCL 1,000 MG, VIAL MATE ADAPTER 1 EACH in D5W 250 ML IV SCH (09:50)
[2016-08-05] MEDS: DOCUSATE SODIUM 100 MG CAP PO SCH (09:50)
[2016-08-05] MEDS: ASPIRIN 81 MG ENTERIC TAB PO SCH (09:50)
[2016-08-05] MEDS: ISOSORBIDE MON. (IMDUR) 30 MG XR TAB PO SCH (09:51)
[2016-08-05] MEDS: FUROSEMIDE 20 MG TAB PO SCH ×2 (09:51→16:06)
[2016-08-05] MEDS: FOLIC ACID 1 MG TAB PO SCH (09:51)
[2016-08-05] MEDS: FERROUS GLUCONATE 324 MG TAB PO SCH (09:51)
[2016-08-05 09:52] VITALS: BP 127/64
[2016-08-05] MEDS: ASCORBIC ACID 500 MG TAB PO SCH (09:52)
[2016-08-05] MEDS: OMEPRAZOLE 20 MG CAP PO SCH (09:52)
[2016-08-05] MEDS: CALCITRIOL 0.25 MCG CAP (S0169) PO SCH (09:52)
[2016-08-05] MEDS: METOPROLOL TART 12.5 MG PER 1/2 TAB PO SCH (09:52)
[2016-08-05] MEDS: AMIODARONE 200 MG TAB (PACERONE) PO SCH (09:52)
[2016-08-05] MEDS: POTASSIUM CHLORIDE 10 MEQ SR TABLET PO SCH (09:52)
--- NOTE | 2016-08-05 10:45 | IPNPDOC ---
Assessment/Plan Date Seen The patient was seen on 08/05/16. Problems Problems: (1) Atrial fibrillation Status: Acute Problem Specific Plan: Consult Specialist, Monitor Clinically Problem Text: EKG ordered. Cardiology to evaluate. (2) Blood bacterial culture positive Status: Acute Problem Specific Plan: Consult Specialist Problem Text: ID consult. + gram cocci in clusters. Probable contaminant. (3) Acquired elevated hemidiaphragm Status: Acute Problem Specific Plan: Monitor Clinically Problem Text: Repeat CXR today: remains with elevated left hemidiaphragm (4) Left lower lobe pneumonia Status: Acute Problem Text: Vancomycin and Zosyn day #2 (5) Diabetes mellitus type 2 with complications, uncontrolled Status: Chronic Response to Treatment: Stable Problem Specific Plan: Monitor Clinically (6) Peripheral artery disease Status: Chronic Response to Treatment: Stable Problem Specific Plan: Monitor Clinically (7) Coronary artery disease Status: Chronic Response to Treatment: Stable Problem Specific Plan: Monitor Clinically (8) S/P CABG x 4 Status: Chronic Response to Treatment: Stable Problem Specific Plan: Monitor Clinically Problem Text: recent CABG and rehab stay 06/2016. DCd this week from [facility] subacute rehab (9) History of myocardial infarction in adulthood Status: Chronic (10) Hypertension Status: Chronic (11) Hyperlipidemia Status: Chronic (12) CKD (chronic kidney disease), stage IV Status: Chronic Problem Text: sees Dr. Lopez as an outpatient. appears to be at baseline Cr. (13) Vitamin D deficiency Status: Chronic (14) Non-healing ulcer of left foot Status: Chronic Plan / VTE VTE Prophylaxis Ordered?: Yes Subjective Review of Systems CC/HPI The patient is a 55-year-old male admitted with a reason for visit of Left Lower Lobe Pneumonia. Events since last encounter Patient's DC completed. Developed Atrial fibrillation this am which is new onset. DC held. Cardiology attending resident aware and will evaluation patient. Constitutional: Denies: Chills, Fever, Malaise, Night Sweats, Weakness Pulmonary: Denies: Cough, Dyspnea Cardiovascular: Denies: Chest Pain, Lt Headedness, Orthopnea, Palpitations, Paroxysmal Noc. Dyspnea Gastrointestinal: Denies: Abdominal Pain, Diarrhea, Nausea, Vomiting Genitourinary: Denies: Dysuria, Frequency, Incontinence, Retention Psych: Reports: Mood Normal, Denies: Depression, Memory Issues Objective Physical Examination General Exam: Positive: Alert, Cooperative, No Acute Distress Eye Exam: Positive: Conjunctiva & lids normal, EOMI, Negative: Sclera icteric ENT Exam: Positive: Atraumatic, Mucous membr. moist/pink, Pharynx Normal Neck Exam: Positive: Supple, Negative: JVD, thyromegaly Chest Exam: Positive: Diminished (LLL), Normal air movement Heart Exam: Positive: Other (distant heart sounds, no murmur or rub appreciable ), Rate Normal, Regular Rhythm Telemetry: Positive: No significant arrhythmia, Sinus Abdomen Exam: Positive: Normal bowel sounds, Soft, Negative: Hepatospenomegaly Extremity Exam: Positive: Normal pulses, Other (status post right BKA, left foot is in a supportive prosthesis), Negative: Clubbing, Cyanosis, Edema Skin Exam: Positive: Nl turgor and temperature, Negative: Breakdown, Lesion Psych Exam: Positive: Mental status NL, Mood NL, Oriented x 3 Vital Signs/I&O Vital Signs Date Time Temp Pulse Resp B/P Pulse Ox O2 Delivery O2 Flow Rate FiO2 08/05/16 09:52 80 127/64 08/05/16 08:00 96.5 18 98 Room Air I&O- Last 24 Hours up to 6 AM 08/05/16 06:00 Intake Total 2030 ml Output Total 1550 ml Balance 480 ml Laboratory Data Labs 24H Laboratory Tests 2 08/04/16 16:16: Bedside Glucose (Misc Panel) 189H 08/04/16 20:55: Bedside Glucose (Misc Panel) 173H 08/05/16 05:08: Blood Urea Nitrogen 43H, Creatinine 2.36H, Sodium Level 140, Potassium Level 3.9 #, Chloride Level 104, Carbon Dioxide Level 24, Calcium Level 8.3L, Aspartate Amino Transf (AST/SGOT) 17, Alanine Aminotransferase (ALT/SGPT) 20, Alkaline Phosphatase 70, Total Bilirubin 0.2, Total Protein 6.5, Albumin 2.6L, Albumin/ Globulin Ratio 0.67L, Anion Gap 12, White Blood Count 5.0, Red Blood Count 3.33L , Hemoglobin 10.1L, Hematocrit 31.5L, Mean Corpuscular Volume 94.6, Mean Corpuscular Hemoglobin 30.2, Mean Corpuscular Hemoglobin Concent 32.0, Red Cell Distribution Width 14.0, Platelet Count 286, Neutrophils (%) (Auto) 64.4, Lymphocytes (%) (Auto) 18.1L, Monocytes (%) (Auto) 7.6H, Eosinophils (%) (Auto) 5.3H, Basophils (%) (Auto) 0.4, Neutrophils # (Auto) 3.2, Lymphocytes # (Auto) 0.9L, Monocytes # (Auto) 0.4, Eosinophils # (Auto) 0.3, Basophils # (Auto) 0.0, Glomerular Filtration Rate 30.7L, Large Unclassified Cells # 0.2, Large Unclassified Cells % 4.2H CBC/BMP Laboratory Tests 08/05/16 05:08 Calcium Level 8.3 L, Aspartate Amino Transf (AST/SGOT) 17, Alanine Aminotransferase (ALT/SGPT) 20, Alkaline Phosphatase 70, Total Bilirubin 0.2, Total Protein 6.5, Albumin 2.6 L, Red Blood Count 3.33 L, Mean Corpuscular Volume 94.6, Mean Corpuscular Hemoglobin 30.2, Mean Corpuscular Hemoglobin Concent 32.0, Red Cell Distribution Width 14.0, Neutrophils (%) (Auto) 64.4, Lymphocytes (%) (Auto) 18.1 L, Monocytes (%) (Auto) 7.6 H, Eosinophils (%) (Auto ) 5.3 H, Basophils (%) (Auto) 0.4, Neutrophils # (Auto) 3.2, Lymphocytes # (Auto ) 0.9 L, Monocytes # (Auto) 0.4, Eosinophils # (Auto) 0.3, Basophils # (Auto) 0.0 FSBS Laboratory Tests Test 08/04/16 16:16 08/04/16 20:55 Range/Units Bedside Glucose (Misc Panel) 189 173 70-105 MG/DL Microbiology Microbiology 08/02/16 Blood Culture - Preliminary, Resulted No Growth after 48 hours. All Specime... 08/02/16 Blood Culture - Final, Complete Staphylococcus Hominis Ssp Rebeka Staphylococcus Epidermidis 08/02/16 MRSA Screen - Final, Complete Cristine Hernandez GROOVER AND STRIPER OPERATOR Aug 05, 2016 10:45
--- NOTE | 2016-08-05 11:26 | IPNPDOC ---
[facility] Cardiology Progress Note Date of Service/Time The patient was seen on 08/05/16 at 11:21. Cardiology Progress Note SUBJECTIVE: Mr Sanchez hears well this morning, is sitting upright in bed at 45 incline. Is conversant and pleasant. In no acute distress. OBJECTIVE: PHYSICAL EXAMINATION: VITAL SIGNS: Please see below. GENERAL APPEARANCE: Pleasant, conversant in no apparent distress. HEENT: NCAT, EOMI, nares patent bilaterally, moist mucous membranes, tongue midline. LUNGS: Good air expansion bilaterally, no wheezing, rhonchi, rales appreciated. HEART: Normal S1, S2, no murmurs, gallops, rubs appreciated. Rate is in 80s. ABDOMEN: Soft, nondistended, nontender to palpitation,NABSx4, no organomegaly appreciated SKIN: Intact EXTREMITIES: Right BKA, no edema, no cyanosis, clubbing appreciated. NEUROLOGICAL: No focal deficits appreciated PSYCHIATRIC: Affect is appropriate LABORATORY WORK: Please see below. ASSESSMENT AND PLAN: Patient was initially going to be discharged today, however he did go into atrial fibrillation with rates into the 120s at midnight overnight. The patient states that he did not experience palpitations, he was asymptomatic and it was instructed to nursing staff to watch the patient until morning, Blood pressure has been stable in the 120/60 range. He is currently in normal sinus rhythm, he is receiving amiodarone therapy, Lopressor and hydralazine. He is also receiving aspirin, Lasix and pravastatin. Anticoagulated with warfarin 6 mg, would continue this. Would also repeat INR. No further recommendations at this time. Vital Signs/I&O VS/I&O Vital Signs Date Time Temp Pulse Resp B/P Pulse Ox O2 Delivery O2 Flow Rate FiO2 08/05/16 09:52 80 127/64 08/05/16 08:00 96.5 18 98 Room Air I&O- Last 24 Hours up to 6 AM 08/05/16 06:00 Intake Total 2030 ml Output Total 1550 ml Balance 480 ml Laboratory Data 24H LABS Laboratory Tests 2 08/04/16 16:16: Bedside Glucose (Misc Panel) 189H 08/04/16 20:55: Bedside Glucose (Misc Panel) 173H 08/05/16 05:08: Blood Urea Nitrogen 43H, Creatinine 2.36H, Sodium Level 140, Potassium Level 3.9 #, Chloride Level 104, Carbon Dioxide Level 24, Calcium Level 8.3L, Aspartate Amino Transf (AST/SGOT) 17, Alanine Aminotransferase (ALT/SGPT) 20, Alkaline Phosphatase 70, Total Bilirubin 0.2, Total Protein 6.5, Albumin 2.6L, Albumin/ Globulin Ratio 0.67L, Anion Gap 12, White Blood Count 5.0, Red Blood Count 3.33L , Hemoglobin 10.1L, Hematocrit 31.5L, Mean Corpuscular Volume 94.6, Mean Corpuscular Hemoglobin 30.2, Mean Corpuscular Hemoglobin Concent 32.0, Red Cell Distribution Width 14.0, Platelet Count 286, Neutrophils (%) (Auto) 64.4, Lymphocytes (%) (Auto) 18.1L, Monocytes (%) (Auto) 7.6H, Eosinophils (%) (Auto) 5.3H, Basophils (%) (Auto) 0.4, Neutrophils # (Auto) 3.2, Lymphocytes # (Auto) 0.9L, Monocytes # (Auto) 0.4, Eosinophils # (Auto) 0.3, Basophils # (Auto) 0.0, Glomerular Filtration Rate 30.7L, Large Unclassified Cells # 0.2, Large Unclassified Cells % 4.2H CBC/BMP Laboratory Tests 08/05/16 05:08 Calcium Level 8.3 L, Aspartate Amino Transf (AST/SGOT) 17, Alanine Aminotransferase (ALT/SGPT) 20, Alkaline Phosphatase 70, Total Bilirubin 0.2, Total Protein 6.5, Albumin 2.6 L, Red Blood Count 3.33 L, Mean Corpuscular Volume 94.6, Mean Corpuscular Hemoglobin 30.2, Mean Corpuscular Hemoglobin Concent 32.0, Red Cell Distribution Width 14.0, Neutrophils (%) (Auto) 64.4, Lymphocytes (%) (Auto) 18.1 L, Monocytes (%) (Auto) 7.6 H, Eosinophils (%) (Auto ) 5.3 H, Basophils (%) (Auto) 0.4, Neutrophils # (Auto) 3.2, Lymphocytes # (Auto ) 0.9 L, Monocytes # (Auto) 0.4, Eosinophils # (Auto) 0.3, Basophils # (Auto) 0.0 FSBS Laboratory Tests Test 08/04/16 16:16 08/04/16 20:55 Range/Units Bedside Glucose (Misc Panel) 189 173 70-105 MG/DL Microbiology Microbiology 08/02/16 Blood Culture - Preliminary, Resulted No Growth after 48 hours. All Specime... 08/02/16 Blood Culture - Final, Complete Staphylococcus Hominis Ssp Rebeka Staphylococcus Epidermidis 08/02/16 MRSA Screen - Final, Complete GME ATTESTATION GME ATTESTATION My preceptor for this patient encounter was physically present in the building during the encounter and was fully available. As needed, all aspects of the patient interview, examination, medical decision making process, and medical care plan development were reviewed and approved by the preceptor. Preceptor is aware and concurs with the plan as stated in the body of this note and will attest to such by his/her cosignature. SUYAPA BAE DO Aug 05, 2016 11:26
[2016-08-05 12:00] VITALS: BP 133/81
--- NOTE | 2016-08-05 12:16 | REP ---
Chest x-ray: Two views. History: Consolidation. Comparison chest x-ray August 03, 2016. Findings: Prior median sternotomy wires are seen. Left hemidiaphragm remains elevated and there is increased density above the diaphragm in the left base consistent with this patient's known left lower lobe atelectasis. There is slight blunting of the left pleural angles. Right lung remains clear. Findings are essentially unchanged. Signed by Marco Wilkinson MD 08/05/2016 03:09 P
[2016-08-05 12:28] LABS: VANCOMYCIN RANDOM 15.9 UG/ML
--- NOTE | 2016-08-05 14:04 | DSES ---
DATE OF ADMISSION: 08/02/2016 DATE OF DISCHARGE: PRIMARY CARE PROVIDER: Dr. Stew Weaver HISTORY OF PRESENT ILLNESS: 55-year-old male who presented to the emergency department due to acute onset of shortness of breath, tachycardia and felt to be having a small panic attack. The patient had a prior history of a quadruple bypass performed on 07/09/2016 at [facility]. Prior to the coronary artery bypass graft (CABG), the patient did not have any anxiety; however, post CABG, the patient states that he has had some increasing anxiety and panic. Presentation to the emergency department showed elevation of the left hemidiaphragm with increased density present in the left lower lobe consistent with potential atelectasis or infiltrate and a left pleural effusion. HOSPITALIZATION COURSE: The patient was placed on DuoNeb and albuterol as needed. All cardiac medications were continued. He was given piptazobactam and vancomycin, which he tolerated well. The patient had a questionable positive blood culture with gram-positive cocci in clusters. Infectious disease was consulted and felt that there was a potential for contamination. On final result, the patient had two organisms, one Staphylococcus hominis and second Staphylococcus epidermidis. As previously dictated in the infectious disease note, felt that the patient had a viral infection with a panic attack and no need for antibiotics if blood culture shows coag negative Staphylococcus. INR has remained stable throughout hospitalization. Creatinine has remained baseline at 2.3. Electrolytes are stable, including a potassium level of 3.9. PHYSICAL EXAMINATION Today, blood pressure is stable at 127/64, heart rate is 80, respiratory rate 18, oxygen saturation 92% on room air, temperature 95.4. HEENT: Neck is supple without lymphadenopathy or jugular venous distention (JVD). CARDIOVASCULAR: Heart rate and rhythm are regular. PULMONARY: Lungs are clear to auscultation bilaterally. ABDOMEN: Soft and nontender. EXTREMITIES: Bilateral lower extremities are without any edema. He does have some slight swelling to the right below the knee amputation secondary to loss of his compression stocking for his stump. SKIN: The patient's sternal incision is clean, dry and intact with nom evidence of cellulitis or infection. IMAGING: Completed while inpatient includes multiple chest x-rays, including a chest CT. CONSULTATIONS: 1. Infectious disease, Dr. Mccain. 2. Cardiology, Dr. Lopez. No further recommendations were made by cardiology. ASSESSMENT: 1. Elevated left hemidiaphragm with atelectasis. 2. Positive blood culture, felt to be contaminant. 3. Recent cardiac surgery with coronary artery bypass graft (CABG) times four vessels. 4. Coronary artery disease. 5. Mild anxiety. 6. Diabetes. 7. Peripheral artery disease. 8. Hypertension. 9. Hyperlipidemia. 10. Chronic venous insufficiency. 11. Status post below the knee amputation of the right lower extremity. PLAN: The patient will be discharged home. He will followup with his primary care provider in 5 to 7 days. He will followup with his laborer pipeline within the next two weeks. Diet is a 2-gram sodium. Activity is as tolerated as previous. MEDICATIONS: - acetaminophen 650 mg by mouth every 4 hours as needed for pain - amiodarone 200 mg by mouth daily - ascorbic acid 500 mg by mouth daily - aspirin 81 mg by mouth daily - Calcitriol 0.5 mcg by mouth daily - daily vitamin one tablet by mouth daily - Docusate sodium 100 mg by mouth twice a day - ferrous gluconate 324 mg by mouth twice a day - folic acid 1 mg by mouth daily - furosemide 20 mg tablets that she is to take three by mouth twice a day - hydralazine 25 mg tablets by mouth twice a day - Levemir 16 units subcutaneously daily - Lispro via sliding scale before food - isosorbide mononitrate 30 mg by mouth daily - metoprolol 25 mg by mouth twice a day - omeprazole 40 mg by mouth daily - potassium chloride 10 mEq by mouth daily - pravastatin 80 mg by mouth at night - warfarin sodium 6 mg by mouth at night The patient should have an INR repeated within the next 5 days. We will arrange for that to be taken care of. The patient is discharged in stable and satisfactory condition with no further questions at the time of discharge.
[2016-08-05 16:00] VITALS: BP 129/72
[2016-08-05] MEDS: WARFARIN SOD 3 MG TAB PO SCH (16:06)
== END 2016-08-05 18:09 | disposition home health service (06) | DRG 194 ==
LOC: M ED 11:54 → M ED INP 15:07 → M PCU 17:32
PROVIDERS: ADMIT General Practice; ATTEND Family Medicine
DX: J18.9 Pneumonia, unspecified organism (principal); N18.4 Chronic kidney disease, stage 4 (severe); L97.929 Non-pressure chronic ulcer of unspecified part of left lower leg with unspecified severity; J98.11 Atelectasis; J98.6 Disorders of diaphragm; E11.9 Type 2 diabetes mellitus without complications; F41.9 Anxiety disorder, unspecified; I25.10 Atherosclerotic heart disease of native coronary artery without angina pectoris; I12.9 Hypertensive chronic kidney disease with stage 1 through stage 4 chronic kidney disease, or unspecified chronic kidney disease; E11.621 Type 2 diabetes mellitus with foot ulcer; E11.319 Type 2 diabetes mellitus with unspecified diabetic retinopathy without macular edema; E11.40 Type 2 diabetes mellitus with diabetic neuropathy, unspecified; E11.21 Type 2 diabetes mellitus with diabetic nephropathy; I25.2 Old myocardial infarction; Z87.891 Personal history of nicotine dependence; E78.5 Hyperlipidemia, unspecified; E55.9 Vitamin D deficiency, unspecified; Z79.82 Long term (current) use of aspirin; Z79.899 Other long term (current) drug therapy; I73.9 Peripheral vascular disease, unspecified

== ENCOUNTER → 2016-08-12 | Outpatient (REF) | payer MEDICARE ==
[~2016-08-12] MED LIST changes: +CALC0.5C PO; +COUM6TAB PO; +HYDR-4266 PO; +POTA10CA PO
[2016-08-12 19:45] LABS: BASO # 0.1 K/mm3 (0.0-0.2); BASO % 0.6 % (0.0-1.0); EOS # 0.2 K/mm3 (0.0-0.50); EOS % 2.4 % (0.0-3.0); LARGE UNSTAINED CELL # 0.1 K/mm3 (0.0-0.4); LARGE UNSTAINED CELL % 1.5 % (0.0-4.0); LYMPH # 1.7 K/mm3 (1.5-4.5); LYMPH % 18.3 % (24.0-44.0); MEAN CORPUSCULAR HEMOGLOBIN 30.1 pg (27.0-33.0); MEAN CORPUSCULAR HGB CONC 31.8 g/dl (32.0-36.5); MEAN CORPUSCULAR VOLUME 94.6 fl (80.0-96.0); MONO # 0.4 K/mm3 (0.0-0.8); MONO % 4.8 % (0.0-5.0); NEUTROPHILS # 6.7 K/mm3 (1.8-7.7); NEUTROPHILS % 72.4 % (36.0-66.0); PLATELET COUNT, AUTOMATED 384 k/mm3 (150-450); RED CELL DISTRIBUTION WIDTH 14.3 % (11.5-14.5); WHITE BLOOD COUNT 9.2 K/mm3 (4.0-10.0)
[2016-08-12 19:58] LABS: ALBUMIN 3.4 GM/DL (3.2-5.2); BILIRUBIN,TOTAL 0.3 MG/DL (0.2-1.0); CALCIUM LEVEL 8.7 MG/DL (8.5-10.1); CREATININE FOR GFR 2.55 MG/DL (0.70-1.30); POTASSIUM SERUM 4.2 MEQ/L (3.5-5.1); TOTAL PROTEIN 6.8 GM/DL (6.4-8.2)
== END ==
LOC: M SFHCADAM 12:07
PROVIDERS: ATTEND Physician Assistant
DX: D72.823 Leukemoid reaction (principal); N18.3 Chronic kidney disease, stage 3 (moderate); E11.21 Type 2 diabetes mellitus with diabetic nephropathy; I25.10 Atherosclerotic heart disease of native coronary artery without angina pectoris

== ENCOUNTER 2016-09-10 08:55 | Outpatient (RCR) | payer MEDICARE | END 2016-09-14 | LOC: M CR 08:55 | PROVIDERS: ATTEND Internal Medicine Cardiovascular Disease | DX: Z95.1 Presence of aortocoronary bypass graft (principal) ==

== ENCOUNTER → 2016-10-15 | Outpatient (RCR) | payer MEDICARE | LOC: M CR 09-15 10:00 | PROVIDERS: ATTEND Internal Medicine Cardiovascular Disease | DX: Z51.89 Encounter for other specified aftercare (principal); Z95.1 Presence of aortocoronary bypass graft ==

== ENCOUNTER → 2016-10-29 | Outpatient (CLI) | payer MEDICARE ==
[~2016-10-29] MED LIST changes: -CALC0.5C PO; +CALC0.5C6 PO; -POTA10TA2 PO; +POTA1TAB23 PO
--- NOTE | 2016-10-29 16:44 | REP ---
CHEST X-RAY PA AND LATERAL: 10/29/2016: Comparison: 08/05/2016, CT chest 08/02/2016. Clinical history: Wheezing, increased breath sounds on the right base. Findings: Two-view show sternotomy wires in the midline as on previous studies. There is elevation left diaphragm with volume loss left hemithorax. Linear atelectatic change above that diaphragm is noted. There is no gross effusion. Some minor patchy atelectatic change in the right base but no effusion, consolidation with air bronchograms or other acute finding. Heart size unchanged. Aorta intact. Airway unremarkable. There is no widening the mediastinum, hilar or mediastinal mass. Bony thorax without compression deformity. No free air the diaphragm. Impression: 1. Elevated left diaphragm with volume loss in the left hemithorax and subsegmental atelectatic change along that elevated diaphragm. 2. No gross cardiomegaly. There are sternotomy wires and clips in the mediastinum. No pulmonary edema. No gross effusion. 3. Right base with some minor patchy atelectasis or infiltrate without dense consolidation. Signed by Dave Valenzuela MD 10/29/2016 04:45 P
== END ==
LOC: M RAD 14:15
PROVIDERS: ATTEND Physician Assistant
DX: R06.2 Wheezing (principal); R91.8 Other nonspecific abnormal finding of lung field

== ENCOUNTER 2016-11-12 12:49 | Outpatient (RCR) | payer MEDICARE | END 2016-11-14 | LOC: M CR 12:49 | PROVIDERS: ATTEND Internal Medicine Cardiovascular Disease | DX: Z51.81 Encounter for therapeutic drug level monitoring (principal); Z95.1 Presence of aortocoronary bypass graft ==

== ENCOUNTER 2016-11-17 14:40 | Outpatient (RCR) | payer MEDICARE | END 2016-12-15 | LOC: M CR 14:40 | PROVIDERS: ATTEND Internal Medicine Cardiovascular Disease | DX: Z51.89 Encounter for other specified aftercare (principal); Z95.1 Presence of aortocoronary bypass graft ==

== ENCOUNTER → 2016-12-15 | Outpatient (REF) | payer MEDICARE | LOC: M SFHCPLAZ 08:00 | PROVIDERS: ATTEND Physician Assistant | DX: E11.21 Type 2 diabetes mellitus with diabetic nephropathy (principal) ==

== ENCOUNTER → 2017-03-18 | Outpatient (REF) | payer MEDICARE, OTHER ==
[~2017-03-18] MED LIST changes: -ACET-654 PO; +ACET1TAB17 PO; +AMIO200T PO; -AMIO20TA PO; -DOCU100C PO; +DOCU100C16 PO; -FOLI1TAB2 PO; +FOLI1TAB4 PO; +HYDR-3910 PO; -HYDR-4266 PO; -SILV1CRE19 TOP; +SILV1CRE60 TOP
== END ==
LOC: M SFHCADAM 08:18
PROVIDERS: ATTEND Physician Assistant
DX: E11.21 Type 2 diabetes mellitus with diabetic nephropathy (principal)

== ENCOUNTER 2017-06-03 13:51 | Emergency (ER) | payer MEDICARE, MEDICAID ==
[~2017-06-03] VITALS: Ht 185.4 cm; Wt 104.1 kg
[2017-06-03] MEDS ORDERED: ASPIRIN 81 MG CHEW TABLET PO ONE (14:15)
[2017-06-03 14:19] LABS: BASO % 0.4 % (0.0-1.0); EOS # 0.2 10^3/uL (0.0-0.50); EOS % 1.7 % (0.0-3.0); IMMATURE GRANULOCYTE % 0.4 % (0-0); LYMPH # 1.5 10^3/uL (1.5-4.5); LYMPH % 13.7 % (24.0-44.0); MEAN CORPUSCULAR HEMOGLOBIN 32.5 pg (27.0-33.0); MEAN CORPUSCULAR HGB CONC 33.7 g/dl (32.0-36.5); MEAN CORPUSCULAR VOLUME 96.6 fl (80.0-96.0); MONO # 0.9 10^3/uL (0.0-0.8); MONO % 8.9 % (0.0-5.0); NEUTROPHILS % 74.9 % (36.0-66.0); PLATELET COUNT, AUTOMATED 275 10^3/uL (150-450); WHITE BLOOD COUNT 10.6 10^3/uL (4.0-10.0)
[2017-06-03] MEDS ORDERED: PLAV1TAB2 PO (14:28)
--- NOTE | 2017-06-03 14:42 | REP ---
Clinical: Chest pain. Comparison: 10/29/2016. Findings: Chronic elevation to the left hemidiaphragm is again noted. Visualized portions of the mediastinum and cardiac silhouette remains stable and mild cardiomegaly is again suggested. Visualized lung gaitan are relatively well aerated and without acute consolidation, obvious effusion or pneumothorax. Skeletal structures intact. Prior sternotomy. Impression: Chronic stable changes compared to prior examination. No obvious acute cardiopulmonary process. Signed by Yung Eldridge MD 06/03/2017 02:33 P
[2017-06-03 14:44] LABS: ALBUMIN 2.8 GM/DL (3.2-5.2); ALKALINE PHOSPHATASE 57 U/L (45-117); ALT/SGPT 28 U/L (12-78); ANION GAP 6 MEQ/L (8-16); AST/SGOT 19 U/L (7-37); BILIRUBIN,DIRECT 0.1 MG/DL (0.0-0.2); BILIRUBIN,TOTAL 0.4 MG/DL (0.2-1.0); BLOOD UREA NITROGEN 53 MG/DL (7-18); CALCIUM LEVEL 8.7 MG/DL (8.5-10.1); CARBON DIOXIDE LEVEL 30 MEQ/L (21-32); CHLORIDE LEVEL 99 MEQ/L (98-107); CREATININE FOR GFR 2.28 MG/DL (0.70-1.30); GLOMERULAR FILTRATION RATE 31.8 (>56); GLUCOSE, FASTING 174 MG/DL (70-105); POTASSIUM SERUM 4.1 MEQ/L (3.5-5.1); SODIUM LEVEL 135 MEQ/L (136-145); TOTAL PROTEIN 6.8 GM/DL (6.4-8.2)
[2017-06-03 22:38] VITALS: BP 167/73
--- NOTE | 2017-06-04 08:32 | ECGEPIP ---
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
--- NOTE | 2017-06-05 21:14 | ECGEPIP ---
Stationary ECG Study [facility] - ED Test Date: 2017-06-03 Pat Name: ESAU ALBARADO Department: Room: - Gender: M Rug Weaver: JESU : 1960 Requested By: CHAPARRO Veronica Order Number: [id number] Reading MD: Carolyn Norris Measurements Intervals [place] Rate: 68 P: 30 NM: 154 QRS: 37 QRSD: 94 T: 130 QT: 386 QTc: 413 Interpretive Statements SINUS RHYTHM ANTEROSEPTAL MYOCARDIAL INFARCTION, OF INDETERMINATE AGE SIMILAR 14:13 Electronically Signed On 06-05-2017 21:14:21 EST by Carolyn Norris
== END 2017-06-03 23:01 | disposition home or self-care (01) ==
LOC: EDBD 13:51 → M ED 13:51
DX: R07.9 Chest pain, unspecified (principal); R94.31 Abnormal electrocardiogram [ECG] [EKG]; I25.2 Old myocardial infarction; E11.40 Type 2 diabetes mellitus with diabetic neuropathy, unspecified; I10 Essential (primary) hypertension; J45.909 Unspecified asthma, uncomplicated; G47.30 Sleep apnea, unspecified; N18.4 Chronic kidney disease, stage 4 (severe); F41.9 Anxiety disorder, unspecified; F32.9 Major depressive disorder, single episode, unspecified; Z95.1 Presence of aortocoronary bypass graft; I95.1 Orthostatic hypotension; Z89.429 Acquired absence of other toe(s), unspecified side; Z87.891 Personal history of nicotine dependence; Z79.02 Long term (current) use of antithrombotics/antiplatelets; Z79.82 Long term (current) use of aspirin; Z79.4 Long term (current) use of insulin; Z79.899 Other long term (current) drug therapy

== ENCOUNTER → 2017-06-23 | Outpatient (CLI) | payer MEDICARE, MEDICAID ==
[~2017-06-23] MED LIST changes: +PLAV1TAB2 PO
== END ==
LOC: M LAB 09:30
PROVIDERS: ATTEND Physician Assistant
DX: E11.21 Type 2 diabetes mellitus with diabetic nephropathy (principal)

== ENCOUNTER → 2017-09-29 | Outpatient (REF) | payer MEDICARE, MEDICAID ==
[2017-09-29 20:14] LABS: ESTIMATED AVERAGE GLUCOSE 232 MG/DL (60-110); HEMOGLOBIN A1c 9.7 %
== END ==
LOC: M SFHCADAM 14:43
DX: E11.21 Type 2 diabetes mellitus with diabetic nephropathy (principal); F32.1 Major depressive disorder, single episode, moderate
CPT/HCPCS: 83036

== ENCOUNTER → 2017-10-25 | Outpatient (REF) | payer MEDICARE, MEDICAID ==
[2017-10-27 14:16] LABS: C-PEPTIDE 1.3 ng/mL (1.1-4.4)
== END ==
LOC: M SFHCPLAZ 14:57
DX: E11.49 Type 2 diabetes mellitus with other diabetic neurological complication (principal)
CPT/HCPCS: 84681

== ENCOUNTER → 2018-02-17 | Outpatient (CLI) | payer MEDICARE, MEDICAID ==
[2018-02-17 15:00] LABS: HEMATOCRIT 40.9 % (42.0-52.0); HEMOGLOBIN 13.8 g/dl (13.5-17.5); MEAN CORPUSCULAR HEMOGLOBIN 32.4 pg (27.0-33.0); MEAN CORPUSCULAR HGB CONC 33.7 g/dl (32.0-36.5); PLATELET COUNT, AUTOMATED 278 10^3/uL (150-450); RED BLOOD COUNT 4.26 10^6/uL (4.30-6.10); RED CELL DISTRIBUTION WIDTH 12.9 % (11.5-14.5); WHITE BLOOD COUNT 7.6 10^3/uL (4.0-10.0)
[2018-02-17 15:21] LABS: ESTIMATED AVERAGE GLUCOSE 143 MG/DL (60-110); HEMOGLOBIN A1c 6.6 %
[2018-02-17 15:36] LABS: ALBUMIN 3.3 GM/DL (3.2-5.2); ALBUMIN/GLOBULIN RATIO 0.94 (1.00-1.93); ALKALINE PHOSPHATASE 53 U/L (45-117); ALT/SGPT 30 U/L (12-78); ANION GAP 10 MEQ/L (8-16); AST/SGOT 22 U/L (7-37); BILIRUBIN,TOTAL 0.3 MG/DL (0.2-1.0); BLOOD UREA NITROGEN 44 MG/DL (7-18); CALCIUM LEVEL 9.7 MG/DL (8.5-10.1); CARBON DIOXIDE LEVEL 28 MEQ/L (21-32); CHLORIDE LEVEL 101 MEQ/L (98-107); CHOLESTEROL LEVEL 182 MG/DL (<200); CHOLESTEROL RISK RATIO 5.055 (<5); CREATININE FOR GFR 2.29 MG/DL (0.70-1.30); GLOMERULAR FILTRATION RATE 31.5 (>56); GLUCOSE, FASTING 137 MG/DL (70-100); HDL CHOLESTEROL 36 MG/DL (>40); NON-HDL-C 146 MG/DL; POTASSIUM SERUM 4.2 MEQ/L (3.5-5.1); SODIUM LEVEL 139 MEQ/L (136-145); TOTAL PROTEIN 6.8 GM/DL (6.4-8.2); TRIGLYCERIDES LEVEL 210 MG/DL (<150)
== END ==
LOC: M LAB 13:51
DX: N18.3 Chronic kidney disease, stage 3 (moderate) (principal); E11.21 Type 2 diabetes mellitus with diabetic nephropathy; E11.22 Type 2 diabetes mellitus with diabetic chronic kidney disease; E78.2 Mixed hyperlipidemia
CPT/HCPCS: 80053

== ENCOUNTER 2018-03-01 13:24 | Emergency (ER) | payer MEDICARE, OTHER, MEDICAID ==
[2018-03-01 14:05] LABS: BASO % 0.4 % (0.0-1.0); EOS # 0.3 10^3/uL (0.0-0.50); EOS % 3.5 % (0.0-3.0); HEMATOCRIT 41.6 % (42.0-52.0); HEMOGLOBIN 13.8 g/dl (13.5-17.5); IMMATURE GRANULOCYTE % 0.3 % (0-3.0); LYMPH # 1.4 10^3/uL (1.5-4.5); LYMPH % 19.3 % (24.0-44.0); MEAN CORPUSCULAR HEMOGLOBIN 32.2 pg (27.0-33.0); MEAN CORPUSCULAR HGB CONC 33.2 g/dl (32.0-36.5); MEAN CORPUSCULAR VOLUME 97.2 fl (80.0-96.0); MONO # 0.6 10^3/uL (0.0-0.8); MONO % 8.7 % (0.0-5.0); NEUTROPHILS # 4.8 10^3/uL (1.8-7.7); NEUTROPHILS % 67.8 % (36.0-66.0); PLATELET COUNT, AUTOMATED 332 10^3/uL (150-450); RED BLOOD COUNT 4.28 10^6/uL (4.30-6.10); RED CELL DISTRIBUTION WIDTH 12.9 % (11.5-14.5); WHITE BLOOD COUNT 7.1 10^3/uL (4.0-10.0)
[2018-03-01 14:06] LABS: VENOUS BASE EXCESS 0.4 (-2.0-2.0); VENOUS HCO3 27.3 MEQ/L (23.0-27.0); VENOUS O2 SATURATION 67.7 % (60.0-80.0); VENOUS PARTIAL PRESSURE CO2 53.2 mmHg (38.0-50.0); VENOUS PARTIAL PRESSURE O2 37.1 mmHg (30.0-50.0); VENOUS PH 7.328 UNITS (7.330-7.430); VENOUS STANDARD HCO3 24.2 MEQ/L; VENOUS TOTAL CO2 28.9 MEQ/L (24.0-28.0)
[2018-03-01 14:23] LABS: INR 1.05; PROTHROMBIN TIME 13.8 SECONDS (12.1-14.4)
[2018-03-01 14:38] LABS: ALBUMIN 3.2 GM/DL (3.2-5.2); ALBUMIN/GLOBULIN RATIO 0.89 (1.00-1.93); ALKALINE PHOSPHATASE 52 U/L (45-117); ALT/SGPT 33 U/L (12-78); ANION GAP 8 MEQ/L (8-16); AST/SGOT 25 U/L (7-37); BILIRUBIN,DIRECT < 0.1 MG/DL (0.0-0.2); BILIRUBIN,TOTAL 0.2 MG/DL (0.2-1.0); BLOOD UREA NITROGEN 42 MG/DL (7-18); CALCIUM LEVEL 8.9 MG/DL (8.5-10.1); CARBON DIOXIDE LEVEL 29 MEQ/L (21-32); CHLORIDE LEVEL 107 MEQ/L (98-107); CPK CREATINE PHOSPHOKINASE 290 U/L (39-308); CREATININE FOR GFR 2.49 MG/DL (0.70-1.30); GLOMERULAR FILTRATION RATE 28.6 (>56); GLUCOSE, FASTING 68 MG/DL (70-100); LIPASE 117 U/L (73-393); POTASSIUM SERUM 4.4 MEQ/L (3.5-5.1); SODIUM LEVEL 144 MEQ/L (136-145); TOTAL PROTEIN 6.8 GM/DL (6.4-8.2); TROPONIN I 0.03 NG/ML (< 0.10)
[2018-03-01 14:43] LABS: CK-MB VALUE MASS 11.6 NG/ML (<3.6); NT-PRO BNP 2595 PG/ML (<125)
[2018-03-01 14:53] LABS: PARTIAL THROMBOPLASTIN TIME 30.7 SECONDS (25.4-37.6)
[2018-03-01 19:40] LABS: CK-MB VALUE MASS 9.9 NG/ML (<3.6); CPK CREATINE PHOSPHOKINASE 239 U/L (39-308); MB/CK RELATIVE INDEX 4.14 (< OR =4); TROPONIN I 0.03 NG/ML (< 0.10)
== END 2018-03-01 20:10 | disposition home or self-care (01) ==
LOC: M ED 13:24
DX: R07.89 Other chest pain (principal); I51.9 Heart disease, unspecified; R06.02 Shortness of breath; I10 Essential (primary) hypertension; E78.5 Hyperlipidemia, unspecified; E11.9 Type 2 diabetes mellitus without complications; Z95.1 Presence of aortocoronary bypass graft; Z87.891 Personal history of nicotine dependence; Z82.49 Family history of ischemic heart disease and other diseases of the circulatory system; Z79.82 Long term (current) use of aspirin; Z79.4 Long term (current) use of insulin; Z79.899 Other long term (current) drug therapy
CPT/HCPCS: 71045

== ENCOUNTER 2018-03-21 12:45 | Emergency (ER) | payer MEDICARE, OTHER, MEDICAID | END 2018-03-21 16:00 | disposition home or self-care (01) | LOC: M ED 12:45 | DX: E11.621 Type 2 diabetes mellitus with foot ulcer (principal); I11.0 Hypertensive heart disease with heart failure; J45.909 Unspecified asthma, uncomplicated; N18.4 Chronic kidney disease, stage 4 (severe); I50.9 Heart failure, unspecified; I25.2 Old myocardial infarction; E78.5 Hyperlipidemia, unspecified; I95.1 Orthostatic hypotension; G62.9 Polyneuropathy, unspecified; G47.33 Obstructive sleep apnea (adult) (pediatric); K21.9 Gastro-esophageal reflux disease without esophagitis; F41.9 Anxiety disorder, unspecified; F33.9 Major depressive disorder, recurrent, unspecified; N52.9 Male erectile dysfunction, unspecified; Z79.899 Other long term (current) drug therapy; Z79.01 Long term (current) use of anticoagulants; Z79.82 Long term (current) use of aspirin | CPT/HCPCS: 99282 ==

== ENCOUNTER → 2018-03-22 | Outpatient (REF) | payer MEDICARE, MEDICAID ==
[2018-03-23 15:34] LABS: ANION GAP 11 MEQ/L (8-16); BLOOD UREA NITROGEN 37 MG/DL (7-18); CALCIUM LEVEL 9.3 MG/DL (8.5-10.1); CARBON DIOXIDE LEVEL 28 MEQ/L (21-32); CHLORIDE LEVEL 103 MEQ/L (98-107); CREATININE FOR GFR 2.49 MG/DL (0.70-1.30); GLOMERULAR FILTRATION RATE 28.6 (>56); GLUCOSE, FASTING 91 MG/DL (70-100); NT-PRO BNP 1806 PG/ML (<125); POTASSIUM SERUM 4.3 MEQ/L (3.5-5.1); SODIUM LEVEL 142 MEQ/L (136-145)
== END ==
LOC: M LABDRWAD 14:57
DX: R07.9 Chest pain, unspecified (principal); R06.02 Shortness of breath
CPT/HCPCS: 80048

== ENCOUNTER → 2018-03-22 | Outpatient (REF) | payer MEDICARE, MEDICAID ==
[2018-03-22 20:19] LABS: FREE T3 3.4 PG/ML (2.2-4.0); FREE T4 1.19 NG/DL (0.76-1.46); THYROID STIMULATING HORMONE 0.066 uIU/ML (0.358-3.740); TOTAL T3 101.2 NG/DL (60.0-181.0)
== END ==
LOC: M SFHCADAM 14:14
DX: R79.89 Other specified abnormal findings of blood chemistry (principal); I48.0 Paroxysmal atrial fibrillation; I25.10 Atherosclerotic heart disease of native coronary artery without angina pectoris
CPT/HCPCS: 84443

== ENCOUNTER → 2018-04-26 | Outpatient (CLI) | payer MEDICARE, MEDICAID ==
[2018-04-26 08:44] LABS: ALBUMIN 3.4 GM/DL (3.2-5.2); ANION GAP 7 MEQ/L (8-16); BLOOD UREA NITROGEN 42 MG/DL (7-18); CALCIUM LEVEL 10.2 MG/DL (8.5-10.1); CARBON DIOXIDE LEVEL 31 MEQ/L (21-32); CHLORIDE LEVEL 103 MEQ/L (98-107); GLOMERULAR FILTRATION RATE 31.4 (>56); GLUCOSE, FASTING 118 MG/DL (70-100); PHOSPHORUS LEVEL 4.1 MG/DL (2.5-4.9); POTASSIUM SERUM 4.3 MEQ/L (3.5-5.1); SODIUM LEVEL 141 MEQ/L (136-145)
[2018-04-29 00:07] LABS: GAD-65 AUTOANTIBODY 95.3 U/mL (0.0-5.0)
[2018-04-29 00:07] LABS: C-PEPTIDE 1.9 ng/mL (1.1-4.4); ISLET CELL ANTIBODIES Negative (Neg:<1:1)
== END ==
LOC: M LAB 07:08
DX: E11.21 Type 2 diabetes mellitus with diabetic nephropathy (principal)
CPT/HCPCS: 80069

== ENCOUNTER → 2018-06-22 | Outpatient (REF) | payer MEDICARE, MEDICAID ==
[2018-06-22 19:07] LABS: CHOLESTEROL LEVEL 183 MG/DL (<200); CHOLESTEROL RISK RATIO 5.718 (<5); FREE T4 1.03 NG/DL (0.76-1.46); HDL CHOLESTEROL 32 MG/DL (>40); LDL CHOLESTEROL 99 MG/DL (<100); NON-HDL-C 151 MG/DL; THYROID STIMULATING HORMONE 0.523 uIU/ML (0.358-3.740); TRIGLYCERIDES LEVEL 260 MG/DL (<150)
[2018-06-22 19:09] LABS: ESTIMATED AVERAGE GLUCOSE 154 MG/DL (60-110)
== END ==
LOC: M SFHCADAM 13:36
DX: E11.49 Type 2 diabetes mellitus with other diabetic neurological complication (principal); I25.10 Atherosclerotic heart disease of native coronary artery without angina pectoris; E78.2 Mixed hyperlipidemia
CPT/HCPCS: 84443

== ENCOUNTER → 2018-08-10 | Outpatient (REF) | payer MEDICARE, MEDICAID ==
[~2018-08-10] MED LIST changes: -ACET1TAB17 PO; +ACET1TAB55 PO; +ALLO100T PO; +BUPR150T3 PO; +CALC1CAP31 PO; +CBD OIL; +ELIQ5TAB PO; +FISH1000 PO; +FOLI1TAB11 PO; -FOLI1TAB4 PO; +KLOR10TA76 PO; +LASI40TA9 PO; +LOSA25TA14 PO; +METO1TAB87 PO; -POTA10CA PO; +SERT25TA88 PO; +VITA100066 PO
== END ==
LOC: M LAB REF 12:30
PROVIDERS: ATTEND Podiatrist
DX: M79.672 Pain in left foot (principal)

== ENCOUNTER → 2018-08-14 | Outpatient (CLI) | payer MEDICAID, MEDICARE ==
[~2018-08-14] MED LIST changes: -CBD OIL
[2018-08-14 08:56] LABS: BASO % 0.5 % (0.0-1.0); EOS # 0.3 10^3/uL (0.0-0.50); EOS % 3.4 % (0.0-3.0); HEMATOCRIT 38.5 % (42.0-52.0); HEMOGLOBIN 13.1 g/dl (13.5-17.5); LYMPH # 1.3 10^3/uL (1.5-4.5); LYMPH % 16.7 % (24.0-44.0); MEAN CORPUSCULAR HEMOGLOBIN 32.5 pg (27.0-33.0); MEAN CORPUSCULAR VOLUME 95.5 fl (80.0-96.0); MONO # 0.7 10^3/uL (0.0-0.8); MONO % 8.8 % (0.0-5.0); NEUTROPHILS # 5.6 10^3/uL (1.8-7.7); NEUTROPHILS % 70.2 % (36.0-66.0); PLATELET COUNT, AUTOMATED 292 10^3/uL (150-450); RED BLOOD COUNT 4.03 10^6/uL (4.30-6.10)
[2018-08-14 09:20] LABS: ALBUMIN 3.2 GM/DL (3.2-5.2); BILIRUBIN,TOTAL 0.3 MG/DL (0.2-1.0); CALCIUM LEVEL 9.2 MG/DL (8.5-10.1); CREATININE FOR GFR 2.42 MG/DL (0.70-1.30); GLOMERULAR FILTRATION RATE 29.6 (>56); POTASSIUM SERUM 4.4 MEQ/L (3.5-5.1); TOTAL PROTEIN 6.5 GM/DL (6.4-8.2)
== END ==
LOC: M LAB 08:18
PROVIDERS: ATTEND Family Medicine
DX: M79.672 Pain in left foot (principal); L03.032 Cellulitis of left toe

== ENCOUNTER 2018-08-18 09:51 | Day surgery (SDC) | payer MEDICARE, MEDICAID ==
[~2018-08-18] VITALS: Ht 182.9 cm; Wt 104.2 kg
[~2018-08-18 09:51] MED LIST changes: +LR 1,000 ML IV ONE
[2018-08-18] MEDS ORDERED: NEOSPORIN GU IRRIG 20 ML VIAL As Ordered ONE (11:27)
[2018-08-18] MEDS ORDERED: BACITRACIN PWD 50,000 UNITS VIAL As Ordered ONE (11:27)
[2018-08-18] MEDS ORDERED: BUPIVACAINE HCL 0.5% 10 ML VIAL As Ordered ONE (11:27)
[2018-08-18] MEDS ORDERED: LIDOCAINE 2% MDV 20 ML VIAL As Ordered ONE (11:27)
[2018-08-18] MEDS ORDERED: GENTAMICIN SULF INJ 80MG/2ML VIAL (J1580) As Ordered ONE (11:31)
[2018-08-18] MEDS ORDERED: PROPOFOL 200 MG/20 ML VIAL As Ordered ONE (11:37)
[2018-08-18] MEDS ORDERED: LIDOCAINE 2% INJ 100 MG/5 ML SDV (FOR ANES.) As Ordered ONE (11:37)
[2018-08-18] MEDS ORDERED: MIDAZOLAM INJ 2 MG/2 ML VIAL (J2250) As Ordered ONE (11:38)
[2018-08-18] MEDS ORDERED: fentaNYL 100 MCG/2 ML INJECTION (J3010) As Ordered ONE (11:38)
[2018-08-18] MEDS ORDERED: ONDANSETRON 4MG/2ML VIAL (J2405) As Ordered ONE (12:41)
[2018-08-18 13:25] VITALS: BP 139/75
--- NOTE | 2018-08-18 13:26 | REP ---
Clinical: Status post amputation. Technique: Portable AP, lateral, oblique views of the left foot. Comparison: 12/29/2012 Findings: New amputation identified through the distal metadiaphysis of the third toe proximal phalanx. Overlying postoperative changes noted. Previous indications at the second and first toes are identified and remain stable. Impression: Postoperative changes related to partial amputation at the third toe. Electronically Signed by Yung Eldridge MD 08/18/2018 01:17 P
--- NOTE | 2018-08-18 16:33 | RO ---
DATE OF PROCEDURE: 08/18/2018 PREOPERATIVE DIAGNOSIS: Osteomyelitis distal phalanx third toe left foot. POSTOPERATIVE DIAGNOSIS: Osteomyelitis distal phalanx third toe left foot. OPERATIVE PROCEDURE: Partial third toe amputation left foot. SURGEON: Ronny Del Rosario DPM VACUUM APPLICATOR OPERATOR: None ANESTHESIA: Local monitored anesthesia care (MAC). IRRIGATION: Dilute bacitracin, neomycin and polymyxin B solution. ESTIMATED BLOOD LOSS: 1 mL DESCRIPTION OF OPERATION: On 08/18/2018, this 57-year-old male was taken from his hospital room to the operating room and placed on the operating room table in the supine position. Following the induction of IV sedation and local and regional anesthesia, attention was directed to the patient's third toe of the left foot. There was noted to be an ulceration to bone. Radiographs revealed osteomyelitis at the third toe of the left foot. At this time a modified fishmouth incision was placed just distal to the proximal interphalangeal joint of the third toe of the left foot. T he toe was disarticulated at the proximal interphalangeal joint and the distal toe was removed. Utilizing a power saw an osteotomy was performed at the anatomical neck of the proximal phalanx from dorsal to plantar, medial to lateral through and through and this was removed. Utilizing electrocoagulation, the bleeders were electrocoagulated. The wound was flushed with 1 liter of dilute gentamicin solution with a low pressure pulse lavage system. The toe was coapted and maintained with #3-0 nylon in a simple interrupted type fashion. The distal phalanx was then removed from the amputation site and sent to pathology for aerobic and anaerobic evaluation. Postoperative instructions given upon discharge.
[2018-08-19] MEDS ORDERED: CBD OIL (16:53)
== END 2018-08-18 13:50 | disposition home or self-care (01) ==
LOC: M SDC 09:51
PROVIDERS: ATTEND Podiatrist
DX: M86.172 Other acute osteomyelitis, left ankle and foot (principal); E11.621 Type 2 diabetes mellitus with foot ulcer; E11.51 Type 2 diabetes mellitus with diabetic peripheral angiopathy without gangrene; E11.42 Type 2 diabetes mellitus with diabetic polyneuropathy; L97.824 Non-pressure chronic ulcer of other part of left lower leg with necrosis of bone; I12.9 Hypertensive chronic kidney disease with stage 1 through stage 4 chronic kidney disease, or unspecified chronic kidney disease; E78.5 Hyperlipidemia, unspecified; N18.4 Chronic kidney disease, stage 4 (severe); I25.2 Old myocardial infarction; K21.9 Gastro-esophageal reflux disease without esophagitis; Z79.4 Long term (current) use of insulin; Z79.01 Long term (current) use of anticoagulants; Z79.899 Other long term (current) drug therapy
CPT/HCPCS: 28825; 73630; 87070; 87075; 87077; 87186; 88304; 88311; J1580; J2250; J2405; J3010

== ENCOUNTER 2018-08-19 16:40 | Emergency (ER) | payer MEDICARE, OTHER ==
[~2018-08-19 16:40] MED LIST changes: -LR 1,000 ML IV ONE
[2018-08-19 16:49] VITALS: BP 160/81
[2018-08-19] MEDS ORDERED: CBD OIL (16:53)
== END 2018-08-19 17:42 | disposition home or self-care (01) ==
LOC: M ED 16:40 → EDBD 16:40 → M ED 17:42
DX: L76.22 Postprocedural hemorrhage of skin and subcutaneous tissue following other procedure (principal); Z89.429 Acquired absence of other toe(s), unspecified side; E11.9 Type 2 diabetes mellitus without complications; I10 Essential (primary) hypertension; E78.5 Hyperlipidemia, unspecified; N28.9 Disorder of kidney and ureter, unspecified; I25.10 Atherosclerotic heart disease of native coronary artery without angina pectoris; Z79.899 Other long term (current) drug therapy; Z79.82 Long term (current) use of aspirin; Z79.01 Long term (current) use of anticoagulants; Z79.4 Long term (current) use of insulin

== ENCOUNTER → 2018-10-26 | Outpatient (REF) | payer MEDICARE, MEDICAID ==
[~2018-10-26] MED LIST changes: -/AMLO25TA; -/LINE60TA OR; -/PANT40TA; -/PANT40TA OR; -/SUCR1TA; +ASPI-1 PO; -ASPI1TAB PO; -ASPI325T PO; +ASPI81TA26 PO; +CBD OIL; -DOCU10ELUD PO; +DOCU5LIQ PO; +NORV2TAB; +PROT1TAB2; +PROT1TAB2 OR; +SUCR1TAB56; +ZYVO100T OR
[2018-10-26 13:22] LABS: HEMOGLOBIN A1c 6.4 %
== END ==
LOC: M SFHCADAM 08:24
PROVIDERS: ATTEND Physician Assistant
DX: E11.21 Type 2 diabetes mellitus with diabetic nephropathy (principal)

== ENCOUNTER 2018-12-14 07:10 | Outpatient (RCR) | payer MEDICARE, MEDICAID | END 2018-12-15 | LOC: M OT 07:10 | PROVIDERS: ATTEND Orthopaedic Surgery | DX: M79.2 Neuralgia and neuritis, unspecified (principal) ==

== ENCOUNTER 2018-12-28 09:45 | Outpatient (RCR) | payer MEDICARE, MEDICAID | END 2019-01-14 | LOC: M OT 09:45 | PROVIDERS: ATTEND Orthopaedic Surgery | DX: M65.331 Trigger finger, right middle finger (principal) ==

== ENCOUNTER → 2019-02-14 | Outpatient (RCR) | payer MEDICARE, MEDICAID | LOC: M OT 01-16 08:02 | PROVIDERS: ATTEND Orthopaedic Surgery | DX: Z47.89 Encounter for other orthopedic aftercare (principal); M65.30 Trigger finger, unspecified finger ==

== ENCOUNTER → 2019-04-04 | Outpatient (REF) | payer MEDICARE, MEDICAID | LOC: M LAB REF 12:50 | PROVIDERS: ATTEND Podiatrist | DX: M79.671 Pain in right foot (principal); L03.039 Cellulitis of unspecified toe ==

== ENCOUNTER → 2019-04-19 | Outpatient (REF) | payer MEDICARE, MEDICAID ==
[2019-04-19 13:14] LABS: HEMOGLOBIN A1c 7.1 %
== END ==
LOC: M SFHCADAM 09:38
PROVIDERS: ATTEND Physician Assistant
DX: I25.10 Atherosclerotic heart disease of native coronary artery without angina pectoris (principal); E11.49 Type 2 diabetes mellitus with other diabetic neurological complication; I48.0 Paroxysmal atrial fibrillation

== ENCOUNTER → 2020-01-25 | Outpatient (CLI) | payer MEDICARE, MEDICAID ==
[~2020-01-25] MED LIST changes: +ACET-683 PO; -AMIO200T PO; +AMIO200T3 PO; +BISO10TA13 PO; -COUM6TAB PO; +COUM6TAB10 PO; +HYDR10TAB PO; +LINE1TAB6 PO; +METO25TA PO; +OMEG1CAP16 PO; -OMEP40CA2 PO; +OMEP40CA97 PO; +PERCOCET PO; +SERT25TA21 PO; -SERT25TA88 PO
[2020-01-25 10:01] LABS: ALBUMIN 3.4 GM/DL (3.2-5.2); BILIRUBIN,TOTAL 0.5 MG/DL (0.2-1.0); CALCIUM LEVEL 8.5 MG/DL (8.5-10.1); CHOLESTEROL RISK RATIO 4.714 (<5); CREATININE FOR GFR 3.1 MG/DL (0.70-1.30); FREE T4 1.15 NG/DL (0.76-1.46); GLOMERULAR FILTRATION RATE 22.1 (>56); POTASSIUM SERUM 3.7 MEQ/L (3.5-5.1); THYROID STIMULATING HORMONE 1.25 uIU/ML (0.358-3.740); TOTAL PROTEIN 7.1 GM/DL (6.4-8.2)
[2020-01-25 11:07] LABS: HEMOGLOBIN A1c 6.9 %
== END ==
LOC: M LAB 08:15
PROVIDERS: ATTEND Physician Assistant
DX: I50.23 Acute on chronic systolic (congestive) heart failure (principal); E10.42 Type 1 diabetes mellitus with diabetic polyneuropathy; I25.10 Atherosclerotic heart disease of native coronary artery without angina pectoris

== ENCOUNTER 2020-03-13 14:16 | Inpatient (IN) | payer MEDICARE, MEDICAID ==
[~2020-03-13] VITALS: Ht 182.9 cm; Wt 107.1 kg
[~2020-03-13 14:16] MED LIST changes: -ACET-683 PO; -BISO10TA13 PO; -HYDR10TAB PO; -LINE1TAB6 PO; -METO25TA PO; -OMEG1CAP16 PO; -PERCOCET PO
[2020-03-13] MEDS ORDERED: METO25TA PO (14:37)
[2020-03-13] MEDS ORDERED: OMEG1CAP16 PO (14:37)
--- NOTE | 2020-03-13 16:17 | REPVR ---
PROCEDURE INFORMATION: Exam: XR Left Foot Complete Exam date and time: 03/13/2020 3:00 PM Age: 59 years old Clinical indication: Pain; Other: Ulcers all over foot; Left; Additional info: Left foot pain TECHNIQUE: Imaging protocol: XR Left foot. Views: 3 or more views. COMPARISON: CR Foot, complete LEFT 08/18/2018 1:09 PM FINDINGS: Bones/joints: There is a large plantar calcaneal spur and also a large calcaneal spur at the insertion of the Achilles. The tip of the 4th digit has been removed with the middle and proximal phalanx remaining. There is no evidence of acute destructive change of bone to suggest acute osteomyelitis. There is arthritic change and osteophyte formation of the tarsal bones. 1st digit has been removed with the exception of a small portion of the base of the 1st metatarsal. The 2nd digit has been removed. The distal end of the 3rd digit has been removed with a large portion of proximal phalanx remaining. The patient has known skin ulcerations. Possible ulcer distal end of the 4th digit. Vasculature: There is vascular calcification. IMPRESSION: 1. Postoperative changes as described above. 2. No evidence of acute osteomyelitis. Electronically signed by: Patrick Lewis On 03/13/2020 16:18:00 PM
[2020-03-13 16:25] LABS: CREATININE FOR GFR 3.45 MG/DL (0.70-1.30); GLOMERULAR FILTRATION RATE 19.5 (>56); POTASSIUM SERUM 4.3 MEQ/L (3.5-5.1)
[2020-03-13 16:26] LABS: CALCIUM LEVEL 9.3 MG/DL (8.5-10.1)
[2020-03-13] MEDS ORDERED: ONDANSETRON 4MG/2ML VIAL IV ONE (16:30)
[2020-03-13 16:32] LABS: BASO % 0.1 % (0.0-1.0); HEMATOCRIT 39.7 % (42.0-52.0); LYMPH # 0.3 10^3/uL (1.5-5.0); LYMPH % 1.1 % (24.0-44.0); MEAN CORPUSCULAR HGB CONC 32.7 g/dl (32.0-36.5); MEAN CORPUSCULAR VOLUME 91.5 fl (80.0-96.0); MONO # 0.6 10^3/uL (0.0-0.8); MONO % 2.1 % (0.0-5.0); NEUTROPHILS # 27.8 10^3/uL (1.5-8.5); PLATELET COUNT, AUTOMATED 298 10^3/uL (150-450); RED BLOOD COUNT 4.34 10^6/uL (4.30-6.10); WHITE BLOOD COUNT 29.3 10^3/uL (4.0-10.0)
[2020-03-13] MEDS: MORPHINE 4 MG/ML 1ML VIAL/SYRINGE (J2270) IV PRN ×2 (16:39→17:58)
[2020-03-13] MEDS ORDERED: METOPROLOL 5 MG/5 ML VIAL IV STA (16:56)
[2020-03-13] MEDS ORDERED: VANCOMYCIN HCL 750 MG, VIAL MATE ADAPTER 1 EACH in D5W 250 ML IV ONE (17:00)
[2020-03-13] MEDS ORDERED: cefTRIAXone SOD 2 GM in D5W MINI-BAG PLUS 50 ML IV ONE (17:15)
--- NOTE | 2020-03-13 17:17 | HPEPDOC ---
[facility] Medical History & Physical Date of Admission Mar 13, 2020 Date of Service: Mar 13, 2020 Attending Physician: ASHLEY HODGES MD History and Physical CHIEF COMPLAINT: foot pain HISTORY OF PRESENT ILLNESS: This is a 59 y/o M with PMHx AF on Eliquis, HTN, DM with insulin pump, CAD, PAD s/p Left LE bypass, s/p Right BKA, Chronic LLE ulcers and charcot foot who presents c/o swelling/erythema of the foot. Pt notes he had obtained new shoes, wore them for some time, however they were rubbing against the foot and he has baseline peripheral neuropathy. Pt states over the past 1.5weeks,, the erythema, warmth, pain has increased for which he presents to the ED. Pt denies CP/SOB/palpitations. no N/V/Abd pain. + Chills. Pt was noted to have sepsis 2/[address] Lopez consulted. Pt was also noted to be in AF RVR. PAST MEDICAL HISTORY: As per HPI PAST SURGICAL HISTORY: Right BKA, left toe amputation, back surg, left LE bypass SOCIAL HISTORY: H/o 1ppd x 30 year, quit 6 years ago. Denies alcohol, illicit drugs FAMILY HISTORY: Non contributory ALLERGIES: Please see below. REVIEW OF SYSTEMS:As per HPI otherwise negative HEENT: Denies sore throat/headache CARDIOVASCULAR: Denies chest pain/palpitations RESPIRATORY: Denies shortness of breath/cough GASTROINTESTINAL: denies nausea/vomiting GENITOURINARY: Denies dysuria/urinary urgency. NEUROLOGICAL: Denies any focal weakness HOME MEDICATIONS: Please see below. PHYSICAL EXAMINATION: Vitals: (see below) General: No acute distress, laying comfortably in bed. HEENT: Moist mucous membranes. Neck: No JVD or lymphadenopathy Cardiac: Irregularly irregular, tachycardic Pulm: Clear to auscultation b/l. No wheezing, rhonchi Abd: NT/ND + BS Ext: Right BKA. Left LE with charcot foot, infected ulcer with erythema, no fluctance. No induration. Tibial wound as well. Distal pulse palpable. Prior toe amputation. LABORATORY DATA: See below. IMAGING: X ray foot FINDINGS: Bones/joints: There is a large plantar calcaneal spur and also a large calcaneal spur at the insertion of the Achilles. The tip of the 4th digit has been removed with the middle and proximal phalanx remaining. There is no evidence of acute destructive change of bone to suggest acute osteomyelitis. There is arthritic change and osteophyte formation of the tarsal bones. 1st digit has been removed with the exception of a small portion of the base of the 1st metatarsal. The 2nd digit has been removed. The distal end of the 3rd digit has been removed with a large portion of proximal phalanx remaining. The patient has known skin ulcerations. Possible ulcer distal end of the 4th digit. Vasculature: There is vascular calcification. IMPRESSION: 1. Postoperative changes as described above. 2. No evidence of acute osteomyelitis. ASSESSMENT/PLAN: 1. Sepsis 2/2 Infected LE ulcers- IVF, Bld/wound cx, check Lactic acid. Febrile, tachycardic, with WBC 29. Start Vanco/zosyn. Consult Dr. Del Rosario. 2. AF RVR 2/2 above. IVF, Metoprolol IV, PO. Monitor in PCU on tele. cont eliquis 2. DM - on insulin pump 3. HTN controlled. cont home meds. Hold ARB 4. anxiety/depression - cont home meds 5. H/o diastolic HF - hold lasix/metalazone for now. compensated 6. CKD stage 4 - Cr close to baseline. If worsens, will consult nephro. 7. HLD on statin DVT Prophy: Eliquis Full code. Pt expected to be hospitalized for >2midnights for the above. Vital Signs Vital Signs Date Time Temp Pulse Resp B/P (MAP) Pulse Ox O2 Delivery O2 Flow Rate FiO2 03/13/20 17:00 20 03/13/20 14:26 100.6 118 133/83 (100) 99 Room Air Laboratory Data Labs 24H Laboratory Tests 2 03/13/20 15:39: Immature Granulocyte % (Auto) 1.7, Neutrophils (%) (Auto) 95.0H, Lymphocytes (%) (Auto) 1.1L, Monocytes (%) (Auto) 2.1, Eosinophils (%) (Auto) 0.0, Basophils (%) (Auto) 0.1, Neutrophils # (Auto) 27.8H, Lymphocytes # (Auto) 0.3L, Monocytes # (Auto) 0.6, Eosinophils # (Auto) 0.0, Basophils # (Auto) 0.0, Nucleated Red Blood Cells % (auto) 0.0, Anion Gap 10, Glomerular Filtration Rate 19.5L, Calcium Level 9.3 CBC/BMP Laboratory Tests 03/13/20 15:39 Home Medications Scheduled Allopurinol (Allopurinol) 100 Mg Tab, 100 MG PO DAILY Apixaban (Eliquis) 5 Mg Tab, 5 MG PO BID Aspirin (Aspirin EC) 81 Mg Tab, 81 MG PO DAILY Bupropion Hcl (Bupropion Xl) 150 Mg Tab, 150 MG PO DAILY Calcitriol (Calcitriol) 0.25 Mcg Cap, 0.25 MCG PO DAILY Ferrous Gluconate (Ferrous Gluconate) 324 Mg Tab, 324 MG PO BID Furosemide (Lasix) 40 Mg Tab, 60 MG PO BID Insulin Human Lispro (Humalog) 1 Units/0.01 Ml Inj, 1 DOSE SC AC PER SLIDING SCALE VIA INSULIN PUMP Losartan Potassium (Losartan Potassium) 25 Mg Tab, 25 MG PO DAILY Metolazone (Metolazone) 2.5 Mg Tablet, 2.5 MG PO QWEEK SUNDAYS Metoprolol Tartrate (Metoprolol Tartrate) 25 Mg Tab, 12.5 MG PO BID Tarpley-3/Dha/Epa/Fish Oil (Tarpley 3 500 Softgel) 1 Each Capsule, 2 CAP PO BID Omeprazole (Omeprazole) 40 Mg Cap, 40 MG PO DAILY Potassium Chloride (Klor-Con M10) 10 Meq Tabcr, 10 MEQ PO DAILY Pravastatin Sodium (Pravastatin Sodium) 80 Mg Tab, 80 MG PO QHS Sertraline HCl (Sertraline HCl) 25 Mg Tab, 25 MG PO QHS Scheduled PRN Acetaminophen (Acetaminophen) 500 Mg Tablet, 1,000 MG PO Q6H PRN for PAIN Allergies Coded Allergies: No Known Allergies (Verified , 08/14/18) A-FIB/CHADSVASC A-FIB History Current/History of A-Fib/PAF?: Yes Current PO Anticoag Therapy: Yes ASHLEY HODGES MD Mar 13, 2020 17:17
[2020-03-13 17:21] LABS: C REACTIVE PROTEIN QUANTITATIV 24.5 MG/DL (0.00-0.30)
[2020-03-13] MEDS ORDERED: ACET-683 PO (17:35)
[2020-03-13 17:44] LABS: ERYTHROCYTE SEDIMENTATION RATE 84 mm/hr (0-20)
[2020-03-13] MEDS ORDERED: DEXTROSE 50% 50 ML SYRINGE IV PRN (17:45)
[2020-03-13] MEDS ORDERED: GLUCAGON INJ 1MG VIAL SC PRN (17:45)
[2020-03-13] MEDS ORDERED: GLUCOSE 4GM CHEW TABLET PO PRN (17:45)
[2020-03-13] MEDS ORDERED: NS 500 ML IV ONE (18:00)
[2020-03-13] MEDS ORDERED: VANCOMYCIN HCL 1,000 MG, VIAL MATE ADAPTER 1 EACH in D5W 250 ML IV ONE ×6 (18:00)
[2020-03-13] MEDS ORDERED: NS 1,000 ML IV SCH (18:00)
[2020-03-13] MEDS ORDERED: PIPERACILLIN/TAZOBACTAM SOD 3.375 GM in D5W MINI-BAG PLUS 50 ML IV SCH ×4 (18:00)
[2020-03-13] MEDS ORDERED: HEPARIN SOD (PORCINE) 5000UNITS/ML 1ML VIAL/SYRINGE SC SCH (18:00)
[2020-03-13 19:04] LABS: MB/CK RELATIVE INDEX 0.78 (< OR =4); TROPONIN I 0.02 NG/ML (< 0.10)
[2020-03-13] MEDS ORDERED: APIXABAN 5 MG TAB (ELIQUIS) PO SCH (21:00)
[2020-03-13] MEDS: METOPROLOL TART 12.5 MG PER 1/2 TAB PO SCH (21:00)
[2020-03-13 22:00] VITALS: BP 138/76
[2020-03-13] MEDS: SERTRALINE HCL 25 MG TABLET PO SCH (22:44)
[2020-03-13] MEDS: PRAVASTATIN 20 MG TAB PO SCH (22:44)
[2020-03-13] MEDS: FERROUS GLUCONATE 324 MG TAB PO SCH (22:45)
[2020-03-13 23:24] LABS: ALBUMIN 3.4 GM/DL (3.2-5.2); BILIRUBIN,DIRECT 0.2 MG/DL (0.0-0.2); BILIRUBIN,TOTAL 0.6 MG/DL (0.2-1.0); TOTAL PROTEIN 7.6 GM/DL (6.4-8.2)
[2020-03-14] VITALS (40 sets, daily range): BP systolic 73–152; BP diastolic 51–109
[2020-03-14] MEDS: ACETAMINOPHEN TAB 650MG DOSE (2X325MG) PO PRN (00:36)
[2020-03-14 00:51] LABS: CK-MB VALUE MASS 2.1 NG/ML (<3.6); MB/CK RELATIVE INDEX 0.63 (< OR =4); TROPONIN I 0.04 NG/ML (< 0.10)
[2020-03-14] MEDS ORDERED: NS 500 ML IV ONE (01:00)
[2020-03-14] MEDS ORDERED: CIPROFLOXACIN 200 MG in IV 1 EA IV ONE (01:45)
[2020-03-14] MEDS ORDERED: LR 300 ML IV ONE (02:30)
[2020-03-14] MEDS ORDERED: METOPROLOL TART 12.5 MG PER 1/2 TAB PO STA (02:30)
[2020-03-14] MEDS: PIPERACILLIN/TAZOBACTAM SOD 3.375 GM in D5W MINI-BAG PLUS 50 ML IV SCH ×4 (04:16→22:50)
[2020-03-14 05:58] LABS: HEMATOCRIT 34.9 % (42.0-52.0); HEMOGLOBIN 11.3 g/dl (13.5-17.5); MEAN CORPUSCULAR HEMOGLOBIN 29.8 pg (27.0-33.0); MEAN CORPUSCULAR HGB CONC 32.4 g/dl (32.0-36.5); MEAN CORPUSCULAR VOLUME 92.1 fl (80.0-96.0); PLATELET COUNT, AUTOMATED 225 10^3/uL (150-450); RED BLOOD COUNT 3.79 10^6/uL (4.30-6.10); WHITE BLOOD COUNT 17.8 10^3/uL (4.0-10.0)
[2020-03-14 06:24] LABS: CALCIUM LEVEL 7.9 MG/DL (8.5-10.1); CK-MB VALUE MASS 4.9 NG/ML (<3.6); CREATININE FOR GFR 4.04 MG/DL (0.70-1.30); GLOMERULAR FILTRATION RATE 16.3 (>56); MB/CK RELATIVE INDEX 1.48 (< OR =4); POTASSIUM SERUM 4.6 MEQ/L (3.5-5.1); TROPONIN I 1.23 NG/ML (< 0.10)
[2020-03-14] MEDS: METOPROLOL TART 12.5 MG PER 1/2 TAB PO SCH ×2 (09:00→20:09)
[2020-03-14] MEDS ORDERED: buPROPion **XL** TABLET 150MG (WELLBUTRIN XL) PO SCH (09:00)
[2020-03-14] MEDS: FERROUS GLUCONATE 324 MG TAB PO SCH ×2 (09:00→20:08)
[2020-03-14] MEDS ORDERED: APIXABAN 5 MG TAB (ELIQUIS) PO SCH (09:00)
[2020-03-14 09:23] LABS: ABG PARTIAL PRESSURE CO2 25.4 mmHg (35.0-45.0); ABG pH (ARTERIAL) 7.224 UNITS (7.350-7.450)
[2020-03-14 09:24] LABS: ABG BASE EXCESS -15.7 (-2.0-2.0); ABG HCO3 10.3 MEQ/L (22.0-26.0); ABG O2 SATURATION 99.1 % (95.0-99.0); ABG PARTIAL PRESSURE O2 496.4 mmHg (75.0-100.0); ABG STANDARD HCO3 12.6 MEQ/L (22.0-26.0)
[2020-03-14 09:34] LABS: BASO # 0.1 10^3/uL (0.0-0.2); BASO % 0.2 % (0.0-1.0); HEMATOCRIT 39.8 % (42.0-52.0); HEMOGLOBIN 12.2 g/dl (13.5-17.5); LYMPH # 1.7 10^3/uL (1.5-5.0); LYMPH % 7.3 % (24.0-44.0); MEAN CORPUSCULAR HEMOGLOBIN 29.7 pg (27.0-33.0); MEAN CORPUSCULAR HGB CONC 30.7 g/dl (32.0-36.5); MEAN CORPUSCULAR VOLUME 96.8 fl (80.0-96.0); MONO % 4.2 % (0.0-5.0); NEUTROPHILS # 19.9 10^3/uL (1.5-8.5); NEUTROPHILS % 86.5 % (36.0-66.0); PLATELET COUNT, AUTOMATED 296 10^3/uL (150-450); RED BLOOD COUNT 4.11 10^6/uL (4.30-6.10); WHITE BLOOD COUNT 23.1 10^3/uL (4.0-10.0)
[2020-03-14] MEDS ORDERED: LORazepam 2 MG/ML VIAL As Ordered ONE (09:46)
[2020-03-14] MEDS ORDERED: levETIRAcetam INJection 1,000 MG in D5W 100 ML IV STA (09:49)
[2020-03-14] MEDS: propofoL 1,000 MG in IV 1 EA IV SCH ×3 (10:00→16:50)
[2020-03-14] MEDS ORDERED: LORazepam 2 MG/ML VIAL IV PRN (10:00)
[2020-03-14] MEDS: ASPIRIN 81 MG ENTERIC TAB PO SCH (10:26)
[2020-03-14] MEDS: CALCITRIOL 0.25 MCG CAP (S0169) PO SCH (10:27)
[2020-03-14] MEDS: allopurinoL 100 MG TAB PO SCH (10:27)
[2020-03-14] MEDS: OMEPRAZOLE 20 MG CAP PO SCH (10:27)
[2020-03-14 10:39] LABS: ALBUMIN 2.5 GM/DL (3.2-5.2); BILIRUBIN,TOTAL 0.5 MG/DL (0.2-1.0); CREATININE FOR GFR 4.53 MG/DL (0.70-1.30); GLOMERULAR FILTRATION RATE 14.2 (>56); POTASSIUM SERUM 4.3 MEQ/L (3.5-5.1); TOTAL PROTEIN 6.7 GM/DL (6.4-8.2)
[2020-03-14] MEDS ORDERED: VANCOMYCIN HCL 750 MG, VIAL MATE ADAPTER 1 EACH in D5W 250 ML IV ONE ×2 (11:00→12:00)
--- NOTE | 2020-03-14 11:15 | REPVR ---
PROCEDURE INFORMATION: Exam: CT Head Without Contrast Exam date and time: 03/14/2020 9:48 AM Age: 59 years old Clinical indication: Altered mental status/memory loss TECHNIQUE: Imaging protocol: Computed tomography of the head without contrast. Radiation optimization: All CT scans at this facility use at least one of these dose optimization techniques: automated exposure control; mA and/or kV adjustment per patient size (includes targeted exams where dose is matched to clinical indication); or iterative reconstruction. COMPARISON: No relevant prior studies available. FINDINGS: Brain: No acute intracranial hemorrhage, cerebral edema, or midline shift. Ventricles: No hydrocephalus. Bones/joints: No acute fracture. Sinuses: No acute sinusitis. Mastoid air cells: Visualized mastoid air cells are well aerated. Orbits: The included orbital structures are unremarkable. Vasculature: Atherosclerotic calcifications are seen involving the cavernous carotid arteries. Soft tissues: Unremarkable. IMPRESSION: No acute intracranial abnormality. Electronically signed by: Denis Beltran On 03/14/2020 11:15:19 AM
[2020-03-14 11:33] LABS: ABG BASE EXCESS -6.1 (-2.0-2.0); ABG HCO3 18.3 MEQ/L (22.0-26.0); ABG O2 SATURATION 96.6 % (95.0-99.0); ABG PARTIAL PRESSURE CO2 32.4 mmHg (35.0-45.0); ABG PARTIAL PRESSURE O2 95.1 mmHg (75.0-100.0); ABG STANDARD HCO3 19.4 MEQ/L (22.0-26.0); ABG TOTAL CO2 19.3 MEQ/L (22.0-29.0)
[2020-03-14 12:06] LABS: CK-MB VALUE MASS 12.7 NG/ML (<3.6); MB/CK RELATIVE INDEX 2.83 (< OR =4); TROPONIN I 6.16 NG/ML (< 0.10)
--- NOTE | 2020-03-14 12:20 | CR.PDOC ---
General Date of Consultation: Mar 14, [address] Ariza REASON FOR CONSULTATION/CHIEF COMPLAINT: LLE ulcer. HISTORY OF PRESENT ILLNESS: The pt is a 59 yo male currently intubated and sedated in the ICU. No family at bedside, history is taken from the chart The pt is noted to have PMHx AF on Eliquis, HTN, DM with insulin pump, CAD, PAD s/p Left LE bypass, s/p Right BKA, Chronic LLE ulcers and charcot foot who presented 03/13 c/o swelling/erythema of the foot. ALLERGIES: Please see below. HOME MEDICATIONS: Please see below. PAST MEDICAL HISTORY: as per HPI PAST SURGICAL HISTORY: Right BKA, left toe amputation, back surgery, left LE bypass FAMILY HISTORY: pt unable to provide at this time SOCIAL HISTORY: H/o 1ppd x 30 year, quit 6 years ago. REVIEW OF SYSTEMS: Pt unable to provide additional hx at this time. PHYSICAL EXAMINATION: VITAL SIGNS: Please see below. GENERAL APPEARANCE: Intubated, ventilated. RESPIRATORY: good A/E. CARDIOVASCULAR: RRR ABDOMEN: soft, NT EXTREMITIES: Rt BKA, LLE with superficial ulceration pretibial area, anterior ankle, second toe and lateral aspect of foot. Unable to doppler DP. soft monophasic PT. 5-6 sec cap refill. LABORATORY DATA: Please see below. ASSESSMENT/PLAN: 1. PAD. LLE wounds. Wound care orders placed. Arterial US requested and pending at this time, OK to hold off until more stable. Further recommendations pending review of study as per Dr Ariza. 2. CKD4. Labs 03/14/20 with Scr 4.53, GFR 14.2. Vital Signs/I&O Vital Signs Date Time Temp Pulse Resp B/P (MAP) Pulse Ox O2 Delivery O2 Flow Rate FiO2 03/14/20 10:05 138 119/63 03/14/20 10:00 31 Ventilator 03/14/20 09:30 100 03/14/20 09:22 98.6 I&O- Last 24 Hours up to 6 AM 03/14/20 06:00 Intake Total 1100 ml Output Total 0 ml Balance 1100 ml Laboratory Data Labs 24H Laboratory Tests 2 03/13/20 15:39: Immature Granulocyte % (Auto) 1.7, Neutrophils (%) (Auto) 95.0H, Lymphocytes (%) (Auto) 1.1L, Monocytes (%) (Auto) 2.1, Eosinophils (%) (Auto) 0.0, Basophils (%) (Auto) 0.1, Neutrophils # (Auto) 27.8H, Lymphocytes # (Auto) 0.3L, Monocytes # (Auto) 0.6, Eosinophils # (Auto) 0.0, Basophils # (Auto) 0.0, Nucleated Red Blood Cells % (auto) 0.0, Erythrocyte Sedimentation Rate 84H, Anion Gap 10, Magalis merular Filtration Rate 19.5L, Calcium Level 9.3, Total Bilirubin 0.6, Direct Bilirubin 0.2, Aspartate Amino Transf (AST/SGOT) 19, Alanine Aminotransferase (ALT/SGPT) 22, Alkaline Phosphatase 67, C-Reactive Protein, Quantitative 24.50H, Total Protein 7.6, Albumin 3.4, Albumin/Globulin Ratio 0.8 03/13/20 17:35: Lactic Acid Level 2.0 03/13/20 18:14: Total Creatine Kinase 386H, Creatine Kinase MB 3.0, Creatine Kinase MB Relative Index 0.78, Troponin I 0.02 03/13/20 23:49: Total Creatine Kinase 334H, Creatine Kinase MB 2.1, Creatine Kinase MB Relative Index 0.63, Troponin I 0.04# 03/14/20 05:44: Nucleated Red Blood Cells % (auto) 0.0, Anion Gap 12, Glomerular Filtration Rate 16.3L, Calcium Level 7.9#L, Total Creatine Kinase 330H, Creatine Kinase MB 4.9H, Creatine Kinase MB Relative Index 1.48, Troponin I 1.23#H 03/14/20 06:26: Methicillin-Resist S.aureus DNA PCR NOT DETECTED 03/14/20 07:50: Urine Color YELLOW, Urine Appearance HAZY, Urine pH 5.0, Urine Specific Graham 1.015, Urine Protein 2+H, Urine Glucose (UA) NEGATIVE, Urine Ketones NEGATIVE, Urine Blood NEGATIVE, Urine Nitrite NEGATIVE, Urine Bilirubin NEGATIVE, Urine Urobilinogen 0.2, Urine Leukocyte Esterase NEGATIVE, Urine WBC (Auto) 1, Urine RBC (Auto) 1, Urine Hyaline Casts (Auto) 0, Urine Bacteria (Auto) NEGATIVE, Urine Squamous Epithelial Cells 3, Urine Amorphous Sediment SMALLH, Urine Sperm (Auto) 03/14/20 08:57: Nucleated Red Blood Cells % (auto) 0.0, Anion Gap 15, Glomerular Filtration Rate 14.2L, Calcium Level 8.0L, Troponin I 3.72#*H, Immature Granulocyte % (Auto) 1 .8, Neutrophils (%) (Auto) 86.5H, Lymphocytes (%) (Auto) 7.3L, Monocytes (%) (Auto) 4.2, Eosinophils (%) (Auto) 0.0, Basophils (%) (Auto) 0.2, Neutrophils # (Auto) 19.9H, Lymphocytes # (Auto) 1.7, Monocytes # (Auto) 1.0H, Eosinophils # (Auto) 0.0, Basophils # (Auto) 0.1, Lactic Acid Level 6.3*H, Total Bilirubin 0.5, Aspartate Amino Transf (AST/SGOT) 121H, Alanine Aminotransferase (ALT/SGPT) 88H, Alkaline Phosphatase 50, IN-Fek-E-Type Natriuretic Peptide 67819F, Total Protein 6.7, Albumin 2.5#L, Albumin/Globulin Ratio 0.6 03/14/20 09:03: Blood Gas Bicarbonate Standard 12.6L, Arterial Blood pH 7.224*L, Arterial Blood Partial Pressure CO2 25.4L, Arterial Blood Partial Pressure O2 496.4H, Arterial Blood Total CO2 11.0L, Arterial Blood HCO3 10.3L, Arterial Blood Base Excess - 15.7L, Arterial Blood Oxygen Saturation 99.1H 03/14/20 11:15: Blood Gas Bicarbonate Standard 19.4L, Arterial Blood pH 7.370, Arterial Blood Partial Pressure CO2 32.4L, Arterial Blood Partial Pressure O2 95.1, Arterial Blood Total CO2 19.3L, Arterial Blood HCO3 18.3L, Arterial Blood Base Excess - 6.1L, Arterial Blood Oxygen Saturation 96.6 03/14/20 11:24: CBC/BMP Laboratory Tests 03/13/20 15:39 03/14/20 05:44 03/14/20 08:57 Microbiology Microbiology 03/14/20 Blood Culture, Received Pending 03/14/20 Blood Culture, Received Pending 03/13/20 Blood Culture, Received Pending 03/13/20 Blood Culture, Received Pending Allergies Coded Allergies: No Known Allergies (Verified , 08/14/18) Home Medications Scheduled Allopurinol (Allopurinol) 100 Mg Tab, 100 MG PO DAILY, (Reported) Apixaban (Eliquis) 5 Mg Tab, 5 MG PO BID, (Reported) Aspirin (Aspirin EC) 81 Mg Tab, 81 MG PO DAILY, (Reported) Bupropion Hcl (Bupropion Xl) 150 Mg Tab, 150 MG PO DAILY, (Reported) Calcitriol (Calcitriol) 0.25 Mcg Cap, 0.25 MCG PO DAILY, (Reported) Ferrous Gluconate (Ferrous Gluconate) 324 Mg Tab, 324 MG PO BID, (Reported) Furosemide (Lasix) 40 Mg Tab, 60 MG PO BID, (Reported) Insulin Human Lispro (Humalog) 1 Units/0.01 Ml Inj, 1 DOSE SC AC, (Reported) PER SLIDING SCALE VIA INSULIN PUMP Losartan Potassium (Losartan Potassium) 25 Mg Tab, 25 MG PO DAILY, (Reported) Metolazone (Metolazone) 2.5 Mg Tablet, 2.5 MG PO QWEEK, (Reported) SUNDAYS Metoprolol Tartrate (Metoprolol Tartrate) 25 Mg Tab, 12.5 MG PO BID, (Reported) Henderson-3/Dha/Epa/Fish Oil (Henderson 3 500 Softgel) 1 Each Capsule, 2 CAP PO BID, (Reported) Omeprazole (Omeprazole) 40 Mg Cap, 40 MG PO DAILY, (Reported) Potassium Chloride (Klor-Con M10) 10 Meq Tabcr, 10 MEQ PO DAILY, (Reported) Pravastatin Sodium (Pravastatin Sodium) 80 Mg Tab, 80 MG PO QHS, (Reported) Sertraline HCl (Sertraline HCl) 25 Mg Tab, 25 MG PO QHS, (Reported) Scheduled PRN Acetaminophen (Acetaminophen) 500 Mg Tablet, 1,000 MG PO Q6H PRN for PAIN, (Reported) Abril Veras Mar 14, 2020 11:55
[2020-03-14] MEDS: MIDAZOLAM INJ 2MG/2ML VIAL (J2250 PER 1MG) IV PRN ×5 (12:25→22:14)
[2020-03-14] MEDS: IPRATROPIUM 0.5MG/ALBUTEROL 2.5MG INH SOL UD 3ML (DUONEB) NEB SCH ×3 (13:04→20:02)
[2020-03-14] MEDS: NS 1,000 ML IV SCH (13:14)
[2020-03-14 13:37] LABS: INR 2.03; PROTHROMBIN TIME 23.4 SECONDS (11.8-14.0)
[2020-03-14] MEDS ORDERED: VANCOMYCIN INTERMITTENT/PULSE DOSING BY CLINICAL PHARMACIST PER DOSING PROTOCOL XX SCH (13:45)
--- NOTE | 2020-03-14 13:46 | IPNPDOC ---
Date Seen The patient was seen on 03/14/20. Progress Note Patient seen and examined. Left lower extremity superficial ulcerations present on the distal second toe, the lateral foot, the medial dorsal foot, and some skin tears are present on the pretibial region. Mild cellulitic changes noted in the left lower extremity. Absence of the first toe is noted. The patient has a monophasic posterior tibial signal, but we are not able to auscultate a Doppler signal at the dorsal pedis. Some of his perfusion deficit may be due to the patient's code earlier today, but I anticipate he has pretty significant vascular disease considering he also has an amputation on the right lower extremity. We have ordered an arterial duplex, but I believe we can wait until the patient is more stable to obtain it. He is in no condition for any vascular intervention at this time. Unfortunately, I will be out of town for 2 weeks, so his urgent vascular intervention is needed during his stay, consider transfer to [place]. Otherwise, we will plan to see the patient, inpatient or outpatient, when I return for options for revascularization. I put in some basic wound care orders, but certainly these can be adjusted based on the quality of the wounds over the next week. Would recommend broad-spectrum antibiotics for cellulitis in light of sepsis. I discussed the patient's case with Dr. Chicas and Dr. Dsouza. We appreciate the opportunity to participate in the care of this patient. VS, I&O, 24H, Fishbone Vital Signs/I&O Vital Signs Date Time Temp Pulse Resp B/P (MAP) Pulse Ox O2 Delivery O2 Flow Rate FiO2 03/14/20 12:45 50 03/14/20 10:05 138 119/63 03/14/20 10:00 31 Ventilator 03/14/20 09:30 100 03/14/20 09:22 98.6 I&O- Last 24 Hours up to 6 AM 03/14/20 06:00 Intake Total 1100 ml Output Total 0 ml Balance 1100 ml Laboratory Data 24H LABS Laboratory Tests 2 03/13/20 15:39: Immature Granulocyte % (Auto) 1.7, Neutrophils (%) (Auto) 95.0H, Lymphocytes (%) (Auto) 1.1L, Monocytes (%) (Auto) 2.1, Eosinophils (%) (Auto) 0.0, Basophils (%) (Auto) 0.1, Neutrophils # (Auto) 27.8H, Lymphocytes # (Auto) 0.3L, Monocytes # (Auto) 0.6, Eosinophils # (Auto) 0.0, Basophils # (Auto) 0.0, Nucleated Red Blood Cells % (auto) 0.0, Erythrocyte Sedimentation Rate 84H, Anion Gap 10, Glomerular Filtration Rate 19.5L, Calcium Level 9.3, Total Bilirubin 0.6, Direct Bilirubin 0.2, Aspartate Amino Transf (AST/SGOT) 19, Alanine Aminotransferase (ALT/SGPT) 22, Alkaline Phosphatase 67, C-Reactive Protein, Quantitative 24.50H, Total Protein 7.6, Albumin 3.4, Albumin/Globulin Ratio 0.8 03/13/20 17:35: Lactic Acid Level 2.0 03/13/20 18:14: Total Creatine Kinase 386H, Creatine Kinase MB 3.0, Creatine Kinase MB Relative Index 0.78, Troponin I 0.02 03/13/20 23:49: Total Creatine Kinase 334H, Creatine Kinase MB 2.1, Creatine Kinase MB Relative Index 0.63, Troponin I 0.04# 03/14/20 05:44: Nucleated Red Blood Cells % (auto) 0.0, Anion Gap 12, Glomerular Filtration Rate 16.3L, Calcium Level 7.9#L, Total Creatine Kinase 330H, Creatine Kinase MB 4.9H, Creatine Kinase MB Relative Index 1.48, Troponin I 1.23#H 03/14/20 06:26: Methicillin-Resist S.aureus DNA PCR NOT DETECTED 03/14/20 07:50: Urine Color YELLOW, Urine Appearance HAZY, Urine pH 5.0, Urine Specific Matheny 1.015, Urine Protein 2+H, Urine Glucose (UA) NEGATIVE, Urine Ketones NEGATIVE, Urine Blood NEGATIVE, Urine Nitrite NEGATIVE, Urine Bilirubin NEGATIVE, Urine Urobilinogen 0.2, Urine Leukocyte Esterase NEGATIVE, Urine WBC (Auto) 1, Urine RBC (Auto) 1, Urine Hyaline Casts (Auto) 0, Urine Bacteria (Auto) NEGATIVE, Urine Squamous Epithelial Cells 3, Urine Amorphous Sediment SMALLH, Urine Sperm (Auto) 03/14/20 08:57: Nucleated Red Blood Cells % (auto) 0.0, Anion Gap 15, Glomerular Filtration Rate 14.2L, Calcium Level 8.0L, Troponin I 3.72#*H, Immature Granulocyte % (Auto) 1.8, Neutrophils (%) (Auto) 86.5H, Lymphocytes (%) (Auto) 7.3L, Monocytes (%) (Auto) 4.2, Eosinophils (%) (Auto) 0.0, Basophils (%) (Auto) 0.2, Neutrophils # (Auto) 19.9H, Lymphocytes # (Auto) 1.7, Monocytes # (Auto) 1.0H, Eosinophils # (Auto) 0.0, Basophils # (Auto) 0.1, Lactic Acid Level 6.3*H, Total Bilirubin 0.5, Aspartate Amino Transf (AST/SGOT) 121H, Alanine Aminotransferase (ALT/SGPT) 88H, Alkaline Phosphatase 50, BQ-Htt-Q-Type Natriuretic Peptide 28660L, Total Protein 6.7, Albumin 2.5#L, Albumin/Globulin Ratio 0.6 03/14/20 08:58: Prothrombin Time 23.4H, Prothromb Time International Ratio 2.03, Activated Partial Thromboplast Time 37.0 03/14/20 09:03: Blood Gas Bicarbonate Standard 12.6L, Arterial Blood pH 7.224*L, Arterial Blood Partial Pressure CO2 25.4L, Arterial Blood Partial Pressure O2 496.4H, Arterial Blood Total CO2 11.0L, Arterial Blood HCO3 10.3L, Arterial Blood Base Excess - 15.7L, Arterial Blood Oxygen Saturation 99.1H 03/14/20 11:15: Blood Gas Bicarbonate Standard 19.4L, Arterial Blood pH 7.370, Arterial Blood Partial Pressure CO2 32.4L, Arterial Blood Partial Pressure O2 95.1, Arterial Blood Total CO2 19.3L, Arterial Blood HCO3 18.3L, Arterial Blood Base Excess - 6.1L, Arterial Blood Oxygen Saturation 96.6 03/14/20 11:24: Total Creatine Kinase 448H, Creatine Kinase MB 12.7H, Creatine Kinase MB Relative Index 2.83, Troponin I 6.16#*H CBC/BMP Laboratory Tests 03/13/20 15:39 03/14/20 05:44 03/14/20 08:57 Microbiology Microbiology 03/14/20 Blood Culture, Received Pending 03/14/20 Blood Culture, Received Pending 03/13/20 Blood Culture, Received Pending 03/13/20 Blood Culture, Received Pending JORDYN ISSA MD Mar 14, 2020 13:46
--- NOTE | 2020-03-14 14:39 | REPVR ---
PROCEDURE INFORMATION: Exam: US Duplex Lower Extremity Arteries Or Arterial Bypass Grafts Exam date and time: 03/14/2020 1:51 PM Age: 59 years old Clinical indication: Patient HX: Diabetic, RT leg bka, lt open wound, charcotic foot, sepsis; Additional info: Lle foot wound TECHNIQUE: Imaging protocol: Real-time ultrasound scan of the arteries of the bilateral lower extremities with 2-D gill scale, color Doppler flow and spectral waveform analysis. Images documented and saved. COMPARISON: No relevant prior studies available. FINDINGS: Right common femoral artery: Calcified plaque is present. No occlusion or significant stenosis. Multiphasic waveform. Of note, peak systolic velocity is diminished, measuring 68 cm/s. Right profunda femoris artery: Calcified plaque is present. No occlusion or significant stenosis. Multiphasic waveform. Right superficial femoral artery: Atherosclerotic plaque is present. No occlusions. Multiphasic waveform. Peak systolic velocity decreases from 79 cm/s proximally to 19 cm/s distally. An underlying hemodynamically significant stenosis is likely present. Right popliteal artery: Atherosclerotic plaque is present. No occlusion. Multiphasic waveform. Peak systolic velocity is decreased, measuring 13 cm/s due to an upstream stenosis. Right calf/foot arteries: Not evaluated due to a below-knee amputation. Left common femoral artery: Atherosclerotic plaque is present. No occlusion or significant stenosis. Multiphasic waveform. Peak systolic velocity is diminished, measuring 41 cm/s. This may be related to upstream inflow atherosclerotic disease and stenosis. Left profunda femoris artery: Atherosclerotic plaque is present. No occlusion or significant stenosis. Multiphasic waveform. Left superficial femoral artery: Calcified plaque is present. No occlusion. Pulsatile monophasic waveform. Peak systolic velocity measures 43 cm/s proximally, 52 cm/s in the proximal/mid SFA, 11 cm/s in the mid/distal SFA, and 129 cm/s in the distal SFA. The findings are compatible with at least 1 hemodynamically significant (greater than 50%) stenosis. Left popliteal artery: Calcified plaque is present. No occlusion. Peak systolic velocity is diminished, measuring between 10 and 15 cm/s, likely due to upstream inflow disease/stenosis. Pulsatile monophasic waveform. Left calf/foot arteries: The proximal anterior tibial and posterior tibial arteries are patent. The distal arteries are not imaged due to an overlying dressing. Pulsatile monophasic waveforms. Peak systolic velocity is diminished, likely due to upstream in fluid disease/stenosis. IMPRESSION: Marked peripheral vascular disease as discussed above At least 1 hemodynamically significant stenosis involving the left superficial femoral artery Decreased velocities are noted throughout both lower extremities, possibly due to upstream inflow disease or cardiac disease. Clinical correlation is recommended. Electronically signed by: Denis Beltran On 03/14/2020 14:39:11 PM
[2020-03-14 15:56] LABS: CK-MB VALUE MASS 16.3 NG/ML (<3.6); MB/CK RELATIVE INDEX 2.42 (< OR =4); TROPONIN I 7.64 NG/ML (< 0.10)
--- NOTE | 2020-03-14 17:58 | IPNPDOC ---
Text Note Date of Service The patient was seen on 03/14/20. NOTE Received sign out that patient had an episode of hypotension around 8am received IVF with improvement of BP, followed by a possible seizure, followed by Asystole/PEA arrest this am. Pt was intubated by Dr. Bolanso, had received ACLS and had ROSC. Pt had 1 round epi with ROSC. Pt had AF RVR with notable sustainable BP off pressors. Pt was moved to ICU, mechanically ventilated. Pt had posturing and seizure like activity - given Ativan and loaded with Keppra. Please see code sheet. Dr. Suazo consulted. Dr. Lopez had been consulted for NSTEMI, and will be following pt. Dr. Ariza has seen pt and does not recc surgical intervention at this time. CT head pending this am, eliquis held until then, and pt continued on Keppra. I appreciate Dr. Bolanos graciously accepting this critically ill patient under his service this morning. Family had been notified. VS,Jamese, I+O VS, Jamarcusbone, I+O Laboratory Tests 03/14/20 05:44 03/14/20 08:57 Vital Signs Date Time Temp Pulse Resp B/P (MAP) Pulse Ox O2 Delivery O2 Flow Rate FiO2 03/14/20 17:00 103 18 118/63 (81) 97 Ventilator 03/14/20 16:00 98.3 03/14/20 16:00 25 I&O- Last 24 Hours up to 6 AM 03/14/20 06:00 Intake Total 1100 ml Output Total 0 ml Balance 1100 ml ASHLEY HODGES MD Mar 14, 2020 17:58
[2020-03-14] MEDS ORDERED: VANCOMYCIN HCL 1,000 MG, VIAL MATE ADAPTER 1 EACH in D5W 250 ML IV SCH (18:00)
[2020-03-14] MEDS ORDERED: EPINEPHrine 1MG/10ML SYRINGE 1.5IN ONE (18:36)
[2020-03-14 18:46] LABS: CK-MB VALUE MASS 18.8 NG/ML (<3.6); MB/CK RELATIVE INDEX 2.18 (< OR =4); TROPONIN I 8.01 NG/ML (< 0.10)
[2020-03-14 19:19] LABS: ALBUMIN 2.3 GM/DL (3.2-5.2); BILIRUBIN,TOTAL 0.5 MG/DL (0.2-1.0); CALCIUM LEVEL 7.7 MG/DL (8.5-10.1); CREATININE FOR GFR 4.62 MG/DL (0.70-1.30); GLOMERULAR FILTRATION RATE 13.9 (>56); TOTAL PROTEIN 6.6 GM/DL (6.4-8.2)
[2020-03-14] MEDS: levETIRAcetam INJection 500 MG in D5W MINI-BAG PLUS 100 ML IV SCH (19:45)
[2020-03-14] MEDS: SERTRALINE HCL 25 MG TABLET PO SCH (20:09)
[2020-03-14] MEDS: PRAVASTATIN 20 MG TAB PO SCH (20:09)
[2020-03-14] MEDS ORDERED: FUROSEMIDE 40MG/4ML VIAL (J1940) IV ONE (20:45)
[2020-03-15] VITALS (40 sets, daily range): BP systolic 85–134; BP diastolic 49–78
[2020-03-15] MEDS: propofoL 1,000 MG in IV 1 EA IV SCH ×4 (00:02→20:21)
[2020-03-15] MEDS: HumaLOG INSULIN (NovoLOG) PER UNIT SC SCH ×5 (00:02→23:23)
[2020-03-15] MEDS: IPRATROPIUM 0.5MG/ALBUTEROL 2.5MG INH SOL UD 3ML (DUONEB) NEB SCH ×6 (00:27→20:03)
[2020-03-15] MEDS: NS 1,000 ML IV SCH (01:27)
[2020-03-15] MEDS: MIDAZOLAM INJ 2MG/2ML VIAL (J2250 PER 1MG) IV PRN ×4 (01:59→19:23)
[2020-03-15] MEDS: PIPERACILLIN/TAZOBACTAM SOD 3.375 GM in D5W MINI-BAG PLUS 50 ML IV SCH ×4 (04:55→22:41)
[2020-03-15 05:39] LABS: BASO % 0.1 % (0.0-1.0); EOS % 0.1 % (0.0-3.0); HEMATOCRIT 30.5 % (42.0-52.0); LYMPH # 0.5 10^3/uL (1.5-5.0); MEAN CORPUSCULAR HEMOGLOBIN 29.6 pg (27.0-33.0); MEAN CORPUSCULAR HGB CONC 32.5 g/dl (32.0-36.5); MEAN CORPUSCULAR VOLUME 91.3 fl (80.0-96.0); MONO # 0.8 10^3/uL (0.0-0.8); MONO % 5.2 % (0.0-5.0); NEUTROPHILS # 13.7 10^3/uL (1.5-8.5); NEUTROPHILS % 90.7 % (36.0-66.0); PLATELET COUNT, AUTOMATED 219 10^3/uL (150-450); RED BLOOD COUNT 3.34 10^6/uL (4.30-6.10); WHITE BLOOD COUNT 15.1 10^3/uL (4.0-10.0)
[2020-03-15 05:45] LABS: HEMOGLOBIN 9.9 g/dl (13.5-17.5)
[2020-03-15 06:27] LABS: ABG PARTIAL PRESSURE CO2 33.3 mmHg (35.0-45.0); ABG PARTIAL PRESSURE O2 148.2 mmHg (75.0-100.0); ABG TOTAL CO2 18.4 MEQ/L (22.0-29.0); ABG pH (ARTERIAL) 7.335 UNITS (7.350-7.450)
[2020-03-15 06:28] LABS: ABG BASE EXCESS -7.6 (-2.0-2.0)
[2020-03-15 06:29] LABS: ABG HCO3 17.4 MEQ/L (22.0-26.0); ABG STANDARD HCO3 18.3 MEQ/L (22.0-26.0)
[2020-03-15 06:32] LABS: ABG O2 SATURATION 98.3 % (95.0-99.0)
[2020-03-15 06:51] LABS: ALBUMIN 2.3 GM/DL (3.2-5.2); BILIRUBIN,TOTAL 0.4 MG/DL (0.2-1.0); C REACTIVE PROTEIN QUANTITATIV 28.4 MG/DL (0.00-0.30); CALCIUM LEVEL 7.3 MG/DL (8.5-10.1); CREATININE FOR GFR 4.73 MG/DL (0.70-1.30); GLOMERULAR FILTRATION RATE 13.6 (>56); MB/CK RELATIVE INDEX 1.69 (< OR =4); POTASSIUM SERUM 3.6 MEQ/L (3.5-5.1); TOTAL PROTEIN 5.7 GM/DL (6.4-8.2); TROPONIN I 6.21 NG/ML (< 0.10)
[2020-03-15] MEDS: levETIRAcetam INJection 500 MG in D5W MINI-BAG PLUS 100 ML IV SCH ×2 (07:42→19:23)
[2020-03-15] MEDS: CALCITRIOL 0.25 MCG CAP (S0169) PO SCH (08:21)
[2020-03-15] MEDS: METOPROLOL TART 12.5 MG PER 1/2 TAB PO SCH (08:21)
[2020-03-15] MEDS: allopurinoL 100 MG TAB PO SCH (08:21)
[2020-03-15] MEDS: OMEPRAZOLE 20 MG CAP PO SCH (09:00)
[2020-03-15] MEDS: ASPIRIN 81 MG ENTERIC TAB PO SCH (09:00)
[2020-03-15] MEDS: FERROUS GLUCONATE 324 MG TAB PO SCH ×2 (09:00→19:50)
[2020-03-15] MEDS: FUROSEMIDE 100MG/10ML VIAL (J1940) IV SCH ×2 (09:32→16:27)
[2020-03-15] MEDS ORDERED: VANCOMYCIN HCL 500 MG in D5W MINI-BAG PLUS 100 ML IV ONE (10:00)
[2020-03-15] MEDS ORDERED: DIGOXIN INJ 0.5 MG/2 ML AMP (J1160) IV ONE ×2 (12:30→19:45)
[2020-03-15] MEDS: bisoproloL fumarate 5 MG TAB NG SCH (19:57)
[2020-03-15] MEDS: SERTRALINE HCL 25 MG TABLET PO SCH (19:57)
[2020-03-15] MEDS: PRAVASTATIN 20 MG TAB PO SCH (19:58)
[2020-03-15] MEDS ORDERED: METOPROLOL TART 25 MG TABLET PO SCH (21:00)
[2020-03-15] MEDS: METOPROLOL 5 MG/5 ML VIAL IV SCH ×3 (21:32→22:00)
[2020-03-15] MEDS ORDERED: METOPROLOL 5 MG/5 ML VIAL IV PRN (22:30)
[2020-03-16] VITALS (29 sets, daily range): BP systolic 91–143; BP diastolic 54–84
[2020-03-16] MEDS: IPRATROPIUM 0.5MG/ALBUTEROL 2.5MG INH SOL UD 3ML (DUONEB) NEB SCH ×5 (00:05→16:18)
[2020-03-16] MEDS: FUROSEMIDE 100MG/10ML VIAL (J1940) IV SCH ×2 (00:55→08:10)
[2020-03-16] MEDS: propofoL 1,000 MG in IV 1 EA IV SCH ×2 (00:55→05:20)
[2020-03-16] MEDS: PIPERACILLIN/TAZOBACTAM SOD 3.375 GM in D5W MINI-BAG PLUS 50 ML IV SCH ×3 (04:55→16:59)
[2020-03-16] MEDS: HumaLOG INSULIN (NovoLOG) PER UNIT SC SCH ×4 (05:20→21:00)
[2020-03-16 05:31] LABS: HEMOGLOBIN 9.6 g/dl (13.5-17.5); MEAN CORPUSCULAR HEMOGLOBIN 30.1 pg (27.0-33.0); MEAN CORPUSCULAR HGB CONC 33.1 g/dl (32.0-36.5); MEAN CORPUSCULAR VOLUME 90.9 fl (80.0-96.0); PLATELET COUNT, AUTOMATED 220 10^3/uL (150-450); RED BLOOD COUNT 3.19 10^6/uL (4.30-6.10); WHITE BLOOD COUNT 14.2 10^3/uL (4.0-10.0)
[2020-03-16 05:44] LABS: INR 1.52; PROTHROMBIN TIME 18.6 SECONDS (11.8-14.0)
[2020-03-16 05:50] LABS: C REACTIVE PROTEIN QUANTITATIV 21.2 MG/DL (0.00-0.30); CALCIUM LEVEL 7.3 MG/DL (8.5-10.1); CREATININE FOR GFR 5.15 MG/DL (0.70-1.30); GLOMERULAR FILTRATION RATE 12.3 (>56); POTASSIUM SERUM 3.8 MEQ/L (3.5-5.1); VANCOMYCIN RANDOM 16.2 UG/ML
[2020-03-16 05:51] LABS: ABG PARTIAL PRESSURE CO2 34.7 mmHg (35.0-45.0); ABG PARTIAL PRESSURE O2 111.5 mmHg (75.0-100.0)
[2020-03-16 05:52] LABS: ABG BASE EXCESS -4.4 (-2.0-2.0); ABG HCO3 20.1 MEQ/L (22.0-26.0); ABG O2 SATURATION 97.4 % (95.0-99.0); ABG STANDARD HCO3 20.8 MEQ/L (22.0-26.0); ABG TOTAL CO2 21.1 MEQ/L (22.0-29.0)
[2020-03-16] MEDS: levETIRAcetam INJection 500 MG in D5W MINI-BAG PLUS 100 ML IV SCH ×2 (07:22→21:25)
[2020-03-16] MEDS: CALCITRIOL 0.25 MCG CAP (S0169) PO SCH (08:08)
[2020-03-16] MEDS: allopurinoL 100 MG TAB PO SCH (08:08)
[2020-03-16] MEDS: bisoproloL fumarate 5 MG TAB NG SCH ×2 (08:09→21:27)
[2020-03-16] MEDS ORDERED: VANCOMYCIN HCL 500 MG in D5W MINI-BAG PLUS 100 ML IV SCH (09:00)
[2020-03-16] MEDS: ASPIRIN 81 MG ENTERIC TAB PO SCH (12:00)
[2020-03-16] MEDS: OMEPRAZOLE 20 MG CAP PO SCH (12:00)
[2020-03-16] MEDS: FERROUS GLUCONATE 324 MG TAB PO SCH ×2 (12:00→21:25)
[2020-03-16] MEDS: ACETAMINOPHEN TAB 650MG DOSE (2X325MG) PO PRN (12:01)
--- NOTE | 2020-03-16 13:34 | IPNPDOC ---
Text Note Date of Service The patient was seen on 03/16/20. NOTE Subjective: Pt extubated this am. Denies CP/SOB/palpitations. Appears comfort able. PHYSICAL EXAMINATION: Vitals: (see below) General: No acute distress, laying comfortably in bed. HEENT: Moist mucous membranes. Neck: No JVD or lymphadenopathy Cardiac: Irregularly irregular Pulm: Diminished at the bases b/l. No wheezing, rhonchi Abd: NT/ND + BS Ext: Right BKA. Left LE with charcot foot, infected ulcer with erythema, no fluctance. No induration. Tibial wound as well. Distal pulse palpable. Prior toe amputation. LABORATORY DATA: See below. IMAGING: X ray foot FINDINGS: Bones/joints: There is a large plantar calcaneal spur and also a large calcaneal spur at the insertion of the Achilles. The tip of the 4th digit has been removed with the middle and proximal phalanx remaining. There is no evidence of acute destructive change of bone to suggest acute osteomyelitis. There is arthritic change and osteophyte formation of the tarsal bones. 1st digit has been removed with the exception of a small portion of the base of the 1st metatarsal. The 2nd digit has been removed. The distal end of the 3rd digit has been removed with a large portion of proximal phalanx remaining. The patient has known skin ulcerations. Possible ulcer distal end of the 4th digit. Vasculature: There is vascular calcification. IMPRESSION: 1. Postoperative changes as described above. 2. No evidence of acute osteomyelitis. ASSESSMENT/PLAN: 1. Severe Sepsis 2/2 Infected LE ulcers- IVF, Bld/wound cx, check Lactic acid. Febrile, tachycardic, with WBC 29. Start Vanco/zosyn. Consulted Dr. Del Rosario. Leukocytosis CRP improving. 2. S/p acute Respiratory Failure s/p Cardiac arrest 2/2 #1. Extubated 03/16 3. NSTEMI 2/2 above. - Cardio on board. Recc conservative management. H/o CAD s/p CABG. Troponin trending down. Discussed with Dr. Quiñones; recc restarting eliquis today 4. AF RVR 2/2 above. IVF,On bisporolol now and better controlled. Eliquis 5. DM - on insulin pump 6. HTN controlled. cont home meds. Hold ARB 7. anxiety/depression - cont home meds 8. Acute Decompensated Diastolic HF - Lasix PRN per nephro 9. CKD stage 4 - Received IV Lasix and diuresing. Nephro on board; appreciate input 10. PAD LLE: Eval by Dr. Ariza; recc outpt f/u ; no sirgical intervention at this time. 11. ? Seizure. CT head no bleed. On Keppra. MRI Brain when stable. 12. HLD on statin DVT Prophy: Kathleenquis Full code. VS,Fishbone, I+O VS, Fishbone, I+O Laboratory Tests 03/16/20 05:00 Vital Signs Date Time Temp Pulse Resp B/P (MAP) Pulse Ox O2 Delivery O2 Flow Rate FiO2 03/16/20 12:00 98.4 98 20 143/67 (92) 97 Nasal Cannula 2.0 03/16/20 08:00 25 I&O- Last 24 Hours up to 6 AM 03/16/20 06:00 Intake Total 1586.8 ml Output Total 2480 ml Balance -893.2 ml ASHLEY HODGES MD Mar 16, 2020 13:34
[2020-03-16] MEDS: APIXABAN 5 MG TAB (ELIQUIS) PO SCH (21:25)
[2020-03-16] MEDS: PRAVASTATIN 20 MG TAB PO SCH (21:26)
[2020-03-16] MEDS: SERTRALINE HCL 25 MG TABLET PO SCH (21:26)
[2020-03-17] MEDS: PIPERACILLIN/TAZOBACTAM SOD 2.25 GM in D5W MINI-BAG PLUS 50 ML IV SCH ×3 (01:13→17:10)
[2020-03-17 04:00] VITALS: BP 130/72
[2020-03-17 06:06] LABS: HEMATOCRIT 29.3 % (42.0-52.0); HEMOGLOBIN 9.5 g/dl (13.5-17.5); MEAN CORPUSCULAR HEMOGLOBIN 29.4 pg (27.0-33.0); MEAN CORPUSCULAR HGB CONC 32.4 g/dl (32.0-36.5); MEAN CORPUSCULAR VOLUME 90.7 fl (80.0-96.0); PLATELET COUNT, AUTOMATED 230 10^3/uL (150-450); RED BLOOD COUNT 3.23 10^6/uL (4.30-6.10)
[2020-03-17 06:17] LABS: INR 1.47; PROTHROMBIN TIME 18.1 SECONDS (11.8-14.0)
[2020-03-17 06:32] LABS: C REACTIVE PROTEIN QUANTITATIV 20.5 MG/DL (0.00-0.30); CALCIUM LEVEL 8.3 MG/DL (8.5-10.1); CREATININE FOR GFR 5.1 MG/DL (0.70-1.30); GLOMERULAR FILTRATION RATE 12.4 (>56); POTASSIUM SERUM 3.8 MEQ/L (3.5-5.1); VANCOMYCIN RANDOM 20.7 UG/ML
[2020-03-17] MEDS ORDERED: VANCOMYCIN INTERMITTENT/PULSE DOSING BY CLINICAL PHARMACIST PER DOSING PROTOCOL XX SCH (07:30)
[2020-03-17 08:00] VITALS: BP 139/64
[2020-03-17] MEDS: HumaLOG INSULIN (NovoLOG) PER UNIT SC SCH ×4 (09:09→20:14)
[2020-03-17] MEDS: OMEPRAZOLE 20 MG CAP PO SCH (09:09)
[2020-03-17] MEDS: APIXABAN 5 MG TAB (ELIQUIS) PO SCH ×2 (09:10→20:24)
[2020-03-17] MEDS: ASPIRIN 81 MG ENTERIC TAB PO SCH (09:10)
[2020-03-17] MEDS: bisoproloL fumarate 5 MG TAB NG SCH ×2 (09:11→20:24)
[2020-03-17] MEDS: allopurinoL 100 MG TAB PO SCH (09:11)
[2020-03-17] MEDS: FERROUS GLUCONATE 324 MG TAB PO SCH ×2 (09:11→20:24)
[2020-03-17] MEDS: CALCITRIOL 0.25 MCG CAP (S0169) PO SCH (09:11)
[2020-03-17] MEDS: levETIRAcetam INJection 500 MG in D5W MINI-BAG PLUS 100 ML IV SCH ×2 (09:26→20:24)
--- NOTE | 2020-03-17 10:23 | IPNPDOC ---
Text Note Date of Service The patient was seen on 03/17/20. NOTE Subjective: Pt doing better. Has chest wall discomfort from chest compressions, that is reproducible. Denies CP/SOB/palpitations. No N/V/abd pain. PHYSICAL EXAMINATION: Vitals: (see below) General: No acute distress, laying comfortably in bed. HEENT: Moist mucous membranes. Neck: No JVD or lymphadenopathy Cardiac: Irregularly irregular Pulm: Diminished at the bases b/l. No wheezing, rhonchi Abd: NT/ND + BS Ext: Right BKA. Left LE with charcot foot, infected ulcer with erythema, no fluctance. No induration. Tibial wound as well. Distal pulse palpable. Prior toe amputation. LABORATORY DATA: See below. IMAGING: X ray foot FINDINGS: Bones/joints: There is a large plantar calcaneal spur and also a large calcaneal spur at the insertion of the Achilles. The tip of the 4th digit has been removed with the middle and proximal phalanx remaining. There is no evidence of acute destructive change of bone to suggest acute osteomyelitis. There is arthritic change and osteophyte formation of the tarsal bones. 1st digit has been removed with the exception of a small portion of the base of the 1st metatarsal. The 2nd digit has been removed. The distal end of the 3rd digit has been removed with a large portion of proximal phalanx remaining. The patient has known skin ulcerations. Possible ulcer distal end of the 4th digit. Vasculature: There is vascular calcification. IMPRESSION: 1. Postoperative changes as described above. 2. No evidence of acute osteomyelitis. ASSESSMENT/PLAN: 1. Severe Sepsis 2/2 Infected LE ulcers- IVF, Bld/wound cx, check Lactic acid. Febrile, tachycardic, with WBC 29. Start Vanco/zosyn. Consulted Dr. Del Rosario. Leukocytosis CRP improving. 2. S/p acute Respiratory Failure s/p Cardiac arrest 2/2 #1. Extubated 03/16 3. NSTEMI 2/2 above. - Cardio on board. Recc conservative management. H/o CAD s/p CABG. Troponin trending down. Discussed with Dr. Quiñones; recc restarting eliquis today 4. AF RVR 2/2 above. IVF,On bisporolol now and better controlled. Eliquis 5. DM - on insulin pump on hold; levemir SQ 10U qam, SSI started. 6. HTN controlled. cont home meds. Hold ARB 7. anxiety/depression - cont home meds 8. Acute Decompensated Diastolic HF - Lasix PRN per nephro 9. CKD stage 4 - Received IV Lasix and diuresing. Nephro on board; appreciate input 10. PAD LLE: Eval by Dr. Ariza; recc outpt f/u ; no sirgical intervention at this time. 11. ? Seizure. CT head no bleed. On Keppra. EEG today MRI Brain when stable. 12. HLD on statin DVT Prophy: Eliquis Full code. PT/OT VS,Fishbone, I+O VS, Fishbone, I+O Laboratory Tests 03/17/20 05:46 Vital Signs Date Time Temp Pulse Resp B/P (MAP) Pulse Ox O2 Delivery O2 Flow Rate FiO2 03/17/20 04:00 98.6 96 18 130/72 (91) 92 Room Air 03/16/20 17:00 1.0 03/16/20 08:00 25 I&O- Last 24 Hours up to 6 AM 03/17/20 06:00 Intake Total 886.4 ml Output Total 2465 ml Balance -1578.6 ml ASHLEY HODGES MD Mar 17, 2020 10:23
[2020-03-17 11:17] LABS: TROPONIN I 2.45 NG/ML (< 0.10)
[2020-03-17 12:00] VITALS: BP 159/87
[2020-03-17] MEDS: LEVEMIR (INSULIN DETEMIR) 1 UNITS/0.01ML SC SCH (12:20)
[2020-03-17] MEDS: MORPHINE 2 MG/ML 1ML VIAL (J2270) IV PRN ×2 (15:38→20:24)
[2020-03-17 16:00] VITALS: BP 152/75
[2020-03-17 20:00] VITALS: BP 122/70
[2020-03-17] MEDS: PRAVASTATIN 20 MG TAB PO SCH (20:23)
[2020-03-17] MEDS: SERTRALINE HCL 25 MG TABLET PO SCH (20:24)
[2020-03-18] VITALS: BP 143/78
[2020-03-18] MEDS: MORPHINE 2 MG/ML 1ML VIAL (J2270) IV PRN ×2 (00:13→08:43)
[2020-03-18] MEDS: PIPERACILLIN/TAZOBACTAM SOD 2.25 GM in D5W MINI-BAG PLUS 50 ML IV SCH ×3 (00:13→17:29)
[2020-03-18 04:00] VITALS: BP 134/78
[2020-03-18 05:41] LABS: HEMATOCRIT 29.8 % (42.0-52.0); HEMOGLOBIN 9.6 g/dl (13.5-17.5); MEAN CORPUSCULAR HEMOGLOBIN 29.4 pg (27.0-33.0); MEAN CORPUSCULAR HGB CONC 32.2 g/dl (32.0-36.5); MEAN CORPUSCULAR VOLUME 91.4 fl (80.0-96.0); PLATELET COUNT, AUTOMATED 254 10^3/uL (150-450); RED BLOOD COUNT 3.26 10^6/uL (4.30-6.10); WHITE BLOOD COUNT 15.2 10^3/uL (4.0-10.0)
[2020-03-18 06:05] LABS: CALCIUM LEVEL 8.6 MG/DL (8.5-10.1); CREATININE FOR GFR 4.67 MG/DL (0.70-1.30); GLOMERULAR FILTRATION RATE 13.8 (>56); POTASSIUM SERUM 3.4 MEQ/L (3.5-5.1); VANCOMYCIN RANDOM 15.6 UG/ML
[2020-03-18 08:00] VITALS: BP 152/86
[2020-03-18] MEDS ORDERED: PERCOCET 5MG/325MG TAB PO ONE (08:00)
[2020-03-18] MEDS: HumaLOG INSULIN (NovoLOG) PER UNIT SC SCH ×4 (08:39→20:58)
[2020-03-18] MEDS: levETIRAcetam INJection 500 MG in D5W MINI-BAG PLUS 100 ML IV SCH ×2 (08:41→20:57)
[2020-03-18] MEDS: FERROUS GLUCONATE 324 MG TAB PO SCH ×2 (08:43→20:57)
[2020-03-18] MEDS: bisoproloL fumarate 5 MG TAB NG SCH ×2 (08:45→20:58)
[2020-03-18] MEDS: CALCITRIOL 0.25 MCG CAP (S0169) PO SCH (08:46)
[2020-03-18] MEDS: APIXABAN 5 MG TAB (ELIQUIS) PO SCH ×2 (08:46→20:57)
[2020-03-18] MEDS: ASPIRIN 81 MG ENTERIC TAB PO SCH (08:46)
[2020-03-18] MEDS: OMEPRAZOLE 20 MG CAP PO SCH (08:46)
[2020-03-18] MEDS: LEVEMIR (INSULIN DETEMIR) 1 UNITS/0.01ML SC SCH ×2 (08:47→20:58)
[2020-03-18] MEDS: allopurinoL 100 MG TAB PO SCH (08:47)
[2020-03-18] MEDS: VANCOMYCIN HCL 500 MG in D5W MINI-BAG PLUS 100 ML IV SCH (09:45)
[2020-03-18] MEDS ORDERED: POTASSIUM CHLORIDE 10 MEQ SR TABLET PO ONE (10:15)
--- NOTE | 2020-03-18 10:27 | RO ---
DATE OF OPERATION: 03/14/2020 PREOPERATIVE DIAGNOSIS: Respiratory arrest during a MAX cart. POSTOPERATIVE DIAGNOSIS: Respiratory arrest during a MAX cart. PROCEDURE: Endotracheal intubation. SURGEON: Jairo Chicas MD ANIMAL PATHOLOGIST: ANESTHESIA: DESCRIPTION OF PROCEDURE: After the patient was ventilated with an Ambu bag valve device, the vocal cords were reasonably visualized with a #4 Osman blade. Under direct visualization, a #8.0 endotracheal tube was passed beyond the level of the cords. Balloon was inflated. CO2 detector had a very discernible color change. Good bilateral breath sounds were noted. No complications identified. MTDD
--- NOTE | 2020-03-18 10:40 | RO ---
DATE OF OPERATION: 03/14/2020 PREOPERATIVE DIAGNOSIS: Hypotension. POSTOPERATIVE DIAGNOSIS: Hypotension. Procedure pas performed emergently. PROCEDURE: Insertion of triple lumen central venous catheter. SURGEON: Jairo Chicas MD RESEARCH AIDE: ANESTHESIA: SITE: Left subclavian vein. DESCRIPTION OF PROCEDURE: After the left subclavian area was prepped and draped in the usual sterile manner, the left subclavian was cannulated with a large bore needle. Using modified Seldinger technique, a triple lumen central venous catheter was easily advanced. Good venous return was obtained from all three ports. His ports were then flushed. Line was then sutured in place and sterile dressing applied. Chest x-ray done immediately post procedure shows no evidence of pneumothorax, and the lines are in good position. Patient tolerated the procedure well, and no immediate complications noted. NADEEM
--- NOTE | 2020-03-18 10:44 | CCN ---
DATE: 03/14/2020 START TIME: 904 STOP TIME: 957 SUBJECTIVE: I initially attended Fredy Sanchez during his MAX. He had successful return of circulation. I then was present during his arrival to the intensive care unit. Ventilator manipulation was made by myself. He has roving eye movements. He does not follow commands. He has some what appears to be almost posturing at times. He then has some spontaneous movements that may be actually seizure, but are generalized. He is currently receiving Ativan and Keppra. Heart rate anywhere from 80s to the 140s, looks like mainly atrial fibrillation. Blood pressure varies between 100 and 127 systolic. Chest x-ray done post central line placement showed no evidence of obvious infiltrate. No pneumothorax. Lines and tubes in good position. I spoke at length with the hospitalist service that are primarily involved in his care. In essence, he was admitted last evening with concerns of early sepsis from an infected left tibial ulcer with concerns of osteomyelitis. White blood cell count on admission 29.3, hemoglobin 13, platelet count of 298,000, 95% segs, no bands. Creatinine at 3.45. No blood gas obtained at that time. He did receive some IV fluids. This morning, he was more hypotensive and got some more fluids. He then had a seizure and then had a cardiorespiratory arrest with successful return of circulation. I am unable to get any history from him due to the fact that he is intubated. He did not require defibrillation. Code was all with CPR and medications. OBJECTIVE: Currently pupils reactive, but he has roving eye movements. He does not follow commands. Jugular venous system appears quite full. Trachea is in the midline. Chest is fairly clear anteriorly. Decreased dependently, but no convincing rhonchus or wheeze. Cardiac exam distant irregularly irregular. Peripheral pulses markedly diminished. Abdomen obese. There may be some faint bowel sounds in the distance. Extremities show evidence of a right BKA. Left has basically a Charcot. There is an approximate 2 cm ulcer in the anterior tibia with some purulent drainage. Dressing is in place. Neurologically he occasionally does move the extremities, but appears more intermittent almost posturing. He does not follow commands. LABORATORY DATA: Most recent laboratories show an arterial blood gas on a PRVC rate of 18, tidal volume 350, PEEP of 5, FiO2 of 80%, pH 7.224, pCO2 of 25.4, and pO2 of 496. Sodium 139, K 4.6, chloride 95, CO2 of 22, BUN 85, creatinine 4.04. Troponin was 0.02 yesterday and is 1.23 now after his event. White blood cell count 23.1, hemoglobin 12.2, platelet count of 296,000, segs 86%, and no bands. Urine does have 2+ protein and some amorphous sediment. Blood cultures are all pending. Serologies: MRSA not detected. CRP done yesterday was elevated at 24.5. He had received vancomycin and Zosyn yesterday. He remains on Eliquis for his vascular disease. At one point, he also received a dose of Rocephin. ASSESSMENT: Most pressing problems requiring my immediate presence at the bedside: 1. Respiratory arrest status post cardiopulmonary arrest. 2. Suspected sepsis on the basis of left lower extremity wound, suspect osteomyelitis. 3. Chronic renal failure with mild worsening. 4. Diabetes mellitus, insulin-dependent on an insulin pump. 5. Elevated troponins. PLAN: At this point, I spoke at length with the primary service. Ventilator manipulations were made. It appears that his volume status is likely adequate at this point. We will repeat a lactate. It was not elevated yesterday right at 2.0. Repeat is pending this morning. Certainly in view of his profound vascular disease and his anticoagulation, he is certainly at risk for vascular phenomenon. Given his seizure and mental status, we will obtain an urgent CT scan of the head to rule out intracranial bleed. He will be continued on broad-spectrum antimicrobials for suspected sepsis. I will speak with nephrology as well. Likely we should get cardiology involved and we will at least get serial troponins and repeat his enzymes. He has significant multiorgan dysfunction. His prognosis is guarded at best. I left the bedside at 0958 hours. There was 53 minutes of critical care at the bedside not including procedures. NADEEM
--- NOTE | 2020-03-18 10:48 | CCN ---
DATE: 03/16/2020 CHIEF COMPLAINT: I again attending Joyce Sanchez here in the Intensive Care Unit. The patients medical chart reviewed. They have been able to wean his sedation. He answers questions appropriately and then does drift back off to sleep. Maximum temperature (T-max) overnight 98.8, blood pressure 91 over 103s. He has not required vasopressors. Respiratory rate 18-22. I&O midnight to midnight 1,900 mL in with 2,080 mL out. White blood cell count 14.2, hemoglobin 9.6, platelet count 220,000. Sodium 133, K 3.8, chloride 98, CO2 22, BUN 101, creatinine 5.15. Glucose 243. CRP 21.2. Repeat troponin pending. Blood gas this morning found a PRVC mode rate of 18, tidal volume 450, PEEP of 5, FiO2 30%, pH 7.38, pCO2 34.7, pO2 11.5. Chest x-ray shows less edema today, better inspiration. Lines and tubes in good position. No culture results available. PHYSICAL EXAMINATION: He is arousable, moves all extremities. Pupils react. Sclerae clear. Trachea is in the midline. Chest is fairly clear anteriorly. Well-healed median sternotomy scar. The faintest of dependent crackles that improve with deep inspiration on his pressure support only breaths. Cardiac exam is irregularly irregular. Peripheral pulses are diminished. Abdomen is soft with active bowel sounds, no hepatosplenomegaly or masses. Extremities show his right below knee amputation (BKA). Left lower extremity still has the surgical dressings in place wrapped by vascular surgery. ASSESSMENT: The most pressing problems requiring my immediate presence at the bedside: 1. Respiratory failure, multifactorial. 2. Abnormal troponins probably secondary to hypotension, ? NSTEMI?. 3. Atrial fibrillation with intermittent rapid ventricular response (RVR). 4. Intermittent ventricular ectopy. 5. Renal failure, mildly progressive, [id number]. 6. Diabetes mellitus. 7. Severe peripheral vascular disease. 8. Coronary artery disease status post bypass grafting. RECOMMENDATIONS AND PLAN: At this point, he very well may be able to be weaned and extubated today. We will go in that direction as tolerated. I appreciate cardiologys help with his rhythm. Cardiology yesterday felt that emergent catheterization was now not indicated and that conservative therapy seemed to be more prudent and therefore his transfer to [facility] was canceled. I appreciate their opinion. Renal function is only mildly abnormal but he is making reasonable urine. He remains on diuretic therapy and I appreciate nephrologys input. We will continue to closely monitor his electrolytes. Our hope is that he will be able to avoid dialysis. For his cellulitis, he remains on vancomycin and Zosyn. We can consider stopping the vancomycin in several days if there is no MRSA isolated. Hopefully we will be able to achieve enteral nutrition later today if he is extubated, and if not we will begin enteral feeds. Sugars have been under reasonable control. We will continue to monitor them closely with finger sticks and sliding scale coverage. His mental status is markedly improved from his initial presentation in the Intensive Care Unit. I will again monitor that closely. For now he will continue the Keppra. Further recommendations will be made in the progress records as new information becomes available. NADEEM
--- NOTE | 2020-03-18 10:52 | CCN ---
DATE: 03/15/2020 START TIME: 829 STOP TIME: 905 SUBJECTIVE: I again attended Joyce Sanchez here in the intensive care unit. Patient has been examined, chart reviewed, and I spoke at length with the nurse at the bedside. I had multiple conversations yesterday both with nephrology, as well as cardiology. This morning during sedation vacation, his mental status is much improved. Although he is anxious, he does follow commands. T-max overnight 98.4, blood pressure 90s to the 130s. Heart rate varies from the 90s to the 150s with predominantly atrial fibrillation. Occasional PVCs. Respiratory rate at least 18 and occasionally he does over-breathe the ventilator. Is and Os [id number] 1861 mL in with 945 mL out. Chest x-ray done this morning with suboptimal inspiratory effort and again shows evidence of his previous cardiac surgery. Lines and tubes in good position. There is cardiomegaly and I believe there is significant vascular congestion. White blood cell count shows 15.1, hemoglobin 9.9, platelet count 219,000, segs 90.7% and no bands. Sodium 131, K 3.6, chloride 97, CO2 of 21, BUN 96, creatinine 4.73 essentially stable from yesterday at 4.62. Glucose this morning 267. He is on a sliding scale. Lactic acid cleared at 1.3. Troponin peaked yesterday and 8.10 and it is 6.21 this morning. Blood gas done on a PRVC rate of 18, tidal volume 450, PEEP of 5, FiO2 of 35%, and has a pH of 7.335, pCO2 of 33.3, and a pO2 of 148.2. INR yesterday 2.0. Respiratory panel is negative. Blood cultures negative to date. OBJECTIVE: On exam he is sedate, but arousable. Pupils react. Sclerae clear. Trachea is in the midline. Chest shows his well-healed median sternotomy scar. He has an orogastric and endotracheal tube in place. Examination of the chest shows bibasilar crackles and fairly clear anteriorly. No rhonchus or rubs. Cardiac exam is tachycardic, irregularly irregular. Peripheral pulses are markedly diminished. There is edema. Abdomen is soft. There are distant bowel sounds. No hepatosplenomegaly or masses. Extremities show his right BKA. Left lower extremity below the knee is wrapped by vascular surgery. Neurologically sedate, but he does move his extremities. He is appropriate to stimuli during sedation vacation. ASSESSMENT: The most pressing problems requiring my immediate presence at the bedside: 1. Respiratory failure, multifactorial. 2. Coronary artery disease, status post an event yesterday with elevated troponins. 3. Atrial fibrillation with intermittent rapid ventricular response (RVR). 4. Diabetes mellitus. 5. Renal failure acute on chronic. 6. Severe peripheral artery disease. 7. Chronic anticoagulation. 8. Congestive heart failure. RECOMMENDATIONS AND PLAN: At this point, I will increase his metoprolol until he is seen by cardiology again this morning. We will attempt to achieve better rate control. Dr. Lopez had put in a request for transfer to [facility] as there were no beds at [facility]. We are hoping that he will be considered for a cardiac catheterization. In the interim; however, we will continue with diuresis. Central venous pressure (CVP) yesterday was 17 and his echo did suggest right-sided volume overload. My hopes is that he will still be a candidate for catheterization in view of his creatinine, but we will have to see about that. From an infectious disease standpoint, we will continue his broad spectrum antimicrobials for what is likely cellulitis of the left lower extremity. His improved white count is encouraging. Mental status was in question yesterday, but is much improved this morning and that is encouraging. He is on sliding scale insulin for his diabetes. Will probably begin enteral feeds tomorrow. We will start an insulin drip if need be. No ventilator weaning is planned today until after we can achieve reasonable diuresis. He continues on Eliquis for his severe artery disease. We should restart his aspirin. I await cardiologys opinion in that. At this point, he still has significant multiorgan dysfunction. He is critically ill. The events that led to his MAXCART yesterday are still somewhat in question. We will proceed as outlined above. He remains critically ill. Prognosis remains guarded. I left the bedside at 0906 hours, 36 minutes of critical care time at the bedside not including procedures. NADEEM
[2020-03-18 12:00] VITALS: BP 136/77
--- NOTE | 2020-03-18 12:51 | IPNPDOC ---
Date Seen The patient was seen on 03/18/20. Progress Note Progress Note dictated Assessment: PAD with infected b/l LE ulcers Cardiac Arrest s/p intubation and mechanical ventilation, extubated 03/16/20 Afib w RVR, resolved NSTEMI h/o CAD/CABG HTN DM CKD4 Acute encephalopathy r/o seizure s/p Cardiac Arrest Diastolic CHF, compensated Anxiety Depression HLD plan: continued on renally dosed cara mishra. Dr. Del Rosario for wound management. vascular surgery as outpt Cardiology and nephrology consulted. PT/OT. increase levemir insulin for better glycemic control. VS, I&O, 24H, Fishbone Vital Signs/I&O Vital Signs Date Time Temp Pulse Resp B/P (MAP) Pulse Ox O2 Delivery O2 Flow Rate FiO2 03/18/20 12:00 97.5 89 18 136/77 (96) 96 Room Air 03/16/20 17:00 1.0 03/16/20 08:00 25 I&O- Last 24 Hours up to 6 AM 03/18/20 06:00 Intake Total 2320 ml Output Total 3175 ml Balance -855 ml Laboratory Data 24H LABS Laboratory Tests 2 03/18/20 05:29: Nucleated Red Blood Cells % (auto) 0.0, Anion Gap 14, Glomerular Filtration Rate 13.8L, Calcium Level 8.6, Random Vancomycin Level 15.6 CBC/BMP Laboratory Tests 03/18/20 05:29 Microbiology Microbiology 03/14/20 Respiratory Virus Panel (PCR) ([facility]) - Final, Complete 03/14/20 Blood Culture - Preliminary, Resulted No Growth after 72 hours. All specime... 03/14/20 Blood Culture - Preliminary, Resulted No Growth after 72 hours. All specime... 03/13/20 Blood Culture - Preliminary, Resulted No Growth after 72 hours. All specime... 03/13/20 Blood Culture - Preliminary, Resulted No Growth after 72 hours. All specime... TLYER CHOW MD Mar 18, 2020 12:42
--- NOTE | 2020-03-18 14:02 | CR ---
DATE OF CONSULTATION: 03/15/2020 REFERRING PROVIDER: REASON FOR CONSULTATION: Atrial fibrillation with a rapid ventricular rate, abnormal serum troponin. HISTORY OF PRESENT ILLNESS: Mr. Joyce Sanchez is well known by my office with a history of premature coronary artery disease (CAD), followed by coronary artery bypass graft (CABG), severe peripheral vascular disease with a history of revascularization in the left lower extremity, right below-knee amputation (BKA) due to complications of his peripheral arterial disease (PAD). He also has a history of paroxysmal atrial fibrillation, but lately he has been in atrial fibrillation consistently, on anticoagulation therapy with Eliquis. He has multiple risk factors for cardiovascular disease with hypertension, hyperlipidemia, diabetes mellitus, and he is a former smoker. He has chronic kidney disease, most likely related to his long history of diabetes mellitus and hypertension, and he is being monitored by nephrology in [facility]. He came to the hospital on 03/13/2020, according to Dr. Dsouza, and was being treated for cellulitis of the left lower extremity, and it seemed that during the night he was hypotensive, and he was given intravenous (IV) fluids and responded. I had discussed with the hospitalist in the morning, and the plan was to see him later during the day; however, late morning I was called by Dr. Chicas, and he told me the patient coded, went into asystole, and was resuscitated. He is now intubated in intensive care unit (ICU)/critical care unit (CCU). There is a bump in his serum troponin. The initial plan was to transfer him to [place]. I saw Fredy Sanchez on the floor in the early afternoon hours, and at that time he was sedated and intubated in no acute distress. Vital signs were stable. Blood pressure was 110/65 with a pulse of 90-100, respirations 20 with a temperature of 98.1 degrees Fahrenheit with an oxygen saturation of 98% on an FiO2 of being ventilated. Examination of the head: Atraumatic. Neck revealed (cut out) jugular. The lungs revealed bilateral rhonchi with no wheezing. The heart examination revealed an irregular heart sound without gallops. The point of maximal impulse (PMI) is not displaced. There is no rub. Abdomen is soft. Extremities reveal a right BKA and lower leg edema. Neurological examination was not done. LABORATORY DATA: Complete blood count (CBC) on 03/14/2020 at 8:57 revealed a WBC of 23,000 with a hemoglobin of 12.2, hematocrit 39.8, and platelets 296,000. On admission, WBC was 29,000. BMP on 03/14/2020 at 8:57 revealed a sodium of 120, potassium 4.3, chloride 129, BUN 89, creatinine 4.53, GFR 14.2, fasting glucose 236, calcium 8.0. Liver enzymes revealed a total bilirubin of 0.5, AST 121, ALT 88, alkaline phosphatase 50, total protein 6.7, albumin 2.5. Serum proBNP was 32,150. First set of cardiac (cut out) 0.04, then 1.23, then 3.25 at 8:57 in the morning. Then at 11:24 it was 6.16, at 1430 it was 7.64, and at 1745 it was 8.01. PT was 23.4 with an INR of 2.03 and a PTT of 37.0. Echocardiogram done at bedside revealed a low-normal global left ventricular systolic function. There were regional wall abnormalities but may be related to his prior history of CABG. IMPRESSION: Status post cardiac arrest in this 59-year-old male with the above medical problems. Patient currently is intubated, and vital signs are stable. Case was discussed with Dr. Chicas and also Dr. Dsouza after the event. Dr. Chicas now is the managing physician. I have discussed with [facility] and [facility] in order to transfer him, but there was no bed available in ICU, but he was put as #2 on a list at [facility] ([facility]. In the meantime, we will continue current management, and patient was getting IV Lasix. He is currently intubated and is being monitored. He is currently not on his cardiac medications, but they will be restarted later today, particularly his anticoagulation therapy. Case was discussed with Dr. Quiñones, who will be overseeing him for me as needed over the weekend. It was a pleasure to participate in the care of Mr. Fredy Sanchez for his underlying cardiac condition. His prognostics after the cardiac event is guarded, and we will see how he responds in the next 24 hours if he is still in the hospital. The elevated serum troponin may be related to some demand ischemia but he does have underlying CAD even though I doubt it is due to an obstructive lesion. His CABG is less than 5 years old, and he does have a normal left ventricular ejection fraction (LVEF). NADEEM
--- NOTE | 2020-03-18 14:43 | CR ---
DATE: 03/14/2020 CHIEF COMPLAINT: Patient is well known to me, seen for evaluation of ulcers on his left foot. He is seen today for evaluation. Patient is a 59-year-old male with hypertension, diabetes with insulin, coronary artery disease, peripheral arterial disease, status post left lower extremity bypass, status post right below-knee amputation (BKA), chronic left foot ulcers with Charcot foot deformity. Patient ambulates with a [id number] prosthetic and with a wheelchair. He is presently is in the intensive care unit (ICU). PAST SURGICAL HISTORY: 1. Below-knee amputation, right foot. 2. Several left toe amputations. 3. Back surgery. 4. Left lower extremity arterial bypass surgery. ALLERGIES: No known allergies. HOME MEDICATIONS: - allopurinol 100 mg by mouth daily - apixaban 5 mg by mouth twice a day - aspirin 81 mg daily - buspirone XL 150 mg by mouth daily - calcitriol 25 mcg tablet daily - ferrous gluconate 324 mg tablet twice a day - furosemide 40 mg tablet 60 mg by mouth twice a day - Humalog sliding scale - losartan 25 mg by mouth daily - metolazone 2.5 mg tablet every week on Sundays - metoprolol 25 mg tablet with 12.5 mg by mouth twice a day - omeprazole 40 mg tablet by mouth daily - potassium chloride 10 mEq daily - pravastatin 80 mg every night - sertraline 25 mg by mouth every night Evaluation of his foot reveals an ulceration on the dorsal aspect of his foot, measuring 4 cm from medial to lateral and 0.6 cm from distal to proximal and approximately 2 mm in depth. At the lateral aspect of the foot is an ulceration measuring 2.1 cm x 1.8 cm x 2 mm in depth with no undermining. There is a tibial ulceration measuring 2.2 cm x 1.9 cm. Fourth toe has an ulceration 0.8 cm x 0.6 cm x 0.1 cm in depth. All of these ulcers display good granulation tissue and no discharge, no signs of infection. There is no surrounding erythema from these lesions. After appropriate time-out with nursing staff and consent obtained from the patient's father, since the patient is not responsive. The ulcer was debrided with a Mccann dermal curette excisionally subcutaneous tissue. Silvadene and a dressing were applied. [facility]
--- NOTE | 2020-03-18 14:45 | IPN ---
DATE: 03/17/2020 SUBJECTIVE: Patient was seen and examined at the bedside today morning. He just finished getting his EEG done. Patient is hemodynamically stable. He has a good urine output. He is not requiring any diuretics at this time. However, there is no significant improvement in the renal function. Creatinine is still 5.1 today which is the same as yesterday. Patient denies any active complaints. OBJECTIVE: Vital signs: Temperature is 96.7 degrees Fahrenheit, blood pressure 159/87, pulse is 93, respiratory rate of 23, saturating 94% on room air. Intake and output: Urine output recorded is 2.8 liters yesterday. There is no urine output recorded, however I saw his bag and there was a significant amount of urine in the Zaidi bag. Weight in the bed scale is not available. PHYSICAL EXAMINATION: General: Patient is awake, alert, oriented times two, laying in bed, no apparent distress. Head and neck exam: Extraocular muscles intact. Pupils equally round and reactive to light. Mucous membranes are moist. Neck is supple. There is no significant jugular venous distension (JVD). Cardiovascular: S1, S2, regular rate. No edema of the bilateral lower extremities. He has a midline sternotomy scar. Respiratory: Chest is clear to auscultation bilaterally. Bilateral equal air entry. No rales or rhonchi. Abdomen: Soft, positive bowel sounds, nontender, no organomegaly. Genitourinary: He has an indwelling Zaidi catheter. Musculoskeletal: He has a right below-knee amputation and left foot has a dressing because of infection. Central nervous system (ADMITTING COUNSELOR): No focal deficits. Power is 5/5 in bilateral upper extremities. LABORATORY REVIEW: CBC showed WBC of 15, hemoglobin is 9.5, platelets are 230. BMP showed sodium 133, potassium 3.8, chloride 99, bicarbonate 22, BUN 103, creatinine is 5.1. Troponin is 2.4, which is better than before, and C-reactive protein is still 20.5. IMAGING: A chest x-ray was done today morning. Official report is not available. CURRENT INPATIENT MEDICATIONS: Patients medications were all reviewed by myself. His Zosyn was changed to 2.25 grams IV every 8 hours because of acute renal failure. He continues to be on level based vancomycin dosing. No other significant change in the medications today as compared with yesterday. ASSESSMENT AND PLAN: 1. Acute renal failure. Patient is nonoliguric. His acid base and electrolytes are within the acceptable range. There is no urgent need of hemodialysis. Continue to monitor for renal recovery. 2. Anemia in chronic kidney disease. Hemoglobin level is 9.5 which is optimal at this time. I am going to check his iron levels to see if he needs any IV iron. 3. Non-ST elevation myocardial infarction (CT). Patient is getting conservative management. Troponins are trending down. 4. Sepsis secondary to infected left foot ulcer. Patient continues to be on IV antibiotics. C-reactive protein is slowly getting better. Rest of the management is as per podiatry. 5. Atrial fibrillation. Heart rate is better controlled with bisoprolol. He is anticoagulated with Eliquis. 6. Seizure disorder. Patient got an EEG done today. He continues to be on Keppra. Rest of the management as per neurology recommendations. [facility]
--- NOTE | 2020-03-18 14:47 | IPN ---
DATE: 03/17/2020 Mr. Sanchez was extubated yesterday and moved to progressive care unit (PCU). This morning he is feeling relatively well with the exception of fairly severe chest discomfort when turning in bed, likely as a consequence of his cardiopulmonary resuscitation (CPR). Vital signs: Blood pressure 130/72, heart rate has been in 90s and low 100s, atrial fibrillation. He has been afebrile. Saturation is 92% on room air. His fluid balance yesterday was recorded as negative 2200. He made over 3 liters of urine. Weight was not recorded yet this morning. He is alert, oriented, and appropriate. I do not appreciate any obvious distress. His jugular venous pressure (JVP) does not appear high. I do not appreciate any carotid bruit. Lungs are reasonably clear to auscultation with good air movement. No crackles or rhonchi. Heart exam is somewhat muffled, irregular tachycardia. I do not appreciate any rub, gallop, or murmur. Abdomen is soft without obvious tenderness. There is a right above-knee amputation (AKA), and on the left lower extremity there is bandage to mid shins. Scars after prior revascularization. Popliteal pulse is palpable. Neurologically, he is alert, oriented, appropriate, and moves all four extremities. LABORATORY DATA: WBC count is 15,000, hemoglobin 9.5, hematocrit 29, platelet count 230,000. Basic metabolic profile reveals sodium 133, potassium 3.8, BUN 103, creatinine 5.1, glucose 268. CRP is still very high at 20,000. Troponin I peaked at 8 three days ago. ECG reveals diffuse nonspecific repolarization abnormality, and telemetry tracing reveals that he has occasional ventricular ectopy with rare triplets. ASSESSMENT AND PLAN: Mr. Sanchez is an unfortunate 59-year-old man who has longstanding history of diabetes, severe peripheral vascular disease, and coronary artery disease with history of coronary artery bypass graft (CABG) in 2016. He presented with likely sepsis that led to eventually cardiopulmonary arrest with pulseless electrical activity as initial rhythm. He was successfully resuscitated. His troponin peaked a little over 8. There are no convincing ischemic abnormalities on EKG, but the EKG at baseline reveals significant repolarization abnormalities. He is also known to have underlying atrial fibrillation that is rate controlled with high-dose bisoprolol. At this point, I think it would be appropriate for patient to consider another coronary angiography, but unfortunately in the setting of worsening renal function, it would almost certainly lead to dependency on dialysis, which seems to be impending anyway. At this point, I would suggest that we wait at least one more day before making a final decision. I would like to have nephrology input regarding this issue. I would continue otherwise his current medications. He is on aspirin, Eliquis, bisoprolol, and a statin. Volume seems to be reasonably well controlled, surprisingly, in spite of advanced renal dysfunction. Choice of antibiotics as per primary team. All his blood cultures have been negative. As far as peripheral vascular disease is concerned, vascular surgery was consulted, and they believe there is no need for intervention, and conservative management was recommended. His condition certainly remains serious, and prognosis at best is guarded. NADEEM
[2020-03-18 15:30] VITALS: BP 111/65
--- NOTE | 2020-03-18 18:14 | IPN ---
DATE: 03/18/2020 Mr. Sanchez is feeling about the same. For the most part, he is asymptomatic as long as he does not move, but with motion he has chest discomfort likely related to recent cardiopulmonary resuscitation (CPR). Denies any dyspnea. Vital signs: Blood pressure this morning was recorded as 134/78, heart rate has been mostly in 80s and 90s with atrial fibrillation, he has been afebrile, saturation 94% on room air. His fluid balance yesterday was slightly negative, about 350. Weight has not been recorded as of yet. He is alert, oriented, and appropriate. His jugular venous pressure (JVP) does not look high. Lungs are reasonably clear. Heart exam reveals regular rhythm. I do not appreciate any gallop, rub, or murmur. Abdomen is soft, nontender. The right lower extremity is amputated. His left lower extremity is bandaged. Popliteal pulses remain palpable. LABORATORY DATA: Basic metabolic panel: Sodium 135, potassium 3.4, BUN 103, creatinine 4.7 for a GFR of 14, glucose 237. CBC: Hemoglobin 9, hematocrit 39, platelet count 254, WBC count 15.2. An echocardiogram yesterday revealed grossly preserved left ventricular systolic function even though it was a technically challenging study. Nevertheless, this is certainly encouraging. ASSESSMENT AND PLAN: Mr. Sanchez is a 59-year-old man who has extensive vascular disease with peripheral artery disease and also coronary artery disease with history of coronary artery bypass graft surgery (CABG). He presented with infected left foot and sepsis and actually suffered cardiopulmonary arrest, was successfully resuscitated. In the process, there was troponin elevation exceeding 6. At this point, he has been clinically relatively stable. His atrial fibrillation is rate controlled on high dose beta jose carlos and he has been anticoagulated with Apixaban. He also takes aspirin. I do not see a statin on the medication list and I am certainly going to add it, but otherwise, at this point, the critical decision remains between ongoing medical management versus coronary angiography. My recommendation would be to pursue coronary angiography but he is followed by Dr. Lopez who will see him tomorrow. The roberts issue remains renal insufficiency. Unfortunately, administration of dye would be associated with high risk of renal failure requiring dialysis. Nevertheless, he is a high risk individual and I believe that this would provide the best chance of longer survival. NADEEM
--- NOTE | 2020-03-18 18:18 | IPN ---
DATE: 03/18/2020 SUBJECTIVE: The patient complains of substernal chest pressure across the chest, unchanged from yesterday. He had some improvement with IV Morphine. No nausea or vomiting, or signs of impending doom. No other issues per nursing. Patient is currently on Lipitor, Bisoprolol, Metoprolol, aspirin, Pravachol. Patient denies any cough or shortness of breath. No other issues as per nursing. OBJECTIVE: PHYSICAL EXAMINATION: VITAL SIGNS: Temperature 97.5, pulse 89, respiratory rate 18, blood pressure 136/77, 96%^ on room air. GENERAL: The patient is awake, alert and oriented to person, place and time, answers questions appropriately. No conversational dyspnea. NECK: No JVD or thyromegaly. No cervical lymphadenopathy. HEART: S1 and S2, irregularly irregular. No murmurs, rubs or gallops. Midsternal scar well-healed. LUNGS: Diminished bilaterally with crackles. No wheezing or rales. Air entry is equal. ABDOMEN: Soft, nontender and nondistended. Positive bowel sounds x4 quadrants. No rebound or guarding. No abdominal bruit. EXTREMITIES: Right BKA, left lower extremity with Charcot foot infected ulcer with no fluctuance, no induration with some erythema, distal pulse noted prior to amputation, tibial wound. LABORATORY DATA: White count 15, hemoglobin 9.6, hematocrit 29, platelet count 254,000. Sodium 135, potassium 3.4, chloride 98, bicarbonate 23, BUN 103, creatinine 4.6, glucose of 237, troponin 2.45. ASSESSMENT AND PLAN: This is a 59-year-old male status post cardiac arrest due to infected lower extremity ulcers from severe peripheral arterial disease, was resuscitated successfully and extubated on 03/16/2020, currently with the following issues: 1. Left LE cellulitis / Peripheral arterial disease with infected lower extremity ulcers. Patient is continued on Vancomycin and Zosyn per Dr. Del Rosario. The patient will need a Wound-Vac, defer wound management per chamber magistrate. 2. Peripheral arterial disease of left lower extremity, followed by Dr. Ariza, Vascular Surgery, recommended no surgical intervention at this time and outpatient follow-up. He is continued on atorvastatin 80 mg q.h.s., Eliquis 5 mg b.i.d., aspirin 81 mg daily, and Pravastatin 80 mg q.h.s. 3. Status post cardiac arrest with respiratory failure requiring intubation, mechanical ventilation, extubated on 03/16 with non-ST elevation myocardial infarction, history of CAD and CABG with troponin decreasing, resume back on home dose of Eliquis, currently on Atorvastatin, Pravachol, Zebeta, metoprolol as needed. 4. Chronic kidney disease Stage IV to V, managed by Nephrology, currently on no nephrotoxins, renally dosing all medications. 5. Anemia secondary to chronic renal failure, no indication for RBC transfusion. 6. Acute metabolic encephalopathy with posturing, rule out seizure activity. EEG performed, had no result, continued on Levetiracetam intravenously. 7. Secondary hyperparathyroidism secondary to renal failure, chronic. 8. Depression, on chronic Zoloft. 9. Reflux, on Prilosec. 10. Type 2 diabetes and hyperglycemic protocol, insulin sliding scale, Levemir insulin 10 units q.a.m. 11. Dyslipidemia, Lipitor and Pravachol. MTDD
[2020-03-18 20:00] VITALS: BP 145/72
[2020-03-18] MEDS: ATORVASTATIN 20 MG TAB PO SCH (20:57)
[2020-03-18] MEDS: PRAVASTATIN 20 MG TAB PO SCH (20:57)
[2020-03-18] MEDS: SERTRALINE HCL 25 MG TABLET PO SCH (20:58)
[2020-03-19] VITALS: BP 136/81
[2020-03-19] MEDS ORDERED: CEPACOL LOZENGE PO ONE
[2020-03-19] MEDS: PIPERACILLIN/TAZOBACTAM SOD 2.25 GM in D5W MINI-BAG PLUS 50 ML IV SCH ×3 (00:18→17:30)
[2020-03-19 04:00] VITALS: BP 152/89
[2020-03-19 08:00] VITALS: BP 142/78
[2020-03-19] MEDS: OMEPRAZOLE 20 MG CAP PO SCH (08:20)
[2020-03-19] MEDS: allopurinoL 100 MG TAB PO SCH (08:20)
[2020-03-19] MEDS: CALCITRIOL 0.25 MCG CAP (S0169) PO SCH (08:20)
[2020-03-19] MEDS: APIXABAN 5 MG TAB (ELIQUIS) PO SCH ×2 (08:20→21:10)
[2020-03-19] MEDS: ASPIRIN 81 MG ENTERIC TAB PO SCH (08:20)
[2020-03-19] MEDS: FERROUS GLUCONATE 324 MG TAB PO SCH ×2 (08:20→21:10)
[2020-03-19] MEDS: HumaLOG INSULIN (NovoLOG) PER UNIT SC SCH ×5 (08:25→20:57)
[2020-03-19] MEDS: levETIRAcetam INJection 500 MG in D5W MINI-BAG PLUS 100 ML IV SCH ×2 (08:26→21:08)
[2020-03-19] MEDS: LEVEMIR (INSULIN DETEMIR) 1 UNITS/0.01ML SC SCH ×2 (08:26→21:09)
[2020-03-19] MEDS: bisoproloL fumarate 5 MG TAB NG SCH ×2 (08:35→21:10)
[2020-03-19] MEDS ORDERED: POTASSIUM CHLORIDE 10 MEQ SR TABLET PO ONE (09:00)
[2020-03-19] MEDS ORDERED: MAG SULF 1GM/100ML (MAG RUN) 1 GM in IV 1 EA IV ONE (09:00)
--- NOTE | 2020-03-19 09:35 | IPN ---
DATE: 03/18/2020 SUBJECTIVE: Patient was seen and examined at the bedside today morning. He is afebrile, hemodynamically stable. He has very good urine output. Renal function is improving. Creatinine is down to 4.6 today. OBJECTIVE: Vital signs: Temperature 97.7 degrees Fahrenheit, blood pressure 111/65, pulse 74, respiratory rate 20, saturating 95% on room air. Intake and output: Urine output recorded as 2.6 liters yesterday, 920 mL so far today since overnight. Weight in the bed scale is not available. PHYSICAL EXAMINATION: General: Patient is awake, alert and oriented x3, laying in bed, in no apparent distress. Head and neck exam: Extraocular muscles intact. Pupils equally round and reactive to light. Mucous membranes are moist. Neck is supple. There is no JVD. Cardiovascular: S1, S2, regular rate. Trace edema of the left lower extremity. Respiratory: Chest is clear to auscultation bilaterally. Bilateral equal air entry. No rales or rhonchi. Abdomen: Soft, positive bowel sounds, nontender, no organomegaly. Musculoskeletal: He has a dressing on the left foot. He has a right below knee amputation. PARIMUTUEL CLERK: No focal deficit. Power 5/5 in bilateral upper extremities. LABORATORY REVIEW: CBC showed WBC 15.2, hemoglobin 9.6, platelets 254,000. BMP showed sodium 135, potassium 3.4, chloride 98, bicarb 23, BUN 103, creatinine 4.6, calcium 8.6. CURRENT INPATIENT MEDICATIONS: Patients medications were all reviewed by myself. He continues to be on Vancomycin and Zosyn. Insulin Levemir has been changed to 12 units subcutaneously twice a day. He was also given a dose of potassium chloride 40 mEq p.o. times one dose. No other significant change in the medications today as compared with yesterday. ASSESSMENT AND PLAN: 1. Acute renal failure superimposed on chronic kidney disease stage 4: Patient has a good urine output. Renal function is improving. Creatinine is trending down. No urgent need of dialysis. 2. Hypokalemia: Patient was given a dose of potassium chloride 40 mEq. 3. Left leg cellulitis: Patient continues to be on vancomycin and Zosyn. C- reactive protein is slowly improving. 4. Anemia and chronic kidney disease: Hemoglobin level is 9.6, which is optimal. If it drops further, patient will be given a dose of Aranesp. 5. Non-ST elevation CO, history of CABG and recent cardiac arrest: Troponins are trending down. He is being managed conservatively. 6. Diabetes mellitus type 2 insulin dependent: Patient's insulin dose has been adjusted by the medical team. 7. Chronic diastolic congestive heart failure: Volume status is optimal. Patient is auto diuresing. No need of diuretic at this time. He is recovering from acute renal failure. MTDD
[2020-03-19 09:56] LABS: HEMATOCRIT 30.4 % (42.0-52.0); HEMOGLOBIN 9.8 g/dl (13.5-17.5); MEAN CORPUSCULAR HEMOGLOBIN 29.4 pg (27.0-33.0); MEAN CORPUSCULAR HGB CONC 32.2 g/dl (32.0-36.5); MEAN CORPUSCULAR VOLUME 91.3 fl (80.0-96.0); PLATELET COUNT, AUTOMATED 299 10^3/uL (150-450); RED BLOOD COUNT 3.33 10^6/uL (4.30-6.10); WHITE BLOOD COUNT 11.8 10^3/uL (4.0-10.0)
[2020-03-19 10:12] LABS: CALCIUM LEVEL 8.7 MG/DL (8.5-10.1); CREATININE FOR GFR 4.4 MG/DL (0.70-1.30); GLOMERULAR FILTRATION RATE 14.7 (>56); MAGNESIUM LEVEL 2.4 MG/DL (1.8-2.4); POTASSIUM SERUM 3.9 MEQ/L (3.5-5.1); VANCOMYCIN LEVEL TROUGH 15.5 UG/ML (10.0-20.0)
[2020-03-19] MEDS: VANCOMYCIN HCL 500 MG in D5W MINI-BAG PLUS 100 ML IV SCH (10:28)
[2020-03-19] MEDS: SODIUM BICARBONATE 325 MG TAB PO SCH ×2 (11:04→21:09)
[2020-03-19 12:00] VITALS: BP 160/96
[2020-03-19] MEDS: SODIUM CHLORIDE 0.9% INJ 10 ML SYR IV SCH ×2 (14:43→21:24)
[2020-03-19 16:00] VITALS: BP 150/90
--- NOTE | 2020-03-19 17:17 | IPNPDOC ---
Text Note Date of Service The patient was seen on 03/19/20. NOTE SUBJECTIVE: Patient was seen and examined this morning at bedside. He states he is feeling some improvement this morning. No fevers overnight. No pain in his left leg. OBJECTIVE: PHYSICAL EXAMINATION: VITAL SIGNS: Please see below. GENERAL: Alert, laying comfortably in bed, in no acute distress HEENT: NC, AT, moist mucous membranes, no JVD. CARDIOVASCULAR: RRR, normal S1 and S2 RESPIRATORY: CTAB, no wheezing, rhonchi, or rales ABDOMINAL: Soft, nontender, nondistended EXTREMITIES: No edema noted. Right BKA amputation. Left foot has a clean dressing in place. ASSESSMENT/PLAN: 59 year old male admitted for sepsis secondary to left leg ulcers who developed acute renal failure superimposed on CKD stage 4. 1. Acute renal failure on chronic kidney disease stage 4. Cr improved to 4.40 today, down from 4.67. Patient has a good urine output. No current indication for urgent dialysis. 2. Metabolic acidosis. Bicarbonate level dropped to 20. Will start patient on sodium bicarbonate 325mg PO twice a day. 3. Hypokalemia. Improved, potassium 3.9 today. Continue to monitor and supplement as indicated 4. Left leg cellulitis: Patient continues on antibiotics with vancomycin and zosyn. WBC count and CRP level have trended down. Blood cultures negative. 5. Anemia in chronic kidney disease. Hemoglobin level is stable 9.8, which is optimal. If hemoglobin level drops, patient will be given a dose of Aranesp. 6. Non-ST elevation PR with history of CABG and recent cardiac arrest. Troponins have trended down. He is being managed conservatively. 7. Diabetes mellitus type 2 insulin dependent. Insulin dosing managed per primary team. 8. Chronic diastolic congestive heart failure. Patient has been auto diuresing and his volume status is optimal. No current indication for diuretic at this time. Thank you for the consultation on this patient, we will continue to follow along. VS,Jamese, I+O VS, Jamarcusbone, I+O Laboratory Tests 03/19/20 09:00 Vital Signs Date Time Temp Pulse Resp B/P (MAP) Pulse Ox O2 Delivery O2 Flow Rate FiO2 03/19/20 12:00 97.4 80 18 160/96 (117) 97 Room Air 03/16/20 17:00 1.0 03/16/20 08:00 25 I&O- Last 24 Hours up to 6 AM 03/19/20 06:00 Intake Total 1243 ml Output Total 1895 ml Balance -652 ml GME ATTESTATION GME ATTESTATION My faculty preceptor for this patient encounter was physically present during the encounter and was fully available. All aspects of the patient interview, examination, medical decision making process, and medical care plan development were reviewed and approved by the faculty preceptor. The faculty preceptor is aware and concurs with the plan as stated in the body of this note and will attest to such by his/her cosignature. ATTENDING NOTE ALLY Hypokalemia Lt Leg cellulitis NSTEMI s/p Cardiac Arrest. PVD IDDM. Metabolic Acidosis Non oliguric ALLY.No urgent need of HD. Start oral bicarb. No need of diuretic. cont current antibiotics. CAROLEE ROJAS D.O. Mar 19, 2020 17:17 ANN NANCE MD Mar 19, 2020 20:46
[2020-03-19 20:00] VITALS: BP 158/92
[2020-03-19] MEDS: ATORVASTATIN 20 MG TAB PO SCH (21:09)
[2020-03-19] MEDS: PRAVASTATIN 20 MG TAB PO SCH (21:09)
[2020-03-19] MEDS: SERTRALINE HCL 25 MG TABLET PO SCH (21:10)
[2020-03-20] VITALS (8 sets, daily range): BP systolic 132–168; BP diastolic 71–92
[2020-03-20] MEDS: PIPERACILLIN/TAZOBACTAM SOD 2.25 GM in D5W MINI-BAG PLUS 50 ML IV SCH ×3 (00:22→18:38)
[2020-03-20] MEDS: SODIUM CHLORIDE 0.9% INJ 10 ML SYR IV SCH ×3 (05:15→21:28)
[2020-03-20 05:32] LABS: HEMATOCRIT 28.5 % (42.0-52.0); HEMOGLOBIN 9.3 g/dl (13.5-17.5); MEAN CORPUSCULAR HEMOGLOBIN 29.4 pg (27.0-33.0); MEAN CORPUSCULAR HGB CONC 32.6 g/dl (32.0-36.5); MEAN CORPUSCULAR VOLUME 90.2 fl (80.0-96.0); PLATELET COUNT, AUTOMATED 329 10^3/uL (150-450); RED BLOOD COUNT 3.16 10^6/uL (4.30-6.10); WHITE BLOOD COUNT 10.7 10^3/uL (4.0-10.0)
[2020-03-20 05:43] LABS: CALCIUM LEVEL 8.2 MG/DL (8.5-10.1); CREATININE FOR GFR 4.08 MG/DL (0.70-1.30); GLOMERULAR FILTRATION RATE 16.1 (>56); POTASSIUM SERUM 3.5 MEQ/L (3.5-5.1)
--- NOTE | 2020-03-20 07:55 | ECHO ---
DATE OF PROCEDURE: 03/14/2020 Age: Gender: Male Height: 183 cm Weight: 107 kg REFERRING PHYSICIAN: Mesfin Dsouza MD INDICATION: Cardiac dysrhythmia MEASUREMENTS: IVS 1.3 LV 4.9 LVPW 1.1 LA 3.5 Aorta 3.2 IVC 1.7 FINDINGS: The study is of rather limited technical quality. There were relatively good quality parasternal views, but apical and subcostal views were very poor. The patient is in atrial fibrillation with borderline tachycardic rate. Left ventricle is normal size. Based on limited views, there is probably normal or near normal LV systolic function, I do not appreciate any distinct segmental wall motion abnormalities. Right ventricle was poor visualized. Left atrium appears at least mildly dilated. Right atrium was poorly seen. No pericardial effusion is noted. Aortic valve is sclerotic. There is prominent calcification in noncoronary cusp. But mobility of cusp is preserved. Mitral, tricuspid and pulmonic valves appear normal. Inferior vena cava is normal size. Aortic root is normal. Aortic arch and abdominal aorta were not well seen. Doppler interrogation reveals no significant aortic stenosis or insufficiency. The same applies for mitral valve. There is trace tricuspid insufficiency. Calculated pulmonary artery pressure is in the 30s, corresponding to mild pulmonary hypertension. Pulmonic valve is functionally competent. Evaluation of diastolic function is inconclusive due to underlying atrial fibrillation. CONCLUSIONS: 1. Study is of limited technical quality. The patient is in atrial fibrillation with borderline tachycardia. 2. Normal LV size with mild left ventricular hypertrophy (LVH) and probably normal or near normal LV systolic function. 3. No hemodynamically significant volume disease. 4. Likely normal central venous pressure and at least mild pulmonary hypertension. [facility]
[2020-03-20] MEDS: levETIRAcetam INJection 500 MG in D5W MINI-BAG PLUS 100 ML IV SCH ×2 (08:42→20:58)
[2020-03-20] MEDS: HumaLOG INSULIN (NovoLOG) PER UNIT SC SCH ×4 (08:45→21:00)
[2020-03-20] MEDS: APIXABAN 5 MG TAB (ELIQUIS) PO SCH ×2 (08:46→21:13)
[2020-03-20] MEDS: LEVEMIR (INSULIN DETEMIR) 1 UNITS/0.01ML SC SCH ×2 (08:46→21:00)
[2020-03-20] MEDS: SODIUM BICARBONATE 325 MG TAB PO SCH ×2 (08:47→21:12)
[2020-03-20] MEDS: OMEPRAZOLE 20 MG CAP PO SCH (08:47)
[2020-03-20] MEDS: ASPIRIN 81 MG ENTERIC TAB PO SCH (08:47)
[2020-03-20] MEDS: FERROUS GLUCONATE 324 MG TAB PO SCH ×2 (08:47→21:13)
[2020-03-20] MEDS: CALCITRIOL 0.25 MCG CAP (S0169) PO SCH (08:48)
[2020-03-20] MEDS: bisoproloL fumarate 5 MG TAB NG SCH ×2 (08:51→21:13)
--- NOTE | 2020-03-20 09:37 | EEG ---
DATE OF EEG: March 17, 2020 REFERRING PHYSICIAN: Mesfin Dsouza MD DIAGNOSIS: Seizure. EEG# [id number]. HISTORY: Patient is a 59-year-old man who was admitted at [facility] due to severe sepsis on mechanical ventilation at that time. This EEG was done to rule out epileptic potential. The patient is currently on Zosyn, Keppra, Vancomycin, allopurinol, Zoloft, Eliquis. TECHNICAL DESCRIPTION: This baseline EEG was recorded by 21-scalp, ear, and two EKG electrodes, and was reviewed in bipolar and referential montages following reformatting in 10-20 international electrode placement system. INTERPRETATION: Patient was noted to be mostly in drowsy and asleep state. During brief arousals, background rhythm consisted of 9 Hz alpha activity measuring 15-40 microvolts in amplitude, which was symmetric and reactive to eye opening. Stage 1 and 2 sleep were reviewed and were symmetric bilaterally. Hyperventilation could not be performed. Photic stimulation remained unremarkable. EKG revealed atrial fibrillation with wide QRS complexes and PVCs. No focal, lateralizing, or epileptiform abnormalities were seen. No relevant clinical activity was noted. CONCLUSION: This EEG in mostly drowsy, stage 1 and 2 sleep is within normal limits. EKG revealed bundle-branch block pattern with atrial fibrillation and PVCs. MTDD
[2020-03-20] MEDS: VANCOMYCIN HCL 500 MG in D5W MINI-BAG PLUS 100 ML IV SCH (09:40)
--- NOTE | 2020-03-20 10:07 | IPN ---
DATE: 03/19/2020 SUBJECTIVE: Patient seen and examined. Chart has been reviewed. Denies any chest pain, pressure, or tightness, lightheadedness, dizziness, or shortness of breath. No fever, chills, or cough overnight. No other issues per nursing. OBJECTIVE: PHYSICAL EXAMINATION: VITAL SIGNS: Temperature 97.5, pulse 75, irregularly irregular, respiratory rate 20, blood pressure 142/78, 97% on room air. GENERAL: Awake, alert, oriented times three, answering questions appropriately. No jugular venous distention (JVD), no thyromegaly. No cervical lymphadenopathy. LUNGS: Diminished. No wheezing, rales, or rhonchi. HEART: S1, S2, irregularly irregular. Mid sternal well-healed scar. ABDOMEN: Soft, nontender, nondistended. Positive bowel sounds times four quadrants. No rebound, no guarding. EXTREMITIES: Right below-knee amputation (BKA). Left lower extremity: Charcot foot infected ulcer. No fluctuance or induration. Some erythema. LABORATORY DATA: White count 11.8, hemoglobin 9.8, hematocrit 30, platelet count 299. Sodium 132, potassium 3.9, chloride 96, bicarbonate 20, BUN 106, creatinine 4.4. glucose 222. Input 1243, output 2120, -877. Previous weight was 109.3 kg, current weight 109.9 kg. HOSPITAL MEDICATIONS: Sodium bicarbonate, Lipitor, Levemir, intravenous (IV) vancomycin, Percocet, IV Zosyn, apixaban, bisoprolol, Lispro insulin sliding scale, metoprolol, levetiracetam, morphine, Ativan, aspirin, calcitriol, omeprazole, Tylenol, ferrous gluconate, pravastatin, sertraline, hypoglycemic protocol. ASSESSMENT AND PLAN: This is a 59-year-old male status post cardiac arrest due to infected lower extremity ulcers from severe peripheral arterial disease, resuscitated successfully. Extubated on 03/16/2020. IMPRESSION: 1. Left LE cellulitis / Infected lower extremity ulcers with peripheral arterial disease, on IV vancomycin and Zosyn. Dr. Del Rosario has been consulted. Patient will need a wound VAC. Defer to wound management per podiatry. 2. Peripheral arterial disease of left lower extremity. Vascular surgery recommended no inpatient surgical intervention. She is continued on atorvastatin, Eliquis, aspirin, and pravastatin. Outpatient vascular surgical followup. 3. Status post cardiac arrest with respiratory failure, requiring intubation. Non-ST elevation myocardial infarction, coronary artery disease (CAD), coronary artery bypass graft (CABG) with troponin decreasing. Patient will need coronary angiogram but will most likely need dialysis after the IV dye load. He is agreeable to transfer to [place] once the acute infection has resolved. Currently back on atorvastatin, Pravachol, Zebeta, metoprolol as needed, and Eliquis. 4. Chronic kidney disease, stage IV-V, managed by nephrology. Currently on no nephrotoxins. Renally dosing all medications. He will most likely need dialysis once coronary angiography is performed with a dye load to evaluate his coronary artery disease. 5. Anemia secondary to chronic renal failure. No acute indication for red blood cells (RBC) transfusion. 6. Acute encephalopathy with posturing with cardiac arrest, resolved, rule out seizure activity. EEG had no report. On levetiracetam intravenously currently. 7. Secondary hyperparathyroidism secondary to renal failure. 8. Depression, on chronic Zoloft. 9. Reflux, on Prilosec. 10. Type 2 diabetes, on hypoglycemic protocol, sliding scale, Levemir insulin. 11. Dyslipidemia, on Lipitor and Pravachol. DISPOSITION: Once acute infection has resolved, patient will be transferred to [place] for coronary angiogram and will need nephrology for dialysis. [facility]
[2020-03-20] MEDS: PERCOCET 5MG/325MG TAB PO PRN (10:47)
[2020-03-20] MEDS ORDERED: POTASSIUM CHLORIDE 10 MEQ SR TABLET PO ONE (11:00)
[2020-03-20] MEDS ORDERED: FUROSEMIDE 40MG/4ML VIAL (J1940) IV ONE (11:00)
[2020-03-20] MEDS ORDERED: LORazepam 2 MG/ML VIAL IV ONE (17:00)
--- NOTE | 2020-03-20 18:47 | REPVR ---
PROCEDURE INFORMATION: Exam: MR Head Without Contrast Exam date and time: 03/20/2020 6:10 PM Age: 59 years old Clinical indication: Altered mental status/memory loss; Confusion or disorientation; Patient HX: Sz. Confusion, aphasia; Additional info: ? Seizure prior to cardiac arrest TECHNIQUE: Imaging protocol: MR of the head without contrast. COMPARISON: CT Head without contrast 03/14/2020 10:55 AM FINDINGS: Limitations: The study is mildly limited due to patient motion artifact. Brain: There is no acute intracranial hemorrhage, cerebral edema, or midline shift. No restricted diffusion is present to suggest acute infarction. Mild chronic small vessel ischemic disease is present in the periventricular white matter. Ventricles: No hydrocephalus. Bones/joints: Unremarkable. Sinuses: Normal as visualized. No acute sinusitis. Mastoid air cells: Normal as visualized. No mastoid effusion. Orbits: The patient is likely status post bilateral cataract surgery. Soft tissues: Unremarkable. IMPRESSION: 1. No acute abnormality. 2. Chronic findings as discussed above. Electronically signed by: Denis Beltran On 03/20/2020 18:46:37 PM
[2020-03-20] MEDS: ATORVASTATIN 20 MG TAB PO SCH (21:00)
[2020-03-20] MEDS: SERTRALINE HCL 25 MG TABLET PO SCH (21:17)
[2020-03-20] MEDS: PRAVASTATIN 20 MG TAB PO SCH (23:06)
[2020-03-21] VITALS (7 sets, daily range): BP systolic 140–178; BP diastolic 78–96
[2020-03-21] MEDS: PIPERACILLIN/TAZOBACTAM SOD 2.25 GM in D5W MINI-BAG PLUS 50 ML IV SCH (01:56)
[2020-03-21] MEDS: SODIUM CHLORIDE 0.9% INJ 10 ML SYR IV PRN (02:36)
[2020-03-21] MEDS: SODIUM CHLORIDE 0.9% INJ 10 ML SYR IV SCH ×3 (05:52→21:05)
[2020-03-21] MEDS ORDERED: ceFAZolin SOD 2 GM in IV 1 EA IV SCH (07:45)
[2020-03-21] MEDS: HumaLOG INSULIN (NovoLOG) PER UNIT SC SCH ×4 (08:45→20:51)
[2020-03-21] MEDS: ASPIRIN 81 MG ENTERIC TAB PO SCH (08:46)
[2020-03-21] MEDS: LEVEMIR (INSULIN DETEMIR) 1 UNITS/0.01ML SC SCH ×2 (08:46→21:04)
[2020-03-21] MEDS: FERROUS GLUCONATE 324 MG TAB PO SCH ×2 (08:47→21:03)
[2020-03-21] MEDS: bisoproloL fumarate 5 MG TAB NG SCH (08:47)
[2020-03-21] MEDS: OMEPRAZOLE 20 MG CAP PO SCH (08:47)
[2020-03-21] MEDS: CALCITRIOL 0.25 MCG CAP (S0169) PO SCH (08:47)
[2020-03-21] MEDS: SODIUM BICARBONATE 325 MG TAB PO SCH ×2 (08:48→21:04)
[2020-03-21] MEDS: ceFAZolin SOD 1 GM in D5W MINI-BAG PLUS 50 ML IV SCH ×2 (08:48→21:04)
[2020-03-21] MEDS: APIXABAN 5 MG TAB (ELIQUIS) PO SCH ×2 (08:48→21:03)
[2020-03-21] MEDS ORDERED: levETIRAcetam 250MG TABLET (KEPPRA) PO SCH (09:00)
[2020-03-21] MEDS ORDERED: bisoproloL fumarate 5 MG TAB PO ONE (11:30)
--- NOTE | 2020-03-21 15:09 | IPN ---
DATE: 03/19/2020 Mr. Joyce Sanchez was seen this evening, he was in supine in bed in no acute distress at rest. He does complain of chest wall pain. There was no orthopnea, paroxysmal nocturnal dyspnea (PND), shortness of breath. He denies any palpitations. He denies any headaches, focal manifestation. There is no report of bleeding. He was admitted last and started on treatment for cellulitis, then on Tuesday he had a cardiac arrest. He stated he did not remember anything prior to Tuesday. Prior to coming to the hospital, he thinks he was doing fine and he came to the hospital upon the recommendations of a friend. He denies any focal manifestation. He has not been coughing. PHYSICAL EXAMINATION: Patient is alert and oriented, in no acute distress at rest and appeared to be sharp in his memory except for last , Tuesday, and Tuesday he could not remember anything. His vital signs when I saw him this evening revealed a blood pressure of 150/90, with a pulse of 79, respirations 16, and his maximum temperature was 97.5 degrees Fahrenheit with an oxygen saturation of 95% on room air. He has a negative fluid balance of about 870 mL. Examination of the head: Atraumatic. Neck is supple. No jugular venous distention (JVD) appreciated. The lungs did not reveal any wheezing or crackles. The heart examination reveals irregular heart sounds without gallops. The point of maximum impulse (PMI) is slightly displaced inferiorly. There is no rub. I could not appreciate any murmurs. Abdomen is soft and nontender. Extremities revealed right below-knee amputation (BKA). Only minimal swelling noted below the bandage in his left lower extremity. Neurologic examination was negative for focal deficit. LABORATORY DATA: CBC done today 03/19/2020 revealed a WBC of 11.8, hemoglobin 9.8, hematocrit 30.4, and platelets 299,000. BMP revealed a sodium of 132, potassium 3.9, chloride 96, CO2 20, BUN 106, creatinine 4.4, GFR 14.7, and fasting glucose 222, with a calcium of 8.7. Serum magnesium is 2.1. Serum troponin peaked at 8.1 on 03/14/2020. IMPRESSION: Status post cardiac arrest in this 59-year-old male with history of coronary artery disease (CAD) and peripheral artery disease (PAD) and multiple stressors for coronary artery disease (CAD). His serum troponin peaked about 8.0 and the etiology is not quite clear but in view of his history, at one point, he would benefit from a cardiac catheterization to assess his coronary anatomy and have a treatment plan. In the meantime, I will continue current management with IV antibiotics for his cellulitis. This seems to have improved. Prior to going to the cardiac catheterization, he will need to be cleared by nephrology. I have noticed today his blood pressure is mildly elevated and if it continues to be the same tomorrow, we can start him on a small dose of amlodipine. I have also noticed he is on atorvastatin and pravastatin and this will be discussed tomorrow with his hospitalist. It was a pleasure to participate in the care of Mr. Daniel Sanchez for his underlying cardiac condition. I will continue to monitor him along with you. It seems that he has improved significantly from his hospitalization. NADEEM
--- NOTE | 2020-03-21 15:11 | IPN ---
DATE: 03/20/2020 SUBJECTIVE: Patient is seen and examined at the bedside. Chart has been reviewed. Patient denies any shortness of breath, fever, chills. He feels like he is going to cough but is attempting to hold it in because of pain in the chest from previous cardiac arrest and chest compressions with soreness of the muscle. Afebrile, no complaints of chills, nausea, or vomiting. Tolerating his diet. No dizziness or lightheadedness or palpitations. OBJECTIVE: PHYSICAL EXAMINATION: Vital signs: Temperature 96.9, pulse 72, respiratory rate 16, blood pressure 168/88, 97% on room air. Generally: Patient appears his stated age, no conversational dyspnea, no icterus or jaundice, no jugular venous distension (JVD) or thyromegaly. Lungs: Diminished but no wheezing, rales, or rhonchi. Heart: S1, S2, irregularly irregular. Well-healed mid-sternal scar from prior coronary artery bypass surgery (CABG). Abdomen: Soft, nontender, nondistended, positive bowel sounds times four quadrants. No rebound, guarding, no hepatosplenomegaly. Extremities: Right below-knee amputation (BKA). Left lower extremity Charcot foot with ulcer. No fluctuance or induration. Erythema is improving. LABORATORY DATA: White count 10.7, hemoglobin 9.3, hematocrit 28, platelet count 329, sodium 133, potassium 3.5, chloride 99, bicarbonate 21, BUN 101, creatinine 4.08, glucose of 192. Microbiology: Respiratory panel negative. Two sets of blood cultures 03/14/2020 and 03/13/2020 are all negative. ASSESSMENT AND PLAN: This is a 59-year-old male with history of coronary artery disease (CAD), coronary artery bypass graft surgery (CABG) admitted due to infected lower extremity ulcers complicated by cardiac arrest and resuscitated successfully, intubated and mechanically ventilated and finally extubated on 03/16/2020. IMPRESSION: 1. Left leg cellulitis/ Infected lower extremity ulcers with peripheral vascular disease. Seen by Dr. Del Rosario. Will need wound vacuum assisted closure (VAC) and management per podiatry. Patient has no fever. White count has decreased to 10.7. Patients vancomycin and Zosyn are renally dosed and managed by pharmacy. 2. Cardiac arrest with posturing. Patient had been placed on levetiracetam for concerns of seizure activity. CT of the head was negative. EEG is still pending official report. 3. Coronary artery disease (CAD) coronary artery bypass graft surgery (CABG) status post cardiac arrest. Per Dr. Lopez, patient will benefit from coronary angiogram next week with transfer to [facility]. He currently has acute on chronic renal failure stage IV with good urine output with renal function improving with creatinine trending downward. With the angiogram dye load, patient may need emergent dialysis in [place], therefore it is highly recommended to have nephrology consulted prior to angiogram to prevent contrast- induced nephropathy. 4. Non-ST elevation myocardial infarction ([place]), coronary artery bypass graft surgery (CABG), and recent cardiac arrest. Troponins are trending downward. Plans are for coronary angiogram next week to be spearheaded by his radio station operator, Dr. Lopez. It will be an inpatient transfer. 5. Chronic diastolic heart failure. Currently compensated. Auto diuresing but given Lasix by nephrology this morning. [facility]
--- NOTE | 2020-03-21 15:12 | IPN ---
DATE: 03/20/2020 SUBJECTIVE: Patient was seen and examined at the bedside today morning. He was sitting up in the bed today. He is feeling better. He still has an indwelling Zaidi catheter. Renal function is gradually improving. Creatinine has trended down to 4 today and he has a good urine output. OBJECTIVE: Vital signs: Temperature is 97.5 degrees Fahrenheit, blood pressure 132/82, pulse is 81, respiratory rate of 18, saturating 97% on room air. Intake and output: Urine output recorded is 1.4 liters yesterday, 500 mL so far today since overnight. Weight in the bed scale is 107.3 kg which is likely lower than the weight yesterday. PHYSICAL EXAMINATION: General: Patient is awake, alert, oriented times three, sitting up in the bed, no apparent distress. Head and neck exam: Extraocular muscles intact. Pupils equally round and reactive to light. Mucous membranes are moist. He has dentures. Neck is supple. He has a left subclavian triple-lumen catheter. Cardiovascular: S1, S2, regular rate. He has 2+ edema of the left lower extremity Respiratory: Chest is clear to auscultation bilaterally. Bilateral equal air entry. No rales or rhonchi. Abdomen: Soft, obese, positive bowel sounds, nontender, no organomegaly. Musculoskeletal: Patient has a right below-knee amputation, he was wearing the prosthesis today, and the left foot has a dressing right now. Central nervous system (TELECOM SPECIALIST): No focal deficits. Power is 5/5 in bilateral upper extremities. LABORATORY REVIEW: CBC showed WBC of 10.7, which is better than yesterday, hemoglobin 9.3, platelets are 329. BMP showed sodium 133, potassium 3.5, chloride 99, bicarbonate 21, BUN 101, creatinine is 4.08, calcium 8.2. CURRENT INPATIENT MEDICATIONS: Patients medications were all reviewed by myself. There is no significant change in the medications today as compared with yesterday, however I have ordered a dose of Lasix 40 mg IV times one dose today. ASSESSMENT AND PLAN: 1. Acute kidney injury superimposed on chronic kidney disease stage IV. Patients acid base status and potassium is within the acceptable range. Renal function is very gradually improving. No urgent need of dialysis at this time. 2. Metabolic acidosis. He was started on sodium bicarbonate yesterday. Bicarbonate level is within the acceptable range. 3. Anemia in chronic kidney disease. Hemoglobin level is 9.3 which is low at this time. I am going to check his iron levels and given him IV iron if his levels are low. 4. Non-ST elevation myocardial infarction ([place]) status post cardiac arrest. His latest troponin 3 days ago was 2.45. He is being seen by cardiology. He is being managed conservatively. He might need to be transferred ultimately once his cellulitis gets better. 5. Left leg cellulitis. Patient continues to be on IV antibiotics. White cell count is gradually improving. 6. Lower extremity edema. Patient was given one dose of Lasix 40 mg IV today morning. MTDD
[2020-03-21] MEDS: PERCOCET 5MG/325MG TAB PO PRN (17:07)
--- NOTE | 2020-03-21 17:37 | IPNPDOC ---
Text Note Date of Service The patient was seen on 03/21/20. NOTE SUBJECTIVE: Patient was seen and examined this morning at bedside. He is feeling well, no new issues. No fevers overnight. States that podiatry is coming to look at his left foot wounds today. OBJECTIVE: PHYSICAL EXAMINATION: VITAL SIGNS: Please see below. GENERAL: Alert, laying comfortably in bed, in no acute distress HEENT: NC, AT, moist mucous membranes, no JVD. CARDIOVASCULAR: RRR, normal S1 and S2 RESPIRATORY: CTAB, no wheezing, rhonchi, or rales ABDOMINAL: Soft, nontender, nondistended EXTREMITIES: No edema noted. Right BKA amputation. Left foot has a clean dressing in place. ASSESSMENT/PLAN: 59 year old male admitted for sepsis secondary to left leg ulcers who developed acute renal failure superimposed on CKD stage 4. 1. Acute renal failure on chronic kidney disease stage 4. Cr has been trending down, 4.08 yesterday. No updated labs yet today. Patient has a good urine outpu t. No current indication for urgent dialysis. 2. Metabolic acidosis. Bicarbonate level improved based on yesterday labs. Continue sodium bicarbonate 325mg PO twice a day. 3. Hypokalemia. Resolved, potassium has remained stable. Continue to monitor and supplement as indicated 4. Left leg cellulitis: Patient continues on antibiotics with vancomycin and zosyn. WBC count and CRP level have trended down. Blood cultures negative. 5. Anemia in chronic kidney disease. Hemoglobin level is stable. If hemoglobin level drops, patient will be given a dose of Aranesp. 6. Non-ST elevation CA with history of CABG and recent cardiac arrest. Troponins have trended down. He is being managed conservatively. 7. Diabetes mellitus type 2 insulin dependent. Insulin dosing managed per primary team. 8. Chronic diastolic congestive heart failure. Patient has been auto diuresing and his volume status is optimal. No current indication for diuretic at this time. Thank you for the consultation on this patient, we will continue to follow along. VS,Fishbone, I+O VS, Fishbone, I+O Vital Signs Date Time Temp Pulse Resp B/P (MAP) Pulse Ox O2 Delivery O2 Flow Rate FiO2 03/21/20 17:07 20 Room Air 03/21/20 16:00 97.3 79 152/96 (114) 97 03/16/20 17:00 1.0 03/16/20 08:00 25 I&O- Last 24 Hours up to 6 AM 03/21/20 06:00 Intake Total 1470 ml Output Total 1600 ml Balance -130 ml GME ATTESTATION GME ATTESTATION My faculty preceptor for this patient encounter was physically present during the encounter and was fully available. All aspects of the patient interview, examination, medical decision making process, and medical care plan development were reviewed and approved by the faculty preceptor. The faculty preceptor is aware and concurs with the plan as stated in the body of this note and will attest to such by his/her cosignature. ATTENDING NOTE ALLY on CKD4 Lt Leg cellulitis. Leg edema IDDM Met Acidosis No need of HD. Non oliguric ALLY. Cont PO bicarb.Diuretic PRN. CAROLEE ROJAS D.O. Mar 21, 2020 17:37 ANN NANCE MD Mar 23, 2020 09:32
[2020-03-21] MEDS: bisoproloL fumarate 10 MG TAB PO SCH (21:03)
[2020-03-21] MEDS: SERTRALINE HCL 25 MG TABLET PO SCH (21:03)
[2020-03-21] MEDS: PRAVASTATIN 20 MG TAB PO SCH (21:04)
[2020-03-21] MEDS: amLODIPine 5 MG TAB PO SCH (21:04)
[2020-03-22] VITALS: BP 164/80
[2020-03-22 04:00] VITALS: BP 134/74
[2020-03-22] MEDS: SODIUM CHLORIDE 0.9% INJ 10 ML SYR IV SCH ×3 (04:44→22:04)
[2020-03-22 05:16] LABS: CALCIUM LEVEL 8.8 MG/DL (8.5-10.1); CREATININE FOR GFR 3.27 MG/DL (0.70-1.30); GLOMERULAR FILTRATION RATE 20.7 (>56); PHOSPHORUS LEVEL 4.2 MG/DL (2.5-4.9); POTASSIUM SERUM 3.5 MEQ/L (3.5-5.1)
--- NOTE | 2020-03-22 07:50 | IPN ---
DATE: 03/21/2020 SUBJECTIVE: Patient seen and examined at bedside. Chart has been reviewed. Patient has no complaints of shortness of breath, chest pain, pressure, tightness, fever or chills. OBJECTIVE: PHYSICAL EXAMINATION: VITALS: Temperature 97.2, pulse 82, respiratory rate 17, blood pressure 170/82, 98% on room air. GENERAL: Awake, alert and oriented x3, answering questions appropriately. No respiratory distress. Conversational and speaks in full sentences. NECK: No JVD. No thyromegaly. LUNGS: Clear to auscultation. No wheezing, rales, or rhonchi. HEART: S1, S2. Irregularly irregular. ABDOMEN: Soft, nontender, nondistended. Positive bowel sounds. EXTREMITIES: Right BKA. Left lower extremity with toe amputations. Two black eschar noted on the right medial aspect of the foot and dorsum of the foot. Ulcers noted along the leg. Decreasing erythema with positive edema. LABORATORY DATA: White count 10, hemoglobin 9.3, hematocrit 28, platelet count 329,000. Sodium 133, potassium 3.5, chloride 99, bicarb 21, BUN 101, creatinine 4.08, glucose 192. CRP 20.5. Blood cultures negative. Respiratory panel negative. IMAGING STUDIES: MRI of the brain negative. ASSESSMENT AND PLAN: This is a 59-year-old male with a history of chronic kidney disease 4 to 5, admitted due to infected left lower leg cellulitis with chronic venous ulcers due to severe peripheral arterial disease complicated by cardiac arrest with intubation, mechanical ventilator and extubation on 03/16/2020. CURRENT ISSUES: 1. Infected lower extremity ulcers with peripheral arterial disease and lower extremity cellulitis on the left. Patient had been on I.V. Vanco and Zosyn, afebrile. No white count. Changed to I.V. Cefazolin to complete a full seven-day course. Dr. Del Rosario has been consulted and debrided the area five days ago. The patient will be reevaluated today for further debridement and wound management. 2. Peripheral arterial disease of left lower extremity: Vascular surgery as an outpatient, will follow with Dr. Ariza. Continue Atorvastatin, Eliquis, aspirin and Pravastatin. 3. Cardiac arrest with respiratory rate failure requiring intubation, non-ST elevation ID, CAD and CABG: Patient will need a coronary angiogram. Dr. Lopez, his window dresser, had arranged for transfer for next week. Currently on Eliquis, Atorvastatin, aspirin and Pravastatin. Patient is agreeable to be transferred to [place]. 4. Hypertension uncontrolled: Increase dose of Zebeta and Norvasc. 5. Chronic kidney disease stage 4 to 5: Managed by nephrology on nephrotoxins,renally dosing all medications. Patient will most likely need dialysis after the contrast dye is given for the coronary angiogram. Will need nephrology referral after transfer to [place]. 6. Anemia secondary to chronic kidney disease: Stable. No acute indication for RBC transfusion. 7. Acute encephalopathy with posturing; status post cardiac arrest: EEG had been completed but no report is available. MRI of the brain is negative. Change I.V. Levetiracetam to p.o. Keppra secondary to hyperparathyroidism due to renal failure. 8. Depression: On chronic Zoloft. 9. Reflux: On Prilosec. 10. Type 2 diabetes: On sliding scale Levemir insulin. 11. Dyslipidemia: On Lipitor and Pravachol. MTDD
--- NOTE | 2020-03-22 07:51 | IPN ---
DATE: 03/21/2020 CHIEF COMPLAINT: Patient is seen today for evaluation of his left foot. Patient was seen on 03/14/2020 for an ulceration on his left foot, which was debrided. He is seen again today for evaluation of his left foot. PHYSICAL EXAMINATION: Reveals a new ulceration distal from the previous ulceration on his dorsal mid foot. This reveals a dark, discolored lesion. The ulceration wound bed that was previously debrided again displays some necrotic change. There is no purulence, however. The proximal ulcer measures approximately 3 cm x 2.5 cm. Just distal to this is a new ulceration measuring 3.5 cm x 3 cm that is 1 mm in depth. No fluid is noted under the black eschar. Ulceration on the lateral side of the left foot over the 5th metatarsal head measures approximately 2 cm x 2 cm x 2 mm in depth. After an appropriate time-out, informed consent was obtained, signed by the patient. Utilizing a Mccann dermal curette, the ulcers were debrided of the necrotic tissue. There is no discharge. ASSESSMENT: Stage III-IV ulcerations, left foot, as described, without infection. PLAN: Utilizing a Mccann dermal curette, the ulcers were debrided. Dry sterile dressing was applied. We discussed the importance of removing the foot board of the hospital bed, since his foot is easily traumatized, and patient tends to slide down in his bed when he is propped up, and to float his heel with a pillow. His questions were answered. NADEEM
[2020-03-22 08:00] VITALS: BP 186/91
[2020-03-22] MEDS: SODIUM BICARBONATE 325 MG TAB PO SCH ×2 (08:36→22:05)
[2020-03-22] MEDS: bisoproloL fumarate 10 MG TAB PO SCH ×2 (08:36→22:06)
[2020-03-22] MEDS: OMEPRAZOLE 20 MG CAP PO SCH (08:36)
[2020-03-22] MEDS: amLODIPine 5 MG TAB PO SCH ×2 (08:37→22:05)
[2020-03-22] MEDS: ASPIRIN 81 MG ENTERIC TAB PO SCH (08:37)
[2020-03-22] MEDS: APIXABAN 5 MG TAB (ELIQUIS) PO SCH ×2 (08:37→22:06)
[2020-03-22] MEDS: FERROUS GLUCONATE 324 MG TAB PO SCH ×2 (08:37→22:05)
[2020-03-22] MEDS: CALCITRIOL 0.25 MCG CAP (S0169) PO SCH (08:37)
[2020-03-22] MEDS: HumaLOG INSULIN (NovoLOG) PER UNIT SC SCH ×4 (08:38→22:08)
[2020-03-22] MEDS: LEVEMIR (INSULIN DETEMIR) 1 UNITS/0.01ML SC SCH ×2 (08:38→22:03)
[2020-03-22] MEDS: ceFAZolin SOD 1 GM in D5W MINI-BAG PLUS 50 ML IV SCH ×2 (08:42→22:02)
[2020-03-22 12:00] VITALS: BP 142/81
--- NOTE | 2020-03-22 12:05 | IPNPDOC ---
Text Note Date of Service The patient was seen on 03/22/20. NOTE SUBJECTIVE: Patient was seen and examined this morning at bedside. He continues to feel well and has no new issues. No fevers overnight. The wounds on his left foot were debrided yesterday by Dr. Del Rosario. OBJECTIVE: PHYSICAL EXAMINATION: VITAL SIGNS: Please see below. GENERAL: Alert, laying comfortably in bed, in no acute distress HEENT: NC, AT, moist mucous membranes, no JVD. CARDIOVASCULAR: RRR, normal S1 and S2 RESPIRATORY: CTAB, no wheezing, rhonchi, or rales ABDOMINAL: Soft, nontender, nondistended EXTREMITIES: No edema noted. Right BKA amputation. Left foot has a clean, dry dressing in place. ASSESSMENT/PLAN: 59 year old male admitted for sepsis secondary to left leg ulcers who developed acute renal failure superimposed on CKD stage 4. 1. Acute renal failure on chronic kidney disease stage 4. Cr has been trending down, now at 3.27 today. Patient has a good urine output. No current indication for urgent dialysis. 2. Metabolic acidosis. Bicarbonate level improved at 22. Continue sodium bicarbonate 325mg PO twice a day. 3. Hypokalemia. Resolved, potassium has remained stable. Continue to monitor and supplement as indicated 4. Left leg cellulitis and ulcers. Patient continues on antibiotics with cefazolin. Blood cultures negative. Debridement of ulcers performed yesterday by Dr. Del Rosario. 5. Anemia in chronic kidney disease. Hemoglobin level is stable. If hemoglobin level drops, we will consider giving a dose of Aranesp. 6. Non-ST elevation RI with history of CABG and recent cardiac arrest. Troponin have trended down. He is being managed conservatively. Plan for transfer to [facility] at some point after the weekend for cardiac catheterization. 7. Diabetes mellitus type 2 insulin dependent. Insulin dosing managed per primary team. 8. Chronic diastolic congestive heart failure. Patient has been auto diuresing and his volume status is optimal. No current indication for diuretic at this time. Thank you for the consultation on this patient, we will continue to follow along. VS,Fishbone, I+O VS, Fishbone, I+O Laboratory Tests 03/22/20 04:41 Vital Signs Date Time Temp Pulse Resp B/P (MAP) Pulse Ox O2 Delivery O2 Flow Rate FiO2 03/22/20 08:36 80 134/74 03/22/20 08:00 97.4 18 97 Room Air 03/16/20 17:00 1.0 03/16/20 08:00 25 I&O- Last 24 Hours up to 6 AM 03/22/20 06:00 Intake Total 1380 ml Output Total 1600 ml Balance -220 ml CAROLEE ROJAS D.O. Mar 22, 2020 12:05
[2020-03-22] MEDS: ACETAMINOPHEN TAB 650MG DOSE (2X325MG) PO PRN (15:37)
[2020-03-22 16:00] VITALS: BP 147/74
[2020-03-22 20:00] VITALS: BP 153/73
[2020-03-22] MEDS: PRAVASTATIN 20 MG TAB PO SCH (22:04)
[2020-03-22] MEDS: SERTRALINE HCL 25 MG TABLET PO SCH (22:04)
[2020-03-22] MEDS: PERCOCET 5MG/325MG TAB PO PRN (23:16)
[2020-03-23] VITALS: BP 147/84
[2020-03-23 04:00] VITALS: BP 147/67
[2020-03-23] MEDS: SODIUM CHLORIDE 0.9% INJ 10 ML SYR IV SCH ×3 (05:42→21:59)
[2020-03-23] MEDS: SODIUM CHLORIDE 0.9% INJ 10 ML SYR IV PRN (06:05)
[2020-03-23 06:30] LABS: BASO % 0.2 % (0.0-1.0); EOS # 0.2 10^3/uL (0.0-0.5); HEMATOCRIT 25.4 % (42.0-52.0); HEMOGLOBIN 8.4 g/dl (13.5-17.5); LYMPH # 0.7 10^3/uL (1.5-5.0); LYMPH % 6.3 % (24.0-44.0); MEAN CORPUSCULAR HGB CONC 33.1 g/dl (32.0-36.5); MEAN CORPUSCULAR VOLUME 90.7 fl (80.0-96.0); MONO # 0.8 10^3/uL (0.0-0.8); NEUTROPHILS # 9.4 10^3/uL (1.5-8.5); NEUTROPHILS % 83.5 % (36.0-66.0); PLATELET COUNT, AUTOMATED 332 10^3/uL (150-450); WHITE BLOOD COUNT 11.3 10^3/uL (4.0-10.0)
[2020-03-23 06:35] LABS: ALBUMIN 1.9 GM/DL (3.2-5.2); CALCIUM LEVEL 8.3 MG/DL (8.5-10.1); CREATININE FOR GFR 3.05 MG/DL (0.70-1.30); GLOMERULAR FILTRATION RATE 22.5 (>56); PHOSPHORUS LEVEL 4.3 MG/DL (2.5-4.9); POTASSIUM SERUM 3.6 MEQ/L (3.5-5.1)
[2020-03-23 07:23] VITALS: BP 161/77
[2020-03-23] MEDS: SODIUM BICARBONATE 325 MG TAB PO SCH ×2 (08:43→21:58)
[2020-03-23] MEDS: amLODIPine 5 MG TAB PO SCH ×2 (08:44→21:58)
[2020-03-23] MEDS: ASPIRIN 81 MG ENTERIC TAB PO SCH (08:44)
[2020-03-23] MEDS: OMEPRAZOLE 20 MG CAP PO SCH (08:44)
[2020-03-23] MEDS: APIXABAN 5 MG TAB (ELIQUIS) PO SCH ×2 (08:44→21:57)
[2020-03-23] MEDS: FERROUS GLUCONATE 324 MG TAB PO SCH ×2 (08:44→21:57)
[2020-03-23] MEDS: bisoproloL fumarate 10 MG TAB PO SCH ×2 (08:45→21:57)
[2020-03-23] MEDS: CALCITRIOL 0.25 MCG CAP (S0169) PO SCH (08:45)
[2020-03-23] MEDS: LEVEMIR (INSULIN DETEMIR) 1 UNITS/0.01ML SC SCH ×2 (08:46→21:00)
[2020-03-23] MEDS: HumaLOG INSULIN (NovoLOG) PER UNIT SC SCH ×4 (08:46→21:00)
[2020-03-23] MEDS: ceFAZolin SOD 1 GM in D5W MINI-BAG PLUS 50 ML IV SCH ×2 (08:47→21:55)
[2020-03-23 12:00] VITALS: BP 146/82
[2020-03-23] MEDS: **hydrALAZINE** 10 MG TAB PO SCH ×2 (12:05→18:00)
[2020-03-23 16:00] VITALS: BP 135/84
--- NOTE | 2020-03-23 16:41 | IPN ---
DATE: 03/21/2020 Patient was seen earlier this evening, he was sitting in his bed in no acute distress at rest and having dinner. He denies any palpitations, dizziness, focal manifestation. There is no report of bleeding. He continues to have chest wall pain. There is no focal manifestation. He has not been very active. His blood pressure continues to be elevated despite the bisoprolol and the amlodipine. PHYSICAL EXAMINATION: Patient is alert and oriented, in no acute distress at rest, and his vital signs when I saw him revealed a blood pressure of 152/96, with a pulse of 79, respirations 18, and his maximum temperature was 97.3 degrees Fahrenheit with an oxygen saturation of 97% on room air. He had a negative fluid balance of only 155 mL for 03/20/2020. Examination of the head: Atraumatic. Neck is supple and no carotid bruits appreciated. No jugular venous distention (JVD) while sitting up in the chair in his bed. The lungs did not reveal any wheezing or crackles. The heart examination reveals irregular heart sounds without gallops. The point of maximum impulse (PMI) is slightly displaced inferiorly and laterally. There is no rub. Abdomen is soft. Extremities reveal right below-knee amputation (BKA). Neurologic examination is negative for focal deficit. LABORATORY DATA: BMP revealed a sodium of 133, potassium 3.5, chloride 99, CO2 21, BUN 101, creatinine 4.08, GFR 16.1, fasting glucose 192, and calcium 9.2. CBC revealed WBC of 10.7, hemoglobin 9.3, hematocrit 28.5, and platelets 329,000. Patient is currently stable from a cardiac point of view, in no acute distress at rest. He was admitted about a week ago with cellulitis and presumed sepsis and on the next day, he had a cardiac arrest, he developed asystole. He was successfully resuscitated, intubated, and extubated about 48 hours later. Since then, he has been stable and he is being treated for his cellulitis with IV antibiotics. His kidney function is improving slowly. He has being monitored by nephrology. I will continue to monitor him along with you, will adjust his antihypertensive medications as needed in order to control his blood pressure. The plan is to proceed with a cardiac catheterization when he is cleared from the infection and also once he is cleared by nephrology. I will continue to monitor him along with you while in the hospital. Please do not hesitate to call if any questions. NADEEM
[2020-03-23] MEDS: PERCOCET 5MG/325MG TAB PO PRN (18:16)
[2020-03-23 20:00] VITALS: BP 134/76
[2020-03-23] MEDS: SERTRALINE HCL 25 MG TABLET PO SCH (21:57)
[2020-03-23] MEDS: PRAVASTATIN 20 MG TAB PO SCH (21:58)
[2020-03-23] MEDS: ACETAMINOPHEN TAB 650MG DOSE (2X325MG) PO PRN (21:58)
[2020-03-24] VITALS (7 sets, daily range): BP systolic 84–133; BP diastolic 52–78
[2020-03-24] MEDS: **hydrALAZINE** 10 MG TAB PO SCH ×4 (05:47→17:17)
[2020-03-24] MEDS: SODIUM CHLORIDE 0.9% INJ 10 ML SYR IV SCH ×3 (05:48→21:24)
[2020-03-24 06:09] LABS: BASO % 0.3 % (0.0-1.0); EOS # 0.1 10^3/uL (0.0-0.5); HEMATOCRIT 27.4 % (42.0-52.0); LYMPH # 0.7 10^3/uL (1.5-5.0); LYMPH % 5.2 % (24.0-44.0); MEAN CORPUSCULAR HEMOGLOBIN 29.8 pg (27.0-33.0); MEAN CORPUSCULAR HGB CONC 32.8 g/dl (32.0-36.5); MEAN CORPUSCULAR VOLUME 90.7 fl (80.0-96.0); MONO # 1.1 10^3/uL (0.0-0.8); MONO % 7.7 % (0.0-5.0); NEUTROPHILS # 11.5 10^3/uL (1.5-8.5); PLATELET COUNT, AUTOMATED 370 10^3/uL (150-450); RED BLOOD COUNT 3.02 10^6/uL (4.30-6.10); WHITE BLOOD COUNT 13.6 10^3/uL (4.0-10.0)
[2020-03-24 06:32] LABS: ALBUMIN 2.1 GM/DL (3.2-5.2); CALCIUM LEVEL 8.4 MG/DL (8.5-10.1); CREATININE FOR GFR 2.86 MG/DL (0.70-1.30); GLOMERULAR FILTRATION RATE 24.2 (>56); PHOSPHORUS LEVEL 4.2 MG/DL (2.5-4.9); POTASSIUM SERUM 3.9 MEQ/L (3.5-5.1)
[2020-03-24 06:36] LABS: ERYTHROCYTE SEDIMENTATION RATE 106 mm/hr (0-20)
[2020-03-24] MEDS: HumaLOG INSULIN (NovoLOG) PER UNIT SC SCH ×4 (08:50→21:00)
[2020-03-24] MEDS: LEVEMIR (INSULIN DETEMIR) 1 UNITS/0.01ML SC SCH ×2 (08:50→21:00)
[2020-03-24] MEDS: ASPIRIN 81 MG ENTERIC TAB PO SCH (08:50)
[2020-03-24] MEDS: CALCITRIOL 0.25 MCG CAP (S0169) PO SCH (08:51)
[2020-03-24] MEDS: APIXABAN 5 MG TAB (ELIQUIS) PO SCH ×2 (08:51→21:23)
[2020-03-24] MEDS: bisoproloL fumarate 10 MG TAB PO SCH ×2 (08:51→21:28)
[2020-03-24] MEDS: amLODIPine 5 MG TAB PO SCH ×2 (08:51→21:00)
[2020-03-24] MEDS: SODIUM BICARBONATE 325 MG TAB PO SCH ×2 (08:52→21:23)
[2020-03-24] MEDS: FERROUS GLUCONATE 324 MG TAB PO SCH ×2 (08:52→21:23)
[2020-03-24] MEDS: OMEPRAZOLE 20 MG CAP PO SCH (08:52)
[2020-03-24] MEDS: ceFAZolin SOD 1 GM in D5W MINI-BAG PLUS 50 ML IV SCH ×2 (08:53→21:24)
[2020-03-24] MEDS: PERCOCET 5MG/325MG TAB PO PRN ×3 (08:57→17:18)
[2020-03-24] MEDS ORDERED: DARBEPOETIN 100 MCG/0.5 ML *NON-DIALYSIS* SYRINGE (J0881) SC SCH (09:00)
[2020-03-24] MEDS: SERTRALINE HCL 25 MG TABLET PO SCH (21:23)
[2020-03-24] MEDS: PRAVASTATIN 20 MG TAB PO SCH (21:24)
[2020-03-24] MEDS: ACETAMINOPHEN TAB 650MG DOSE (2X325MG) PO PRN (21:24)
[2020-03-25 04:00] VITALS: BP 142/77
[2020-03-25] MEDS: **hydrALAZINE** 10 MG TAB PO SCH ×4 (06:00→17:08)
[2020-03-25] MEDS: SODIUM CHLORIDE 0.9% INJ 10 ML SYR IV SCH ×3 (06:13→21:31)
[2020-03-25 06:45] LABS: CALCIUM LEVEL 8.4 MG/DL (8.5-10.1); CREATININE FOR GFR 2.89 MG/DL (0.70-1.30); GLOMERULAR FILTRATION RATE 23.9 (>56); PHOSPHORUS LEVEL 4.5 MG/DL (2.5-4.9); POTASSIUM SERUM 3.8 MEQ/L (3.5-5.1)
--- NOTE | 2020-03-25 07:21 | IPNPDOC ---
Date Seen The patient was seen on 03/25/20. Progress Note addendum: No bed availability at [facility]. Transfer center recommended daily phone call to check on beds. VS, I&O, 24H, Fishbone Vital Signs/I&O Vital Signs Date Time Temp Pulse Resp B/P (MAP) Pulse Ox O2 Delivery O2 Flow Rate FiO2 03/25/20 06:00 136/70 03/25/20 04:00 98.0 78 18 97 Room Air I&O- Last 24 Hours up to 6 AM 03/25/20 06:00 Intake Total 1130 ml Output Total 580 ml Balance 550 ml Laboratory Data 24H LABS Laboratory Tests 2 03/24/20 12:49: Bedside Glucose (Misc Panel) 186H 03/24/20 17:11: Bedside Glucose (Misc Panel) 184H 03/24/20 20:43: Bedside Glucose (Misc Panel) 175H 03/25/20 06:02: Anion Gap 9, Glomerular Filtration Rate 23.9L, Calcium Level 8.4L, Phosphorus Level 4.5, Albumin 2.0L CBC/BMP Laboratory Tests 03/25/20 06:02 TYLER CHOW MD Mar 25, 2020 07:21
[2020-03-25 08:00] VITALS: BP 142/70
[2020-03-25] MEDS: OMEPRAZOLE 20 MG CAP PO SCH (09:00)
[2020-03-25] MEDS: CALCITRIOL 0.25 MCG CAP (S0169) PO SCH (09:00)
[2020-03-25] MEDS: HumaLOG INSULIN (NovoLOG) PER UNIT SC SCH ×4 (09:00→21:00)
[2020-03-25] MEDS: LEVEMIR (INSULIN DETEMIR) 1 UNITS/0.01ML SC SCH ×2 (09:00→21:47)
[2020-03-25] MEDS: FERROUS GLUCONATE 324 MG TAB PO SCH ×2 (09:00→21:48)
[2020-03-25] MEDS: ASPIRIN 81 MG ENTERIC TAB PO SCH (09:00)
[2020-03-25] MEDS: SODIUM BICARBONATE 325 MG TAB PO SCH ×2 (09:01→21:47)
[2020-03-25] MEDS: ceFAZolin SOD 1 GM in D5W MINI-BAG PLUS 50 ML IV SCH (09:02)
[2020-03-25] MEDS: APIXABAN 5 MG TAB (ELIQUIS) PO SCH ×2 (09:02→21:48)
[2020-03-25] MEDS: amLODIPine 5 MG TAB PO SCH ×2 (09:05→21:48)
[2020-03-25] MEDS: bisoproloL fumarate 10 MG TAB PO SCH ×2 (09:06→21:48)
--- NOTE | 2020-03-25 09:24 | IPN ---
DATE: 03/22/2020 SUBJECTIVE : Patient complains of musculoskeletal pain from the chest from prior chest compressions, rating it at 2/10 with a pillow on top. He says that taking a deep breath is worse, and when he tries to cough pain is worse, and increases to 5/10. No fever, chills, or cough. Left lower extremity was debrided by entry tech yesterday. OBJECTIVE: PHYSICAL EXAMINATION: Temperature 97.4, pulse 78, respiratory rate 18, blood pressure 134/74, 97% on room air. GENERAL: Awake, alert, oriented to person, place, and time, answering questions appropriately. No jugular venous distention (JVD) or thyromegaly. No cervical lymphadenopathy. LUNGS: Clear to auscultation. No wheezing or rales. HEART: S1, S2, irregularly irregular. ABDOMEN: Soft, nontender, nondistended. Positive bowel sounds. No rebound or guarding. EXTREMITIES: right below-knee amputation (BKA). Left lower extremity in a dressing. LABORATORY DATA/IMAGING STUDIES: White count of 10.7, hemoglobin 9.3, hematocrit 28, platelet count 329. Sodium 133, potassium 3.5, chloride 102, bicarbonate 22, BUN 92, creatinine 3.27, glucose 272. ASSESSMENT AND PLAN: This is a 59-year-old male with chronic kidney disease, IV- V, admitted due to infected left lower extremity chronic ulcers and cellulitis due to peripheral arterial disease, arrested status post advanced cardiac life support (ACLS) protocol. Intubated, mechanically ventilated, and extubated on March 16. 1. Left lower extremity cellulitis with infected chronic venous ulcers. Previously on IV vancomycin and Zosyn, currently on IV cefazolin. Blood cultures have been reviewed. Dr. Del Rosario debrided the area yesterday at the bedside. 2. Peripheral arterial disease, left lower extremity. Follows with Dr. Ariza as outpatient, vascular surgery, on atorvastatin, Eliquis, aspirin, pravastatin. 3. Cardiac arrest with respiratory failure, requiring intubation. Complicated by [id number] myocardial infarction (MO) with prior history of coronary artery disease (CAD) and coronary artery bypass graft (CABG). Continued on Eliquis, atorvastatin, aspirin, and pravastatin. Lovenox injection. Patient is to be transferred to [facility] for coronary angiogram next week. 4. Hypertension, on Zebeta and Norvasc, better controlled. 5. Chronic kidney disease, IV-V, managed by nephrology. Patient will most likely need a nephrology consult at [facility] due to potential need for dialysis once contrast load is given for coronary angiogram. 6. Anemia due to chronic kidney disease, chronic. 7. Acute encephalopathy with posturing, status post cardiac arrest. EEG completed but no report. MRI of the brain was negative. Keppra has been discontinued. 8. Depression, on chronic Zoloft. 9. Reflux, on Prilosec. 10. Type 2 diabetes, on Levemir insulin, sliding-scale, consistent-carbohydrate diet. 11. Dyslipidemia, on chronic statins and Pravachol. DISPOSITION: Transfer to [facility] for coronary angiogram. Will need nephrology consult there to prevent contrast nephropathy. MTDD
--- NOTE | 2020-03-25 09:26 | IPN ---
DATE: 03/22/2020 CHIEF COMPLAINT: SUBJECTIVE: Mr. Joyce Sanchez was seen early this morning. He was supine in bed in no acute distress at rest. He denies any chest pain, but chest wall pain. He was resuscitated about a week ago and received chest compression. There is no orthopnea or paroxysmal nocturnal dyspnea (PND). There is no focal manifestation. He was initially admitted with cellulitis of the left lower extremity and presumed sepsis; and on the next day, he went into asystole. PHYSICAL EXAMINATION: The patient is alert and oriented, in no acute distress at rest and very pleasant. His vital signs early this morning revealed a blood pressure of 34/74 with a pulse of 80, respirations 18 and his maximum temperature was 97.5 degrees Fahrenheit oxygen saturation of 97% on room air. He has a negative fluid balance of 335 ml. Examination of the head: Atraumatic. Neck is supple. I could not appreciate any jugular venous distention (JVD). The lungs do not reveal any wheezing or crackles. The heart examination did not reveal any irregular heart sounds, S4 gallops. The PMI is displaced inferiorly and laterally. There is no rub. Abdomen is obese and nontender. Extremities reveal only trace lower leg edema, but most of the feet and distal leg is wrapped with dressing. Neurological examination is negative for focal deficit. LABORATORY: Basic metabolic panel (BMP) done this morning, 03/22/2020, reveals a sodium of 133, potassium 3.5, chloride 102, Co2 22, BUN 92, creatinine 3.27, glomerular filtration rate (GFR) 20.7, fasting glucose 272 and calcium 8.8. Albumin is 2.2. ASSESSMENT: Mr. Joyce Sanchez continues to be doing well and his cardiac condition remains stable. He continues to be on antibiotics for his sepsis and cellulitis. His kidney functions are improving, appear to be rapidly. Will continue current management; and as mentioned before, the plan is to proceed with a cardiac catheterization after discussion with nephrology. The patient is also well aware of that, as well as his hospitalist. NADEEM
--- NOTE | 2020-03-25 09:35 | IPN ---
DATE: 03/23/2020 SUBJECTIVE: Mr. Sanchez is seen this morning on his bedside. He is feeling about the same. He denies any nausea, vomiting, dyspnea or chest pain. He does have some soreness in his anterior chest due to chest compressions when he had cardiac arrest a couple of weeks ago. PHYSICAL EXAMINATION: Temperature 98.4 degrees Fahrenheit, heart rate 82 per minute, respiratory rate 18 per minute, blood pressure 135/84 mmHg and oxygen saturation 98% on room air. Head is atraumatic. Neck supple and without JVD or thyroid enlargement. Heart sounds are regular, and lungs are clear to auscultation. Abdomen soft and nontender, bowel sounds normal. Extremities without any cyanosis or clubbing. He has right below the knee amputation. Neurologically, he is at his baseline mentation. LABORATORY DATA: Today labs: WBC 11.3, hemoglobin 8.4, hematocrit 25.4, platelets 332,000. Sodium 134, potassium 3.6, BUN 85, creatinine 3.05, glucose 197, calcium 8.3. PROBLEMS: 1. Acute kidney injury superimposed on chronic kidney disease: Kidney function continues to improve. Patient had significant acute renal failure following cardiac arrest, however, did not require dialysis. At present, his kidney function seems to be getting close to chronic baseline. 2. Coronary artery disease; status post recent cardiac arrest: Patient is currently waiting for possible transfer to [place] for cardiac catheterization. She is currently asymptomatic. 3. Anemia: His anemia was slightly worse today. We will recheck his CBC. At present, we will continue to monitor closely and there is no emergent indication for a transfusion. He is not receiving any Aranesp. I will give him a dose of Aranesp 100 mcg tomorrow. He is on chronic anticoagulation with Eliquis, however, no obvious blood loss noted. MTDD
[2020-03-25 11:23] LABS: BASO % 0.3 % (0.0-1.0); EOS # 0.2 10^3/uL (0.0-0.5); EOS % 1.6 % (0.0-3.0); HEMATOCRIT 26.1 % (42.0-52.0); HEMOGLOBIN 8.5 g/dl (13.5-17.5); LYMPH # 0.7 10^3/uL (1.5-5.0); LYMPH % 6.1 % (24.0-44.0); MEAN CORPUSCULAR HEMOGLOBIN 29.7 pg (27.0-33.0); MEAN CORPUSCULAR HGB CONC 32.6 g/dl (32.0-36.5); MEAN CORPUSCULAR VOLUME 91.3 fl (80.0-96.0); MONO # 0.8 10^3/uL (0.0-0.8); MONO % 7.2 % (0.0-5.0); NEUTROPHILS # 9.3 10^3/uL (1.5-8.5); PLATELET COUNT, AUTOMATED 322 10^3/uL (150-450); RED BLOOD COUNT 2.86 10^6/uL (4.30-6.10); WHITE BLOOD COUNT 11.1 10^3/uL (4.0-10.0)
[2020-03-25 11:48] LABS: C REACTIVE PROTEIN QUANTITATIV 15.1 MG/DL (0.00-0.30); CALCIUM LEVEL 8.7 MG/DL (8.5-10.1); CREATININE FOR GFR 2.86 MG/DL (0.70-1.30); GLOMERULAR FILTRATION RATE 24.2 (>56); POTASSIUM SERUM 3.4 MEQ/L (3.5-5.1)
[2020-03-25 12:00] VITALS: BP 136/72
[2020-03-25 12:09] LABS: ERYTHROCYTE SEDIMENTATION RATE 109 mm/hr (0-20)
--- NOTE | 2020-03-25 12:37 | IPN ---
DATE: 03/24/2020 Mr. Sanchez was seen this morning at his bedside. He continues to have discomfort in his anterior chest wall where he had chest compressions when he had cardiac arrest. Otherwise, he is feeling good and denies any dyspnea, leg edema, nausea or vomiting. He is waiting for transfer to [place] for possible cardiac catheterization. On physical examination, temperature 98.0 degrees Fahrenheit, heart rate 86 per minute and respiratory rate 18 per minute. Blood pressure 132/78 mmHg and oxygen saturation 95% on room air. Head is atraumatic. Neck supple and without JVD or thyroid enlargement. Heart sounds are regular and lungs with slightly diminished breath sounds and poor inspiratory effort. Abdomen soft and nontender, and bowel sounds are normal. Extremities without any cyanosis or clubbing. He has right [id number] amputation. Neurologically, he is awake, alert and oriented times 3. Today's lab showed WBC count 13.6, hemoglobin 9.0 and hematocrit 27.4. Platelets 370. Sodium 136, potassium 2.9, CO2 of 21, BUN 82 and creatinine 2.86. Glucose 168 and calcium 8.4. His C-reactive protein is 8.83. PROBLEMS: 1. Acute kidney injury superimposed on chronic kidney disease. The patient has known history of stage IV chronic kidney disease at baseline. Acute kidney injury was related to cardiac arrest and kidney function is now improved, almost back to prior baseline. His electrolytes are within normal range. 2. Status post cardiac arrest. Patient continues to have pain in the chest where he had chest compressions. He is waiting for transfer to [place] for possible cardiac catheterization. 3. Anemia. Anemia is stable and we will continue to watch closely. There is no indication for a transfusion at present. He is given Aranesp 100 mcg today. We will continue with oral iron supplement. 4. Secondary hyperparathyroidism. Patient has been on Calcitriol 0.25 mcg daily, which will be continued. MTDD
--- NOTE | 2020-03-25 12:40 | IPN ---
DATE: 03/23/2020 SUBJECTIVE: Per patient, the dressing had serous drainage. No purulence. No fever or chills overnight. T-max was 99.7. No complaints this morning aside from discomfort from prior cardiac arrest chest compressions. OBJECTIVE: VITALS: Temperature 99.7, pulse 86, respiratory rate 16, blood pressure 161/77, 97% on room air. GENERAL: Patient is awake, alert and oriented to person, place and time. Answering questions appropriately. Anicteric. No jaundice. NECK: No JVD or thyromegaly. No cervical lymphadenopathy. LUNGS: Clear to auscultation. No wheezing or rales. HEART: S1 and S2, irregularly irregular. ABDOMEN: Soft, nontender and nondistended. Positive bowel sounds. EXTREMITIES: Left lower extremity is bandaged, right BKA. LABORATORY DATA: White count 11.3, hemoglobin 8.4, hematocrit 25, platelet count 332,000. Sodium 134, potassium 3.6, chloride 102, bicarbonate 23, BUN 85, creatinine 3.05, glucose 187. ASSESSMENT AND PLAN: This is a 59-year-old male with a history of peripheral arterial disease status post right BKA with chronic infected lower extremity ulcer due to peripheral arterial disease, admitted for a left lower extremity cellulitis complicated by cardiac arrest and respiratory failure requiring intubation, mechanical ventilation and extubation on 03/16/2020. 1. Left lower extremity chronic infected wound ulcers/cellulitis. Patient had been on Vancomycin and Zosyn, currently on Cefazolin, slight increase in white count, debridement done by Dr. Del Rosario two days ago. 2. Hypertension, uncontrolled. Patient is increased on his home dose of Zebeta and Norvasc, Hydralazine as needed. 3. Peripheral arterial disease of left lower extremity, on atorvastatin, Eliquis, aspirin, Pravastatin, follows with Vascular Surgery, Dr. Ariza. 4. Cardiac arrest, requiring mechanical intubation and ventilation with history of CABG, CAD, non-ST elevation [place]. Patient is to have a coronary angiogram and transfer to [facility] this coming week. Continue on Eliquis, atorvastatin, aspirin, and pravastatin. 5. Chronic kidney disease, Stage IV to V, managed by Nephrology. 6. Anemia, secondary to chronic kidney disease, currently monitoring, no indication for RBC transfusion as of yet. 7. Acute encephalopathy with posturing status post cardiac arrest, MRI of the brain is negative, EEG is negative. Keppra had been discontinued. 8. Depression, on chronic Zoloft. 9. Reflux on Prilosec. 10. Type 2 diabetes, on Levemir insulin. 11. Dyslipidemia, on Lipitor and Pravachol. DISPOSITION: Transfer to [facility] for coronary angiogram status post cardiac arrest with prior history of CABG once left leg infection is stable. awaiting bed availability. MTDD
[2020-03-25] MEDS: PERCOCET 5MG/325MG TAB PO PRN ×3 (12:42→21:47)
[2020-03-25 16:00] VITALS: BP 125/63
[2020-03-25 21:38] VITALS: BP 125/62
[2020-03-25] MEDS: SERTRALINE HCL 25 MG TABLET PO SCH (21:46)
[2020-03-25] MEDS: PRAVASTATIN 20 MG TAB PO SCH (21:47)
[2020-03-25] MEDS: LINEZOLID 600MG TABLET (ZYVOX) PO SCH (21:48)
[2020-03-26 02:00] VITALS: BP 124/66
[2020-03-26 05:52] VITALS: BP 126/62
[2020-03-26] MEDS: **hydrALAZINE** 10 MG TAB PO SCH ×5 (05:52→23:45)
[2020-03-26] MEDS: OMEPRAZOLE 20 MG CAP PO SCH (08:56)
[2020-03-26] MEDS: CALCITRIOL 0.25 MCG CAP (S0169) PO SCH (08:56)
[2020-03-26] MEDS: ASPIRIN 81 MG ENTERIC TAB PO SCH (08:56)
[2020-03-26] MEDS: APIXABAN 5 MG TAB (ELIQUIS) PO SCH ×2 (08:56→20:43)
[2020-03-26] MEDS: SODIUM BICARBONATE 325 MG TAB PO SCH (08:56)
[2020-03-26] MEDS: LINEZOLID 600MG TABLET (ZYVOX) PO SCH ×2 (08:56→20:45)
[2020-03-26] MEDS: FERROUS GLUCONATE 324 MG TAB PO SCH ×2 (08:57→20:42)
[2020-03-26] MEDS: amLODIPine 5 MG TAB PO SCH ×2 (08:58→20:42)
[2020-03-26] MEDS: bisoproloL fumarate 10 MG TAB PO SCH ×2 (09:00→20:41)
[2020-03-26] MEDS: PERCOCET 5MG/325MG TAB PO PRN ×2 (09:00→18:09)
[2020-03-26] MEDS: LEVEMIR (INSULIN DETEMIR) 1 UNITS/0.01ML SC SCH ×2 (09:01→20:40)
[2020-03-26] MEDS: HumaLOG INSULIN (NovoLOG) PER UNIT SC SCH ×5 (09:01→20:43)
[2020-03-26 10:13] VITALS: BP 123/71
[2020-03-26] MEDS ORDERED: POTASSIUM CHLORIDE 10 MEQ SR TABLET PO ONE (10:45)
[2020-03-26] MEDS ORDERED: FUROSEMIDE 80 MG TAB PO ONE (10:45)
--- NOTE | 2020-03-26 10:55 | IPNPDOC ---
Text Note Date of Service The patient was seen on 03/26/20. NOTE SUBJECTIVE: Patient was seen and examined this morning at bedside. He continues to feel well and has no new issues. No fevers overnight. He is waiting on transfer to [facility] for elective cardiac cath as recommended by cardiology. OBJECTIVE: PHYSICAL EXAMINATION: VITAL SIGNS: Please see below. GENERAL: Alert, laying comfortably in bed, in no acute distress HEENT: NC, AT, moist mucous membranes, no JVD. CARDIOVASCULAR: RRR, normal S1 and S2 RESPIRATORY: CTAB, no wheezing, rhonchi, or rales ABDOMINAL: Soft, nontender, nondistended EXTREMITIES: 2+ pitting edema in the left leg up to the knee. Right BKA amputation. Left foot has a clean, dry dressing in place. ASSESSMENT/PLAN: 59 year old male admitted for sepsis secondary to left leg ulcers who developed acute renal failure superimposed on CKD stage 4. 1. Acute renal failure on chronic kidney disease stage 4. Cr has improved. Patient has a good urine output. No current indication for dialysis. 2. Metabolic acidosis, resolved. Bicarbonate level improved at 22. Will discontinue oral sodium bicarbonate today. 3. Hypokalemia. Given a dose of potassium today. Continue to monitor and supplement as indicated 4. Left leg cellulitis and ulcers. Status post antibiotics with cefazolin. Blood cultures negative. Debridement of ulcers performed by Dr. Del Rosario. 5. Anemia in chronic kidney disease. Hemoglobin level is stable. Given a dose of Aranesp with appropriate response. Continue oral iron supplement. 6. Non-ST elevation [place] with history of CABG and recent cardiac arrest. Troponin have trended down. He is being managed conservatively. Plan for transfer to [facility] for elective cardiac catheterization when a bed becomes available. 7. Diabetes mellitus type 2 insulin dependent. Insulin dosing managed per primary team. 8. Chronic diastolic congestive heart failure. Pitting edema present on exam today. Will give him one dose of diuretic and likely restart standing diuretic tomorrow based on his diuresis. Thank you for the consultation on this patient, we will continue to follow along. VS,Fishbone, I+O VS, Fishbone, I+O Laboratory Tests 03/25/20 11:04 Vital Signs Date Time Temp Pulse Resp B/P (MAP) Pulse Ox O2 Delivery O2 Flow Rate FiO2 03/26/20 10:13 97.9 74 20 123/71 (88) 99 Room Air I&O- Last 24 Hours up to 6 AM 03/26/20 06:00 Intake Total 840 ml Output Total 180 ml Balance 660 ml CAROLEE ROJAS D.O. Mar 26, 2020 10:55
[2020-03-26 14:00] VITALS: BP 123/61
--- NOTE | 2020-03-26 16:23 | CR ---
DATE OF CONSULTATION: 03/14/2020 REASON FOR CONSULTATION: Acute renal failure superimposed on chronic kidney disease. CONSULTATION REPORT FOR: Mesfin Dsouza MD HISTORY OF PRESENT ILLNESS: Mr. Sanchez is a 59-year-old gentleman with multiple chronic medical problems including a history of generalized vascular disease, status post right ohvkz-[id number]-horl amputation and status post left lower extremity bypass surgery, history of atrial fibrillation on chronic anticoagulation with Eliquis, hypertension, diabetes with insulin pump, coronary artery disease with no known history for prior myocardial infarction (HI) but had a cardiac arrest today and was resuscitated. Patient was admitted to [facility] with left foot pain and was felt to be septic. He developed hypotension this morning and then had a cardiac arrest. He was coded and transferred to intensive care unit (ICU). He is now intubated and unresponsive. Patient is seen on his bedside in intensive care unit. PAST MEDICAL AND SURGICAL HISTORY: Significant for generalized vascular disease, history of peripheral arterial disease, status post left lower extremity bypass surgery, status post right yeiwa-tem-[id number] amputation (BKA), history of coronary artery disease, history of atrial fibrillation on Eliquis for anticoagulation, history of hypertension, history of diabetes on insulin pump, history of chronic left lower extremity ulcers with Charcot foot, chronic kidney disease stage IV, secondary hyperparathyroidism, and gout. Past surgical history is significant for right BKA, left foot toe amputations, back surgery, and left lower extremity arterial bypass surgery. FAMILY HISTORY: Noncontributory. PERSONAL AND SOCIAL HISTORY: Patient has history of smoking one pack per day for 30 years which he quit about 6 years ago. No alcohol or drug use known. ALLERGIES: Patient has no known drug allergies. MEDICATIONS: Home medications include: - allopurinol 100 mg daily - Eliquis 5 mg twice a day - aspirin 81 mg daily - bupropion 150 mg daily - calcitriol 0.25 mcg daily - ferrous gluconate 324 mg twice a day - furosemide 40 mg one and a half tablets twice a day - losartan 25 mg daily - Humalog insulin with pump - metolazone 2.5 mg every week - metoprolol 25 mg half tablet twice a day - omeprazole 40 mg daily - potassium chloride 10 mEq daily - pravastatin 80 mg daily - sertraline 25 mg at bedtime REVIEW OF SYSTEMS: At present, review of systems is not possible as patient is intubated and unresponsive. According to the information available, he was admitted with left foot pain and felt to have sepsis. He become hypotensive and had a cardiac arrest and was resuscitated, intubated, and transferred to intensive care unit. He is very agitated and restless at present. He is not on pressors at this point. PHYSICAL EXAMINATION: Temperature is 98.6 degrees Fahrenheit, heart rate now 122 per minute and respiratory rate is about 40 per minute. He is very agitated and restless. Blood pressure is 119/62 mmHg, he is on 100% oxygen on the ventilator. Head is atraumatic. Pupils are equal and round. He has spontaneous dolls eye movement bilaterally. Endotracheal tube and orogastric tubes are in place. He has a left subclavian central line in place. Neck veins are somewhat prominent. His central venous pressure (CVP) was recorded at 17 when central line placed. His heart sounds are tachycardic and lungs have good bilateral air entry with the ventilator. Abdomen soft and bowel sounds are present. Extremities have erythema on the left lower extremity. There are some ulcers. No cyanosis or clubbing on upper extremities. He has a right ymoal-mns-haxf amputation. Neurologically he is very agitated and restless at present. LABORATORY DATA: WBC count is 23.1 now, hemoglobin 12.2, and hematocrit 39.8. On admission, WBC count was 29.3. Sodium is 130, potassium 4.3, CO2 19, BUN 89, and creatinine 4.53. Glucose 236 and lactic acid level 6.3. A BNP level is 32,150. Blood gas this morning showed a pH of 7.22, pCO2 25.4, pO2 496, and oxygen saturation 99%, this is probably just after intubation. His foot x-ray done on admission showed postoperative changes with multiple toe amputations and no evidence of acute osteomyelitis. CT of head is done which showed no acute intracranial abnormality. PROBLEMS: 1. Acute renal failure superimposed on chronic kidney disease. Patient has known history of stage IV of chronic kidney disease at baseline probably related to diabetic nephropathy. Acute renal failure is most likely related to sepsis and hypotension. At present, there is no emergent indication for dialysis. 2. Hyponatremia. Mild hyponatremia related to acute renal failure. At this point, we will watch him as he just coded a short while ago. He is still not on any pressors while given some normal saline. We will wait for his next set of labs before making any decisions. 3. Metabolic acidosis related to sepsis and acute renal failure. Mild metabolic acidosis is noticed. He has been just intubated after coding. We will wait for the next lab work including blood gas and his chemistry and then make a decision if he will need any sodium bicarbonate supplement. 4. Congestive heart failure/hypovolemia. His central venous pressure (CVP) was reported as 17 and BNP level is elevated at 32,000. He just had a cardiac arrest and blood pressure is soft with tachycardia. I will hold off on diuresis for now and watch him for the next few hours and see how he does. 5. Sepsis. Patient has been started on antibiotics for possible left foot infection and sepsis. He has received vancomycin and Cipro. Now, he is on ceftriaxone. He is also getting Zosyn 3.375 grams every 6 hours. I would suggest to adjust the dose for his renal failure. Thank you for involving me in the care of Mr. Sanchez. Nephrology service will follow him along with you. NADEEM
[2020-03-26 18:00] VITALS: BP 119/65
[2020-03-26 19:32] LABS: BASO % 0.4 % (0.0-1.0); EOS # 0.2 10^3/uL (0.0-0.5); EOS % 2.9 % (0.0-3.0); HEMOGLOBIN 8.9 g/dl (13.5-17.5); LYMPH # 0.5 10^3/uL (1.5-5.0); LYMPH % 6.7 % (24.0-44.0); MEAN CORPUSCULAR HEMOGLOBIN 29.1 pg (27.0-33.0); MEAN CORPUSCULAR HGB CONC 31.8 g/dl (32.0-36.5); MEAN CORPUSCULAR VOLUME 91.5 fl (80.0-96.0); MONO # 0.6 10^3/uL (0.0-0.8); MONO % 7.6 % (0.0-5.0); NEUTROPHILS # 6.5 10^3/uL (1.5-8.5); NEUTROPHILS % 81.8 % (36.0-66.0); PLATELET COUNT, AUTOMATED 357 10^3/uL (150-450); RED BLOOD COUNT 3.06 10^6/uL (4.30-6.10); WHITE BLOOD COUNT 7.9 10^3/uL (4.0-10.0)
[2020-03-26 19:52] LABS: CREATININE FOR GFR 3.04 MG/DL (0.70-1.30); GLOMERULAR FILTRATION RATE 22.6 (>56); PHOSPHORUS LEVEL 4.1 MG/DL (2.5-4.9)
[2020-03-26] MEDS: PRAVASTATIN 20 MG TAB PO SCH (20:41)
[2020-03-26] MEDS: SERTRALINE HCL 25 MG TABLET PO SCH (20:42)
--- NOTE | 2020-03-26 21:13 | CR ---
DATE OF CONSULTATION: 03/25/2020 REASON FOR CONSULTATION: Asked to consult by [facility] for evaluation of left lower extremity wounds that have progressed since admission. HISTORY OF PRESENT ILLNESS: Mr. Sanchez is a 59-year-old gentleman with a history of Insulin dependent diabetes, hypertension, coronary artery disease, peripheral vascular disease, status post left lower extremity bypass and right below knee amputation. He follows up with Dr. Del Rosario for chronic left foot ulcerations which are club foot deformity. He came to the hospital complaining of worsening foot ulcerations and cellulitis. He was treated with broad spectrum antibiotics including initially IV Ceftriaxone on 03/13then Ciprofloxacin and Vancomycin was used from 03/13 until 03/21. On the , IV Vancomycin and Zosyn were discontinued and he was switched to Cefazolin. Since then, it seems like the lesions have progressed with multiple ulcerations of the leg. He also had a cardiac arrest and he had a Troponin elevation up to 8 with a cardiac arrest and was intubated. The patient currently feels better. He denies any fever or chills. No nausea, vomiting, or diarrhea. PAST MEDICAL HISTORY: Coronary artery disease status post CABG, hypertension, diabetes Insulin dependent with neuropathy, peripheral vascular disease, osteomyelitis of the right leg status post BKA. PAST SURGICAL HISTORY: Below knee amputation of the right leg, several left toe amputation for second and half of the distal phalanx of the third toe, back surgery, bypass surgery of the left leg. MEDICATIONS: * Allopurinol 100 mg daily. * Cefazolin 1 gram q. 12 hours. * Hydralazine 10 mg p.o. 6 hours. * Aranesp 100 mcg subcu every Tuesday. * Eliquis 5 mg p.o. b.i.d. * Aspirin 81 mg p.o. daily. * Ferrous gluconate 325 mg p.o. b.i.d. * Insulin sliding scale. * Amlodipine 5 mg p.o. b.i.d. * Percocet one tablet p.o. q. 4 p.r.n. * Pravachol 80 mg p.o. q.h.s. * Omeprazole 40 mg p.o. daily. * Calcitriol .25 mcg p.o. daily. * Sodium bicarbonate 325 mg p.o. b.i.d. * Tylenol p.r.n. * Bisoprolol 10 mg p.o. b.i.d. * Sertraline 25 mg p.o. q.h.s. LABS: White count is 11.1 down from 29.3 on 03/13. Hemoglobin 8.5, hematocrit 26.1, platelets 322, 84% neutrophils, 6% lymphocytes, 7% monocytes, sodium 130, potassium 3.4, chloride 102, bicarb 22, BUN 83, creatinine 2.86, glucose 179, calcium 8.7, phosphorous 4.5, CRP 15.1, albumin 2, procalcitonin is pending. Vancomycin trough was 15.2 on 03/20. MRSA screen done on 03/14 was not detected. Blood cultures two sets done on 03/13 and 03/14 were negative. Respiratory panel 03/14 was negative. Gram stain from the left foot and culture are pending done on 03/25. Extremity arterial studies shows marked peripheral vascular disease with hemodynamically significant stenosis involving the left superficial femoral artery. Decreased velocities of both lower extremities possibly due to inflow disease or cardiac disease. Brain MRI done on 03/20 shows no acute abnormality with chronic white matter small vessel disease ischemic changes. ALLERGIES: No known drug allergies. REVIEW OF SYSTEMS: He denies any nausea, vomiting, diarrhea, abdominal pain. He has chronic back pain and some leg pain. He feels improved. He has no cough, mild shortness of breath. PHYSICAL EXAMINATION: Temperature is 98.6, pulse 72, respirations 18, blood pressure 125/63, O2 sat 95% on room air. Heart normal. S1, S2 distant. Systolic ejection murmur II/. Lungs diminished breath sounds at the bases but clear. Abdomen obese, soft, nontender. Back no severe lumbosacral tenderness. Extremities right below knee amputation. There is a callous below the knee. Dry. No open wounds and no discharge. No redness of the right BKA. Left leg has diminished pulse and could not be appreciated. Multiple ulcers are noted. There is an ulcer on the duffy which measures 3 x 2.5 cm. The duffy also measures 1.5 x 1 cm, lower around the ankle measures 3 x 2 cm and multiple ulcers around the foot. He has an amputation of first and second toe and the distal phalanx of the third toe. There is an ischemic ulcer on the fourth toe. Ulceration on the right foot medially measures 4.5 x 3.5 cm and the on the left side 2.5 x 2.2 cm. LABS: CRP was 24.5 down to 15.1. IMPRESSION: This is a 59-year-old gentleman with significant medical history including Insulin dependent diabetes, peripheral neuropathy, peripheral vascular disease with multiple ischemic ulcers that have worsened since hospitalization as the patient had a cardiac arrest and was on pressors. The ulcers do not seem infected at this time and the patient has received broad spectrum antibiotic but since there has been concern of his increased CRP and worsening size of ulcers, I would error on the safe side and continue antibiotics since he had been on MRSA coverage and since the CRP has increased since he was switched to Cefazolin from 8.3 to 15.10, I would resume MRSA coverage. The patient is not septic. He does not need IV antibiotics. A wound culture has been sent and is still pending. PLAN: DC IV Cefazolin, switch to p.o. Linezolid 600 mg p.o. b.i.d. As the patient has chronic kidney disease, would avoid anything that affect his kidney. Wait for the result of the wound culture. If cultures are negative, would discontinue antibiotic. Follow up with Dr. Ariza as an outpatient as I think this is mostly a vascular issue. The case has been discussed with Dr. Del Rosario who agrees with the plan. NADEEM
[2020-03-26 22:00] VITALS: BP 120/62
[2020-03-27 02:00] VITALS: BP 118/65
[2020-03-27 06:00] VITALS: BP 131/74
[2020-03-27] MEDS: **hydrALAZINE** 10 MG TAB PO SCH ×2 (06:00→11:35)
[2020-03-27] MEDS: PERCOCET 5MG/325MG TAB PO PRN (06:30)
[2020-03-27 06:38] LABS: BASO % 0.6 % (0.0-1.0); EOS # 0.2 10^3/uL (0.0-0.5); EOS % 2.4 % (0.0-3.0); HEMATOCRIT 26.1 % (42.0-52.0); HEMOGLOBIN 8.6 g/dl (13.5-17.5); LYMPH # 0.5 10^3/uL (1.5-5.0); LYMPH % 7.5 % (24.0-44.0); MEAN CORPUSCULAR HEMOGLOBIN 29.8 pg (27.0-33.0); MEAN CORPUSCULAR VOLUME 90.3 fl (80.0-96.0); MONO # 0.6 10^3/uL (0.0-0.8); MONO % 8.9 % (0.0-5.0); NEUTROPHILS # 5.7 10^3/uL (1.5-8.5); NEUTROPHILS % 79.8 % (36.0-66.0); PLATELET COUNT, AUTOMATED 344 10^3/uL (150-450); RED BLOOD COUNT 2.89 10^6/uL (4.30-6.10); WHITE BLOOD COUNT 7.2 10^3/uL (4.0-10.0)
[2020-03-27 07:09] LABS: ALBUMIN 2.3 GM/DL (3.2-5.2); CALCIUM LEVEL 8.6 MG/DL (8.5-10.1); CREATININE FOR GFR 2.95 MG/DL (0.70-1.30); GLOMERULAR FILTRATION RATE 23.4 (>56); PHOSPHORUS LEVEL 4.1 MG/DL (2.5-4.9)
--- NOTE | 2020-03-27 07:28 | IPN ---
DATE: 03/23/2020 SUBJECTIVE: Per patient, the dressing had serous drainage. No purulence. No fever or chills overnight. T-max was 99.7. No complaints this morning aside from discomfort from prior cardiac arrest chest compressions. OBJECTIVE: VITALS: Temperature 99.7, pulse 86, respiratory rate 16, blood pressure 161/77, 97% on room air. GENERAL: Patient is awake, alert and oriented to person, place and time. Answering questions appropriately. Anicteric. No jaundice. NECK: No JVD or thyromegaly. No cervical lymphadenopathy. LUNGS: Clear to auscultation. No wheezing or rales. HEART: S1 and S2, irregularly irregular. ABDOMEN: Soft, nontender and nondistended. Positive bowel sounds. EXTREMITIES: Left lower extremity is bandaged, right BKA. LABORATORY DATA: White count 11.3, hemoglobin 8.4, hematocrit 25, platelet count 332,000. Sodium 134, potassium 3.6, chloride 102, bicarbonate 23, BUN 85, creatinine 3.05, glucose 187. ASSESSMENT AND PLAN: This is a 59-year-old male with a history of peripheral arterial disease status post right BKA with chronic infected lower extremity ulcer due to peripheral arterial disease, admitted for a left lower extremity cellulitis complicated by cardiac arrest and respiratory failure requiring intubation, mechanical ventilation and extubation on 03/16/2020. CURRENT ISSUES: 1. Left lower extremity chronic infected wound ulcers/cellulitis. Patient had been on Vancomycin and Zosyn, currently on Cefazolin, slight increase in white count, debridement done by Dr. Del Rosario two days ago. 2. Hypertension, uncontrolled. Patient is increased on his home dose of Zebeta and Norvasc, Hydralazine as needed. 3. Peripheral arterial disease of left lower extremity, on atorvastatin, Eliquis, aspirin, Pravastatin, follows with Vascular Surgery, Dr. Ariza. 4. Cardiac arrest, requiring mechanical intubation and ventilation with history of CABG, CAD, non-ST elevation [place]. Patient is to have a coronary angiogram and transfer to [facility] this coming week. Continue on Eliquis, atorvastatin, aspirin, and pravastatin. 5. Chronic kidney disease, Stage IV to V, managed by Nephrology. 6. Anemia, secondary to chronic kidney disease, currently monitoring, no indication for RBC transfusion as of yet. 7. Acute encephalopathy with posturing status post cardiac arrest, MRI of the brain is negative, EEG is negative. Keppra had been discontinued. 8. Depression, on chronic Zoloft. 9. Reflux on Prilosec. 10. Type 2 diabetes, on Levemir insulin. 11. Dyslipidemia, on Lipitor and Pravachol. DISPOSITION: Transfer to [facility] for coronary angiogram status post cardiac arrest with prior history of CABG. JAYLEEND
[2020-03-27] MEDS: HumaLOG INSULIN (NovoLOG) PER UNIT SC SCH ×2 (07:30→11:46)
--- NOTE | 2020-03-27 07:32 | IPN ---
DATE: 03/24/2020 SUBJECTIVE: Patient is seen and examined at the bedside. Chart has been reviewed. He has remained afebrile with no chills; status post debridement of the left lower extremity ulcers by his director of marketing and promotions, Dr. Del Rosario, four days ago, still with some bandage with serous drainage with daily dressing changes. Patient otherwise has no complaints or shortness of breath. He continues to complaint of chest discomfort from prior chest compressions due to cardiac arrest and ACLS protocol. Afebrile. No chills. PHYSICAL EXAMINATION: VITALS: Temperature 97.9, pulse 80, respiratory rate 18, blood pressure 130/74, 97% on room air. GENERAL: Patient appears his stated age. No respiratory distress. No cyanosis. No icterus or jaundice. NECK: No JVD or thyromegaly. LUNGS: Clear to auscultation. No wheezing, rales or rhonchi. HEART: S1, S2, irregularly irregular. ABDOMEN: Soft, nontender, nondistended. Positive bowel sounds. EXTREMITIES: Right below-knee amputation. Left lower extremity is bandaged due to cellulitis and multiple non-healing ulcers. LABORATORY DATA: White count 13.6, hemoglobin 9, hematocrit 27, platelet count 370,000. Sodium 136, potassium 3.9, chloride 104, bicarb 21, BUN 89, creatinine 2.86, glucose 168. C-reactive protein 8.83 from previous CRP of 20.5. MICROBIOLOGY: Blood and respiratory panel are all negative. ASSESSMENT AND PLAN: This is a 59-year-old male with history of peripheral arterial disease, non-healing ulcers, status post right below the knee amputation, admitted due to infected lower extremity ulcers and left lower extremity cellulitis, had been on I.V. Vanco and Zosyn, remained afebrile, decreasing white count, changed to I.V. Cefazolin. Debridement of the ulcers was done by Dr. Del Rosario, currently on I.V. Cefazolin with decreasing CRP, but increasing white count and remains afebrile. CURRENT ISSUES: 1. Infected lower extremity ulcers with left lower extremity cellulitis in the setting of severe peripheral arterial disease, previously on Vanco and Zosyn, currently on I.V. Cefazolin, managed by Dr. Del Rosario. ID consultation in the morning due to increasing white count. Wound cultures were not sent from previous debridement. 2. Peripheral arterial disease left lower extremity: Vascular surgical follow- up as an outpatient. 3. Cardiac arrest: Requiring mechanical intubation, ventilation and subsequent extubation on 03/16/[address] Lopez due to prior history of CAD, [id number] MS and CABG. Patient will be transferred to [facility] to evaluate his coronary arteries in light of recent cardiac arrest. Ejection fraction is preserved. 4. Hypertension: Better controlled, now on increased doses of beta and Norvasc, as needed Hydralazine. 5. Chronic kidney disease stage 4-5: Managed by nephrology. Patient will need a oyster planter to prevent contrast nephropathy when he re-arrives at [facility] due to risk with coronary angiogram dye. 6. Anemia secondary to chronic kidney disease: No acute indication for RBC. 7. Acute encephalopathy with posturing: Resolved, status post cardiac arrest. EEG was negative. MRI of the brain was negative. Patients Keppra had been discontinued. 8. Depression: On Zoloft. 9. Reflux: Prilosec. 10. Type 2 diabetes: On Levemir insulin. 11. Dyslipidemia: On Lipitor and Pravachol. DISPOSITION: Awaiting [facility] transfer for coronary angiogram in light of recent cardiac arrest and history of CABG in the past and non-ST elevation [place]. NADEEM
--- NOTE | 2020-03-27 07:47 | IPN ---
DATE: 03/25/2020 SUBJECTIVE: The patient has no complaints. No fever or chills, increasing white count to 13,000. The left leg was debrided by Podiatry on 03/21/2020. The patient continues to have chest discomfort when he takes a deep breath from prior cardiac arrest and chest compressions. Afebrile overnight. No new complaints. PHYSICAL EXAMINATION: VITAL SIGNS: Temperature 97.8, pulse 86, respiratory rate 18, blood pressure 142/70, 97% on room air. GENERAL: Awake, alert and oriented x3, answering questions appropriately. NECK: No JVD. No thyromegaly. No cervical lymphadenopathy. LUNGS: Diminished. No wheezing, rales or rhonchi. HEART: S1 and S2, irregularly irregular. ABDOMEN: Soft, nontender and nondistended. Positive bowel sounds. EXTREMITIES: Right BKA of left lower extremity, bandaged, eschar noted in right middle aspect, ulcers noted, decreased edema and decreased erythema. LABORATORY DATA: White count 13.6, hemoglobin 9, hematocrit 27, platelet count 370,000. Sodium 134, potassium 3.8, chloride 103, bicarbonate 22, BUN 83, creatinine 2.89, glucose of 162. ASSESSMENT AND PLAN: This is a 59-year-old male with a history of CAD, chronic kidney disease IV to V admitted due to infected left lower leg ulcers and cellulitis due to chronic peripheral arterial disease requiring right BKA, admitted with IV antibiotics, developed cardiac arrest, intubated for two days and extubated on 03/16, developed worsening renal failure and non-ST elevation myocardial infarction, treated with Lovenox. CURRENT ISSUES: 1. Infected lower extremity ulcers on the left lower extremity, peripheral arterial disease and cellulitis. Patient had been on IV Vancomycin and Zosyn, was afebrile, changed to IV Cefazolin, now with increasing white count of 13.6. Dr. Del Rosario has been consulted for debridement and debrided the area on 03/21. ID has been consulted for change in medications if needed. 2. Left lower extremity peripheral arterial disease, outpatient follow-up with Vascular Surgery. Patient had a right BKA, continued on Atorvastatin, Eliquis, aspirin and pravastatin. 3. Cardiac arrest requiring intubation, extubated 03/16/2020, complicated by non-ST elevation [place] with prior history of CAD and CABG. Dr. Lopez recommends transfer to [facility] for coronary angiography, will need wood dowel machine operator to be involved as he may need dialysis due to CKD Stage IV to V after dye load has been given. Patient is currently medically stable for transfer to [facility], but [facility] has no beds yesterday, no beds today. 4. Hypertension, better controlled on Zebeta and Norvasc. 5. Chronic kidney disease Stage IV to V managed by Nephrology. Patient will most likely need help to prevent contrast Nephropathy once he is transferred to [facility] due to dye load from coronary angiogram. 6. Anemia due to chronic kidney disease. 7. Chronic acute encephalopathy with posturing status post cardiac arrest, previously on IV Levetiracetam, that was changed to p.o. but finally discontinued due to negative findings on EEG and MRI. 8. Secondary hyperparathyroidism due to renal failure. 9. Depression, on Zoloft. 10. Reflux, on Prilosec. 11. Type 2 diabetes, on Levemir and sliding scale, consistent carbohydrate diet. 12. Dyslipidemia, on Lipitor and Pravachol. DISPOSITION: Awaiting bed availability at [facility]. No beds were available yesterday or today. JAYLEEND
--- NOTE | 2020-03-27 07:49 | IPN ---
DATE: 03/25/2020 SUBJECTIVE: Mr. Sanchez is seen this morning on his bedside. He is resting comfortably in his bed. He denies any acute distress. Pain in his anterior chest wall related to chest compressions, it is gradually improving. Patient has no fever, chills, nausea or vomiting. OBJECTIVE: Temperature 97.2 degrees Fahrenheit, heart rate 88 per minute, respiratory rate 16 per minute, blood pressure 136/72 mmHg and oxygen saturation 96% on room air. Head is atraumatic. Neck is supple and without JVD or thyroid enlargement. Heart sounds are regular. Lungs clear to auscultation. Abdomen is soft and nontender, bowel sounds normal. Extremities without any cyanosis or clubbing. He has right below the knee amputation. LABORATORY DATA: Today labs: WBC 11.1, hemoglobin 8.5, hematocrit 26.1, platelets 322,000. Sodium 134, potassium 3.8, CO2 22, BUN 83, creatinine 2.89, glucose 162 and calcium 8.4. PROBLEMS: 1. Acute kidney injury superimposed on chronic kidney disease: Kidney function seems to be leveled off. Patient has no uremic symptoms. We will continue to monitor his kidney function as needed. 2. Anemia: His anemia fluctuates, but mostly has been stable. No active bleeding. CBC should be monitored again tomorrow. 3. Coronary artery disease; status post cardiac arrest: Patient is waiting for possible transfer to [place]. [facility]
[2020-03-27] MEDS ORDERED: POTASSIUM CHLORIDE 10 MEQ SR TABLET PO SCH (09:00)
[2020-03-27 09:12] VITALS: BP 131/72
[2020-03-27] MEDS: LINEZOLID 600MG TABLET (ZYVOX) PO SCH (09:12)
[2020-03-27] MEDS: FERROUS GLUCONATE 324 MG TAB PO SCH (09:12)
[2020-03-27] MEDS: APIXABAN 5 MG TAB (ELIQUIS) PO SCH (09:12)
[2020-03-27] MEDS: CALCITRIOL 0.25 MCG CAP (S0169) PO SCH (09:12)
[2020-03-27] MEDS: bisoproloL fumarate 10 MG TAB PO SCH (09:12)
[2020-03-27] MEDS: ASPIRIN 81 MG ENTERIC TAB PO SCH (09:12)
[2020-03-27] MEDS: amLODIPine 5 MG TAB PO SCH (09:13)
[2020-03-27] MEDS: OMEPRAZOLE 20 MG CAP PO SCH (09:13)
[2020-03-27] MEDS: LEVEMIR (INSULIN DETEMIR) 1 UNITS/0.01ML SC SCH (09:13)
[2020-03-27 10:00] VITALS: BP 129/81
[2020-03-27] MEDS ORDERED: FUROSEMIDE 80 MG TAB PO ONE (10:30)
--- NOTE | 2020-03-27 10:39 | IPNPDOC ---
Text Note Date of Service The patient was seen on 03/27/20. NOTE SUBJECTIVE: Patient was seen and examined this morning at bedside. He has noticed some improvement of his lower extremity edema since yesterday after receiving a dose of lasix. He continues to feel well with no new issues. He is waiting on transfer to [facility] for elective cardiac cath as recommended by cardiology. OBJECTIVE: PHYSICAL EXAMINATION: VITAL SIGNS: Please see below. GENERAL: Alert, laying comfortably in bed, in no acute distress HEENT: NC, AT, moist mucous membranes, no JVD. CARDIOVASCULAR: RRR, normal S1 and S2 RESPIRATORY: CTAB, no wheezing, rhonchi, or rales ABDOMINAL: Soft, nontender, nondistended EXTREMITIES: 1+ pitting edema in the left leg up to the knee. Right BKA amputation. Left foot has a clean, dry dressing in place. ASSESSMENT/PLAN: 59 year old male admitted for sepsis secondary to left leg ulcers who developed acute renal failure superimposed on CKD stage 4. 1. Acute renal failure on chronic kidney disease stage 4. Cr has improved ti baseline and remains stable. Patient has a good urine output. No current indication for dialysis. 2. Metabolic acidosis, resolved. Bicarbonate level decreased to 20 today. Status post oral sodium bicarbonate, may need to restart if his bicarbonate level remains low. 3. Hypokalemia. Improved, continue to monitor and supplement as indicated. Added a daily supplement as we are restarting diuretics and he typically requires potassium supplementation. 4. Left leg cellulitis and ulcers. Status post antibiotics with cefazolin. Blood cultures negative. Debridement of ulcers performed by Dr. Del Rosario. 5. Anemia in chronic kidney disease. Hemoglobin level is stable. Given a dose of Aranesp with appropriate response. Continue oral iron supplement. 6. Non-ST elevation [place] with history of CABG and recent cardiac arrest. Troponin have trended down. He is being managed conservatively. Plan for transfer to [facility] for elective cardiac catheterization when a bed becomes available. 7. Diabetes mellitus type 2 insulin dependent. Insulin dosing managed per primary team. 8. Chronic diastolic congestive heart failure. Has had good diuresis with dose of lasix. Will give him another dose of lasix PO 80mg today and restart his home dose of lasix PO 60mg BID tomorrow. Thank you for the consultation on this patient, we will continue to follow along. Tami BONE, I+O VS, Fishbone, I+O Laboratory Tests 03/26/20 19:18 03/27/20 06:22 Vital Signs Date Time Temp Pulse Resp B/P (MAP) Pulse Ox O2 Delivery O2 Flow Rate FiO2 03/27/20 09:12 80 131/72 03/27/20 07:00 18 03/27/20 06:00 98.7 97 Room Air I&O- Last 24 Hours up to 6 AM 03/27/20 06:00 Intake Total 1730 ml Output Total 1100 ml Balance 630 ml CAROLEE ROJAS D.O. Mar 27, 2020 10:39
[2020-03-27] MEDS ORDERED: LINE1TAB6 PO (11:18)
[2020-03-27] MEDS ORDERED: PERCOCET PO (11:18)
[2020-03-27] MEDS ORDERED: BISO10TA13 PO (11:18)
[2020-03-27] MEDS ORDERED: KLOR10TA76 PO (11:18)
[2020-03-27] MEDS ORDERED: HYDR10TAB PO (11:18)
[2020-03-28] MEDS ORDERED: FUROSEMIDE 20 MG TAB PO SCH (09:00)
--- NOTE | 2020-03-28 12:27 | IPN ---
DATE: 03/26/2020 SUBJECTIVE: The patient has no complaints of chest pain, pressure, tightness, lightheadedness, or dizziness. No fevers or chills overnight. PHYSICAL EXAMINATION: VITALS: Temperature 97.9, pulse 74, respiratory 20, blood pressure 123/71, 99% on room air. GENERAL: Awake, alert and oriented x3. NECK: No JVD, thyromegaly or cervical lymphadenopathy. LUNGS: Clear to auscultation. No wheezing, rales or rhonchi. HEART: S1 and S2, sinus rhythm. No murmurs, rubs or gallops. ABDOMEN: Soft, nontender and nondistended. Positive bowel sounds. No hepatosplenomegaly. EXTREMITIES: Right BKA, left lower extremity is bandaged. LABORATORY DATA: White count 11, hemoglobin 8.5, hematocrit 26, platelet count 322,000. Sodium 130, potassium 3.4, chloride 102, bicarbonate 22, BUN 83, creatinine 2.86, glucose of 79. Microbiology wound care is still pending. ASSESSMENT AND PLAN: This is a 59-year-old male with a history of history of peripheral arterial disease status post right BKA with chronic infected lower extremity ulcer due to peripheral arterial disease and ischemic disease admitted for left lower extremity infected wound ulcers complicated by cardiac arrest and respiratory failure requiring intubation and mechanical ventilation and extubation, non-ST elevation myocardial infarction and acute on chronic renal failure. IMPRESSION: 1. Cardiac arrest status post ACLS protocol, intubation and mechanical ventilation with extubation with prior history of CAD/CABG complicated by non-ST elevation CA, most likely brought on by severe sepsis from infection. Patient is to have a coronary angiogram and transferred to [facility] but no beds have been available for the past four days. He is status post Lovenox, currently on Eliquis, atorvastatin, aspirin and pravastatin. 2. Peripheral arterial disease of left lower extremity with status post left lower extremity cellulitis, infected wound ulcers. Patient currently has ischemic disease but has a follow-up appointment with outpatient Vascular Surgeon, Dr. Ariza. He had previously received Vancomycin, Zosyn and had been on Cefazolin, currently on Zyvox 600 b.i.d. with decreasing white count, followed by Infectious Disease specialist, Lenny Mccain as well as Dr. Del Rosario for debridement, fourdrinier wire weaver. 3. Acute on chronic renal failure Stage IV to V, currently managed by Nephrology Patient will most likely need dialysis after coronary angiogram due to high risk for contrast nephropathy. 4. Acute encephalopathy with posturing status post cardiac arrest. MRI of the brain and EEG are both negative, Keppra has been discontinued. 5. Depression, on chronic Zoloft. 6. Reflux, on Prilosec. 7. Type 2 diabetes, on Levemir, insulin sliding scale and consistent carbohydrate diet. 8. Disposition: Awaiting bed availability at [facility]. NADEEM
--- NOTE | 2020-03-28 12:34 | IPN ---
DATE: 03/24/2020 SUBJECTIVE: Mr. Joyce Sanchez was seen earlier today in the afternoon. He was lying supine in no acute distress at rest and his nurse was at bedside. He denies any shortness of breath, dizziness, palpitations. He continued to have chest wall pain and this is being addressed with an analgesic. There is no report of bleeding. There is no focal manifestation. He has not been out of bed yesterday. He has tried once and he was feeling dizzy and since then he has not tried again. PHYSICAL EXAMINATION: The patient is alert and oriented, in no acute distress at rest and very pleasant. His vital signs when I saw him revealed a blood pressure of 154/58 with a pulse of 80, respirations 18 to 20, his maximum temperature was 98.4 degrees Fahrenheit with oxygen saturation of 95 to 97% on room air. He has a negative fluid balance of 300 cc. LABORATORY: Complete blood count (CBC) revealed a WBC of 13.6, hemoglobin 9.0, hematocrit 27.4 and platelets 270,000. Basic metabolic panel (BMP) revealed a sodium of 136, potassium 3.9, chloride 104, Co2 21 and BUN 82, creatinine 2.86, glomerular filtration rate (GFR) of 24.2, fasting glucose 168 and calcium 8.4. ASSESSMENT: Mr. Joyce Sanchez is stable from a cardiac point of view and the immediate plan is to proceed with a cardiac catheterization in view of the risk of the cardiac event. On 03/14/2020, he had a cardiac arrest and he was resuscitated on the floor in PCU, intubated and then extubated. His serum troponin I at that time peaked up to 8.1. He has not been having any chest pain. He was initially admitted for sepsis related to his cellulitis of the left lower extremity and has been on antibiotics since then. He also had acute kidney injury on the background of chronic kidney disease and his kidney function has been improving; and as mentioned above, today, his BUN is 82 with creatinine 2.86. According to the patient, he was cleared by Dr. Sanderson, his cargoman, that he may proceed with his cardiac catheterization, and this will be discussed with them. He will need some physical therapy and once he is ready to be discharged, will refer for a cardiac catheterization. This was discussed with him and this will be discussed with his hospitalist. NADEEM
--- NOTE | 2020-03-30 15:26 | REP ---
PORTABLE CHEST X-RAY: SINGLE VIEW HISTORY: Intubated patient. COMPARISON: 03/01/2018. FINDINGS: The patient is status post prior median sternotomy. A nasogastric tube is seen terminating in the gastric fundus region. A left central venous line terminates in the expected location of the superior vena cava. An endotracheal tube is seen terminating in good position at the level of the proximal clavicles. The lungs are symmetrically somewhat under-aerated, similar to prior study. No acute infiltrate is seen. Pleural angles are sharp. There is a loop recorder over the left precordium. IMPRESSION: Endotracheal and nasogastric tubes appear to be in good position. A left central venous line is seen in place. [facility]
--- NOTE | 2020-03-30 15:30 | REP ---
PORTABLE CHEST X-RAY CLINICAL: Respiratory failure. COMPARISON: 03/15/2020. FINDINGS: Endotracheal tube 4 cm above the rani. Nasogastric tube courses below left hemidiaphragm. Evidence for prior sternotomy and loop recorder. Cardiac silhouette is stable. Left lower lobe atelectasis again appreciated without significant change. No new consolidation, obvious effusion, or pneumothorax. Skeletal structures are intact. IMPRESSION: Left lower lobe atelectasis similar to prior examination. MTDD
--- NOTE | 2020-03-30 15:32 | REP ---
PORTABLE CHEST X-RAY CLINICAL: Respiratory failure. TECHNIQUE: Portable upright AP view. COMPARISON: 03/16/2020. FINDINGS: Endotracheal tube and nasogastric tube have been removed. Left subclavian catheter with tip in the SVC unchanged. Mediastinum and cardiac silhouette are stable with cardiomegaly and evidence for prior sternotomy. Chronic changes noted with superimposed left lower lobe atelectasis and possible trace right basilar atelectasis. Small effusions cannot be excluded. Findings are essentially unchanged compared to prior. No pneumothorax. Skeletal structures are intact. IMPRESSION: 1. Endotracheal tube and nasogastric tube removed. 2. Lower lobe pleural parenchymal changes remain essentially stable. MTDD
--- NOTE | 2020-04-01 15:05 | ECGEPIP ---
[facility] - ED Test Date: 2020-03-13 Pat Name: ESAU ALBARADO Department: Room: 07-19 Gender: Male Diazo Technician: TANNA : 1960 Requested By: Sebastien Schmitt Order Number: [id number] Reading MD: Carolyn Norris Measurements Intervals [place] Rate: 125 P: [place]: 0 QRS: 52 QRSD: 105 T: 151 QT: 310 QTc: 447 Interpretive Statements ATRIAL FIBRILLATION WITH RAPID VENTRICULAR RESPONSE WITH ABERRANT CONDUCTION OR VENTRICULAR PREMATURE COMPLEXES MODERATE ST DEPRESSION ABNORMAL QRS-T ANGLE ABNORMAL ECG SEE SCANNED DOWNTIME REPORT
--- NOTE | 2020-04-04 14:44 | ECGEPIP ---
[facility] Test Date: 2020-03-14 Pat Name: ESAU ALBARADO Department: Room: [place] [address] Gender: Male Product Development Director: RF : 1960 Requested By: Jairo Chicas Order Number: [id number] Reading MD: Renee Kan Measurements Intervals [place] Rate: 113 P: [place]: 0 QRS: 30 QRSD: 104 T: 124 QT: 342 QTc: 470 Interpretive Statements ATRIAL FIBRILLATION WITH RAPID VENTRICULAR RESPONSE WITH ABERRANT CONDUCTION OR VENTRICULAR PREMATURE COMPLEXES LOW QRS VOLTAGE IN EXTREMITY LEADS SEPTAL MYOCARDIAL INFARCTION, OF INDETERMINATE AGE POSSIBLE INFERIOR MYOCARDIAL INFARCTION, MILD ST ELEVATION (? AGE OF INFARCT) ST/T ABNORMALITY ILRBB ABNORMAL ECG SEE SCANNED DOWNTIME REPORT
--- NOTE | 2020-04-15 11:30 | DSES ---
DATE OF ADMISSION: 03/13/2020 DATE OF DISCHARGE: 03/27/2020 CONSULTANTS DURING THIS ADMISSION: counter top assembler, Dr. Jairo Chicas. Airframe Design Engineer, Dr. Lopez. Dr. Sanderson. Vascular surgeon, Dr. Ariza. Hardener Helper is Dr. Del Rosario. Infectious disease specialist is Dr. Lenny Mccain. Cardiologists, Dr. Osvaldo Lopez and Dr. Wilton Mason. PRIMARY DISCHARGE DIAGNOSES: 1. Sepsis due to infected ischemic left foot ulcers. 2. Left lower extremity cellulitis. 3. Asystolic and cardiac arrest. 4. Acute respiratory failure requiring intubation and mechanical ventilation due to cardiac arrest. 5. Hyponatremia. 6. Acute renal failure on chronic kidney disease, stage IV. 7. Acute metabolic acidosis secondary to sepsis. 8. Congestive heart failure. 9. Diastolic dysfunction. 10. Sepsis secondary to infected left lower extremity ulcers. 11. Peripheral arterial disease with recent right below-knee amputation and non- healing arterial ulcers on the left lower extremity. 12. Secondary hyperparathyroidism. 13. Acute encephalopathy with posturing. EEG negative. 14. Reflux. 15. Depression. 16. Type 2 diabetes. 17. Dyslipidemia. 18. [id number] myocardial infarction. DISCHARGE MEDICATIONS - Zyvox 600 mg twice a day. If cultures are negative, may discontinue. - hydralazine 10 mg every 6 - bisoprolol 10 mg twice a day - Percocet 5/325 one tablet every 4 as needed - potassium 10 mEq twice a day - acetaminophen 1 gram every 6 as needed - allopurinol 100 daily - Eliquis 5 twice a day - aspirin 81 daily - bupropion 150 daily - calcitriol 0.25 mcg daily - ferrous gluconate 324 twice a day - Lasix 60 twice a day - Lispro insulin subcutaneous before meals and at bedtime as needed - Grady-3 two capsules twice a day - Prilosec 40 daily - potassium 10 mEq daily - pravastatin 80 daily - sertraline 25 mg daily REASON FOR TRANSFER TO [facility]: Coronary angiogram for cardiac arrest with non-ST elevation myocardial infarction ([place]), history of coronary artery bypass graft (CABG). HOSPITAL COURSE: This is a 59-year-old male, admitted on March 13 to the hospitalist service with complaints of left-sided foot pain status post right below-knee amputation (BKA). Patient had increased erythema, warmth, and pain with recent right BKA and had infected wounds in the left lower extremity due to several peripheral arterial disease and ischemic ulcers. Patient on admission was also found to have atrial fibrillation with rapid ventricular response (RVR). He was given one dose of ceftriaxone March 13, Cipro on March 14, and was put on Zosyn from March 14-March 16 and vancomycin from March 14- March 21. Patient was then changed to cefazolin for de-escalation of antibiotics and was started on cefazolin March 21-March 25 after infectious disease specialist felt that the patient had no residual infection. He was placed on Zyvox from March 25-March 27 on the day of discharge and to discontinue antibiotics once wound cultures were negative. Patient then had a cardiac arrest in the lagging machine operator hours on the second day of hospital admission and was found to be hypotensive and was resuscitated per advanced cardiac life support (ACLS) protocol, intubated and mechanically ventilated in the intensive care unit until 03/16/2020. At that point, floor coverings salesperson, Dr. Mason, was consulted. Echocardiogram showed normal systolic function. No hemodynamically significant volume disease. Normal central venous pressure. Patient had peak troponin of 8 and was treated with Lovenox 1 mg/kg subcutaneous every 12 hours. Creatinine worsened to a peak of 4.6 with stage V renal failure, for which nephrology was consulted. Patient was evaluated by Dr. Ariza, vascular surgery, who felt that the left lower extremity ulcerations distal 2nd toe and lateral foot and skin tears were due to peripheral arterial disease. At that time patient did not require any inpatient revascularization with recommendations for broad-spectrum antibiotics in light of the severe sepsis. Patient was resuscitated fully with intravenous (IV) fluid hydration. Blood pressure medications were held. Patient was seen by his floor coverings salesperson, who felt that despite medical management patient will require inpatient transfer for coronary angiogram. Patient developed fluid overload and was kept on Lasix 80 IV every 8 hours with improvement. Atrial fibrillation with RVR was treated with metoprolol and digoxin. Once blood pressure was well maintained, he was resumed back on his home dose of Eliquis after he completed Lovenox subcutaneous every 12 hours for 5 days. Troponin peaked at 8 with decrease to 2.45 on the day of discharge. Nephrology had continued with fluid hydration and diuresis alternatively with GFR improving back to baseline -, stage IV-V. Metabolic acidosis improved. He continued to have hyponatremia and was asymptomatic. Metabolic acidosis had resolved. Patient did require wound debridement by Dr. Del Rosario. Wound cultures grew out coagulase-negative staphylococcus. Respiratory panel was negative. Two sets of blood cultures were negative. Patient had remained afebrile with normal white count a week prior to hospital discharge. He had no other acute issues. PHYSICAL EXAMINATION ON DISCHARGE: Temperature 98.7, pulse 83, respiratory rate 17, blood pressure 129/81, 97% on room air. GENERAL: Patient is awake, alert, oriented to person, place, and time. No jugular venous distention (JVD) or thyromegaly. Moist mucous membranes. No conversational dyspnea. Speech is fluent. Tongue is midline. Face is symmetric. LUNGS: Diminished but clear to auscultation. No wheezing, rales, or rhonchi. HEART: S1, S2, irregularly irregular. ABDOMEN: Soft, nontender, nondistended. Positive bowel sounds. EXTREMITIES: Right BKA, left lower extremity, with multiple ischemic ulcers noted in the duffy, measuring 3 x 2.5 cm, 1.5 x 1 cm around the lower ankle, 3 x 2 cm, multiple ulcers in the foot. Right foot: Right BKA. No erythema of the right BKA. DISCHARGE LABORATORY DATA: On March 27, white count 7.2, hemoglobin 8.6, hypertension 26, platelet count 344. Sodium 131, potassium 4, chloride 102, bicarbonate 20, BUN 81, creatinine 2.95, glucose 90. Troponin 2.45. Microbiology: Blood culture March 13 ad March 14, no growth. Respiratory panel March 14 negative for COVID. Negative respiratory panel. Wound culture, left foot, coagulase-negative staphylococcus, few. COVID-19 on 03/27/2020 negative. IMAGING STUDIES: Foot x-ray 03/13/2020: Postoperative changes. No evidence of acute osteomyelitis. CT of the head March 14: No acute intracranial abnormality. Extremities arterial study March 14: Mild peripheral vascular disease, at least one hemodynamically significant stenosis involving the left superficial femoral artery. Decreased velocity is noted throughout both lower extremities. MRI of the brain on 03/20/2020: No acute abnormality, chronic finding. Electroencephalogram read by Dr. Fiorella Hyatt. EEG is mostly drowsy, stage I and II within normal. EKG: Bundle branch block with atrial fibrillation and premature ventricular contractions (PVCs) TIME SPENT ON DISCHARGE: 30 minutes. MTDD
[2020-04-30] MEDS ORDERED: PLAV1TAB2 PO (07:59)
--- NOTE | 2020-05-12 11:53 | REP ---
PORTABLE CHEST X-RAY: FINDINGS: Endotracheal tube 2.5 cm above the rani. Nasogastric tube courses below the left hemidiaphragm. Left subclavian catheter with tip in the SVC/right atrium. Perihilar and bibasilar atelectasis/infiltrates (left greater than right) appear slightly increased from prior examination. No definite effusion. No obvious pneumothorax. Skeletal structures are intact. Evidence for prior sternotomy. IMPRESSION: Mid to lower lobe infiltrates/atelectasis (left greater than right) slightly increased from prior examination. MTDD
== END 2020-03-27 13:30 | disposition short-term general hospital (02) | DRG 853 ==
LOC: EDBD 14:16 → M ED 14:16 → M ED INP 16:56 → ENRESERV 18:08 → M PCU 21:52 → M ICU 03-14 09:00 → M PCU 03-16 22:02 → M MS5PR 03-25 16:16
PROVIDERS: ADMIT Internal Medicine; ATTEND Internal Medicine
PROC: 5A1945Z Respiratory Ventilation, 24-96 Consecutive Hours (ICD-10-PCS; 2020-03-14)
PROC: 02HV33Z Insertion of Infusion Device into Superior Vena Cava, Percutaneous Approach (ICD-10-PCS; 2020-03-14)
PROC: 0JBR0ZZ Excision of Left Foot Subcutaneous Tissue and Fascia, Open Approach (ICD-10-PCS; principal; 2020-03-21)
DX: A41.9 Sepsis, unspecified organism (principal); I46.8 Cardiac arrest due to other underlying condition; I21.4 Non-ST elevation (NSTEMI) myocardial infarction; G93.41 Metabolic encephalopathy; J96.00 Acute respiratory failure, unspecified whether with hypoxia or hypercapnia; I50.33 Acute on chronic diastolic (congestive) heart failure; N18.4 Chronic kidney disease, stage 4 (severe); N17.9 Acute kidney failure, unspecified; N25.81 Secondary hyperparathyroidism of renal origin; E87.2 Acidosis; I13.0 Hypertensive heart and chronic kidney disease with heart failure and stage 1 through stage 4 chronic kidney disease, or unspecified chronic kidney disease; L03.116 Cellulitis of left lower limb; R65.20 Severe sepsis without septic shock; E11.51 Type 2 diabetes mellitus with diabetic peripheral angiopathy without gangrene; E11.621 Type 2 diabetes mellitus with foot ulcer; E11.610 Type 2 diabetes mellitus with diabetic neuropathic arthropathy; E11.22 Type 2 diabetes mellitus with diabetic chronic kidney disease; E87.6 Hypokalemia; F41.9 Anxiety disorder, unspecified; F32.9 Major depressive disorder, single episode, unspecified; I48.91 Unspecified atrial fibrillation; Z89.511 Acquired absence of right leg below knee; Z79.01 Long term (current) use of anticoagulants; Z79.899 Other long term (current) drug therapy; Z79.82 Long term (current) use of aspirin; M10.9 Gout, unspecified; Z87.891 Personal history of nicotine dependence; D63.1 Anemia in chronic kidney disease; L97.529 Non-pressure chronic ulcer of other part of left foot with unspecified severity; G40.909 Epilepsy, unspecified, not intractable, without status epilepticus; K21.9 Gastro-esophageal reflux disease without esophagitis

== ENCOUNTER 2020-04-05 08:28 | Emergency (ER) | payer MEDICARE, MEDICAID ==
[~2020-04-05] VITALS: Ht 182.9 cm; Wt 104.5 kg
[~2020-04-05 08:28] MED LIST changes: +ACET-683 PO; +BISO10TA13 PO; +HYDR10TAB PO; +LINE1TAB6 PO; +METO25TA PO; +OMEG1CAP16 PO; +PERCOCET PO
[2020-04-05 08:30] VITALS: BP 135/63
[2020-04-30] MEDS ORDERED: PLAV1TAB2 PO (07:59)
== END 2020-04-05 09:38 | disposition home or self-care (01) ==
LOC: M ED 08:28
DX: L97.529 Non-pressure chronic ulcer of other part of left foot with unspecified severity (principal); E11.9 Type 2 diabetes mellitus without complications; I11.0 Hypertensive heart disease with heart failure; I25.2 Old myocardial infarction; I25.10 Atherosclerotic heart disease of native coronary artery without angina pectoris; N18.9 Chronic kidney disease, unspecified; Z79.01 Long term (current) use of anticoagulants; Z79.82 Long term (current) use of aspirin; Z79.899 Other long term (current) drug therapy

== ENCOUNTER → 2020-04-22 | Outpatient (POV) | payer MEDICARE, MEDICAID ==
--- NOTE | 2020-04-23 10:41 | IRCOV ---
[facility] IR Consult Office Visit IR Consult Office Visit DATE: Apr 22, 2020 Patient agreed to this telephone consultation. I spent 30 minutes reviewing patient's notes, imaging and talking to the patient. REASON FOR CONSULTATION/CHIEF COMPLAINT: Nonhealing left lower extremity wounds. HISTORY OF PRESENT ILLNESS: 59-year-old male status post cardiac arrest in February 2020, now with increasing number of nonhealing left lower extremity ulcers. He had 3 chronic left lower extremity ulcers which appeared in 2019. But this is increased to 7. He is currently under wound care. He had coronary stents placed in February 2020 and he is on Plavix, aspirin and Eliquis. He's had prior open heart bypass surgery 4 years ago. He had his right lower extremity toes amputated 13 years ago followed by a below knee amputation a few years later. He's had left first second and fourth toe amputations. This was done 10 years ago. He states, he had a bypass in the left lower extremity, performed 9 years ago. He denies pain in the left lower extremity prior to this and states ulcers appear last year. He's had no recent lower extremity angiogram and/or intervention. Patient denies chest pain, shortness of breath, orthopnea or paroxysmal nocturnal dyspnea. He does have renal failure and heart failure. His diabetes is better controlled on an insulin pump, now with a hemoglobin A1c less than 7. His blood pressure is well-controlled at 110/70. He is on a statin. He quit smoking 7 years ago. He has lower extremity neuropathy. He denies rest pain. ALLERGIES: Please see below. HOME MEDICATIONS: Please see below. PAST MEDICAL HISTORY: Retinopathy Nephropathy Diabetes PAD CAD Hypertension Hyperlipidemia Depression CKD Esophagitis Right foot osteomyelitis Venous insufficiency Lung nodule Foot ulcers Atrial fibrillation Cardiac arrest 2019 PAST SURGICAL HISTORY: Open heart bypass Cardiac cath and stent placement this year Right BKA Left lower extremity bypass graft FAMILY HISTORY: Noncontributory SOCIAL HISTORY: Quit smoking 7 years ago. Denies alcohol or drugs. REVIEW OF SYSTEMS: Otherwise negative. PHYSICAL EXAMINATION: No video on patient side. I reviewed the photographs of the ulcers from wound care. LABORATORY DATA: 03/27/2020 hemoglobin 8.6 hematocrit 26.1 WBC 7.2 platelets 344 sodium 131 potassium 4.0 BUN 81 creatinine 2.95 GFR 23.4 fasting glucose 90. hemoglobin A1c 6.9 in January. 03/15/20 total bilirubin 0.4 AST 111 ALT 119 ALP 44 LDL 88 in January. Imaging: I personally reviewed the ultrasound lower extremity from February 2020. Triphasic waveform in the common femoral artery. No bypass graft shown. There is flow within the [place] SFA which is severely atherosclerosed with monophasic waveform. Atherosclerotic disease in the popliteal artery with poor waveform. 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 JOSE C not provided. ASSESSMENT/PLAN: 59-year-old male status post cardiac arrest with ongoing lower extremity critical limb ischemia and nonhealing left lower extremity ulcers. The ultrasound confirms significant disease in the [place] vessels. The bypass graft is not seen. I agree patient would benefit from left lower extremity angiogram and/or intervention if possible for limb salvage. We discussed the risks and benefits of this procedure and patient would like to proceed. We'll schedule the patient for the procedure. I spent 30 minutes in consultation with the patient. Thank you for this referral. CC Dr. Malone Allergies Coded Allergies: No Known Allergies (Verified , 08/14/18) Home Medications Scheduled Allopurinol (Allopurinol), 100 MG PO DAILY, (Reported) Apixaban (Eliquis), 5 MG PO BID, (Reported) Aspirin (Aspirin EC), 81 MG PO DAILY, (Reported) Bisoprolol Fumarate (Bisoprolol Fumarate), 10 MG PO BID Bupropion Hcl (Bupropion Xl), 150 MG PO DAILY, (Reported) Calcitriol (Calcitriol), 0.25 MCG PO DAILY, (Reported) Ferrous Gluconate (Ferrous Gluconate), 324 MG PO BID, (Reported) Furosemide (Lasix), 60 MG PO BID, (Reported) Hydralazine HCl (Hydralazine HCl), 10 MG PO Q6H Insulin Human Lispro (Humalog), 1 DOSE SC AC, (Reported) Linezolid (Linezolid), 600 MG PO BID [place]-3/Dha/Epa/Fish Oil ([place] 3 500 Softgel), 2 CAP PO BID, (Reported) Omeprazole (Omeprazole), 40 MG PO DAILY, (Reported) Potassium Chloride (Klor-Con M10), 10 MEQ PO DAILY, (Reported) Potassium Chloride (Klor-Con M10), 10 MEQ PO BID Pravastatin Sodium (Pravastatin Sodium), 80 MG PO QHS, (Reported) Sertraline HCl (Sertraline HCl), 25 MG PO QHS, (Reported) Scheduled PRN Acetaminophen (Acetaminophen), 1,000 MG PO Q6H PRN for PAIN, (Reported) Oxycodone/Acetaminophen (Oxycodone-Acetaminophen 5-325), 1 TAB PO Q4HP PRN for MILD/MODERATE PAIN (PS 1-7) STARR CRAWFORD MD Apr 23, 2020 10:41
== END ==
LOC: M TMIRPOV 11:19
PROVIDERS: ATTEND Radiology Diagnostic Radiology
DX: I70.249 Atherosclerosis of native arteries of left leg with ulceration of unspecified site (principal); L97.929 Non-pressure chronic ulcer of unspecified part of left lower leg with unspecified severity; E11.22 Type 2 diabetes mellitus with diabetic chronic kidney disease; E11.40 Type 2 diabetes mellitus with diabetic neuropathy, unspecified; E11.51 Type 2 diabetes mellitus with diabetic peripheral angiopathy without gangrene; E11.621 Type 2 diabetes mellitus with foot ulcer; E78.5 Hyperlipidemia, unspecified; F32.9 Major depressive disorder, single episode, unspecified; I12.9 Hypertensive chronic kidney disease with stage 1 through stage 4 chronic kidney disease, or unspecified chronic kidney disease; I25.10 Atherosclerotic heart disease of native coronary artery without angina pectoris; I25.2 Old myocardial infarction; I48.91 Unspecified atrial fibrillation; N18.9 Chronic kidney disease, unspecified; Z79.01 Long term (current) use of anticoagulants; Z79.82 Long term (current) use of aspirin; Z87.891 Personal history of nicotine dependence; Z89.511 Acquired absence of right leg below knee; Z89.422 Acquired absence of other left toe(s); Z95.5 Presence of coronary angioplasty implant and graft

== ENCOUNTER → 2020-04-23 | Outpatient (REF) | payer MEDICARE, MEDICAID | LOC: M LAB REF 17:25 | PROVIDERS: ATTEND Internal Medicine Nephrology | DX: D64.9 Anemia, unspecified (principal) ==

== ENCOUNTER → 2020-04-30 | Outpatient (CLI) | payer MEDICARE, MEDICAID ==
[~2020-04-30] MED LIST changes: +ISOVUE-300 61% 50ML VIAL As Ordered ONE; +LIDOCAINE 1% MDV 20ML VIAL As Ordered ONE; +MIDAZOLAM INJ 2MG/2ML VIAL (J2250 PER 1MG) As Ordered ONE; +diphenhydrAMINE 50MG/ML VIAL (J1200) As Ordered ONE; +fentaNYL 100 MCG/2 ML INJECTION (J3010) As Ordered ONE
[2020-04-30 07:55] LABS: HEMATOCRIT 26.1 % (42.0-52.0); HEMOGLOBIN 8.1 g/dl (13.5-17.5); MEAN CORPUSCULAR HEMOGLOBIN 27.6 pg (27.0-33.0); MEAN CORPUSCULAR VOLUME 89.1 fl (80.0-96.0); PLATELET COUNT, AUTOMATED 456 10^3/uL (150-450); RED BLOOD COUNT 2.93 10^6/uL (4.30-6.10); WHITE BLOOD COUNT 11.9 10^3/uL (4.0-10.0)
[2020-04-30 08:12] LABS: INR 1.42; PROTHROMBIN TIME 17.7 SECONDS (12.5-14.3)
[2020-04-30 08:16] LABS: CALCIUM LEVEL 9.1 MG/DL (8.5-10.1); CREATININE FOR GFR 2.47 MG/DL (0.70-1.30); GLOMERULAR FILTRATION RATE 28.7 (>56); POTASSIUM SERUM 3.8 MEQ/L (3.5-5.1)
--- NOTE | 2020-04-30 14:30 | IRHP ---
[facility] IR Pre-Procedure H & P General Date of Service: Apr 30, 2020 Procedure: Same Day Surgery Interval History and Physical I have seen the patient and reviewed last H & P performed within 30 days. There is no significant interval change. History of Present Illness Chief Complaint The patient is a 59-year-old male admitted with a reason for visit of Non Compressible Noris's. PRE-PROCEDURE DIAGNOSIS: PAD HEART: normal rate. LUNGS: normal breathing at rest. ASA Classification ASA Classification: III-Severe systemic dis. Mallampati Score: II NPO: Yes Problems with prior sedation: No Obstructive Sleep Apnea: No Plan moderate sedation Allergies Coded Allergies: No Known Allergies (Verified , 08/14/18) Home Medications Scheduled Allopurinol (Allopurinol), 100 MG PO DAILY, (Reported) Apixaban (Eliquis), 5 MG PO BID, (Reported) Aspirin (Aspirin EC), 81 MG PO DAILY, (Reported) Bisoprolol Fumarate (Bisoprolol Fumarate), 10 MG PO BID Bupropion Hcl (Bupropion Xl), 150 MG PO DAILY, (Reported) Calcitriol (Calcitriol), 0.25 MCG PO DAILY, (Reported) Clopidogrel Bisulfate (Plavix), 75 MG PO DAILY, (Reported) Ferrous Gluconate (Ferrous Gluconate), 324 MG PO BID, (Reported) Furosemide (Lasix), 60 MG PO BID, (Reported) Insulin Human Lispro (Humalog), 1 DOSE SC AC, (Reported) [place]-3/Dha/Epa/Fish Oil ([place] 3 500 Softgel), 2 CAP PO BID, (Reported) Omeprazole (Omeprazole), 40 MG PO DAILY, (Reported) Potassium Chloride (Klor-Con M10), 10 MEQ PO DAILY, (Reported) Pravastatin Sodium (Pravastatin Sodium), 80 MG PO QHS, (Reported) Sertraline HCl (Sertraline HCl), 25 MG PO QHS, (Reported) Scheduled PRN Acetaminophen (Acetaminophen), 1,000 MG PO Q6H PRN for PAIN, (Reported) Discontinued Medications Linezolid (Linezolid), 600 MG PO BID Discontinued Reason: Pt states not taking Oxycodone/Acetaminophen (Oxycodone-Acetaminophen 5-325), 1 TAB PO Q4HP PRN for MILD/MODERATE PAIN (PS 1-7) Discontinued Reason: Pt states not taking Potassium Chloride (Klor-Con M10), 10 MEQ PO BID Discontinued Reason: Pt states not taking VS, I&O, 24H, Fishbone Vital Signs/I&O Vital Signs Date Time Temp Pulse Resp B/P (MAP) Pulse Ox O2 Delivery O2 Flow Rate FiO2 04/30/20 12:15 86 20 95 Room Air 04/30/20 11:45 3 04/30/20 07:40 98.3 Laboratory Data 24H LABS Laboratory Tests 2 04/30/20 07:45: Nucleated Red Blood Cells % (auto) 0.0, Prothrombin Time 17.7H, Prothromb Time International Ratio 1.42, Anion Gap 9, Glomerular Filtration Rate 28.7L, Calcium Level 9.1 CBC/BMP Laboratory Tests 04/30/20 07:45 STARR CRAWFORD MD Apr 30, 2020 14:30
[2020-04-30 18:02] VITALS: BP 141/80
--- NOTE | 2020-05-01 09:23 | POST-OPPD ---
Postoperative Procedure Note Date Of Procedure: Apr 30, 2020 Time Of Procedure: 16:00 IR Pelvic angiogram. IR Left lower extremity angiogram. IR Left superficial femoral artery angioplasty. IR Left popliteal artery recanalization. IR Below knee run off arteriogram. IR Left popliteal artery angioplasty. IR Left anterior tibial artery recanalization. IR Left anterior tibial artery angioplasty. IR Moderate sedation. Clinical Information:Peripheral vascular disease. Increasing number of nonhealing left lower extremity arterial ulcers. Physician: Dr. Jack. Procedure: The patient was advised of the benefits, risks, and alternatives of the procedure and informed consent was obtained. A time out was performed with verification of the patient's name, MRN, site of procedure, and type of procedure to be performed. The patient was positioned in the supine position on the angiographic table. The site was prepped and draped in the usual sterile fashion. Moderate sedation was performed by the physician including the presence of an independent trained observer who assisted in monitoring the patient's level of consciousness and physiological status. Following the administration of fenta nyl and Versed, the physician spent time 180 minutes of continuous [id number] time with the patient. A neurobiologist radiograph reveals calcifications in the expected region of the left external iliac and superficial femoral artery. Lidocaine was used for local anesthesia. The right common femoral artery was accessed with a microintroducer set. A short 0.018" [place] wire was inserted and the needle was exchanged for a 4 Fr microintroducer sheath. The guidewire and dilator were removed and a 0.035" [place] wire was placed into the abdominal aorta. A 6 Fr sheath was placed over the wire. A 4 [place] Omniflush was advanced over the wire, under fluoroscopy guidance and used to catheterize the infrarenal abdominal aorta. A pelvic arteriogram was performed and this demonstrates patent infrarenal abdominal aorta, patent bilateral common iliac, left external iliac and internal iliac arteries. Patent proximal superficial femoral and profunda femoris. The catheter in conjunction with a wire, was used under fluoroscopy guidance to gain up and over access into the left common iliac artery. The catheter was removed over the wire and a 4 [place] glide cath was advanced over the wire and used to catheterize the left proximal superficial femoral artery. A left lower extremity angiogram was performed. This demonstrates completely diseased left SFA with multifocal stenosis greater than 90%. Angiography further down the left lower extremity was performed and demonstrates multifocal stenosis in the mid and distal superficial femoral artery and proximal popliteal artery. Occluded P2 segment of the popliteal artery and no dedicated runoff vessels. A below knee run off arteriogram was performed all the way to the left foot and this demonstrates reconstitution of the distal anterior and posterior tibial artery coursing into the foot as dorsalis pedis, patent plantar and calcaneal branches. There is microvascular disease in the foot. The catheter was removed over the wire. The sheath was exchanged over the wire, for a 6 [place] 45 cm destination sheath. A crossing catheter was used in conjunction with the wire, to catheterize the left superficial femoral artery. Intermittent injection of contrast confirms intraluminal location. The catheter and wire were then used to catheterize the popliteal artery and under fluoroscopy guidance was used to recanalize the occluded mid popliteal artery. Injection of contrast confirms intraluminal location. The catheter was removed over the wire and the sheath was exchanged over the wire for a 90 cm destination sheath. The catheter and wire were then used to recanalize the anterior tibial artery. Intermittent injection of contrast confirms intraluminal location. Under fluoroscopy guidance, the catheter and wire were used to recanalize the entire anterior tibial artery into dorsalis pedis. Injection of contrast confirms intraluminal location. The catheter was retracted to the distal anterior tibial artery and an arteriogram was performed. This demonstrates patent distal anterior tibial artery and dorsalis pedis branches. There is micro-vascular disease in the foot. The catheter was removed over the wire. A 3 x 200 mm [place] balloon was then advanced over the wire, under fluoroscopy guidance and positioned in the distal SFA and popliteal artery. Angioplasty of the distal SFA and popliteal artery was performed. Heparin was administered. The balloon was deflated and repositioned into the mid and distal popliteal artery and proximal anterior tibial artery. Angioplasty of the popliteal artery and proximal anterior tibial artery was performed. The balloon was deflated and removed over the wire. A 6 x 200 mm [place] balloon was advanced over the wire into the distal superficial femoral artery and proximal popliteal artery. Angioplasty of the distal superficial femoral artery and proximal popliteal artery was performed. The balloon was deflated and retracted to the proximal and mid SFA. Angioplasty of the proximal and mid SFA was performed. A follow-up arteriogram was performed and this demonstrates improved flow in the mid and distal superficial femoral artery but some irregularity remains. There is now flow in the popliteal artery and proximal anterior tibial artery. A 3 x 200 mm [place] balloon was then advanced over the wire under fluoroscopy guidance and positioned in the proximal and mid left anterior tibial artery. Angioplasty of the proximal and mid left anterior tibial artery was performed. The balloon was deflated and removed of the wire. A post angioplasty follow-up arteriogram was performed. This demonstrates there is now forward flow in the proximal, mid and distal anterior tibial artery coursing into the foot. Preserved flow in the posterior tibial artery, calcaneal and plantar branches. There is irregularity in the distal popliteal artery. A 4 x 200 mm [place] balloon was advanced over the wire and positioned in the proximal, mid and distal popliteal artery. This was used to perform angioplasty of the popliteal artery. The balloon was deflated and removed over the wire. A post angioplasty follow-up arteriogram was performed. This demonstrates much improved forward flow in the proximal, mid and distal popliteal artery. Good flow in the anterior tibial artery. A 6 x 200 mm [place] balloon was then advanced over the wire under fluoroscopy guidance and positioned in the mid and distal superficial femoral artery. Repeat angioplasty of the mid and distal left superficial femoral artery was performed. Additional heparin was administered. The balloon was then deflated and repositioned into the proximal left superficial femoral artery. Angioplasty was performed. A post angioplasty follow-up arteriogram was performed through the groin sheath which was retracted to the common femoral artery. This demonstrates improved flow through the proximal, mid and distal superficial femoral artery. Preserved flow in the profunda femoris. Follow-up arteriography down the leg was performed this demonstrates improved flow in the mid and distal superficial femoral artery. The popliteal artery is now patent with forward flow and successful recanalization of the anterior tibial artery. Runoff arteriogram to the left foot was performed and this demonstrates good flow in the distal anterior tibial artery and dorsalis pedis. Preserved flow in the reconstituted distal posterior tibial artery and plantar and calcaneal branches in the foot. The catheter sheath and wire were removed. A 6 [place] Mynx device was used to close the right groin arteriotomy. Hemostasis achieved and a sterile dressing was applied to the site. The patient tolerated the procedure well and was returned to the PRU in stable condition. EBL:Less than 5 mL. Complications:None. Impression: 1. Left leg angiography demonstrates severely diseased left superficial femoral artery with multi segment greater than 90% stenosis. 2. Complete occlusion of the mid popliteal artery with no dedicated below-knee runoff vessels identified. 3. Distal reconstitution of the distal anterior tibial and posterior tibial artery. Microvascular disease in the foot. 4. Successful left SFA angioplasty. 5. Successful recanalization of occluded mid and distal left popliteal artery and angioplasty. 6. Successful recanalization of occluded left anterior tibial artery and angioplasty. 7. Patient to continue under wound care. We will continue to monitor the wounds and if necessary consider posterior tibial artery recanalization at a later date. Thank you for this referral. Cc Dr. Malone. STARR JACK MD May 01, 2020 09:23
== END ==
LOC: M IRPRO 07:23
PROVIDERS: ATTEND Radiology Diagnostic Radiology
DX: I70.249 Atherosclerosis of native arteries of left leg with ulceration of unspecified site (principal); I70.92 Chronic total occlusion of artery of the extremities; Z79.4 Long term (current) use of insulin; Z79.82 Long term (current) use of aspirin; Z79.899 Other long term (current) drug therapy
CPT/HCPCS: 37224; 37228; 75710; 80048; 85027; 85610; 99152; 99153; C1725; C1760; C1769; C1887; C1894; J1200; J1644; J2250; J3010; Q9967

== ENCOUNTER 2020-05-26 13:27 | Outpatient (CLI) | payer MEDICARE, MEDICAID ==
[~2020-05-26] VITALS: Ht 188 cm; Wt 102.0 kg
[~2020-05-26 13:27] MED LIST changes: -ISOVUE-300 61% 50ML VIAL As Ordered ONE; -LIDOCAINE 1% MDV 20ML VIAL As Ordered ONE; -MIDAZOLAM INJ 2MG/2ML VIAL (J2250 PER 1MG) As Ordered ONE; -diphenhydrAMINE 50MG/ML VIAL (J1200) As Ordered ONE; -fentaNYL 100 MCG/2 ML INJECTION (J3010) As Ordered ONE
[2020-05-26] MEDS ORDERED: FERRIC CARBOXYMALTOSE INJ 750 MG in NS 250 ML IV ONE (13:30)
[2020-05-26] MEDS ORDERED: EPINEPHrine INJ 1 MG/ML 1ML AMP IM PRN (13:30)
[2020-05-26] MEDS ORDERED: diphenhydrAMINE 50MG/ML VIAL (J1200) IV PRN (13:30)
[2020-05-26] MEDS ORDERED: methylPREDNISolone 125MG 2ML VIAL IV PRN (13:30)
[2020-05-26] MEDS ORDERED: ALBUTEROL SULFATE 2.5 MG/0.5 ML INH NEB SOLN INH PRN (13:30)
[2020-05-26] MEDS ORDERED: NS 1,000 ML IV SCH (13:30)
[2020-05-26 13:48] VITALS: BP 114/69
[2020-05-26 15:30] VITALS: BP 127/73
== END 2020-05-26 15:30 | disposition home or self-care (01) ==
LOC: M INFU 13:27
PROVIDERS: ATTEND Internal Medicine Nephrology
DX: D64.9 Anemia, unspecified (principal)
CPT/HCPCS: 96365; J1439

== ENCOUNTER 2020-06-02 13:13 | Outpatient (CLI) | payer MEDICARE, MEDICAID ==
[~2020-06-02] VITALS: Ht 182.9 cm; Wt 102.3 kg
[2020-06-02 13:27] VITALS: BP 113/55
[2020-06-02] MEDS ORDERED: methylPREDNISolone 125MG 2ML VIAL IV PRN (13:30)
[2020-06-02] MEDS ORDERED: EPINEPHrine INJ 1 MG/ML 1ML AMP IM PRN (13:30)
[2020-06-02] MEDS ORDERED: FERRIC CARBOXYMALTOSE INJ 750 MG in NS 250 ML IV ONE (13:30)
[2020-06-02] MEDS ORDERED: NS 1,000 ML IV SCH (13:30)
[2020-06-02] MEDS ORDERED: diphenhydrAMINE 50MG/ML VIAL (J1200) IV PRN (13:30)
[2020-06-02] MEDS ORDERED: ALBUTEROL SULFATE 2.5 MG/0.5 ML INH NEB SOLN INH PRN (13:30)
[2020-06-02 16:00] VITALS: BP 144/72
== END 2020-06-02 16:00 | disposition home or self-care (01) ==
LOC: M INFU 13:13
PROVIDERS: ATTEND Internal Medicine Nephrology
DX: D64.9 Anemia, unspecified (principal)
CPT/HCPCS: 96365; J1439

== ENCOUNTER 2020-06-16 19:38 | Inpatient (IN) | payer MEDICARE, MEDICAID ==
[~2020-06-16] VITALS: Ht 182.9 cm; Wt 107.5 kg
[~2020-06-16 19:38] MED LIST changes: -BUPR150T3 PO; +BUPR150T4 PO
[2020-06-16 20:21] LABS: VENOUS BASE EXCESS -5.7 (-2.0-2.0); VENOUS HCO3 18.3 MEQ/L (23.0-27.0); VENOUS O2 SATURATION 93.6 % (60.0-80.0); VENOUS PARTIAL PRESSURE O2 65.7 mmHg (30.0-50.0); VENOUS STANDARD HCO3 19.7 MEQ/L; VENOUS TOTAL CO2 19.3 MEQ/L (24.0-28.0)
[2020-06-16 20:33] LABS: HEMATOCRIT 30.1 % (42.0-52.0); HEMOGLOBIN 9.2 g/dl (13.5-17.5); MEAN CORPUSCULAR HEMOGLOBIN 28.1 pg (27.0-33.0); MEAN CORPUSCULAR HGB CONC 30.6 g/dl (32.0-36.5); PLATELET COUNT, AUTOMATED 479 10^3/uL (150-450); RED BLOOD COUNT 3.27 10^6/uL (4.30-6.10); WHITE BLOOD COUNT 12.1 10^3/uL (4.0-10.0)
[2020-06-16 21:13] LABS: BASO % 0.3 % (0.0-1.0); EOS # 0.1 10^3/uL (0.0-0.5); EOS % 0.6 % (0.0-3.0); LYMPH # 0.6 10^3/uL (1.5-5.0); LYMPH % 4.6 % (24.0-44.0); MONO # 0.9 10^3/uL (0.0-0.8); MONO % 7.2 % (0.0-5.0); NEUTROPHILS # 10.6 10^3/uL (1.5-8.5); NEUTROPHILS % 86.7 % (36.0-66.0)
[2020-06-16 21:37] LABS: PARTIAL THROMBOPLASTIN TIME 44.8 SECONDS (24.2-38.5)
[2020-06-16 21:48] LABS: INR 2.29; PROTHROMBIN TIME 25.7 SECONDS (12.5-14.3)
[2020-06-16 22:02] LABS: INFLUENZA A AMPLIFICATION NEGATIVE (NEGATIVE); INFLUENZA B AMPLIFICATION NEGATIVE (NEGATIVE)
[2020-06-16 22:03] LABS: ALBUMIN 1.7 GM/DL (3.2-5.2); ALT/SGPT 49 U/L (12-78); BILIRUBIN,DIRECT 0.3 MG/DL (0.0-0.2); BILIRUBIN,TOTAL 0.4 MG/DL (0.2-1.0); BLOOD UREA NITROGEN 61 MG/DL (7-18); CALCIUM LEVEL 8.1 MG/DL (8.5-10.1); CARBON DIOXIDE LEVEL 22 MEQ/L (21-32); CHLORIDE LEVEL 105 MEQ/L (98-107); CK-MB VALUE MASS 3.1 NG/ML (<3.6); CPK CREATINE PHOSPHOKINASE 49 U/L (39-308); CREATININE FOR GFR 1.91 MG/DL (0.70-1.30); GLOMERULAR FILTRATION RATE 38.6 (>56); GLUCOSE, FASTING 84 MG/DL (70-100); MB/CK RELATIVE INDEX 6.33 (< OR =4); NT-PRO BNP 53319 PG/ML (<125); SODIUM LEVEL 135 MEQ/L (136-145); TROPONIN I 0.02 NG/ML (< 0.10)
--- NOTE | 2020-06-16 22:52 | REPVR ---
PROCEDURE INFORMATION: Exam: XR Chest, 1 View Exam date and time: 06/16/2020 10:36 PM Age: 59 years old Clinical indication: Sepsis/shock TECHNIQUE: Imaging protocol: XR of the chest Views: 1 view. COMPARISON: CR PORTABLE CHEST X-RAY 03/17/2020 7:28 AM FINDINGS: Tubes, catheters and devices: There is a loop recorder device in the left chest wall. Lungs: There is left basilar atelectasis. No consolidation. No pulmonary edema. Pleural space: Unremarkable. No pleural effusion or pneumothorax is identified. Heart/Mediastinum: The cardiac silhouette is enlarged. The mediastinal contours are unremarkable. Mediastinal clips are present. Bones/joints: Median sternotomy suture wires are in place. There are degenerative changes of both acromioclavicular joints. Endplate spurs are noted in the thoracic spine. IMPRESSION: No radiographic evidence for an acute cardiopulmonary process. Electronically signed by: Dale Luke On 06/16/2020 22:53:07 PM
--- NOTE | 2020-06-16 23:00 | REPVR ---
PROCEDURE INFORMATION: Exam: XR Left Foot Complete Exam date and time: 06/16/2020 10:36 PM Age: 59 years old Clinical indication: Sepsis/shock TECHNIQUE: Imaging protocol: XR Left foot. Views: 3 or more views. COMPARISON: CR Foot, complete 03/13/2020 3:45 PM FINDINGS: Bones/joints: Postoperative changes are noted from an amputation of an amputation of the left great toe down to the level of the proximal diaphysis of the 1st metatarsal, an amputation of the left 2nd toe, an amputation of the left 3rd toe down to the level of the neck of the proximal phalanx, and an amputation of the left 4th toe down to the level of the base of the middle phalanx. There are erosive changes involving the lateral aspect of the base of the proximal phalanx of the left 5th toe and the base, distal diaphysis, and head of the left 5th metatarsal, with a pathologic fracture involving the lateral aspect of the base of the left 5th metatarsal and ossification of the adjacent soft tissues. There is medial subluxation at the left 5th metatarsophalangeal joint. There is osteoarthritis involving the left naviculocuneiform joint and left 1st tarsometatarsal joint. There is a plantar calcaneal spur at the origin of the left plantar fascia. Soft tissues: There is soft tissue ulceration involving the left heel pad with underlying dystrophic calcification. There is a posterior calcaneal spur at the insertion of the Achilles tendon, which is compatible with a left Achilles enthesopathy. Vasculature: There are atherosclerotic calcifications. IMPRESSION: 1. Radiographic evidence for osteomyelitis involving the lateral aspect of the base of the proximal phalanx of the left 5th toe and the base, distal diaphysis, and head of the left 5th metatarsal, with a pathologic fracture involving the lateral aspect of the base of the left 5th metatarsal and ossification of the adjacent soft tissues. 2. Soft tissue ulceration involving the left heel pad with underlying dystrophic calcification. Electronically signed by: Dale Luke On 06/16/2020 23:00:32 PM
[2020-06-16 23:31] LABS: ABG BASE EXCESS -4.4 (-2.0-2.0); ABG HCO3 18.6 MEQ/L (22.0-26.0); ABG O2 SATURATION 97.8 % (95.0-99.0); ABG PARTIAL PRESSURE CO2 27.5 mmHg (35.0-45.0); ABG PARTIAL PRESSURE O2 93.1 mmHg (75.0-100.0); ABG STANDARD HCO3 20.8 MEQ/L (22.0-26.0); ABG TOTAL CO2 19.5 MEQ/L (22.0-29.0); ABG pH (ARTERIAL) 7.449 UNITS (7.350-7.450)
[2020-06-17] MEDS ORDERED: VANCOMYCIN HCL 1,000 MG, VIAL MATE ADAPTER 1 EACH in D5W 250 ML IV ONE ×2 (00:45→06:00)
[2020-06-17] MEDS: PIPERACILLIN/TAZOBACTAM SOD 2.25 GM in D5W MINI-BAG PLUS 50 ML IV ONE ×2 (01:23→02:34)
--- NOTE | 2020-06-17 01:37 | HPEPDOC ---
[facility] Medical History & Physical Date of Admission Jun 17, 2020 Date of Service: Jun 17, 2020 Primary Care Physician: NYLA HALL PA-C Attending Physician: JOSE CHAVEZ MD History and Physical TIME OF SERVICE: 2:20 AM CHIEF COMPLAINT: Suspect sepsis HISTORY OF PRESENT ILLNESS: This 59-year-old gentleman has a long and complicated history of lower extremity wounds. He has a history right lower extremity wounds which progressed to the point that he had his toes amputated and eventually a right BKA in 2010. With regards to his left leg he had his left first, second and fourth toes amputated 10 years ago, followed by a bypass procedure in the left lower extremity 10 years ago. Last year he developed arterial ulcers on his left lower extremity and has been seeing to manage the ulcers. On march 13, he was admitted to [facility] for management of sepsis 2/2 infected left foot ulcers. During his stay, the wounds were debridement by Dr. Del Rosario blood cultures were negative, but the cultures grew coagulase-negative staph. His course was complicated by atrial fibrillation with RVR, cardiac arrest which per the patient was due to sepsis, acute ventilator dependent respiratory failure, acute on chronic renal failure, metabolic encephalopathy and NSTEMI. On on March 27, he was transferred to [facility] for PCI with stent placement. The patient seems to have recovered quite well after his prolonged hospital stay and denies having any residual neurological deficits. On May 10 he had a left lower extremity angiogram done by Dr. Jack; he his also scheduled to see Dr. Ariza next Tuesday. He has followed up with ; on May 19 he had debridement of the wound on the dorsal aspect of his left foot. Yesterday he saw her Kira again and had his dressings changed. At around 4:30 PM he developed chills that wouldn't go away despite putting on warm clothing. He checked his temperature noted that it was 100.1. After his last hospital stay, he was nervous that he might be developing sepsis again, therefore he decided to come to the hospital for evaluation. REVIEW OF SYSTEMS: 12 point review of systems negative except as listed in HPI PAST MEDICAL/ SURGICAL HISTORY: Childhood asthma Chronic left lower extremity ulcers IDDM with retinopathy and neuropathy Chronic CAD / CABG - CHANEY to LAD, SVG to OM1/OM2 Jun 2016 / NSTEMI 3 REJI March 2020 Chronic HFpEF/ HFrecEF (EF 30-35% Jun 2016 & EF 60-65% Jul 2016 ) / Group 2 Pulmonary HTN PAD / left lower extremity bypass procedure 9 years ago / left lower extremity angiogram Apr 2020 Dyslipidemia Chronic HTN CKD 3/4 Long standing persistent atrial fibrillation (Jun 2016) Iron deficiency anemia Mild pulmonary hypertension Gout Sudden cardiac arrest February 2020 Esophagitis/gastritis/duodenitis Class 1 obesity Left first toe amputation Feb 2010 Left second toe amputation November 2014 Left third toe amputation September 2018 Left fourth toe amputation Right BKA to manage MSSA and 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 HOME MEDICATIONS: Please see below. PHYSICAL EXAMINATION: Vital Signs Date Time Temp Pulse Resp B/P (MAP) Pulse Ox O2 Delivery O2 Flow Rate FiO2 06/16/20 19:53 75 18 158/79 99 Room Air 06/16/20 20:12 99.8 GEN: well-nourished / well developed/ NAD INTEGUMENT: not flushed/ not jaundice / has spider angiomata on cheeks / mild jaundice HEENT: mucus membranes moist and pink / sclera anicteric CVS: RRR/NMRG/ radial pulses diminished LUNGS: able to speak full sentences without stopping to take a breath / no coughing / lungs are clear to auscultation bilaterally on room air ABDOMEN: Contour (obese ) / soft & not tender with palpation MSK/EXTREMITIES: NCAT / right lower extremity prosthesis / left lower extremity is wrapped in dressings and a soft boot NEURO: CN 2-12 are grossly intact / speech is not dysarthric PSYCH: alert and oriented to person place and time/ able to understand and follow all commands LABORATORY DATA: 06/16/20 20:12 06/16/20 21:10 06/16/20 20:12: Immature Granulocyte % (Auto) 0.6, Neutrophils (%) (Auto) 86.7H, Lymphocytes (%) (Auto) 4.6L, Monocytes (%) (Auto) 7.2H, Eosinophils (%) (Auto) 0.6, Basophils (%) (Auto) 0.3, Neutrophils # (Auto) 10.6H, Lymphocytes # (Auto) 0.6L, Monocytes # (Auto) 0.9H, Eosinophils # (Auto) 0.1, Basophils # (Auto) 0.0, Immature Granulocyte # (Auto) 0.1H, Nucleated Red Blood Cells % (auto) 0.0, Platelet Estimate , Blood Gas Bicarbonate Standard 19.7, Venous Blood pH 7.390, Venous Blood Partial Pressure CO2 31.0L, Venous Blood Partial Pressure O2 65.7H, Venous Blood Total Carbon Dioxide 19.3L, Venous Blood HCO3 18.3L, Venous Blood Oxygen Saturation 93.6H, Venous Blood Base Excess -5.7L, Lactic Acid Level 0.7 06/16/20 21:10: Prothrombin Time 25.7H, Prothromb Time International Ratio 2.29, Activated Partial Thromboplast Time 44.8H, Anion Gap 8, Glomerular Filtration Rate 38.6L, Calcium Level 8.1L, Magnesium Level 2.0, Total Bilirubin 0.4, Direct Bilirubin 0.3H, Aspartate Amino Transf (AST/SGOT) 46H, Alanine Aminotransferase (ALT/SGPT) 49, Alkaline Phosphatase 350H, Total Creatine Kinase 49, Creatine Kinase MB 3.1, Creatine Kinase MB Relative Index 6.33H, Troponin I 0.02, C-Reactive Protein, Quantitative 19.00H, JX-Sfg-Y-Type Natriuretic Peptide 04552F, Total Protein 6.0L, Albumin 1.7L, Albumin/Globulin Ratio 0.4 06/16/20 21:13: Coronavirus (COVID-19)(PCR) NEGATIVE, Influenza Type A (RT-PCR) NEGATIVE, Influ molly Type B (RT-PCR) NEGATIVE, Respiratory Syncytial Virus (RT-PCR NEGATIVE 06/16/20 23:15: Blood Gas Bicarbonate Standard 20.8L, Arterial Blood pH 7.449, Arterial Blood Partial Pressure CO2 27.5L, Arterial Blood Partial Pressure O2 93.1, Arterial Blood Total CO2 19.5L, Arterial Blood HCO3 18.6L, Arterial Blood Base Excess - 4.4L, Arterial Blood Oxygen Saturation 97.8 IMAGING: Chest x-ray "IMPRESSION: No radiographic evidence for an acute cardiopulmonary process." Left lower extremity x-ray "IMPRESSION: 1. Radiographic evidence for osteomyelitis involving the lateral aspect of the base of the proximal phalanx of the left 5th toe and the base, distal diaphysis, and head of the left 5th metatarsal, with a pathologic fracture involving the lateral aspect of the base of the left 5th metatarsal and ossification of the adjacent soft tissues. 2. Soft tissue ulceration involving the left heel pad with underlying dystrophic calcification. " MICROBIOLOGY: COVID, RSV and Influenza A/B negative 06/16/20 Blood Culture, Received Pending 06/16/20 Blood Culture, Received Pending ASSESSMENT: Mr. Sanchez is a 59-year-old with a history of chronic left lower extremity ulcer s, IDDM, CAD/CABG, HFpEF/ HFrecEF, PAD, HTN, CKD, A. fib, MAVIS, multiple toe amputations, and right BKA, who presented with c/o of fevers, chills and concerns that he might have sepsis again; he will be admitted for management of left fifth toe osteomyelitis. PLAN: 1. Left fifth toe osteomyelitis The only SIRS criteria, he currently has is an elevated white count, but he reports having a fever as high as 100.1 at home. Plan: To PCU/continue with vancomycin, Zosyn/follow-up blood cultures/will ask the day team to consider consulting consult To Torres, Booker, and Carin in the morning 2. Uncontrolled HTN Plan: give Bisoprolol early, c/w Lasix 60mg daily / increase Losartan from 25 mg to 50 mg daily 3. Mild transaminitis Plan: f/u Hep panel 5. Chronic left lower extremity ulcers Plan: f/u with Dr. Malone for dressing instructions 6. CAD / CABG / 3 March 2020 / Dyslipidemia Plan: c/w Atorvastatin, Bisoprolol, Clopidogrel 7. PAD Plan: Atorvastatin / Clopidogrel 8. IDDM with retinopathy and neuropathy Plan: f/u accuchecks & A1C / hypoglycemia protocol / sliding scale insulin 9. Chronic heart failure with preserved EF (HFpEF) and Heart failure with recovered EF (HFrecEF) / Group 2 Pulmonary HTN Currently clinically compensated Echo Jun 2016 EF 45-50%, severe hypokinesis, grade 2 DD, mod/severe pulm HTN Echo Jul 2016 EF 60-65%, septal and apical wall motion abnormalities, Grade 2 DD, Plan: monitor Is and Os, daily weights, low salt diet / c/w Bisoprolol, Losartan, Furosemide 10. Chronic Iron deficiency anemia Hg 9.2 Plan: hold oral iron while treating infection / f/u CBC 11. CKD 3/4 Plan: Calcitriol / f/u BMP 12. Long standing persistent atrial fibrillation Plan: Apixaban 13. Gout Plan: allopurinol 14. Anxiety/depression Plan: bupropion, sertraline 15. 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 DVT PROPHYLAXIS: n/a on NOAC DISPOSITION: home after more than 2 midnight's stay Home Medications Scheduled Allopurinol (Allopurinol) 100 Mg Tab, 100 MG PO DAILY Apixaban (Eliquis) 5 Mg Tab, 5 MG PO BID Atorvastatin Calcium (Atorvastatin Calcium) 40 Mg Tablet, 40 MG PO QHS Bisoprolol Fumarate (Bisoprolol Fumarate) 10 Mg Tablet, 10 MG PO BID Bupropion Hcl (Bupropion Xl) 150 Mg Tab.er.24h, 150 MG PO DAILY Calcitriol (Calcitriol) 0.25 Mcg Cap, 0.25 MCG PO DAILY Clopidogrel Bisulfate (Clopidogrel) 75 Mg Tablet, 75 MG PO DAILY Ferrous Gluconate (Ferrous Gluconate) 324 Mg Tab, 324 MG PO BID Furosemide (Lasix) 40 Mg Tab, 60 MG PO DAILY Insulin Human Lispro (Humalog) 1 Units/0.01 Ml Inj, 1 DOSE SC AC PER SLIDING SCALE VIA INSULIN PUMP Losartan Potassium (Losartan Potassium) 25 Mg Tablet, 25 MG PO DAILY [place]-3 Fatty Acids ([place]-3) 1,000 Mg Capsule, 2,000 MG PO BID Omeprazole (Omeprazole) 40 Mg Cap, 40 MG PO DAILY Sertraline HCl (Sertraline HCl) 25 Mg Tab, 25 MG PO QHS Scheduled PRN Acetaminophen (Acetaminophen) 500 Mg Tablet, 1,000 MG PO Q6H PRN for PAIN Allergies Coded Allergies: No Known Allergies (Verified , 08/14/18) A-FIB/CHADSVASC A-FIB History Current/History of A-Fib/PAF?: Yes Current PO Anticoag Therapy: Yes JOSE CHAVEZ MD Jun 17, 2020 01:37
[2020-06-17] MEDS ORDERED: OMEG10005 PO (02:05)
[2020-06-17] MEDS ORDERED: LOSA25TA14 PO (02:05)
[2020-06-17] MEDS ORDERED: BUPR150T4 PO (02:05)
[2020-06-17] MEDS ORDERED: BISO10TA14 PO (02:05)
[2020-06-17] MEDS ORDERED: CLOP75TA2 PO (02:05)
[2020-06-17] MEDS ORDERED: ATOR40TA75 PO (02:05)
[2020-06-17] MEDS ORDERED: GLUCOSE 4GM CHEW TABLET PO PRN (02:15)
[2020-06-17] MEDS ORDERED: GLUCAGON INJ 1MG VIAL SC PRN (02:15)
[2020-06-17] MEDS ORDERED: MAALOX 30 ML SUSP *UDC PO PRN (02:15)
[2020-06-17] MEDS ORDERED: MOM 30ML SUSPENSION UDC PO PRN (02:15)
[2020-06-17] MEDS ORDERED: DEXTROSE 50% 50 ML SYRINGE IV PRN (02:15)
[2020-06-17 03:05] LABS: FERRITIN 1804 NG/ML (26-388); IRON (FE) 34 UG/DL (65-175); PERCENT SATURATION 19.9 % (19.7-50.0); TOTAL IRON BINDING CAPACITY 171 UG/DL (250-450)
--- NOTE | 2020-06-17 05:34 | ECGEPIP ---
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
[2020-06-17 06:00] VITALS: BP 130/67
[2020-06-17] MEDS: HumaLOG INSULIN (NovoLOG) PER UNIT SC SCH ×3 (06:00→18:40)
[2020-06-17] MEDS: bisoproloL fumarate 10 MG TAB PO SCH ×2 (06:50→19:50)
[2020-06-17 06:51] LABS: HEMATOCRIT 29.6 % (42.0-52.0); HEMOGLOBIN 9.1 g/dl (13.5-17.5); MEAN CORPUSCULAR HEMOGLOBIN 28.3 pg (27.0-33.0); MEAN CORPUSCULAR HGB CONC 30.7 g/dl (32.0-36.5); MEAN CORPUSCULAR VOLUME 92.2 fl (80.0-96.0); PLATELET COUNT, AUTOMATED 416 10^3/uL (150-450); RED BLOOD COUNT 3.21 10^6/uL (4.30-6.10); WHITE BLOOD COUNT 11.3 10^3/uL (4.0-10.0)
[2020-06-17 07:12] LABS: ALBUMIN 1.7 GM/DL (3.2-5.2); BILIRUBIN,TOTAL 0.5 MG/DL (0.2-1.0); CALCIUM LEVEL 8.8 MG/DL (8.5-10.1); CREATININE FOR GFR 1.82 MG/DL (0.70-1.30); GLOMERULAR FILTRATION RATE 40.8 (>56); INR 2.23; POTASSIUM SERUM 3.7 MEQ/L (3.5-5.1); PROTHROMBIN TIME 25.2 SECONDS (12.5-14.3); TOTAL PROTEIN 6.8 GM/DL (6.4-8.2)
[2020-06-17 07:45] VITALS: BP 144/71
[2020-06-17] MEDS ORDERED: LOSARTAN 25 MG TAB PO SCH (09:00)
[2020-06-17] MEDS ORDERED: FERROUS GLUCONATE 324 MG TAB PO SCH (09:00)
[2020-06-17 09:02] LABS: VITAMIN B12 LEVEL > 2000 PG/ML (247-911)
[2020-06-17 09:03] LABS: FOLATE 8.4 NG/ML (>5.4)
[2020-06-17] MEDS: allopurinoL 100 MG TAB PO SCH (09:50)
[2020-06-17] MEDS: OMEPRAZOLE 20 MG CAP PO SCH (09:50)
[2020-06-17] MEDS: CALCITRIOL 0.25 MCG CAP (S0169) PO SCH (09:50)
[2020-06-17] MEDS: FUROSEMIDE 20 MG TAB PO SCH (09:50)
[2020-06-17] MEDS: APIXABAN 5 MG TAB (ELIQUIS) PO SCH ×2 (09:51→19:51)
[2020-06-17] MEDS: CLOPIDOGREL 75 MG TAB PO SCH (09:51)
[2020-06-17] MEDS: buPROPion **XL** TABLET 150MG (WELLBUTRIN XL) PO SCH (09:51)
[2020-06-17] MEDS: LOSARTAN 50MG TABLET PO SCH (09:51)
[2020-06-17] MEDS: PIPERACILLIN/TAZOBACTAM SOD 3.375 GM in D5W MINI-BAG PLUS 50 ML IV SCH ×3 (09:52→19:52)
[2020-06-17 12:18] VITALS: BP 136/70
[2020-06-17] MEDS: ACETAMINOPHEN TAB 650MG DOSE (2X325MG) PO PRN ×2 (12:28→22:06)
[2020-06-17] MEDS ORDERED: VANCOMYCIN HCL 1,000 MG, VIAL MATE ADAPTER 1 EACH in D5W 250 ML IV SCH ×2 (15:00→21:00)
[2020-06-17 15:53] VITALS: BP 151/68
[2020-06-17] MEDS: ATORVASTATIN 20 MG TAB PO SCH (19:51)
[2020-06-17] MEDS: SERTRALINE HCL 25 MG TABLET PO SCH (19:51)
[2020-06-17 20:00] VITALS: BP 140/80
[2020-06-18] VITALS: BP 138/70
[2020-06-18] MEDS: HumaLOG INSULIN (NovoLOG) PER UNIT SC SCH ×4 (00:35→17:58)
[2020-06-18] MEDS: PIPERACILLIN/TAZOBACTAM SOD 3.375 GM in D5W MINI-BAG PLUS 50 ML IV SCH ×4 (03:09→21:21)
[2020-06-18] MEDS: guaiFENesin SYRUP 200 MG/10 ML UDC PO PRN (03:23)
[2020-06-18 03:37] LABS: APPEARANCE, URINE CLEAR (CLEAR); BACTERIA, URINE AUTO NEGATIVE (NEGATIVE); BILIRUBIN, URINE AUTO NEGATIVE (NEGATIVE); BLOOD, URINE BLOOD 1+ (NEGATIVE); COLOR, URINE YELLOW (YELLOW); GLUCOSE, URINE (UA) AUTO 1+ mg/dL (NEGATIVE); KETONE, URINE AUTO NEGATIVE (NEGATIVE); LEUKOCYTE ESTERASE, URINE AUTO NEGATIVE (NEGATIVE); NITRITE, URINE AUTO NEGATIVE (NEGATIVE); PROTEIN, URINE AUTO 2+ mg/dL (NEGATIVE); RBC, URINE AUTO 1 /HPF (0-3); SPECIFIC GRAVITY URINE AUTO 1.013 (1.002-1.035); SQUAMOUS EPITHELIAL CELL UR AU 0 /HPF (0-6); UROBILINOGEN, URINE AUTO 0.2 mg/dL (0.0-2.0); WBC, URINE AUTO 1 /HPF (0-3)
[2020-06-18 04:00] VITALS: BP 148/70
[2020-06-18 05:56] LABS: HEMATOCRIT 27.9 % (42.0-52.0); HEMOGLOBIN 8.9 g/dl (13.5-17.5); MEAN CORPUSCULAR HEMOGLOBIN 28.8 pg (27.0-33.0); MEAN CORPUSCULAR HGB CONC 31.9 g/dl (32.0-36.5); MEAN CORPUSCULAR VOLUME 90.3 fl (80.0-96.0); PLATELET COUNT, AUTOMATED 399 10^3/uL (150-450); RED BLOOD COUNT 3.09 10^6/uL (4.30-6.10); WHITE BLOOD COUNT 13.1 10^3/uL (4.0-10.0)
[2020-06-18 06:25] LABS: ALBUMIN 1.6 GM/DL (3.2-5.2); BILIRUBIN,TOTAL 0.6 MG/DL (0.2-1.0); CALCIUM LEVEL 8.3 MG/DL (8.5-10.1); CREATININE FOR GFR 2.08 MG/DL (0.70-1.30); POTASSIUM SERUM 4.2 MEQ/L (3.5-5.1); TOTAL PROTEIN 6.5 GM/DL (6.4-8.2)
[2020-06-18] MEDS ORDERED: NS 1,000 ML IV SCH (07:30)
[2020-06-18 07:47] VITALS: BP 123/63
[2020-06-18] MEDS: OMEPRAZOLE 20 MG CAP PO SCH (08:23)
[2020-06-18] MEDS: FUROSEMIDE 20 MG TAB PO SCH (08:23)
[2020-06-18] MEDS: APIXABAN 5 MG TAB (ELIQUIS) PO SCH ×2 (08:23→21:21)
[2020-06-18] MEDS: allopurinoL 100 MG TAB PO SCH (08:23)
[2020-06-18] MEDS: CLOPIDOGREL 75 MG TAB PO SCH (08:24)
[2020-06-18] MEDS: CALCITRIOL 0.25 MCG CAP (S0169) PO SCH (08:24)
[2020-06-18] MEDS: buPROPion **XL** TABLET 150MG (WELLBUTRIN XL) PO SCH (08:24)
[2020-06-18] MEDS: LOSARTAN 50MG TABLET PO SCH (08:24)
[2020-06-18] MEDS: bisoproloL fumarate 10 MG TAB PO SCH ×2 (08:26→21:21)
--- NOTE | 2020-06-18 11:30 | IPNPDOC ---
Text Note Date of Service The patient was seen on 06/18/20. NOTE Subjective: Patient was seen and examined this morning at bedside. Patient tells me he's feeling well no fevers overnight and no chills. Nurse reports no overnight events. Patient denies any chest pain shortness of breath or left foot pain. Objective: Constitutional: Awake and alert, in no apparent distress. spider angiomata on cheeks ENT: Sclera are clear. Mucosa is moist. Respiratory: Lungs CTA bilaterally. No respiratory distress. No use of accessory muscles. Cardiovascular: Irregular HR. No murmurs. Radial pulses deminished Gastrointestinal: Abdomen is soft, obese, non distended, non tender, BS present. Musculoskeletal: RLE prosthesis. LLE wrapped in dressings and a soft boot. Neurologic: No focal neurological deficit. Mental Status: A&O x3, normal affect Skin: Warm, dry Imaging: Chest x-ray "IMPRESSION: No radiographic evidence for an acute cardiopulmonary process." Left lower extremity x-ray "IMPRESSION: 1. Radiographic evidence for osteomyelitis involving the lateral aspect of the base of the proximal phalanx of the left 5th toe and the base, distal diaphysis, and head of the left 5th metatarsal, with a pathologic fracture involving the lateral aspect of the base of the left 5th metatarsal and ossification of the adjacent soft tissues. 2. Soft tissue ulceration involving the left heel pad with underlying dystrophic calcification. " Assessment/plan: Mr. Sanchez is a 59-year-old with a history of chronic left lower extremity ulcers, IDDM, CAD/CABG, HFpEF/ HFrecEF, PAD, HTN, CKD, A. fib, MAVIS, multiple toe amputations, and right BKA, who presented with c/o of fevers, chills and concerns that he might have sepsis again; he will be admitted for management of left fifth toe osteomyelitis. # Left fifth toe osteomyelitis: Seen on xray. Eval by podiatry Dr Del Rosario and wound culture. Mild leukocytosis, BCx negative to date, afebrile since admission. Continue Vanc and Zosyn for now. Dr Malone wound care consulted. MRI not needed at this time per podiatry. # HTN: better controlled. Losartan up to 50. Continue lasix. Bisoprolol. # Chronic left lower extremity ulcers: Dr. Malone for dressing instructions # Hyponatremia: NS. Monitor BMP. # Atrial fibrillation: Eliquis, bisoprolol. Rate controlled and anti coagulated # CAD, CABG s/p 3 March 2020: Atorvastatin, Bisoprolol, Clopidogrel # PAD: Atorvastatin, Clopidogrel # Dyslipidemia: statin # IDDM with retinopathy and neuropathy: ISS. Frequent Accu-Cheks. Hypoglycemic precautions. # HFpEF and Heart failure with recovered EF (HFrecEF),Group 2 Pulmonary HTN: euvolemic, compensated. Continue home meds. Continue Bisoprolol, Losartan, Furosemide. Echo Jun 2016 EF 45-50%, severe hypokinesis, grade 2 DD, mod/severe pulm HTN Echo Jul 2016 EF 60-65%, septal and apical wall motion abnormalities, Grade 2 DD, # Chronic Iron deficiency anemia: monitor hgb. Stop iron, ferritin level high. # CKD 3/4: Calcitriol. Avoid nephrotoxins. # Mild transaminitis: resolved. # Gout: allopurinol # Anxiety/depression: bupropion, sertraline # Class 1 obesity: BMI of 32.6 complicates care. 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
[2020-06-18] MEDS ORDERED: SLF 3 ML SYR IV PRN (12:15)
[2020-06-18 12:21] VITALS: BP 155/81
[2020-06-18 12:29] LABS: HEMOGLOBIN A1c 6.8 %
[2020-06-18] MEDS: SLF 3 ML SYR IV SCH ×2 (14:31→21:21)
[2020-06-18] MEDS: VANCOMYCIN HCL 1,000 MG, VIAL MATE ADAPTER 1 EACH in D5W 250 ML IV SCH (15:17)
[2020-06-18 16:00] VITALS: BP 182/90
[2020-06-18 20:00] VITALS: BP 178/90
--- NOTE | 2020-06-18 20:20 | IPN ---
PROGRESS NOTE DATE: 06/18/2020 at approximately 5:00 PM CHIEF COMPLAINT: The patient is seen at bedside for evaluation of an ulcer. Multiple ulcerations on his left extremity. The patient has been a longstanding patient of mine. He recently was sent to the [facility] to explore advanced options on salvage of his left foot. The patient has had a course of sepsis in the past and he is concerned of repeat sepsis. Therefore when he had an increased temperature he was admitted to the hospital and admitted. He is seen today for evaluation. HOME MEDICATIONS: 1. Allopurinol 100 mg p.o. daily. 2. Eliquis 5 mg p.o. twice daily. 3. Atorvastatin 40 mg q. h.s. 4. Risperdal 10 mg p.o. twice daily. 5. Bupropion XL 150 mg p.o. daily. 6. Calciferol 0.25 mg caps daily. 7. Clopidogrel 75 mg daily. 8. Ferrous Gluconate 324 mg twice daily. 9. Furosemide 60 mg p.o. daily. 10. Humalog. 11. Losartan 25 mg tablet daily. 12. [place]-3 1,000 mg p.o. twice daily. 13. Omeprazole 40 mg p.o. daily. 14. Sertraline 25 mg p.o. q. h.s. ALLERGIES: No known allergies. PAST SURGICAL HISTORY: The patient's past surgical history is significant for: 1. History of transmetatarsal amputation of the right foot which subsequently progressed to a below the knee amputation on the right side. 2. History of digital amputations on his left foot. PHYSICAL EXAMINATION: GENERAL APPEARANCE: Alert and well oriented 59-year-old male in no acute distress. EXTREMITIES: Evaluation of his foot reveals numerous ulcerations on his left foot. The patient has an ulceration on the lateral aspect of his foot over the fifth metatarsal which measures 3.1 cm by 3.2 cm by superficially 0.2 cm. However this does undermine in a dorsal direction approximately one cm. The ulceration on the fifth metatarsal head measures 3.1 cm by approximately 3.3 cm. There is a heal ulceration measuring 6 cm by 7 cm by 0.2 cm down to the calcaneus. Posterior heel has an ulceration measuring 4 cm by 3 cm by 0.1 cm in depth. The Achilles tendon is visible. Pedal pulses are not palpable. There is a purulent type discharge from the fracture site of the fifth metatarsal base. Most likely this oxygen saturation osteomyelitis of the fifth proximal metatarsal. This discharge was cultured for aerobic, anaerobic and gram stain. A dry sterile dressing was applied. ASSESSMENT: Osteomyelitis of the fifth toe and osteomyelitis of the base of the fifth metatarsal. PLAN: We discussed with the patient that with the numerous ulcers extending down to bone and most likely an osteomyelitis of the fifth metatarsal base. This would require a staged surgical correction consisting of resection of the osteomyelitic bone, then reimplantation of the perineal brevis tendon into the cuboid to prevent a rotational varus deformity of his foot. However, this is a higher risk surgery. Since the patient has had several vascular interventions as well on his left extremity, complete healing would be difficult to predict. The patient questioned a below the knee amputation or above the knee amputation, and he wants to see Dr. Ariza on Tuesday for this evaluation. This is a reasonable course since his foot is most likely not salvageable without many surgical procedures which increases his risk of a complication. His questions were answered. Wound care will consist of cleansing his wound with Vashe followed by a dry sterile dressing. Thank you for this consultation.
[2020-06-18] MEDS: SERTRALINE HCL 25 MG TABLET PO SCH (21:21)
[2020-06-18] MEDS: ATORVASTATIN 20 MG TAB PO SCH (21:21)
[2020-06-19] VITALS: BP 133/60
[2020-06-19] MEDS: guaiFENesin SYRUP 200 MG/10 ML UDC PO PRN ×2 (00:30→22:55)
[2020-06-19] MEDS: ACETAMINOPHEN TAB 650MG DOSE (2X325MG) PO PRN ×2 (00:30→16:08)
[2020-06-19] MEDS: PIPERACILLIN/TAZOBACTAM SOD 3.375 GM in D5W MINI-BAG PLUS 50 ML IV SCH ×4 (03:32→21:06)
[2020-06-19 04:00] VITALS: BP 159/76
[2020-06-19] MEDS: HumaLOG INSULIN (NovoLOG) PER UNIT SC SCH ×5 (06:19→21:00)
[2020-06-19] MEDS: SLF 3 ML SYR IV SCH ×3 (06:19→22:50)
[2020-06-19 08:30] VITALS: BP 165/80
[2020-06-19 08:45] LABS: CALCIUM LEVEL 8.6 MG/DL (8.5-10.1); CREATININE FOR GFR 2.16 MG/DL (0.70-1.30); GLOMERULAR FILTRATION RATE 33.5 (>56)
[2020-06-19] MEDS: CALCITRIOL 0.25 MCG CAP (S0169) PO SCH (09:22)
[2020-06-19] MEDS: FUROSEMIDE 20 MG TAB PO SCH (09:22)
[2020-06-19] MEDS: APIXABAN 5 MG TAB (ELIQUIS) PO SCH (09:22)
[2020-06-19] MEDS: OMEPRAZOLE 20 MG CAP PO SCH (09:22)
[2020-06-19] MEDS: LOSARTAN 50MG TABLET PO SCH (09:23)
[2020-06-19] MEDS: bisoproloL fumarate 10 MG TAB PO SCH ×2 (09:23→21:05)
[2020-06-19] MEDS: allopurinoL 100 MG TAB PO SCH (09:24)
[2020-06-19] MEDS: buPROPion **XL** TABLET 150MG (WELLBUTRIN XL) PO SCH (09:24)
[2020-06-19] MEDS: CLOPIDOGREL 75 MG TAB PO SCH (09:24)
[2020-06-19 12:00] VITALS: BP 175/75
--- NOTE | 2020-06-19 13:49 | CR.PDOC ---
General Date of Consultation: Jun 19, [address] Ariza. HISTORY OF PRESENT ILLNESS: This 59-year-old male with long-standing history of lower extremity wounds. He has a history right lower extremity wounds subsequent right BKA in 2010. The patient had a bypass procedure in the left lower extremity approximately 2009. He developed left lower extremity ulcerations in 2018 and has been following with Dr. Malone for wound management. February 2020 the patient was admitted with sepsis, wounds were debrided at that time by podiatry however his hospital course was complicated by atrial fibrillation and cardiac arrest, NSTEMI and the patient was transferred to [facility] in [facility] with 3 drug-eluting stents placed at that time. 05/10/20 the patient had left lower extremity angiogram as per Dr. Jack with intervention. The patient was subsequently admitted to [facility] 06/17/20 related to fever, chills and left fifth toe osteomyelitis. Vascular surgery was consulted regarding AKA versus BKA left lower extremity. PAST MEDICAL HISTORY: Asthma as child AF on Eliquis, HTN IDDM with retinopathy and neuropathy CAD/CABG 2015,NSTEMI 3 March 2020 History of cardiac arrest February 2020 CHF Pulmonary hypertension Dyslipidemia PAD s/p Left LE bypass, s/p Right BKA, Chronic LLE ulcers and charcot foot PAST SURGICAL HISTORY: Right BKA, left toe amputation, back surgery, left LE bypass FAMILY HISTORY: Hypertension, dyslipidemia, CHF, diabetes, cervical cancer, colon cancer, lung cancer SOCIAL HISTORY: Former smoker REVIEW OF SYSTEMS: As noted in HPI otherwise 11 point review systems is unremarkable. PHYSICAL EXAMINATION: VITAL SIGNS: Please see below. GENERAL APPEARANCE: No acute distress, sitting up in bed. HEENT: MMM RESPIRATORY: CTA. CARDIOVASCULAR: RRR ABDOMEN: Soft, nontender EXTREMITIES: Left lower extremity examined as per Dr. Ariza ulcerations of the left foot there is also a small area on the pretibial aspect of the left lower extremity. The wounds are dressed with Betadine soaked gauze, 4 x 4 and Kerlix. NEUROLOGICAL: Alert and oriented. ASSESSMENT/PLAN: Atherosclerosis morongo vessels of lower extremities with chronic left lower extremity nonhealing ulcers, left fifth toe osteomyelitis. Dr. Ariza has discussed with the patient proceeding with amputation of the left lower extremity below-knee versus above-knee. It has been explained to the patient that most likely we will be able to proceed with a below-knee amputation however there is a chance he would require an above knee amputation. The procedure, risks, benefits and alternatives are reviewed with the patient. Informed consent is obtained and placed with the chart. Transfusion consent is obtained and placed with the chart. The patient is on Eliquis for history of atrial fibrillation. The patient received a dose at 9 AM this morning and Eliquis is now on hold. The patient is on Plavix, the patient has history of REJI placement March 2020. The patient did receive a Plavix dose this morning. It is now on hold. Would recommend bridge therapy with heparin drip perioperatively to help reduce risk of cardiac stent thrombosis. The patient is currently on IV Zosyn/vancomycin. Ancef 2 g IV preoperatively ordered. Vital Signs/I&O Vital Signs Date Time Temp Pulse Resp B/P (MAP) Pulse Ox O2 Delivery O2 Flow Rate FiO2 06/19/20 12:00 97.0 61 18 175/75 (108) 97 Room Air I&O- Last 24 Hours up to 6 AM 06/19/20 06:00 Intake Total 600 ml Output Total 350 ml Balance 250 ml Laboratory Data Labs 24H Laboratory Tests 2 06/18/20 13:45: Vancomycin Level Trough 18.9 06/18/20 17:16: Bedside Glucose (Misc Panel) 158H 06/19/20 00:25: Bedside Glucose (Misc Panel) 163H 06/19/20 06:14: Bedside Glucose (Misc Panel) 193H 06/19/20 08:09: Anion Gap 10, Glomerular Filtration Rate 33.5L, Calcium Level 8.6 06/19/20 11:33: Bedside Glucose (Misc Panel) 218H CBC/BMP Laboratory Tests 06/19/20 08:09 Microbiology Microbiology 06/18/20 Gram Stain - Final, Resulted 06/18/20 Wound Culture, Resulted Pending 06/18/20 Anaerobic Culture, Received Pending 06/16/20 Blood Culture - Preliminary, Resulted No Growth after 48 hours. All Specime... 06/16/20 Blood Culture - Preliminary, Resulted No Growth after 48 hours. All Specime... Allergies Coded Allergies: No Known Allergies (Verified , 08/14/18) Home Medications Scheduled Allopurinol (Allopurinol) 100 Mg Tab, 100 MG PO DAILY, (Reported) Apixaban (Eliquis) 5 Mg Tab, 5 MG PO BID, (Reported) Atorvastatin Calcium (Atorvastatin Calcium) 40 Mg Tablet, 40 MG PO QHS, (Reported) Bisoprolol Fumarate (Bisoprolol Fumarate) 10 Mg Tablet, 10 MG PO BID, (Reported) Bupropion Hcl (Bupropion Xl) 150 Mg Tab.er.24h, 150 MG PO DAILY, (Reported) Calcitriol (Calcitriol) 0.25 Mcg Cap, 0.25 MCG PO DAILY, (Reported) Clopidogrel Bisulfate (Clopidogrel) 75 Mg Tablet, 75 MG PO DAILY, (Reported) Ferrous Gluconate (Ferrous Gluconate) 324 Mg Tab, 324 MG PO BID, (Reported) Furosemide (Lasix) 40 Mg Tab, 60 MG PO DAILY, (Reported) Insulin Human Lispro (Humalog) 1 Units/0.01 Ml Inj, 1 DOSE SC AC, (Reported) PER SLIDING SCALE VIA INSULIN PUMP Losartan Potassium (Losartan Potassium) 25 Mg Tablet, 25 MG PO DAILY, (Reported) [place]-3 Fatty Acids ([place]-3) 1,000 Mg Capsule, 2,000 MG PO BID, (Reported) Omeprazole (Omeprazole) 40 Mg Cap, 40 MG PO DAILY, (Reported) Sertraline HCl (Sertraline HCl) 25 Mg Tab, 25 MG PO QHS, (Reported) Scheduled PRN Acetaminophen (Acetaminophen) 500 Mg Tablet, 1,000 MG PO Q6H PRN for PAIN, (Reported) Abril Veras Jun 19, 2020 13:31
[2020-06-19] MEDS: VANCOMYCIN HCL 1,000 MG, VIAL MATE ADAPTER 1 EACH in D5W 250 ML IV SCH (15:26)
--- NOTE | 2020-06-19 15:34 | IPNPDOC ---
Text Note Date of Service The patient was seen on 06/19/20. NOTE Subjective: Patient was seen and examined this morning at bedside. Patient tells me he's feeling well no fevers overnight and no chills. Nurse reports no overnight events. Patient denies any chest pain shortness of breath or left foot pain. He had a discussion with podiatry last evening regarding the os myelitis of his foot and they recommended he sees Dr. Buck vascular surgery for left- sided BKA. Patient agreeable. Dr. Buck met with the patient in the [facility] and discussed the risks and benefits of the surgery. Objective: Constitutional: Awake and alert, in no apparent distress. spider angiomata on cheeks ENT: Sclera are clear. Mucosa is moist. Respiratory: Lungs CTA bilaterally. No respiratory distress. No use of accessory muscles. Cardiovascular: Irregular HR. No murmurs. Radial pulses deminished Gastrointestinal: Abdomen is soft, obese, non distended, non tender, BS present. Musculoskeletal: RLE prosthesis. LLE wrapped in dressings and a soft boot. Neurologic: No focal neurological deficit. Mental Status: A&O x3, normal affect Skin: Warm, dry Imaging: Chest x-ray "IMPRESSION: No radiographic evidence for an acute cardiopulmonary process." Left lower extremity x-ray "IMPRESSION: 1. Radiographic evidence for osteomyelitis involving the lateral aspect of the base of the proximal phalanx of the left 5th toe and the base, distal diaphysis, and head of the left 5th metatarsal, with a pathologic fracture involving the lateral aspect of the base of the left 5th metatarsal and ossification of the adjacent soft tissues. 2. Soft tissue ulceration involving the left heel pad with underlying dystrophic calcification. " Assessment/plan: Mr. Sanchez is a 59-year-old with a history of chronic left lower extremity ulcers, IDDM, CAD/CABG, HFpEF/ HFrecEF, PAD, HTN, CKD, A. fib, MAVIS, multiple toe amputations, and right BKA, who presented with c/o of fevers, chills and concerns that he might have sepsis again; he will be admitted for management of left fifth toe osteomyelitis. Podiatry recommended left BKA. Patient evaluated by vascular surgery who agreed left BKA is appropriate. # Left fifth toe osteomyelitis: Seen on xray. Eval by podiatry Dr Del Rosario and wound culture. Continue Vanc and Zosyn for now. MRI not needed at this time per podiatry as the os myelitis is advanced. Podiatry recommended left BKA. Patient evaluated by vascular surgery who agreed left BKA is appropriate. Surgery planned for 06/20/2020. Patient will have his eliquis and Plavix discontinued for one day and will be bridged with heparin drip and have his Plavix resume tomorrow after surgery in the eliquis tomorrow evening. The high risks of the s urgery were discussed with the patient given his anti-coagulation due to recent stenting benefits and risks were discussed by vascular surgeon with patient. # HTN: better controlled. Losartan up to 50. Continue lasix. Bisoprolol. # Chronic left lower extremity ulcers: Dr. Malone for dressing instructions # Hyponatremia: NS. Monitor BMP. # Atrial fibrillation: Eliquis, bisoprolol. Rate controlled and anti coagulated. Eliquis to be held before surgery and resumed tonight of surgery. # CAD, CABG s/p 3 March 2020: Atorvastatin, Bisoprolol, Clopidogrel. Plavix will be held for 1 day and resumed after surgery. Heparin drip until surgery. # PAD: Atorvastatin, Clopidogrel # Dyslipidemia: statin # IDDM with retinopathy and neuropathy: ISS. Frequent Accu-Cheks. Hypoglycemic precautions. # HFpEF and Heart failure with recovered EF (HFrecEF),Group 2 Pulmonary HTN: euvolemic, compensated. Continue home meds. Continue Bisoprolol, Losartan, Furosemide. Echo Jun 2016 EF 45-50%, severe hypokinesis, grade 2 DD, mod/severe pulm HTN Echo Jul 2016 EF 60-65%, septal and apical wall motion abnormalities, Grade 2 DD, # Chronic Iron deficiency anemia: monitor hgb. Stop iron, ferritin level high. # CKD 3/4: Calcitriol. Avoid nephrotoxins. # Mild transaminitis: resolved. # Gout: allopurinol # Anxiety/depression: bupropion, sertraline # Class 1 obesity: BMI of 32.6 complicates care. 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
[2020-06-19 15:49] LABS: BASO # 0.1 10^3/uL (0.0-0.2); BASO % 0.5 % (0.0-1.0); EOS # 0.2 10^3/uL (0.0-0.5); EOS % 1.7 % (0.0-3.0); HEMATOCRIT 29.2 % (42.0-52.0); HEMOGLOBIN 8.8 g/dl (13.5-17.5); LYMPH # 0.9 10^3/uL (1.5-5.0); LYMPH % 9.8 % (24.0-44.0); MEAN CORPUSCULAR HEMOGLOBIN 27.9 pg (27.0-33.0); MEAN CORPUSCULAR HGB CONC 30.1 g/dl (32.0-36.5); MEAN CORPUSCULAR VOLUME 92.7 fl (80.0-96.0); MONO # 0.8 10^3/uL (0.0-0.8); MONO % 8.1 % (0.0-5.0); NEUTROPHILS # 7.3 10^3/uL (1.5-8.5); NEUTROPHILS % 79.2 % (36.0-66.0); PLATELET COUNT, AUTOMATED 443 10^3/uL (150-450); RED BLOOD COUNT 3.15 10^6/uL (4.30-6.10); WHITE BLOOD COUNT 9.2 10^3/uL (4.0-10.0)
[2020-06-19 16:00] VITALS: BP 163/72
[2020-06-19] MEDS: HEPARIN DRIP 25,000 UNITS in IV 1 EA IV SCH (16:07)
[2020-06-19] MEDS ORDERED: HumaLOG INSULIN (NovoLOG) PER UNIT SC SCH (17:30)
[2020-06-19 20:00] VITALS: BP 155/78
[2020-06-19] MEDS: SERTRALINE HCL 25 MG TABLET PO SCH (21:04)
[2020-06-19] MEDS: ATORVASTATIN 20 MG TAB PO SCH (21:06)
[2020-06-19] MEDS ORDERED: HEPARIN SOD (PORCINE) 5000UNITS/ML 1ML VIAL/SYRINGE As Ordered ONE (23:18)
[2020-06-20] VITALS (13 sets, daily range): BP systolic 142–170; BP diastolic 69–98
[2020-06-20] MEDS ORDERED: HEPARIN SOD (PORCINE) 5000UNITS/ML 1ML VIAL/SYRINGE IV ONE
[2020-06-20] MEDS: PIPERACILLIN/TAZOBACTAM SOD 3.375 GM in D5W MINI-BAG PLUS 50 ML IV SCH ×4 (03:26→21:38)
[2020-06-20] MEDS ORDERED: ceFAZolin SOD 2 GM in IV 1 EA IV ONE (06:00)
[2020-06-20] MEDS: SLF 3 ML SYR IV SCH ×3 (06:17→21:46)
[2020-06-20] MEDS: HEPARIN DRIP 25,000 UNITS in IV 1 EA IV SCH (06:22)
[2020-06-20 07:09] LABS: HEMATOCRIT 28.3 % (42.0-52.0); HEMOGLOBIN 8.8 g/dl (13.5-17.5); MEAN CORPUSCULAR HEMOGLOBIN 27.9 pg (27.0-33.0); MEAN CORPUSCULAR HGB CONC 31.1 g/dl (32.0-36.5); MEAN CORPUSCULAR VOLUME 89.8 fl (80.0-96.0); PLATELET COUNT, AUTOMATED 445 10^3/uL (150-450); RED BLOOD COUNT 3.15 10^6/uL (4.30-6.10); WHITE BLOOD COUNT 9.9 10^3/uL (4.0-10.0)
[2020-06-20 07:22] LABS: INR 1.82; PROTHROMBIN TIME 21.5 SECONDS (12.5-14.3)
[2020-06-20 07:24] LABS: PARTIAL THROMBOPLASTIN TIME 83.9 SECONDS (24.2-38.5)
[2020-06-20] MEDS: HumaLOG INSULIN (NovoLOG) PER UNIT SC SCH ×4 (07:30→21:00)
[2020-06-20 07:55] LABS: C REACTIVE PROTEIN QUANTITATIV 11.2 MG/DL (0.00-0.30); CALCIUM LEVEL 8.3 MG/DL (8.5-10.1); CREATININE FOR GFR 2.31 MG/DL (0.70-1.30); POTASSIUM SERUM 3.6 MEQ/L (3.5-5.1)
--- NOTE | 2020-06-20 08:24 | IPNPDOC ---
Text Note Date of Service The patient was seen on 06/20/20. NOTE Subjective: Patient was seen and examined this morning at bedside. Patient tells me he's feeling well no fevers overnight and no chills. Nurse reports no overnight events. Plan for surgery today Objective: Constitutional: Awake and alert, in no apparent distress. spider angiomata on cheeks ENT: Sclera are clear. Mucosa is moist. Respiratory: Lungs CTA bilaterally. No respiratory distress. No use of accessory muscles. Cardiovascular: Irregular HR. No murmurs. Radial pulses deminished Gastrointestinal: Abdomen is soft, obese, non distended, non tender, BS present. Musculoskeletal: RLE prosthesis. LLE wrapped in dressings and a soft boot. Neurologic: No focal neurological deficit. Mental Status: A&O x3, normal affect Skin: Warm, dry Imaging: Chest x-ray "IMPRESSION: No radiographic evidence for an acute cardiopulmonary process." Left lower extremity x-ray "IMPRESSION: 1. Radiographic evidence for osteomyelitis involving the lateral aspect of the base of the proximal phalanx of the left 5th toe and the base, distal diaphysis, and head of the left 5th metatarsal, with a pathologic fracture involving the lateral aspect of the base of the left 5th metatarsal and ossification of the adjacent soft tissues. 2. Soft tissue ulceration involving the left heel pad with underlying dystrophic calcification. " Assessment/plan: Mr. Sanchez is a 59-year-old with a history of chronic left lower extremity ulcers, IDDM, CAD/CABG, HFpEF/ HFrecEF, PAD, HTN, CKD, A. fib, MAVIS, multiple toe amputations, and right BKA, who presented with c/o of fevers, chills and concerns that he might have sepsis again; he will be admitted for management of left fifth toe osteomyelitis. Podiatry recommended left BKA. Patient evaluated by vascular surgery who agreed left BKA is appropriate, plan for surgery today. # Left fifth toe osteomyelitis: Seen on xray. Eval by podiatry Dr Del Rosario and wound culture. Continue Vanc and Zosyn for now. MRI not needed at this time per podiatry as the os myelitis is advanced. Podiatry recommended left BKA. Patient evaluated by vascular surgery who agreed left BKA is appropriate. Surgery planned for 06/20/2020. Patient will have his eliquis and Plavix discontinued for one day and will be bridged with heparin drip and have his Plavix resumed day after surgery in the [facility] tomorrow evening. The high risks of the surgery were discussed with the patient given his anti-coagulation due to recent stenting benefits and risks were discussed by vascular surgeon with patient. # HTN: better controlled. Losartan up to 50. Continue lasix. Bisoprolol. # Chronic left lower extremity ulcers: Dr. Malone for dressing instructions # Hyponatremia: NS. Monitor BMP. # Atrial fibrillation: Eliquis, bisoprolol. Rate controlled and anti coagulated. Eliquis to be held before surgery and resumed tonight of surgery. # CAD, CABG s/p 3 REJI March 2020: Atorvastatin, Bisoprolol, Clopidogrel. Plavix will be held for 1 day and resumed after surgery. Heparin drip until surgery. # PAD: Atorvastatin, Clopidogrel # Dyslipidemia: statin # IDDM with retinopathy and neuropathy: ISS. Frequent Accu-Cheks. Hypoglycemic precautions. # HFpEF and Heart failure with recovered EF (HFrecEF),Group 2 Pulmonary HTN: euvolemic, compensated. Continue home meds. Continue Bisoprolol, Losartan, Furosemide. Echo Jun 2016 EF 45-50%, severe hypokinesis, grade 2 DD, mod/severe pulm HTN Echo Jul 2016 EF 60-65%, septal and apical wall motion abnormalities, Grade 2 DD, # Chronic Iron deficiency anemia: monitor hgb. Stop iron, ferritin level high. # CKD 3/4: Calcitriol. Avoid nephrotoxins. # Mild transaminitis: resolved. # Gout: allopurinol # Anxiety/depression: bupropion, sertraline # Class 1 obesity: BMI of 32.6 complicates care. 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
[2020-06-20] MEDS ORDERED: CLOPIDOGREL 75 MG TAB PO SCH (09:00)
[2020-06-20] MEDS: OMEPRAZOLE 20 MG CAP PO SCH (09:37)
[2020-06-20] MEDS: LOSARTAN 50MG TABLET PO SCH (09:38)
[2020-06-20] MEDS: bisoproloL fumarate 10 MG TAB PO SCH ×2 (09:39→21:38)
--- NOTE | 2020-06-20 11:10 | IPNPDOC ---
Date Seen The patient was seen on 06/20/20. Progress Note Patient seen and examined. Plan is for left below-knee versus above-knee amputation today. The patient is very high risk for surgery. He is morbidly obese. He is on Plavix, which we cannot hold due to multiple recent drug-eluting cardiac stent placement. He is on full anticoagulation as well. He has very calcified vessels which will likely make using a tourniquet unsuccessful. All of this puts him at risk for increased blood loss during amputation, hematoma and bleeding postop, and poor stump healing. Unfortunately, the patient has to remain on Plavix for a year after drug-eluting stent placement, and we do not feel waiting that long for an amputation would be in his best interest. There fore, we accept the increased risk of bleeding and will proceed. All of the risks benefits and alternatives to amputation were explained to the patient. We also explained to him that there is a possibility we will not be able to successfully go ahead with the below-knee amputation, and may possibly need to proceed with an above-knee amputation, and he is consented for both. Our hope is that we can do a below-knee amputation, as he already has a contralateral below- knee amputation and this will make it much easier for him to walk with bilateral prosthetics. The patient was extensively counseled yesterday and all questions were answered. He is ready to proceed with surgery. VS, I&O, 24H, Tami Vital Signs/I&O Vital Signs Date Time Temp Pulse Resp B/P (MAP) Pulse Ox O2 Delivery O2 Flow Rate FiO2 06/20/20 09:39 67 158/98 06/20/20 07:54 97.2 16 97 06/20/20 04:00 Room Air I&O- Last 24 Hours up to 6 AM 06/20/20 05:59 Intake Total 420 ml Output Total 780 ml Balance -360 ml Laboratory Data 24H LABS Laboratory Tests 2 06/19/20 11:33: Bedside Glucose (Misc Panel) 218H 06/19/20 13:52: Vancomycin Level Trough 12.2 06/19/20 15:32: Activated Partial Thromboplast Time 35.8 06/19/20 16:42: Bedside Glucose (Misc Panel) 187H 06/19/20 21:03: Bedside Glucose (Misc Panel) 199H 06/19/20 22:06: Activated Partial Thromboplast Time 53.9H 06/20/20 06:49: Activated Partial Thromboplast Time 83.9H, Nucleated Red Blood Cells % (auto) 0.5H, Prothrombin Time 21.5H, Prothromb Time International Ratio 1.82, Anion Gap 12, Glomerular Filtration Rate 31.0L, Calcium Level 8.3L, C-Reactive Protein, Quantitative 11.20H, Coronavirus (COVID-19)(PCR) NEGATIVE CBC/BMP Laboratory Tests 06/20/20 06:49 Microbiology Microbiology 06/18/20 Gram Stain - Final, Complete 06/18/20 Wound Culture - Final, Complete Klebsiella Oxytoca Esbl 06/18/20 Anaerobic Culture, Received Pending 06/16/20 Blood Culture - Preliminary, Resulted No Growth after 72 hours. All specime... 06/16/20 Blood Culture - Preliminary, Resulted No Growth after 72 hours. All specime... JORDYN ISSA MD Jun 20, 2020 11:10
[2020-06-20] MEDS ORDERED: propofoL 200 MG/20 ML VIAL As Ordered ONE (12:50)
[2020-06-20] MEDS ORDERED: LIDOCAINE 2% 100MG/5ML SDV (FOR ANES.) As Ordered ONE (12:50)
[2020-06-20] MEDS ORDERED: fentaNYL 250 MCG/5 ML INJECTION (J3010) As Ordered ONE (12:50)
[2020-06-20] MEDS ORDERED: MIDAZOLAM INJ 2MG/2ML VIAL (J2250 PER 1MG) As Ordered ONE (12:51)
[2020-06-20] MEDS ORDERED: LIDOCAINE 2% W/EPINEPHRINE 20ML VIAL **PRES FREE As Ordered ONE ×2 (12:51→14:07)
[2020-06-20] MEDS ORDERED: ROCURONIUM BROMIDE 50 MG/5 ML VIAL As Ordered ONE (12:51)
[2020-06-20] MEDS ORDERED: ceFAZolin 2 GM/D5W 50 ML IV BAG (J0690 PER 500MG) As Ordered ONE (13:42)
[2020-06-20] MEDS ORDERED: ONDANSETRON 4MG/2ML VIAL As Ordered ONE ×2 (14:20→15:08)
[2020-06-20] MEDS ORDERED: SUGAMMADEX SODIUM 500 MG/5 ML VIAL (BRIDION) As Ordered ONE (14:20)
[2020-06-20] MEDS ORDERED: METOCLOPRAMIDE INJ 10MG/2ML VIAL (J2765 PER 1) As Ordered ONE (14:20)
[2020-06-20] MEDS ORDERED: ACETAMINOPHEN 1000MG 100ML IV BTL (OFIRMEV) (J0131 PER 10MG) As Ordered ONE (15:09)
[2020-06-20] MEDS ORDERED: HEPARIN DRIP 25,000 UNITS in IV 1 EA IV SCH (16:16)
[2020-06-20] MEDS ORDERED: PERCOCET 5MG/325MG TAB PO PRN (16:30)
[2020-06-20] MEDS ORDERED: MORPHINE 2 MG/ML 1ML VIAL (J2270) IV PRN (16:30)
[2020-06-20] MEDS ORDERED: diazePAM 5MG TABLET PO PRN (16:30)
--- NOTE | 2020-06-20 16:34 | ROOPDOC ---
[facility] Report Of Operation Report of Operation DATE OF PROCEDURE: 06/20/20 PREPROCEDURE DIAGNOSES: Atherosclerosis the [place] arteries with long-standing nonhealing wounds of the left foot and ankle with osteomyelitis of the heel POSTPROCEDURE DIAGNOSES: Same PROCEDURE: Left below-knee amputation SURGEON: Jordyn Ariza MD ANESTHESIA: Gen. anesthesia and local INDICATION FOR PROCEDURE: Very pleasant 59-year-old gentleman with a history of right below-knee amputation, now returns to the hospital with nonhealing wounds of the left foot and ankle including a massive heel wound with significant os teomyelitis the bone. After evaluation by podiatry, it was felt the patient would not be successful at healing this, even with long-term IV antibiotics. After lengthy discussion with the patient, he elected to go ahead with a below- knee amputation versus above-knee amputation. He has a contralateral right below knee amputation and walks with a prosthetic, but has not been able to walk for some time to wounds on the left. He would like to progress back to ambulation with prosthetic, hopefully bilateral prosthetics, and wishes to proceed with left BKA versus AKA. Risks benefits alternatives were explained and the patient was agreeable to proceed. I did express to him that he would be challenging to heal left below-knee amputation due to the level of infection in the foot and due to the fact that he had some skin erosions on his calf and duffy, but that we would do her best and hopefully he will be able to heel below-knee amputation. He is agreeable to proceed. REPORT OF OPERATION: Patient was brought to the OR in stable condition. General anesthesia and antibiotics were started without complication. His left lower extremity was prepped and draped in a sterile fashion. A timeout was performed. A marking pen was used to fashion incision 13 cm distal to the tibial plateau but proximal to a pretibial ulceration we would like to exclude from his stump. Along posterior flap with also marked with a skin pen. The leg was exsanguinated with an Esmarch and in the tourniquet was inflated to 300 mmHg. An incision was made and carried down through the subcutaneous tissues with Bovie cautery. We continued the incision down to the tibia and fibula. Neurovascular bundles were suture ligated and divided. The tibia was divided at 12 cm in the anterior aspect was beveled to prevent erosion of the bone at the skin. A rasp was used to smooth the bone. The fibula was divided at 10 cm length. It was also smoothed with a rasp. We then used the Bovie to complete the posterior flap. The leg was sent for pathology. Irrigation was used and then we continued with suture ligation of visible vascular structures. The tourniquet was then released, and because the patient is on full anticoagulation it took quite some time to get appropriate hemostasis with Bovie and suture ligation of bleeding vessels. Once that was accomplished, we irrigated a second time. The posterior muscle and anterior muscle were both feel and seemed to be almost completely converted to fat. There was very little actual muscle tissue visualized. I thought this was a bit odd, but it all appeared viable and had good vascular flow. We attached the large posterior muscle fascia to the periosteum on the anterior aspect of the tibia to protect the area from erosion of the bone through the skin. We then closed the deep tissue with [id number] Vicryl sutures. The fascia was then closed with figure 8 Vicryl sutures. Nylon mattress sutures were used to approxi mate the skin edges and janell were used to complete the skin closure. The incision was clean and dry. Xeroform + kerlix were used to dress the stump along with an Julio wrap. The patient was then allowed to awaken from anesthesia and taken to recovery in stable condition. He tolerated the procedure and the anesthesia well. ESTIMATED BLOOD LOSS: Approximately 100 mL. SPECIMENS: Left lower leg sent for pathology COMPLICATIONS: None. PLAN: Return to the floor for support of postop care. Analgesia when necessary. Elevate the left lower extremity and keep the knee straight to prevent contracture. Work towards PTOT and ARU referral. We will continue heparin drip for now at 1500 units an hour, and discontinue this tonight we'll restart his eliquis. His Plavix will restart in the morning. He is at risk for worse healing of the stump due to full anticoagulation, but he needs this due to a history recently of cardiac drug-eluting stents. We appreciate the opportunity to participate in the care of this patient. JORDYN ARIZA MD Jun 20, 2020 16:34
[2020-06-20] MEDS ORDERED: ZOSYN 3.375GM VIAL (J2543) As Ordered ONE (16:47)
[2020-06-20] MEDS ORDERED: HYDROMORPHONE HCL 0.5 MG/ 0.5 ML SYRINGE (J1170 PER 1) IV PRN (17:00)
[2020-06-20] MEDS ORDERED: fentaNYL 100 MCG/2 ML INJECTION (J3010) IV PRN (17:00)
[2020-06-20] MEDS ORDERED: oxyCODONE 5MG TAB PO PRN (17:00)
[2020-06-20] MEDS ORDERED: LR 1,000 ML IV SCH (17:00)
[2020-06-20] MEDS ORDERED: ONDANSETRON 4MG/2ML VIAL IV PRN (17:00)
[2020-06-20] MEDS: CALCITRIOL 0.25 MCG CAP (S0169) PO SCH (17:49)
[2020-06-20] MEDS: buPROPion **XL** TABLET 150MG (WELLBUTRIN XL) PO SCH (17:49)
[2020-06-20] MEDS: FUROSEMIDE 20 MG TAB PO SCH (17:49)
[2020-06-20] MEDS: allopurinoL 100 MG TAB PO SCH (17:49)
[2020-06-20] MEDS: VANCOMYCIN HCL 1,000 MG, VIAL MATE ADAPTER 1 EACH in D5W 250 ML IV SCH (19:02)
[2020-06-20] MEDS ORDERED: APIXABAN 5 MG TAB (ELIQUIS) PO SCH (21:00)
[2020-06-20] MEDS: SERTRALINE HCL 25 MG TABLET PO SCH (21:38)
[2020-06-20] MEDS: APIXABAN 5 MG TAB (ELIQUIS) PO SCH (21:38)
[2020-06-20] MEDS: ATORVASTATIN 20 MG TAB PO SCH (21:38)
[2020-06-21] VITALS: BP 155/77
[2020-06-21] MEDS: PIPERACILLIN/TAZOBACTAM SOD 3.375 GM in D5W MINI-BAG PLUS 50 ML IV SCH ×2 (03:50→10:17)
[2020-06-21 04:00] VITALS: BP 162/85
[2020-06-21 05:59] LABS: HEMATOCRIT 27.5 % (42.0-52.0); HEMOGLOBIN 8.5 g/dl (13.5-17.5); MEAN CORPUSCULAR HEMOGLOBIN 28.2 pg (27.0-33.0); MEAN CORPUSCULAR HGB CONC 30.9 g/dl (32.0-36.5); MEAN CORPUSCULAR VOLUME 91.4 fl (80.0-96.0); PLATELET COUNT, AUTOMATED 423 10^3/uL (150-450); RED BLOOD COUNT 3.01 10^6/uL (4.30-6.10)
[2020-06-21] MEDS: SLF 3 ML SYR IV SCH ×3 (06:05→22:11)
[2020-06-21 06:19] LABS: C REACTIVE PROTEIN QUANTITATIV 9.38 MG/DL (0.00-0.30); CALCIUM LEVEL 8.2 MG/DL (8.5-10.1); CREATININE FOR GFR 2.49 MG/DL (0.70-1.30); GLOMERULAR FILTRATION RATE 28.4 (>56); POTASSIUM SERUM 3.5 MEQ/L (3.5-5.1)
[2020-06-21] MEDS: ACETAMINOPHEN TAB 650MG DOSE (2X325MG) PO PRN ×2 (06:23→12:30)
[2020-06-21 07:44] VITALS: BP 123/73
[2020-06-21] MEDS: HumaLOG INSULIN (NovoLOG) PER UNIT SC SCH ×4 (10:15→20:39)
[2020-06-21] MEDS: bisoproloL fumarate 10 MG TAB PO SCH ×2 (10:16→20:38)
[2020-06-21] MEDS: buPROPion **XL** TABLET 150MG (WELLBUTRIN XL) PO SCH (10:16)
[2020-06-21] MEDS: allopurinoL 100 MG TAB PO SCH (10:17)
[2020-06-21] MEDS: LOSARTAN 50MG TABLET PO SCH (10:17)
[2020-06-21] MEDS: CLOPIDOGREL 75 MG TAB PO SCH (10:17)
[2020-06-21] MEDS: CALCITRIOL 0.25 MCG CAP (S0169) PO SCH (10:18)
[2020-06-21] MEDS: FUROSEMIDE 20 MG TAB PO SCH (10:18)
[2020-06-21] MEDS: APIXABAN 5 MG TAB (ELIQUIS) PO SCH ×2 (10:18→20:38)
[2020-06-21] MEDS: OMEPRAZOLE 20 MG CAP PO SCH (10:18)
[2020-06-21 12:00] VITALS: BP 148/70
--- NOTE | 2020-06-21 13:07 | IPNPDOC ---
Text Note Date of Service The patient was seen on 06/21/20. NOTE Subjective: Patient was seen and examined this morning at bedside. Patient tells me he's feeling well today and surgery went well. Nurse reports no overnight events. He doesn't have any stump pain and reports no bleeding. Has been eating well since the surgery. Objective: Constitutional: Awake and alert, in no apparent distress. spider angiomata on cheeks ENT: Sclera are clear. Mucosa is moist. Respiratory: Lungs CTA bilaterally. No respiratory distress. No use of acc essory muscles. Cardiovascular: Irregular HR. No murmurs. Gastrointestinal: Abdomen is soft, obese, non distended, non tender, BS present. Musculoskeletal: RLE prosthesis. LLE BKA stump fresh dressing on, no apparent breakthrough bleeding Neurologic: No focal neurological deficit. Mental Status: A&O x3, normal affect Skin: Warm, dry Imaging: Chest x-ray "IMPRESSION: No radiographic evidence for an acute cardiopulmonary process." Left lower extremity x-ray "IMPRESSION: 1. Radiographic evidence for osteomyelitis involving the lateral aspect of the base of the proximal phalanx of the left 5th toe and the base, distal diaphysis, and head of the left 5th metatarsal, with a pathologic fracture involving the lateral aspect of the base of the left 5th metatarsal and ossification of the adjacent soft tissues. 2. Soft tissue ulceration involving the left heel pad with underlying dystrophic calcification. " Assessment/plan: Mr. Sanchez is a 59-year-old with a history of chronic left lower extremity ulcers, IDDM, CAD/CABG, HFpEF/ HFrecEF, PAD, HTN, CKD, A. fib, MAVIS, multiple toe amputations, and right BKA, who presented with c/o of fevers, chills and concerns that he might have sepsis again; he will be admitted for management of left fifth toe osteomyelitis. Podiatry recommended left BKA. Patient evaluated by vascular surgery who agreed left BKA is appropriate. Patient underwent BKA 06/21/2020, surgery went well. Patients production troubleshooter Dr Cruz was consulted and will see him while admitted. Patient will need to work with PT/OT and undergo rehab. Patient made ALC on 06/21/2020. # Left fifth toe osteomyelitis S/p BKA on 06/20/2020: Vanc and zosyn dc post op. Podiatry recommended left BKA. Patient evaluated by vascular surgery who agreed left BKA is appropriate. Surgery completed 06/20/2020. Patient had his eliquis and Plavix discontinued for one day and bridged with heparin drip and have his Plavix resumed day after surgery in the eliquis evening of surgery. Patient will need to work with PT/OT and undergo rehab. # HTN: better controlled. Losartan up to 50. Continue lasix. Bisoprolol. # Chronic left lower extremity ulcers: underwent L BKA # Hyponatremia: NS. Monitor BMP. # Atrial fibrillation: Eliquis, bisoprolol. Rate controlled and anti coagulated. # CAD, CABG s/p 3 March 2020: Atorvastatin, Bisoprolol, Clopidogrel. # PAD: Atorvastatin, Clopidogrel # Dyslipidemia: statin # IDDM with retinopathy and neuropathy: ISS. Frequent Accu-Cheks. Hypoglycemic precautions. # HFpEF and Heart failure with recovered EF (HFrecEF),Group 2 Pulmonary HTN: e uvolemic, compensated. Continue home meds. Continue Bisoprolol, Losartan, Furosemide. Echo Jun 2016 EF 45-50%, severe hypokinesis, grade 2 DD, mod/severe pulm HTN Echo Jul 2016 EF 60-65%, septal and apical wall motion abnormalities, Grade 2 DD, # Chronic Iron deficiency anemia: monitor hgb. Stop iron, ferritin level high. # CKD 3/4: Calcitriol. Avoid nephrotoxins. # Mild transaminitis: resolved. # Gout: allopurinol # Anxiety/depression: bupropion, sertraline # Class 1 obesity: BMI of 32.6 complicates care. 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
--- NOTE | 2020-06-21 14:05 | IPNPDOC ---
Date Seen The patient was seen on 06/21/20. Progress Note Patient seen and examined postoperative day 1 status post a right below-knee amputation. So far he is doing very well. He had minimal bleeding and serosanguineous drainage on his dressing. He is now back on full anticoagulation and Plavix. This is the safest option for him despite recent surgery due to his recent drug-eluting cardiac stent placement. I am pleased with his progress and cleaned his incision thoroughly. A lot of the swelling has gone down with Julio wrap compression after amputation last night. I did not readdress the stump as there were no dressings placed at the bedside as ordered, but the nurses going to readdress the stump with Xeroform, 4 x 4's, Kerlix, Julio wrap. We would like to elevate the stump and encourage the patient to straighten his knee to prevent contractures. We would like him to start progressing out of bed with PT OT. We'd like him eventually to progress towards area. His pain seems well controlled today and he is eating well, so all of that is encouraging. We will check on him tomorrow and see how he is doing. We appreciate the opportunity to participate in the care of this patient. VS, I&O, 24H, Fishbone Vital Signs/I&O Vital Signs Date Time Temp Pulse Resp B/P (MAP) Pulse Ox O2 Delivery O2 Flow Rate FiO2 06/21/20 12:00 97.3 63 18 148/70 (96) 97 Room Air 06/20/20 22:50 2.0 I&O- Last 24 Hours up to 6 AM 06/21/20 06:00 Intake Total 2039 ml Output Total 1000 ml Balance 1039 ml Laboratory Data 24H LABS Laboratory Tests 2 06/20/20 16:22: Bedside Glucose (Misc Panel) 164H 06/20/20 17:50: Vancomycin Level Trough 16.4 06/20/20 21:20: Bedside Glucose (Misc Panel) 180H 06/21/20 05:33: Nucleated Red Blood Cells % (auto) 0.5H, Anion Gap 8, Glomerular Filtration Rate 28.4L, Calcium Level 8.2L, C-Reactive Protein, Quantitative 9.38H 06/21/20 11:55: Bedside Glucose (Misc Panel) 143H CBC/BMP Laboratory Tests 06/21/20 05:33 Microbiology Microbiology 06/18/20 Gram Stain - Final, Complete 06/18/20 Wound Culture - Final, Complete Klebsiella Oxytoca Esbl 06/18/20 Anaerobic Culture - Final, Complete 06/16/20 Blood Culture - Preliminary, Resulted No Growth after 72 hours. All specime... 06/16/20 Blood Culture - Preliminary, Resulted No Growth after 72 hours. All specime... JORDYN ISSA MD Jun 21, 2020 14:05
[2020-06-21 20:00] VITALS: BP 158/82
[2020-06-21] MEDS: ATORVASTATIN 20 MG TAB PO SCH (20:38)
[2020-06-21] MEDS: SERTRALINE HCL 25 MG TABLET PO SCH (20:39)
[2020-06-21] MEDS: guaiFENesin SYRUP 200 MG/10 ML UDC PO PRN (22:49)
[2020-06-21] MEDS: PERCOCET 5MG/325MG TAB PO PRN (22:50)
[2020-06-22 01:13] VITALS: BP 131/70
[2020-06-22 06:00] VITALS: BP 139/71
[2020-06-22] MEDS: SLF 3 ML SYR IV SCH ×3 (06:20→21:47)
[2020-06-22 07:05] LABS: HEMATOCRIT 26.8 % (42.0-52.0); HEMOGLOBIN 8.2 g/dl (13.5-17.5); MEAN CORPUSCULAR HEMOGLOBIN 28.3 pg (27.0-33.0); MEAN CORPUSCULAR HGB CONC 30.6 g/dl (32.0-36.5); MEAN CORPUSCULAR VOLUME 92.4 fl (80.0-96.0); PLATELET COUNT, AUTOMATED 432 10^3/uL (150-450); WHITE BLOOD COUNT 11.9 10^3/uL (4.0-10.0)
[2020-06-22 07:23] LABS: C REACTIVE PROTEIN QUANTITATIV 9.9 MG/DL (0.00-0.30); CALCIUM LEVEL 8.1 MG/DL (8.5-10.1); CREATININE FOR GFR 3.08 MG/DL (0.70-1.30); GLOMERULAR FILTRATION RATE 22.2 (>56); POTASSIUM SERUM 3.7 MEQ/L (3.5-5.1)
[2020-06-22] MEDS: HumaLOG INSULIN (NovoLOG) PER UNIT SC SCH ×4 (07:30→21:00)
[2020-06-22] MEDS: CALCITRIOL 0.25 MCG CAP (S0169) PO SCH (09:21)
[2020-06-22] MEDS: PERCOCET 5MG/325MG TAB PO PRN (09:21)
[2020-06-22] MEDS: OMEPRAZOLE 20 MG CAP PO SCH (09:21)
[2020-06-22] MEDS: bisoproloL fumarate 10 MG TAB PO SCH ×2 (09:21→21:44)
[2020-06-22] MEDS: LOSARTAN 50MG TABLET PO SCH (09:22)
[2020-06-22] MEDS: FUROSEMIDE 20 MG TAB PO SCH (09:22)
[2020-06-22] MEDS: buPROPion **XL** TABLET 150MG (WELLBUTRIN XL) PO SCH (09:23)
[2020-06-22] MEDS: allopurinoL 100 MG TAB PO SCH (09:23)
[2020-06-22] MEDS: CLOPIDOGREL 75 MG TAB PO SCH (09:23)
[2020-06-22] MEDS: APIXABAN 5 MG TAB (ELIQUIS) PO SCH ×2 (09:23→21:44)
[2020-06-22] MEDS: ATORVASTATIN 20 MG TAB PO SCH (21:44)
[2020-06-22] MEDS: SERTRALINE HCL 25 MG TABLET PO SCH (21:44)
[2020-06-23] MEDS: SLF 3 ML SYR IV SCH ×3 (05:09→21:04)
[2020-06-23 05:57] LABS: HEMATOCRIT 28.7 % (42.0-52.0); HEMOGLOBIN 8.8 g/dl (13.5-17.5); MEAN CORPUSCULAR HEMOGLOBIN 28.5 pg (27.0-33.0); MEAN CORPUSCULAR HGB CONC 30.7 g/dl (32.0-36.5); MEAN CORPUSCULAR VOLUME 92.9 fl (80.0-96.0); PLATELET COUNT, AUTOMATED 445 10^3/uL (150-450); RED BLOOD COUNT 3.09 10^6/uL (4.30-6.10); WHITE BLOOD COUNT 12.3 10^3/uL (4.0-10.0)
[2020-06-23 06:00] VITALS: BP 128/74
[2020-06-23 06:25] LABS: CALCIUM LEVEL 7.8 MG/DL (8.5-10.1); CREATININE FOR GFR 3.34 MG/DL (0.70-1.30); GLOMERULAR FILTRATION RATE 20.2 (>56); POTASSIUM SERUM 3.5 MEQ/L (3.5-5.1)
[2020-06-23] MEDS: PERCOCET 5MG/325MG TAB PO PRN ×3 (08:11→21:02)
[2020-06-23] MEDS: HumaLOG INSULIN (NovoLOG) PER UNIT SC SCH ×4 (08:16→20:54)
[2020-06-23] MEDS: allopurinoL 100 MG TAB PO SCH (08:17)
[2020-06-23] MEDS: buPROPion **XL** TABLET 150MG (WELLBUTRIN XL) PO SCH (08:17)
[2020-06-23] MEDS: CLOPIDOGREL 75 MG TAB PO SCH (08:17)
[2020-06-23] MEDS: APIXABAN 5 MG TAB (ELIQUIS) PO SCH ×2 (08:17→21:01)
[2020-06-23] MEDS: OMEPRAZOLE 20 MG CAP PO SCH (08:17)
[2020-06-23] MEDS: CALCITRIOL 0.25 MCG CAP (S0169) PO SCH (08:17)
[2020-06-23] MEDS: LOSARTAN 50MG TABLET PO SCH (08:18)
[2020-06-23] MEDS: bisoproloL fumarate 10 MG TAB PO SCH ×2 (08:19→21:02)
[2020-06-23] MEDS: FUROSEMIDE 20 MG TAB PO SCH (08:19)
--- NOTE | 2020-06-23 08:38 | IPNPDOC ---
Date Seen The patient was seen on 06/23/20. Progress Note Patient seen and examined postoperative day 3 status post a right below-knee amputation. So far he is doing very well. Pain is controlled. He is now back on full anticoagulation and Plavix. This is the safest option for him, despite recent surgery, due to his recent drug-eluting cardiac stent placement. Today on exam, the stump is more swollen, there are fluid filled blisters on the inferior flap with surrounding erythema, which is concerning. The incision has minimal serosanguineous drainage and was thoroughly cleaned. Nonadherent Xeroform was placed over the blisters and over at the sutures. We then redressed the stump with Xeroform, 4 x 4's, Kerlix, Julio wrap. We would like to elevate the stump most of the day and encourage the patient to straighten his knee to prevent contractures. He is compliant with this. We would like him to start progressing out of bed with PT OT. We'd like him eventually to progress towards ARU. I discussed with him that a below-knee amputation was tenuous with him due to the swelling, infection in the foot, but that I was hopeful we would be able to heal it. With the blistered skin, it is worrisome, but still not hopeless that we can heal it. We will be very cautious and elevate as much as possible to minimize swelling. Also, the patient complained of some swelling in the right stump, and I placed an Julio wrap on this until he can get his stump trigger from his summer babysitter. I suggested that the patient watch his fluid and salt intake to help diminish swelling. He is agreeable to this plan. We appreciate the opportunity to participate in the care of this patient. VS, I&O, 24H, Fishbone Vital Signs/I&O Vital Signs Date Time Temp Pulse Resp B/P (MAP) Pulse Ox O2 Delivery O2 Flow Rate FiO2 06/23/20 08:19 70 06/23/20 08:18 135/75 06/23/20 08:11 14 Room Air 06/23/20 06:00 97.9 94 06/20/20 22:50 2.0 I&O- Last 24 Hours up to 6 AM0 06/23/20 05:59 Intake Total 1760 ml Output Total 350 ml Balance 1410 ml Laboratory Data 24H LABS Laboratory Tests 2 06/22/20 12:00: Bedside Glucose (Misc Panel) 209H 06/22/20 16:45: Bedside Glucose (Misc Panel) 109H 06/22/20 20:20: Bedside Glucose (Misc Panel) 177H 06/23/20 05:18: Nucleated Red Blood Cells % (auto) 0.7H, Anion Gap 11, Glomerular Filtration Ra te 20.2L, Calcium Level 7.8L CBC/BMP Laboratory Tests 06/23/20 05:18 Microbiology Microbiology 06/23/20 Stool Occult Blood (RAJAT) - Final, Complete 06/18/20 Gram Stain - Final, Complete 06/18/20 Wound Culture - Final, Complete Klebsiella Oxytoca Esbl 06/18/20 Anaerobic Culture - Final, Complete 06/16/20 Blood Culture - Final, Complete NO GROWTH AFTER 5 DAYS 06/16/20 Blood Culture - Final, Complete NO GROWTH AFTER 5 DAYS JORDYN ISSA MD Jun 23, 2020 08:38
[2020-06-23] MEDS: SERTRALINE HCL 25 MG TABLET PO SCH (21:01)
[2020-06-23] MEDS: ATORVASTATIN 20 MG TAB PO SCH (21:01)
[2020-06-24 06:00] VITALS: BP 151/79
[2020-06-24 07:58] LABS: HEMATOCRIT 29.4 % (42.0-52.0); HEMOGLOBIN 8.8 g/dl (13.5-17.5); MEAN CORPUSCULAR HEMOGLOBIN 27.9 pg (27.0-33.0); MEAN CORPUSCULAR HGB CONC 29.9 g/dl (32.0-36.5); MEAN CORPUSCULAR VOLUME 93.3 fl (80.0-96.0); PLATELET COUNT, AUTOMATED 439 10^3/uL (150-450); RED BLOOD COUNT 3.15 10^6/uL (4.30-6.10); WHITE BLOOD COUNT 13.1 10^3/uL (4.0-10.0)
[2020-06-24 08:13] LABS: CALCIUM LEVEL 8.6 MG/DL (8.5-10.1); CREATININE FOR GFR 2.9 MG/DL (0.70-1.30); GLOMERULAR FILTRATION RATE 23.8 (>56); POTASSIUM SERUM 3.7 MEQ/L (3.5-5.1)
--- NOTE | 2020-06-24 08:58 | IPNPDOC ---
Text Note Date of Service The patient was seen on 06/24/20. NOTE Patient seen and examined postoperative day 4 status post a left below-knee a mputation. The pt has previous h/o Rt BKA. So far he is doing very well. Pain is controlled. He is now back on Eliquis and Plavix. This is the safest option for him, despite recent surgery, due to his recent drug-eluting cardiac stent placement. Today on exam, the left stump is less swollen, there are still fluid filled blisters on the inferior flap with surrounding erythema, but this appears about the same as yesterday. The incision has minimal serosanguineous drainage and was thoroughly cleaned. Nonadherent Xeroform was placed over the blisters and over at the sutures. I then redressed the stump with Xeroform, 4 x 4's, Kerlix, Julio wrap. The patient states that he tried to elevate the left stump as much as possible yesterday and continued to encourage the patient to straighten his knee to prevent contractures. Continue with elevating the left stump as much as possible. Continue PT OT. Consider ARU. Continue to be very cautious and elevate as much as possible to minimize swelli ng, caution with fluid and salt intake to help diminish swelling. Continue to follow. VS,Fishbone, I+O VS, Fishbone, I+O Laboratory Tests 06/24/20 06:56 Vital Signs Date Time Temp Pulse Resp B/P (MAP) Pulse Ox O2 Delivery O2 Flow Rate FiO2 06/24/20 06:00 98.8 66 16 151/79 (103) 96 Room Air 06/20/20 22:50 2.0 I&O- Last 24 Hours up to 6 AM 06/24/20 05:59 Intake Total 1000 ml Output Total 1325 ml Balance -325 ml Abril Veras Jun 24, 2020 08:58
[2020-06-24] MEDS: HumaLOG INSULIN (NovoLOG) PER UNIT SC SCH ×4 (08:59→21:00)
[2020-06-24] MEDS: buPROPion **XL** TABLET 150MG (WELLBUTRIN XL) PO SCH (08:59)
[2020-06-24] MEDS: OMEPRAZOLE 20 MG CAP PO SCH (08:59)
[2020-06-24] MEDS: CLOPIDOGREL 75 MG TAB PO SCH (08:59)
[2020-06-24] MEDS: APIXABAN 5 MG TAB (ELIQUIS) PO SCH ×2 (09:00→21:10)
[2020-06-24] MEDS: FUROSEMIDE 20 MG TAB PO SCH (09:00)
[2020-06-24] MEDS: allopurinoL 100 MG TAB PO SCH (09:00)
[2020-06-24] MEDS: LOSARTAN 50MG TABLET PO SCH (09:00)
[2020-06-24] MEDS: bisoproloL fumarate 10 MG TAB PO SCH ×2 (09:01→21:12)
[2020-06-24] MEDS: CALCITRIOL 0.25 MCG CAP (S0169) PO SCH (09:01)
[2020-06-24] MEDS: ATORVASTATIN 20 MG TAB PO SCH (21:10)
[2020-06-24] MEDS: SERTRALINE HCL 25 MG TABLET PO SCH (21:10)
[2020-06-25 06:00] VITALS: BP 151/87
[2020-06-25 06:08] LABS: HEMOGLOBIN 8.6 g/dl (13.5-17.5); MEAN CORPUSCULAR HEMOGLOBIN 28.7 pg (27.0-33.0); MEAN CORPUSCULAR HGB CONC 30.7 g/dl (32.0-36.5); MEAN CORPUSCULAR VOLUME 93.3 fl (80.0-96.0); PLATELET COUNT, AUTOMATED 444 10^3/uL (150-450); WHITE BLOOD COUNT 11.5 10^3/uL (4.0-10.0)
[2020-06-25 06:29] LABS: CREATININE FOR GFR 2.54 MG/DL (0.70-1.30); GLOMERULAR FILTRATION RATE 27.8 (>56); POTASSIUM SERUM 3.5 MEQ/L (3.5-5.1)
[2020-06-25] MEDS: buPROPion **XL** TABLET 150MG (WELLBUTRIN XL) PO SCH (08:55)
[2020-06-25] MEDS: HumaLOG INSULIN (NovoLOG) PER UNIT SC SCH ×4 (08:56→21:00)
[2020-06-25] MEDS: allopurinoL 100 MG TAB PO SCH (08:56)
[2020-06-25] MEDS: CALCITRIOL 0.25 MCG CAP (S0169) PO SCH (08:56)
[2020-06-25] MEDS: CLOPIDOGREL 75 MG TAB PO SCH (08:57)
[2020-06-25] MEDS: FUROSEMIDE 20 MG TAB PO SCH (08:57)
[2020-06-25] MEDS: bisoproloL fumarate 10 MG TAB PO SCH ×2 (08:57→22:33)
--- NOTE | 2020-06-25 08:57 | IPNPDOC ---
Text Note Date of Service The patient was seen on 06/25/20. NOTE Vascular surgery. Dr. Ariza Patient seen and examined postoperative day 5 status post a left below-knee amputation. The pt has previous h/o Rt BKA. So far he is doing very well. Pain is controlled. He is on Eliquis and Plavix. This is the safest option for him, despite recent surgery, due to his recent drug-eluting cardiac stent placement. Today on exam, the left stump is less swollen, there are still fluid filled blisters on the inferior flap with surrounding erythema, but this still appears to be stable. The incision has minimal serosanguineous drainage on the dressing. The incision was thoroughly cleaned. Nonadherent Xeroform was placed over the blisters and over at the sutures. I then redressed the stump with Xeroform, 4 x 4's, Kerlix, Julio wrap. The patient states that he tried to elevate the left stump as much as possible, and this seems to be helping with his swelling. Continue to straighten his knee to prevent contractures. Continue with elevating the left stump as much as possible. Continue PT OT. Consider ARU. Continue to urge caution with fluid and salt intake to help diminish swelling as well. Continue to follow. VS,Fishbone, I+O VS, Fishbone, I+O Laboratory Tests 06/25/20 05:41 Vital Signs Date Time Temp Pulse Resp B/P (MAP) Pulse Ox O2 Delivery O2 Flow Rate FiO2 06/25/20 06:00 98.0 67 18 151/87 (108) 96 Room Air 06/20/20 22:50 2.0 I&O- Last 24 Hours up to 6 AM 06/25/20 06:00 Intake Total 320 ml Output Total 1425 ml Balance -1105 ml Abril Veras Jun 25, 2020 08:57
[2020-06-25] MEDS: OMEPRAZOLE 20 MG CAP PO SCH (08:58)
[2020-06-25] MEDS: LOSARTAN 50MG TABLET PO SCH (08:58)
[2020-06-25] MEDS: APIXABAN 5 MG TAB (ELIQUIS) PO SCH ×2 (08:58→22:34)
[2020-06-25] MEDS: SERTRALINE HCL 25 MG TABLET PO SCH (22:34)
[2020-06-25] MEDS: ATORVASTATIN 20 MG TAB PO SCH (22:34)
[2020-06-25] MEDS: PERCOCET 5MG/325MG TAB PO PRN (22:35)
[2020-06-26 05:50] LABS: HEMATOCRIT 30.2 % (42.0-52.0); MEAN CORPUSCULAR HEMOGLOBIN 28.1 pg (27.0-33.0); MEAN CORPUSCULAR HGB CONC 29.8 g/dl (32.0-36.5); MEAN CORPUSCULAR VOLUME 94.4 fl (80.0-96.0); PLATELET COUNT, AUTOMATED 469 10^3/uL (150-450); WHITE BLOOD COUNT 9.8 10^3/uL (4.0-10.0)
[2020-06-26 06:00] VITALS: BP 151/89
[2020-06-26 06:12] LABS: CALCIUM LEVEL 8.4 MG/DL (8.5-10.1); CREATININE FOR GFR 2.23 MG/DL (0.70-1.30); GLOMERULAR FILTRATION RATE 32.3 (>56); POTASSIUM SERUM 3.5 MEQ/L (3.5-5.1)
[2020-06-26] MEDS: OMEPRAZOLE 20 MG CAP PO SCH (08:33)
[2020-06-26] MEDS: buPROPion **XL** TABLET 150MG (WELLBUTRIN XL) PO SCH (08:33)
[2020-06-26] MEDS: APIXABAN 5 MG TAB (ELIQUIS) PO SCH ×2 (08:33→20:24)
[2020-06-26] MEDS: HumaLOG INSULIN (NovoLOG) PER UNIT SC SCH ×4 (08:33→20:09)
[2020-06-26] MEDS: CLOPIDOGREL 75 MG TAB PO SCH (08:34)
[2020-06-26] MEDS: FUROSEMIDE 20 MG TAB PO SCH (08:34)
[2020-06-26] MEDS: allopurinoL 100 MG TAB PO SCH (08:34)
[2020-06-26] MEDS: CALCITRIOL 0.25 MCG CAP (S0169) PO SCH (08:34)
[2020-06-26] MEDS: bisoproloL fumarate 10 MG TAB PO SCH ×2 (08:35→20:25)
[2020-06-26] MEDS: LOSARTAN 50MG TABLET PO SCH (08:35)
--- NOTE | 2020-06-26 09:21 | IPNPDOC ---
Date Seen The patient was seen on 06/26/20. Progress Note Patient seen and examined status post left BKA, history of right BKA. He received his stump digestion operator for the right lower extremity today. He's had increased swelling in both stumps, largely to to having them in the dependent position over the weekend as well as increased cell fluid intake. On the left BKA, the patient developed blisters over the weekend on the flap and some surrounding erythema. This has been stable, but today there seems to be a little more increased erythema as well as increased swelling. I again reminded the patient that as much as possible he needs to elevate his stump to help with swelling. Whether or not the flap will heal with these blisters is still unknown. The best case scenario is lower salt intake, elevation, and hopefully with the addition of some antibiotics this will heal. The patient is tenuous. It is difficult for him to heal any ulcers as is evidenced by his bilateral amputations. The risk of him being converted to a left AKA is moderate at this point. We like to do everything we can to prevent that. The incision and stump are thoroughly cleaned and redressed with Xeroform over the blisters and incision, 4 x 4's, kerlix and an Julio wrap. The patient tolerated the dressing change well and was left with his leg positioned with his knee straight and elevated on 3 pillows. Will follow. VS, I&O, 24H, Tami Vital Signs/I&O Vital Signs Date Time Temp Pulse Resp B/P (MAP) Pulse Ox O2 Delivery O2 Flow Rate FiO2 06/26/20 08:35 68 164/93 06/26/20 06:00 98.1 17 96 Room Air 06/20/20 22:50 2.0 I&O- Last 24 Hours up to 6 AM 06/26/20 06:00 Intake Total 1130 ml Output Total 2200 ml Balance -1070 ml Laboratory Data 24H LABS Laboratory Tests 2 06/25/20 11:33: Bedside Glucose (Misc Panel) 232H 06/25/20 16:36: Bedside Glucose (Misc Panel) 155H 06/25/20 20:37: Bedside Glucose (Misc Panel) 191H 06/26/20 05:17: Nucleated Red Blood Cells % (auto) 0.9H, Anion Gap 8, Glomerular Filtration Rate 32.3L, Calcium Level 8.4L CBC/BMP Laboratory Tests 06/26/20 05:17 Microbiology Microbiology 06/25/20 Stool Occult Blood (RAJAT) - Final, Complete 06/24/20 Stool Occult Blood (RAJAT) - Final, Complete 06/23/20 Stool Occult Blood (RAJAT) - Final, Complete 06/18/20 Gram Stain - Final, Complete 06/18/20 Wound Culture - Final, Complete Klebsiella Oxytoca Esbl 06/18/20 Anaerobic Culture - Final, Complete 06/16/20 Blood Culture - Final, Complete NO GROWTH AFTER 5 DAYS 06/16/20 Blood Culture - Final, Complete NO GROWTH AFTER 5 DAYS JORDYN ISSA MD Jun 26, 2020 09:21
[2020-06-26 10:01] LABS: BASO % 0.4 % (0.0-1.0); EOS # 0.2 10^3/uL (0.0-0.5); EOS % 2.2 % (0.0-3.0); HEMATOCRIT 29.6 % (42.0-52.0); HEMOGLOBIN 8.9 g/dl (13.5-17.5); LYMPH # 0.7 10^3/uL (1.5-5.0); LYMPH % 7.5 % (24.0-44.0); MEAN CORPUSCULAR HEMOGLOBIN 28.3 pg (27.0-33.0); MEAN CORPUSCULAR HGB CONC 30.1 g/dl (32.0-36.5); MEAN CORPUSCULAR VOLUME 94.3 fl (80.0-96.0); MONO # 0.7 10^3/uL (0.0-0.8); MONO % 7.2 % (0.0-5.0); NEUTROPHILS # 8.2 10^3/uL (1.5-8.5); NEUTROPHILS % 82.1 % (36.0-66.0); PLATELET COUNT, AUTOMATED 436 10^3/uL (150-450); RED BLOOD COUNT 3.14 10^6/uL (4.30-6.10); WHITE BLOOD COUNT 9.9 10^3/uL (4.0-10.0)
--- NOTE | 2020-06-26 14:42 | IPNPDOC ---
Date Seen The patient was seen on 06/26/20. Progress Note SUBJECTIVE: patient is ALC status pending insurance approval for ARU transfer. Informed by RN that patient has worsening LE edema, extending to abdomen. On exam, patient states that edema has been worsening over past few weeks. He reports mild SOB, without palpitations, or chest pain. No subjective fevers or chills. No abdo pain. OBJECTIVE PHYSICAL EXAMINATION: VITAL SIGNS: Please see below. GENERAL: calm, comfortable at rest HEENT: PERRLA, EOMI CARDIOVASCULAR: RRR RESPIRATORY: crackles in lung bases bilaterally ABDOMINAL: obese abdo, pitting edema in lower abdo EXTREMITIES: bilateral BKA, stump dressings clean and dry, changed by vascular surgery NEUROLOGICAL: no focal neuro def, CN2-12 intact PSYCHOLOGICAL: calm, cooperative LABORATORY DATA, IMAGING STUDIES, MICROBIOLOGY: Please see below. Echocardiogram: oredered 06/26/20. DVT prophylaxis ordered?: on eliquis Mr. Sanchez is a 59-year-old with a history of chronic left lower extremity ulcers, IDDM, CAD/CABG, HFpEF/ HFrecEF, PAD, HTN, CKD, A. fib, MAVIS, multiple toe amputations, and right BKA, who presented with c/o of fevers, chills and concerns that he might have sepsis again; he will be admitted for management of left fifth toe osteomyelitis. Podiatry recommended left BKA. Patient evaluated by vascular surgery who agreed left BKA is appropriate. Patient underwent BKA 06/21/2020, surgery went well. Patient will need to work with PT/OT and undergo rehab. Patient made ALC on 06/21/2020. # HFpEF (see prior echo below). Continue home meds. Continue Bisoprolol, Losartan. Echo Jun 2016 EF 45-50%, severe hypokinesis, grade 2 DD, mod/severe pulm HTN Echo Jul 2016 EF 60-65%, septal and apical wall motion abnormalities, Grade 2 DD - suspect worsened cardiac function given significant anasarca - check BNP - 94172 - repeat echo ordered - start IV diuresis lasix 60 mg IV TID # Left fifth toe osteomyelitis S/p BKA on 06/20/2020: Vanc and zosyn dc post op. s/p L BKA. Eliquis resumed. Vascular surgery following. Per Dr. Ariza, possible stump suture infection, based on prior cultures, klebsiella sens to levaquin. Resumed, renally dosease. # HTN:Losartan up to 50. Continue lasix. Bisoprolol. # Chronic left lower extremity ulcers: underwent L BKA # Hyponatremia: NS. Monitor BMP. # Atrial fibrillation: Eliquis, bisoprolol. Rate controlled and anti coagulated. # CAD, CABG s/p 3 March 2020: Atorvastatin, Bisoprolol, Clopidogrel. # PAD: Atorvastatin, Clopidogrel # Dyslipidemia: statin # IDDM with retinopathy and neuropathy: ISS. Frequent Accu-Cheks. Hypoglycemic precautions. # Chronic Iron deficiency anemia: monitor hgb. Stop iron, ferritin level high. # CKD 3/4: Calcitriol. Avoid nephrotoxins. # Mild transaminitis: resolved. # Gout: allopurinol # Anxiety/depression: bupropion, sertraline # Class 1 obesity: BMI of 32.6 complicates care. Fu PCP for sleep apnea screening & to discuss planer offbearer & exercise # DVT prophylaxis: Eliquis VS, I&O, 24H, Fishbone Vital Signs/I&O Vital Signs Date Time Temp Pulse Resp B/P (MAP) Pulse Ox O2 Delivery O2 Flow Rate FiO2 06/26/20 08:35 68 164/93 06/26/20 06:00 98.1 17 96 Room Air 06/20/20 22:50 2.0 I&O- Last 24 Hours up to 6 AM 06/26/20 06:00 Intake Total 1130 ml Output Total 2200 ml Balance -1070 ml Laboratory Data 24H LABS Laboratory Tests 2 06/25/20 16:36: Bedside Glucose (Misc Panel) 155H 06/25/20 20:37: Bedside Glucose (Misc Panel) 191H 06/26/20 05:17: Nucleated Red Blood Cells % (auto) 0.9H, Anion Gap 8, Glomerular Filtration Rate 32.3L, Calcium Level 8.4L 06/26/20 09:43: Nucleated Red Blood Cells % (auto) 0.8H, Immature Granulocyte % (Auto) 0.6, Neutrophils (%) (Auto) 82.1H, Lymphocytes (%) (Auto) 7.5L, Monocytes (%) (Auto) 7.2H, Eosinophils (%) (Auto) 2.2, Basophils (%) (Auto) 0.4, Neutrophils # (Auto) 8.2, Lymphocytes # (Auto) 0.7L, Monocytes # (Auto) 0.7, Eosinophils # (Auto) 0.2, Basophils # (Auto) 0.0 06/26/20 11:18: Bedside Glucose (Misc Panel) 205H CBC/BMP Laboratory Tests 06/26/20 05:17 06/26/20 09:43 Microbiology Microbiology 06/25/20 Stool Occult Blood (RAJAT) - Final, Complete 06/24/20 Stool Occult Blood (RAJAT) - Final, Complete 06/23/20 Stool Occult Blood (RAJAT) - Final, Complete 06/18/20 Gram Stain - Final, Complete 06/18/20 Wound Culture - Final, Complete Klebsiella Oxytoca Esbl 06/18/20 Anaerobic Culture - Final, Complete 06/16/20 Blood Culture - Final, Complete NO GROWTH AFTER 5 DAYS 06/16/20 Blood Culture - Final, Complete NO GROWTH AFTER 5 DAYS JESSY LOVE MD Jun 26, 2020 14:42
[2020-06-26] MEDS: LevoFLOXacin 750 MG TABLET PO SCH (16:03)
--- NOTE | 2020-06-26 19:00 | REP ---
INDICATION: fluid overload. COMPARISON: Comparison chest x-ray June 16, 2020.. TECHNIQUE: Portable upright AP chest radiograph. FINDINGS: Patient is status post prior median sternotomy. There is a loop recorder visible to the left of midline. Cardiomegaly is observed. The lungs are well inflated and free of infiltrate. Pleural angles are sharp. Pulmonary vasculature is cephalized. No evidence of pleural effusion or pulmonary edema.. . IMPRESSION: Mild cardiomegaly. Prior sternotomy. Loop recorder. Vascular cephalization. Otherwise no acute disease.. <Electronically signed by Evelio Wilkinson > 06/26/20 [id number]
[2020-06-26] MEDS: SERTRALINE HCL 25 MG TABLET PO SCH (20:24)
[2020-06-26] MEDS: ATORVASTATIN 20 MG TAB PO SCH (20:24)
[2020-06-26] MEDS: FUROSEMIDE 40MG/4ML VIAL (J1940) IV SCH (20:25)
--- NOTE | 2020-06-26 22:52 | ECGEPIP ---
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 Nonspecific ST-T abnormalities. PVC new compared with 06/16/2020. Electronically Signed on 06-26-2020 22:52:47 EST by Rafael Quiñones
[2020-06-27] MEDS: PERCOCET 5MG/325MG TAB PO PRN (01:08)
[2020-06-27] MEDS: FUROSEMIDE 40MG/4ML VIAL (J1940) IV SCH ×3 (04:13→20:56)
[2020-06-27] MEDS: allopurinoL 100 MG TAB PO SCH (08:41)
[2020-06-27] MEDS: HumaLOG INSULIN (NovoLOG) PER UNIT SC SCH ×4 (08:41→21:00)
[2020-06-27] MEDS: buPROPion **XL** TABLET 150MG (WELLBUTRIN XL) PO SCH (08:41)
[2020-06-27] MEDS: CALCITRIOL 0.25 MCG CAP (S0169) PO SCH (08:41)
[2020-06-27] MEDS: APIXABAN 5 MG TAB (ELIQUIS) PO SCH ×2 (08:41→20:56)
[2020-06-27] MEDS: CLOPIDOGREL 75 MG TAB PO SCH (08:42)
[2020-06-27] MEDS: bisoproloL fumarate 10 MG TAB PO SCH ×2 (08:47→20:56)
--- NOTE | 2020-06-27 08:49 | IPNPDOC ---
Text Note Date of Service The patient was seen on 06/27/20. NOTE Vascular surgery. Dr. Ariza Patient seen and examined status post left BKA 06/20/20, history of right BKA. He received his stump needle bar molder for the right lower extremity today. His swelling in both stumps appears to be improved today, we have encouraged him to continue with elevation and avoid sitting for long periods of time with the stumps dependent. The patient was also placed on IV Lasix as per hospitalist. On the left BKA, the patient developed blisters on the flap and some surrounding erythema. The erythema had appeared to be worsening yesterday and the patient was placed on oral Levaquin renally dosed. The erythema appears improved today, the blistered areas appear unchanged. Healing remains tenuous. The incision and stump are thoroughly cleaned and redressed with Xeroform over the blisters and incision, 4 x 4's, kerlix and an Julio wrap. The patient tolerated the dressing change well and was left with his leg positioned with his knee straight and e levated on 2 pillows. Will follow. VS,Fishbone, I+O VS, Fishbone, I+O Laboratory Tests 06/26/20 09:43 Vital Signs Date Time Temp Pulse Resp B/P (MAP) Pulse Ox O2 Delivery O2 Flow Rate FiO2 06/27/20 01:38 16 Room Air 06/26/20 20:25 69 129/73 06/26/20 06:00 98.1 96 I&O- Last 24 Hours up to 6 AM 06/27/20 05:59 Intake Total 2050 ml Output Total 2325 ml Balance -275 ml Abril Veras Jun 27, 2020 08:49
[2020-06-27] MEDS: LOSARTAN 50MG TABLET PO SCH (08:51)
[2020-06-27] MEDS: OMEPRAZOLE 20 MG CAP PO SCH (08:52)
[2020-06-27] MEDS: ATORVASTATIN 20 MG TAB PO SCH (20:56)
[2020-06-27] MEDS: SERTRALINE HCL 25 MG TABLET PO SCH (20:57)
[2020-06-28] VITALS (10 sets, daily range): BP systolic 130–174; BP diastolic 73–96
[2020-06-28] MEDS: FUROSEMIDE 40MG/4ML VIAL (J1940) IV SCH ×2 (03:12→12:56)
[2020-06-28 06:11] LABS: BASO # 0.1 10^3/uL (0.0-0.2); BASO % 0.5 % (0.0-1.0); EOS # 0.2 10^3/uL (0.0-0.5); EOS % 1.9 % (0.0-3.0); HEMATOCRIT 31.5 % (42.0-52.0); HEMOGLOBIN 9.3 g/dl (13.5-17.5); LYMPH # 0.8 10^3/uL (1.5-5.0); LYMPH % 7.4 % (24.0-44.0); MEAN CORPUSCULAR HEMOGLOBIN 27.9 pg (27.0-33.0); MEAN CORPUSCULAR HGB CONC 29.5 g/dl (32.0-36.5); MEAN CORPUSCULAR VOLUME 94.6 fl (80.0-96.0); MONO # 0.7 10^3/uL (0.0-0.8); MONO % 6.9 % (0.0-5.0); NEUTROPHILS # 8.4 10^3/uL (1.5-8.5); NEUTROPHILS % 82.5 % (36.0-66.0); PLATELET COUNT, AUTOMATED 473 10^3/uL (150-450); RED BLOOD COUNT 3.33 10^6/uL (4.30-6.10); WHITE BLOOD COUNT 10.2 10^3/uL (4.0-10.0)
[2020-06-28 06:29] LABS: ALBUMIN 1.9 GM/DL (3.2-5.2); BILIRUBIN,TOTAL 0.5 MG/DL (0.2-1.0); CALCIUM LEVEL 9.4 MG/DL (8.5-10.1); CREATININE FOR GFR 1.89 MG/DL (0.70-1.30); GLOMERULAR FILTRATION RATE 39.1 (>56); MAGNESIUM LEVEL 1.9 MG/DL (1.8-2.4); POTASSIUM SERUM 4.1 MEQ/L (3.5-5.1); TOTAL PROTEIN 6.3 GM/DL (6.4-8.2)
[2020-06-28] MEDS: HumaLOG INSULIN (NovoLOG) PER UNIT SC SCH ×3 (09:11→17:30)
[2020-06-28] MEDS: CLOPIDOGREL 75 MG TAB PO SCH (09:12)
[2020-06-28] MEDS: CALCITRIOL 0.25 MCG CAP (S0169) PO SCH (09:12)
[2020-06-28] MEDS: buPROPion **XL** TABLET 150MG (WELLBUTRIN XL) PO SCH (09:12)
[2020-06-28] MEDS: allopurinoL 100 MG TAB PO SCH (09:12)
[2020-06-28] MEDS: APIXABAN 5 MG TAB (ELIQUIS) PO SCH ×2 (09:12→20:26)
[2020-06-28] MEDS: OMEPRAZOLE 20 MG CAP PO SCH (09:12)
[2020-06-28] MEDS: LOSARTAN 50MG TABLET PO SCH (09:13)
[2020-06-28] MEDS: bisoproloL fumarate 10 MG TAB PO SCH ×2 (09:13→20:28)
[2020-06-28] MEDS: LevoFLOXacin 750 MG TABLET PO SCH (14:43)
[2020-06-28] MEDS ORDERED: NOREPINEPHRINE BITARTRATE 8 MG in D5W 492 ML IV SCH ×2 (19:30)
[2020-06-28 19:37] LABS: HEMATOCRIT 35.2 % (42.0-52.0); HEMOGLOBIN 9.8 g/dl (13.5-17.5); MEAN CORPUSCULAR HEMOGLOBIN 28.3 pg (27.0-33.0); MEAN CORPUSCULAR HGB CONC 27.8 g/dl (32.0-36.5); MEAN CORPUSCULAR VOLUME 101.7 fl (80.0-96.0); PLATELET COUNT, AUTOMATED 427 10^3/uL (150-450); RED BLOOD COUNT 3.46 10^6/uL (4.30-6.10)
[2020-06-28] MEDS ORDERED: MIDAZOLAM INJ 2MG/2ML VIAL (J2250 PER 1MG) IV ONE ×2 (19:45→20:20)
[2020-06-28] MEDS ORDERED: MIDAZOLAM INJ 2MG/2ML VIAL (J2250 PER 1MG) As Ordered ONE ×2 (19:46→20:16)
[2020-06-28 19:50] LABS: ABG BASE EXCESS -15.7 (-2.0-2.0); ABG HCO3 11.7 MEQ/L (22.0-26.0); ABG O2 SATURATION 99.7 % (95.0-99.0); ABG PARTIAL PRESSURE CO2 32.9 mmHg (35.0-45.0); ABG PARTIAL PRESSURE O2 514.6 mmHg (75.0-100.0); ABG STANDARD HCO3 12.4 MEQ/L (22.0-26.0); ABG TOTAL CO2 12.7 MEQ/L (22.0-29.0)
[2020-06-28 19:54] LABS: ABG pH (ARTERIAL) 7.167 UNITS (7.350-7.450)
[2020-06-28] MEDS ORDERED: MIDAZOLAM INJ 2MG/2ML VIAL (J2250 PER 1MG) IV PRN (20:00)
[2020-06-28] MEDS ORDERED: MORPHINE 2 MG/ML 1ML VIAL (J2270) IV PRN (20:00)
[2020-06-28] MEDS ORDERED: IPRATROPIUM 0.5MG/ALBUTEROL 2.5MG INH SOL UD 3ML (DUONEB) NEB SCH (20:00)
[2020-06-28 20:08] LABS: ALBUMIN 1.8 GM/DL (3.2-5.2); BILIRUBIN,TOTAL 0.4 MG/DL (0.2-1.0); CALCIUM LEVEL 8.9 MG/DL (8.5-10.1); GLOMERULAR FILTRATION RATE 36.6 (>56); MAGNESIUM LEVEL 2.4 MG/DL (1.8-2.4); POTASSIUM SERUM 4.2 MEQ/L (3.5-5.1); TOTAL PROTEIN 6.2 GM/DL (6.4-8.2); TROPONIN I 0.05 NG/ML (< 0.10)
[2020-06-28] MEDS: ATORVASTATIN 20 MG TAB PO SCH (20:28)
[2020-06-28] MEDS: SERTRALINE HCL 25 MG TABLET PO SCH (20:28)
[2020-06-28] MEDS ORDERED: CHLORHEXIDINE GLUCONATE 0.12 % 15ML UDC (PERIDEX ORAL RINSE) MT SCH (21:00)
[2020-06-28] MEDS ORDERED: HYOSCYAMINE SULFATE 0.125 MG SUBL TABLET PO PRN (21:15)
[2020-06-28] MEDS ORDERED: ONDANSETRON 4MG/2ML VIAL IV PRN (21:15)
[2020-06-28] MEDS ORDERED: LORazepam 2 MG/ML VIAL IV PRN (21:15)
[2020-06-28] MEDS ORDERED: SCOPOLAMINE 1MG TRANSDERMAL PATCH TOP PRN (21:15)
[2020-06-28] MEDS ORDERED: BISACODYL 10 MG SUPP PR PRN (21:15)
[2020-06-28] MEDS ORDERED: ATROPINE SULFATE 1% OP SOLN 2 ML BTL SL PRN (21:15)
--- NOTE | 2020-06-28 21:25 | REPVR ---
PROCEDURE INFORMATION: Exam: XR Chest, 1 View Exam date and time: 06/28/2020 7:49 PM Age: 59 years old Clinical indication: Device placement; Ett placement (vent status); Additional info: S/P intubation TECHNIQUE: Imaging protocol: XR of the chest Views: 1 view. COMPARISON: NM Chest, 1 view 06/26/2020 6:45 PM FINDINGS: Tubes, catheters and devices: A loop recorder is noted over the left chest. ET tube in position with the tip approximately 3.0 cm above the rani. Lungs: There are no interval infiltrates. Pleural space: Unremarkable. No pleural effusion. No pneumothorax. Heart/Mediastinum: Mild cardiomegaly. Bones/joints: Status post sternotomy. Surgical clips are noted in the sternal notch. IMPRESSION: 1. Interval placement of an ET tube since 06/26/2020 with the tip approximately 3.0 cm above the rani. 2. Otherwise stable chest. Electronically signed by: Edward Roberto On 06/28/2020 21:24:50 PM
--- NOTE | 2020-06-28 23:29 | IPNPDOC ---
Date Seen The patient was seen on 06/28/20. Progress Note Max Cart called by RN after being found unresponsive. On arrival to bedside, ACLS protocol in process, Dr. Foreman at bedside. ROSC obtained. Intubated. CBC, CMP, mg, LA, trop, BNP ordered. Transfered to ICU. Echo had been performed oin 06/27/20. Spoke to Dr. Quiñones, echo reviewed. EF 25%. Significant wall motion abnormality. Elevated pulmonary artery pressures to 65 mmHg. Family was contacted, spokje with father Mariano Sanchez. Discussed events, answered all questions in detail. Discussed worsened cardiac function. Significant vascular morbidity. Low chance of extubation, meaningful recovery. Father would like to proceed with comfort measures. Patient has no spouse, no children. Brother, Jalen Sanchez was not reached by telephone. Discussed with father at length, would like to discontinue the vent. MOLST form signed, witnessed. PET TRAINING INSTRUCTOR ordered placed. Extubation orders placed. VS, I&O, 24H, Fishbone Vital Signs/I&O Vital Signs Date Time Temp Pulse Resp B/P (MAP) Pulse Ox O2 Delivery O2 Flow Rate FiO2 06/28/20 14:00 97.7 65 18 130/76 (94) 96 Room Air I&O- Last 24 Hours up to 6 AM 06/28/20 06:00 Intake Total 1950 ml Output Total 3175 ml Balance -1225 ml Laboratory Data 24H LABS Laboratory Tests 2 06/28/20 05:12: Immature Granulocyte % (Auto) 0.8, Neutrophils (%) (Auto) 82.5H, Lymphocytes (%) (Auto) 7.4L, Monocytes (%) (Auto) 6.9H, Eosinophils (%) (Auto) 1.9, Basophils (%) (Auto) 0.5, Neutrophils # (Auto) 8.4, Lymphocytes # (Auto) 0.8L, Monocytes # (Auto) 0.7, Eosinophils # (Auto) 0.2, Basophils # (Auto) 0.1, Nucleated Red Blood Cells % (auto) 0.7H, Anion Gap 8, Glomerular Filtration Rate 39.1L, Calcium Level 9.4, Magnesium Level 1.9, Total Bilirubin 0.5, Aspartate Amino Transf (AST/SGOT) 35, Alanine Aminotransferase (ALT/SGPT) 27, Alkaline Phosphatase 255H, WJ-[id number]-L-Type Natriuretic Peptide 57501N, Total Protein 6.3L, Albumin 1.9L, Albumin/Globulin Ratio 0.4 06/28/20 05:48: Bedside Glucose (Misc Panel) 204H 06/28/20 11:49: Bedside Glucose (Misc Panel) 204H 06/28/20 16:26: Bedside Glucose (Misc Panel) 114H 06/28/20 19:23: Nucleated Red Blood Cells % (auto) 2.6H, Anion Gap 16, Glomerular Filtration Rate 36.6L, Lactic Acid Level 11.7*H, Calcium Level 8.9, Magnesium Level 2.4, Total Bilirubin 0.4, Aspartate Amino Transf (AST/SGOT) 53H, Alanine Aminotransferase (ALT/SGPT) 33, Alkaline Phosphatase 244H, Troponin I 0.05, Total Protein 6.2L, Albumin 1.8L, Albumin/Globulin Ratio 0.4 06/28/20 19:40: Blood Gas Bicarbonate Standard 12.4L, Arterial Blood pH 7.167*L, Arterial Blood Partial Pressure CO2 32.9L, Arterial Blood Partial Pressure O2 514.6H, Arterial Blood Total CO2 12.7L, Arterial Blood HCO3 11.7L, Arterial Blood Base Excess - 15.7L, Arterial Blood Oxygen Saturation 99.7H CBC/BMP Laboratory Tests 06/28/20 05:12 06/28/20 19:23 Microbiology Microbiology 06/25/20 Stool Occult Blood (RAJAT) - Final, Complete 06/24/20 Stool Occult Blood (RAJAT) - Final, Complete 06/23/20 Stool Occult Blood (RAJAT) - Final, Complete 06/18/20 Gram Stain - Final, Complete 06/18/20 Wound Culture - Final, Complete Klebsiella Oxytoca Esbl 06/18/20 Anaerobic Culture - Final, Complete JESSY LOVE MD Jun 28, 2020 23:29
[2020-06-29] MEDS ORDERED: MORPHINE 4 MG/ML 1ML VIAL/SYRINGE (J2270) IV PRN
[2020-06-29] MEDS ORDERED: LORazepam 2 MG/ML VIAL IV PRN
[2020-06-29] MEDS ORDERED: MORPHINE 2 MG/ML 1ML VIAL (J2270) IV PRN ×2 (01:45)
[2020-06-29] MEDS ORDERED: PANTOPRAZOLE 40MG VIAL (C9113 PER 1) IV SCH (09:00)
--- NOTE | 2020-06-29 15:51 | CCN ---
CRITICAL CARE NOTE DATE: 06/28/2020 SUBJECTIVE: I was called to see this 59-year-old male in cardiopulmonary arrest. Last seen by nursing eating dinner, he was found down in his room unresponsive, and pulseless. He was brought back to his bed, CPR was started and on my arrival, CPR was in progress. The monitor was in place showing asystole. An amp of epinephrine was given an amp of bicarb and complexes were appreciated on the monitor once again. CPR continued and a rhythm was restored, which appeared to be sinus rhythm. A #8 endotracheal tube was placed during the arrest and bag valve ventilation was performed. As palpable pulses were appreciated, the patient was transferred immediately to the intensive care unit. OBJECTIVE: VITAL SIGNS: I accompanied the patient down to the ICU and at that point, his temperature was 97, pulse rate 110, respirations 18/18 delivered with no spontaneous breaths, and blood pressure 168/100. HEENT: His pupils were small, but responsive. The tube was at 23 cm and orogastric tube was in place. HEART: Sounds were regular, distant. LUNGS: Breath sounds were coarse and diminished. ABDOMEN: Soft and obesity. EXTREMITIES: He is a bilateral amputee. Pulses were appreciated in the wrists. DIAGNOSTIC STUDIES: A chest x-ray showed the endotracheal tube to be in good position. Interstitium was prominent and the heart size large. There was evidence of previous cardiac bypass surgery with sternotomy wires. Stat labs were obtained. His white cell count is 14, hemoglobin 9.8, hematocrit 35.2, platelet count 427,000. Sodium was 137, potassium 4.2, chloride 101, CO2 of 20, BUN 56, creatinine of 2, glucose 175. His lactic acid was 11. Calcium 8.9. His alkaline phosphatase 244, albumin 1.8. Arterial blood gases were performed with pH of 7.16, pCO2 of 32, pO2 of 514. ASSESSMENT AND PLAN: The primary problem requiring critical attention is cardiopulmonary arrest. We will check troponins and an EKG. Initiate mechanical ventilation and increase minute ventilation to compensate for the profound metabolic acidosis. Lactic acidosis: Etiology is unclear. Possibly related to malperfusion following the cardiac arrest, which may have been precipitated by cardiac rhythm issue. We will continue resuscitation and recheck arterial blood gases. Diabetes mellitus: We will arrange for fingerstick blood sugars and coverage every six hours. Deep vein thrombosis (DVT) prophylaxis will be addressed with heparin. Ulcer prophylaxis will be addressed with Protonix. The patient will require central access. His condition is critical. Prognosis is poor. Two hours and 27 minutes were spent in the provision of bedside critical care and coordination exclusive of any procedure time.
--- NOTE | 2020-06-29 15:51 | RO ---
OPERATIVE NOTE DATE OF OPERATION: / / PREOPERATIVE DIAGNOSIS: Apnea. PROCEDURE PERFORMED: Emergent endotracheal tube intubation. PROCEDURE: The patient was seen during cardiopulmonary resuscitation, was found to be apneic. Bag valve mask ventilation was being performed. Effective air movement was difficult. A laryngoscope was prepared and placed into the patient's airway. The vocal cords were visualized. A #8 endotracheal tube was placed through the vocal cords to a distance of 24 cm. The balloon was inflated. CO2 was appreciated on the monitor and the catheter in the endotracheal tube was secured in place. Good bilateral breath sounds were appreciated and subsequent imaging identified adequate placement of the endotracheal tube.
--- NOTE | 2020-06-30 16:22 | ECHO ---
DATE OF PROCEDURE: 06/27/2020 Age: 59 Gender: Male REFERRING PROVIDER: Bishop Cagle MD. PATIENT LOCATION: Room 4202. REASON FOR STUDY: Shortness of breath. 2D MEASUREMENTS: IVS 1.2 cm LV 5.7 cm LVPW 1.1 cm LA 5.0 cm Aorta 3.1 cm IVC 1.2 cm DOPPLER MEASUREMENT Peak velocity across the aortic valve 0.96 msec Peak velocity across the LVOT 0.67 msec Maximum tricuspid valve velocity 3.6 msec Mitral E 0.92 Mitral A 0.39 with a ratio of 2.3 2D COMMENTS: 1. Normal left ventricular size with a mildly enlarged left ventricular and a mildly depressed global left ventricular systolic function. There was mild global hypokinesis. The estimated left ventricular ejection fraction is 45% to 50%. 2. Mildly to moderately enlarged left atrium. The right atrium also appeared to be mildly enlarged. The right ventricle wall was not well visualized and the left ventricle appeared to be also mildly enlarged. 3. The atrial septum appeared to be normal without evidence of defect or shunt. 4. Normal aortic root. 5. Trace pericardial effusion noted. No evidence of cardiac tamponade. 6. Mildly calcified aortic valve with normal leaflet excursion. Moderately calcified mitral annulus with normal anterior mitral valve leaflet motion. Normal tricuspid valve and pulmonic valve. The proximal pulmonary artery branches were not well visualized. 7. The inferior vena cava was normal in size, central venous pressure is most likely normal. DOPPLER: It detects mild mitral regurgitation, moderate tricuspid regurgitation. The calculated pulmonary artery systolic pressure varies between 60 to 70 mmHg. IMPRESSION: 1. Mild global left ventricular systolic dysfunction with a mildly enlarged left ventricle and mild global hypokinesis. 2. Mitral annular calcification with mild mitral regurgitation and mildly to moderately enlarged left atrium. 3. Moderate tricuspid regurgitation with moderate to severe pulmonary hypertension and dilated right heart chambers. There are also findings that may be related to right ventricular systolic dysfunction. 4. Trace pericardial effusion noted. MTDD
--- NOTE | 2020-06-30 20:31 | ECGEPIP ---
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 Electronically Signed on 06-30-2020 20:31:41 EST by Rafael Quiñones
--- NOTE | 2020-07-28 04:10 | DS.PDOC ---
Discharge Summary General Date of Admission Jun 17, 2020 at 01:33 Date of Discharge 06/29/20 Discharge Summary PROCEDURES PERFORMED DURING STAY: [None]. ADMITTING DIAGNOSES: L 5th toe osteomyelitis Uncontrolled HTN Mild transaminitis Chronic L lower extremity ulcers CAD s/p CABG, 3 REJI PAD IDDM with retinopathy and neuropathy Chronic heart failure with preserved EF and heart failure with recovered EF Pulmonary HTN Chronic iron deficiency anemia CKD 3 Chronic persistent afib Gout Anxiety and depression Class 1 obesity BMI 32.6 DISCHARGE DIAGNOSES: Cardiogenic shock L 5th toe osteomyelitis Uncontrolled HTN Mild transaminitis Chronic L lower extremity ulcers CAD s/p CABG, 3 REJI PAD IDDM with retinopathy and neuropathy Chronic heart failure with preserved EF and heart failure with recovered EF Pulmonary HTN Chronic iron deficiency anemia CKD 3 Chronic persistent afib Gout Anxiety and depression Class 1 obesity BMI 32.6 COMPLICATIONS/CHIEF COMPLAINT: Diabetic Ulcer Of Left Lower Leg, Non-Healing.... HISTORY OF PRESENT ILLNESS: This 59-year-old gentleman has a long and complicated history of lower extremity wounds. He has a history right lower extremity wounds which progressed to the point that he had his toes amputated and eventually a right BKA in 2010. With regards to his left leg he had his left first, second and fourth toes amputated 10 years ago, followed by a bypass procedure in the left lower extremity 10 years ago. Last year he developed arterial ulcers on his left lower extremity and has been seeing to manage the ulcers. On march 13, he was admitted to [facility] for management of sepsis 2/2 infected left foot ulcers. During his stay, the wounds were debridement by Dr. Del Rosario blood cultures were negative, but the cultures grew coagulase-negative staph. His course was complicated by atrial fibrillation with RVR, cardiac arrest which per the patient was due to sepsis, acute ventilator dependent respiratory failure, acute on chronic renal failure, metabolic encephalopathy and NSTEMI. On on March 27, he was transferred to [facility] for PCI with stent placement. The patient seems to have recovered quite well after his prolonged hospital stay and denies having any residual neurological deficits. On May 10 he had a left lower extremity angiogram done by Dr. Jack; he his also scheduled to see Dr. Ariza next Tuesday. He has followed up with Dr. Malone; on May 19 he had debridement of the wound on the dorsal aspect of his left foot. Yesterday he saw her Stillerman again and had his dressings changed. At around 4:30 PM he developed chills that wouldn't go away despite putting on warm clothing. He checked his temperature noted that it was 100.1. After his last hospital stay, he was nervous that he might be developing sepsis again, therefore he decided to come to the hospital for evaluation. HOSPITAL COURSE: Mr. Sanchez is a 59-year-old with a history of chronic left lower extremity ulcers, IDDM, CAD/CABG, HFpEF/ HFrecEF, PAD, HTN, CKD, A. fib, MAVIS, multiple toe amputations, and right BKA, who presented with c/o of fevers, chills and concerns that he might have sepsis again; he will be admitted for management of left fifth toe osteomyelitis. Podiatry recommended left BKA. Patient evaluated by vascular surgery who agreed left BKA is appropriate. Patient underwent BKA 06/21/2020, surgery went well. Patient made ALC on 06/21/2020. Patient was awaiting transfer to rehab. [facility] was called for cardiopulmonary arrest, possibly secondary to a rhythm issue. ROSC was obtained, patient was intubated and was taken to ICU on mechanical ventilation. Echo had been performed oin 06/27/20. Spoke to Dr. Quiñones, echo reviewed. EF 25 %. Significant wall motion abnormality. Elevated pulmonary artery pressures to 65 mmHg. Family was contacted, spoke with father Mariano Sanchez. Discussed events, answered all questions in detail. Discussed worsened cardiac function. Significant cardiac morbidity. Father would like to proceed with comfort measures. Patient has no spouse, no children. Brother, Jalen Sanchez was not re ached by telephone. Discussed with father at length, would like to discontinue the vent. MOLST form signed, witnessed. [employer] ordered placed. Extubation orders placed. Patient on 06/29/20 at 0213. # HFpE: Continue home meds. Continue Bisoprolol, Losartan. Echo Jun 2016 EF 45-50%, severe hypokinesis, grade 2 DD, mod/severe pulm HTN Echo Jul 2016 EF 60-65%, septal and apical wall motion abnormalities, Grade 2 DD - suspect worsened cardiac function given significant anasarca - check BNP (06/26) - [id number] - repeat echo ordered - start IV diuresis lasix 60 mg IV TID # Left fifth toe osteomyelitis S/p BKA on 06/20/2020: Vanc and zosyn dc post op. s/p L BKA. Eliquis resumed. Vascular surgery following. Per Dr. Ariza, possible stump suture infection, based on prior cultures, klebsiella sens to levaquin. Resumed, renally disease. # HTN: Losartan up to 50. Continue lasix. Bisoprolol. # Chronic left lower extremity ulcers: underwent L BKA # Hyponatremia: NS. Monitor BMP. # Atrial fibrillation: Eliquis, bisoprolol. Rate controlled and anti coagulated. # CAD, CABG s/p 3 March 2020: Atorvastatin, Bisoprolol, Clopidogrel. # PAD: Atorvastatin, Clopidogrel # Dyslipidemia: statin # IDDM with retinopathy and neuropathy: ISS. Frequent Accu-Cheks. Hypoglycemic precautions. # Chronic Iron deficiency anemia: monitor hgb. Stop iron, ferritin level high. # CKD 3/4: Calcitriol. Avoid nephrotoxins. # Mild transaminitis: resolved. # Gout: allopurinol # Anxiety/depression: bupropion, sertraline # Class 1 obesity: BMI of 32.6 complicates care. Fu PCP for sleep apnea screening & to discuss certified medical dosimetrist & exercise DISCHARGE MEDICATIONS: Please see below. ALLERGIES: Please see below. PHYSICAL EXAMINATION ON DISCHARGE: LABORATORY DATA: Please see below. IMAGING: CXR (06/28/20): 1. Interval placement of an ET tube since 06/26/2020 with the tip approximately 3.0 cm above the rani. 2. Otherwise stable chest. CXR (06/26/20): Mild cardiomegaly. Prior sternotomy. Loop recorder. Vascular cephalization. Otherwise no acute disease. L foot (06/16/20): 1. Radiographic evidence for osteomyelitis involving the lateral aspect of the base of the proximal phalanx of the left 5th toe and the base, distal diaphysis, and head of the left 5th metatarsal, with a pathologic fracture involving the lateral aspect of the base of the left 5th metatarsal and ossification of the adjacent soft tissues. 2. Soft tissue ulceration involving the left heel pad with underlying dystrophic calcification. CXR (06/16/20): No radiographic evidence for an acute cardiopulmonary process. DISPOSITION: DISCHARGE CONDITION: [Stable]. TIME SPENT ON DISCHARGE: 25 minutes Discharge Medications Scheduled Allopurinol (Allopurinol) 100 Mg Tab, 100 MG PO DAILY, (Reported) Apixaban (Eliquis) 5 Mg Tab, 5 MG PO BID, (Reported) Atorvastatin Calcium (Atorvastatin Calcium) 40 Mg Tablet, 40 MG PO QHS, (Reported) Bisoprolol Fumarate (Bisoprolol Fumarate) 10 Mg Tablet, 10 MG PO BID, (Reported) Bupropion Hcl (Bupropion Xl) 150 Mg Tab.er.24h, 150 MG PO DAILY, (Reported) Calcitriol (Calcitriol) 0.25 Mcg Cap, 0.25 MCG PO DAILY, (Reported) Clopidogrel Bisulfate (Clopidogrel) 75 Mg Tablet, 75 MG PO DAILY, (Reported) Ferrous Gluconate (Ferrous Gluconate) 324 Mg Tab, 324 MG PO BID, (Reported) Furosemide (Lasix) 40 Mg Tab, 60 MG PO DAILY, (Reported) Insulin Human Lispro (Humalog) 1 Units/0.01 Ml Inj, 1 DOSE SC AC, (Reported) PER SLIDING SCALE VIA INSULIN PUMP Losartan Potassium (Losartan Potassium) 25 Mg Tablet, 25 MG PO DAILY, (Reported) [place]-3 Fatty Acids ([place]-3) 1,000 Mg Capsule, 2,000 MG PO BID, (Reported) Omeprazole (Omeprazole) 40 Mg Cap, 40 MG PO DAILY, (Reported) Sertraline HCl (Sertraline HCl) 25 Mg Tab, 25 MG PO QHS, (Reported) Scheduled PRN Acetaminophen (Acetaminophen) 500 Mg Tablet, 1,000 MG PO Q6H PRN for PAIN, (Reported) Allergies Coded Allergies: No Known Allergies (Verified , 08/14/18) JESSY LOVE MD Jul 28, 2020 04:10
== END 2020-06-29 04:18 | disposition expired | DRG 617 ==
LOC: M ED 19:38 → M ED INP 06-17 01:33 → EEVIPCON 06-17 01:33 → ENRESERV 06-17 03:50 → M MSPAV 06-17 04:09 → M ED INP 06-17 05:14 → M PCU 06-17 05:55 → M MSPAV 06-22 01:09 → M PCU 06-28 19:30 → M MS5PR 06-28 21:33
PROVIDERS: ADMIT Internal Medicine; ATTEND Family Medicine
PROC: 0Y6J0Z3 Detachment at Left Lower Leg, Low, Open Approach (ICD-10-PCS; principal; 2020-06-20 12:15)
DX: E11.621 Type 2 diabetes mellitus with foot ulcer (principal); I48.19 Other persistent atrial fibrillation; M86.172 Other acute osteomyelitis, left ankle and foot; L97.526 Non-pressure chronic ulcer of other part of left foot with bone involvement without evidence of necrosis; I13.0 Hypertensive heart and chronic kidney disease with heart failure and stage 1 through stage 4 chronic kidney disease, or unspecified chronic kidney disease; E87.1 Hypo-osmolality and hyponatremia; I50.32 Chronic diastolic (congestive) heart failure; N18.4 Chronic kidney disease, stage 4 (severe); E11.69 Type 2 diabetes mellitus with other specified complication; F41.9 Anxiety disorder, unspecified; F32.9 Major depressive disorder, single episode, unspecified; E11.319 Type 2 diabetes mellitus with unspecified diabetic retinopathy without macular edema; E66.9 Obesity, unspecified; Z68.32 Body mass index [BMI] 32.0-32.9, adult; M10.9 Gout, unspecified; E11.51 Type 2 diabetes mellitus with diabetic peripheral angiopathy without gangrene; R57.0 Cardiogenic shock; I25.10 Atherosclerotic heart disease of native coronary artery without angina pectoris; D50.9 Iron deficiency anemia, unspecified; I27.20 Pulmonary hypertension, unspecified; E78.5 Hyperlipidemia, unspecified; Z79.899 Other long term (current) drug therapy; Z89.511 Acquired absence of right leg below knee; Z89.422 Acquired absence of other left toe(s); Z87.891 Personal history of nicotine dependence; Z79.4 Long term (current) use of insulin; Z79.01 Long term (current) use of anticoagulants